=== PATIENT | female | born 1970 | race Caucasian/White ===

== ENCOUNTER 2022-08-21 13:46 | Emergency (ER) | payer BC, SELFPAY ==
[2022-08-21 14:06] VITALS: BP 153/93; PULSE 93; RESP 20; TEMP 36.7; O2SAT 95; BMI 41.0
[2022-08-21 14:42] LABS: Glucometer 98 mg/dL (74-106)
--- NOTE | 2022-08-21 14:44 | PC.NURSE ---
PT BEING SEEN FOR BILAT LOWER EXT SWELLING AND CHRONIC PVD NO WOUNDS/DRAINAGE NOTED AT THIS TIME NO INJURY BS CHECKED PER DR MICHELLE TEJADA, BS 98.
--- NOTE | 2022-08-21 14:46 | ED.LOWEXI1 ---
HPI - Extremity Injury (Lower) General Chief Complaint: Extremity Injury, Lower Stated Complaint: LOWER SWELLING AND PAIN Time Seen by Provider: 08/21/22 14:11 Source: patient Mode of arrival: walk-in Limitations: no limitations History of Present Illness HPI Narrative: Patient is a 51-year-old female whose coming in today complaining of acute on chronic leg edema. Patient also has acute on chronic plantar fasciitis. Patient showed me a picture of her lower foot/ankle last evening, it was more swollen than it is today. 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 Patient states that she's been serving for over 30 years. Patient had plantar fasciitis for over 20-30 years. Patient has been told to find a job but she has not. Patient seen her PCP in podiatry for plantar fasciitis. Patient does take furosemide 20 mg daily. Patient's PCP is Dr. Welch. Patient is here because the right lower leg swelling is causing some mild pain. No significant unilateral swelling,no chest pain, no shortness of breath, no fever, chills, no other acute complaints. Related Data Home Medications Medication Instructions Recorded Confirmed albuterol sulfate 90 mcg/actuation 1 puff inhalation Q4H PRN 08/21/22 08/21/22 aerosol inhaler shortness of breath or wheezing alprazolam 0.5 mg tablet 0.5 mg PO TID PRN anxiety 08/21/22 08/21/22 dextroamphetamine-amphetamine ER 30 mg PO DAILY 08/21/22 08/21/22 30 mg 24hr capsule,extend release estradiol 0.025 mg/24 hr weekly 1 patch transdermal DAILY 08/21/22 08/21/22 transdermal patch fluoxetine 20 mg capsule 20 mg PO DAILY 08/21/22 08/21/22 furosemide 20 mg tablet 20 mg PO DAILY 08/21/22 08/21/22 gabapentin 300 mg capsule 300 mg PO Q12H 08/21/22 08/21/22 hydrocodone 10 mg-acetaminophen 1 tab PO Q6H PRN pain 08/21/22 08/21/22 325 mg tablet levothyroxine 100 mcg tablet 100 mcg PO DAILY 08/21/22 08/21/22 tizanidine 4 mg tablet 4 mg PO .night time 08/21/22 08/21/22 zolpidem 12.5 mg tablet,extended 12.5 mg PO DAILY 08/21/22 08/21/22 release,multiphase Allergies Allergy/AdvReac Type Severity Reaction Status Date / Time No Known Drug Allergies Allergy Verified 08/21/22 14:05 Review of Systems ROS Narrative All systems are negative except as noted/marked. All systems reviewed and otherwise negative. Exam Narrative Exam Narrative: Nurses note and vital signs reviewed and patient is not hypoxic. General: The patient appears well and in no apparent distress. Patient is resting comfortably on cart. Patient is not toxic, lethargic, or listless Skin: Warm, dry, no pallor noted. There is no rash noted. No petechiae, purpura. Head: Normocephalic, atraumatic Eye: Normal conjunctiva, no drainage, EOMI. PERRL Ears, Nose, Mouth, and Throat: oral mucosa is moist. Nares patent. Mouth without vesicles. Cardiovascular: Regular Rate and Rhythm, no murmur, gallop, rub Respiratory: Patient is in no distress, no accessory muscle use, lungs are clear to auscultation, no wheezing, rales or rhonchi Back: non-tender, no CVA tenderness bilaterally to percussion. No CT LS midline pain GI: soft, no tenderness to palpation, no masses appreciated. No rebound, guarding, or rigidity noted. No flank pain bilateral, No distention Musculoskeletal: Patient has full range of motion of all of the extremities, no motor, sensory, or focal neurological deficits. Patient has no pain to the posterior aspect of bilateral calves, popliteal fossa, and posterior thighs. no pitting edema to bilateral lower extremities. Neurological: A&O x3, normal speech Psychiatric: Cooperative Constitutional Vital Signs - 24 hr 08/21/22 14:06 Temperature 98.1 F Pulse Rate [Monitor] 93 H Respiratory Rate 20 Blood Pressure [Right Arm] 153/93 H Pulse Oximetry 95 Oxygen Delivery Method Room Air Course Vital Signs Vital signs: Vital Signs Temperature 98.1 F 08/21/22 14:06 Pulse Rate 93 H 08/21/22 14:06 Respiratory Rate 20 08/21/22 14:06 Blood Pressure 153/93 H 08/21/22 14:06 Pulse Oximetry 95 08/21/22 14:06 Oxygen Delivery Method Room Air 08/21/22 14:06 Temperature 98.1 F 08/21/22 14:06 Pulse Rate 93 H 08/21/22 14:06 Respiratory Rate 20 08/21/22 14:06 Blood Pressure 153/93 H 08/21/22 14:06 Pulse Oximetry 95 08/21/22 14:06 Oxygen Delivery Method Room Air 08/21/22 14:06 MDM - Extremity Injury (Lower) MDM Narrative Medical decision making narrative: 10 a 50 minutes was spent talking to patient about education for peripheral edema, things that she can do at home and in talking about the [employer] football 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 Patient will start to elevate her legs at nighttime either with lifts at the end of her 0 gravity bed or incline her feet at least 1-2 feet above her heart wall she sleeping help with some of the peripheral edema. Patient is going to increase her Lasix from 20 mg a 40 mg only for the next 3 days. Patient will follow-up with Dr. Welch on Wednesday. Education was done on ice, stretching, and possibly using and start wearing CROCS for her 20-30 year symptoms of plantar fasciitis. Discussions of waiting tables and walking on hard ground for that amount of time was discussed. Patient was very thankful for help. No acute indication for testing at this time. Lab Data Labs: Lab Results 08/21/22 Range/Units 14:39 POC Glucose 98 (74-106) mg/dL Discharge Plan Discharge Chief Complaint: Extremity Injury, Lower Clinical Impression: Plantar fasciitis, Edema, peripheral Patient Disposition: Home, Self-Care Time of Disposition Decision: 14:51 Prescriptions / Home Meds: No Action albuterol sulfate 90 mcg/actuation HFA aerosol inhaler 1 puff INHALATION Q4H PRN (Reason: shortness of breath or wheezing) alprazolam 0.5 mg tablet 0.5 mg PO TID PRN (Reason: anxiety) dextroamphetamine-amphetamine 30 mg capsule,extended release 24hr 30 mg PO DAILY estradiol 0.025 mg/24 hr patch weekly 1 patch transdermal DAILY fluoxetine 20 mg capsule 20 mg PO DAILY furosemide 20 mg tablet 20 mg PO DAILY gabapentin 300 mg capsule 300 mg PO Q12H hydrocodone-acetaminophen 10-325 mg tablet 1 tab PO Q6H PRN (Reason: pain) levothyroxine 100 mcg tablet 100 mcg PO DAILY tizanidine 4 mg tablet 4 mg PO .night time zolpidem 12.5 mg tablet,ext release multiphase 12.5 mg PO DAILY Instructions: Plantar Fasciitis (ED), Edema (ED) Additional Instructions: For 3 days, including today; Wednesday, Wednesday, Wednesday, double your dose of forsemide. so take 40 mg today, tomorrow, and Wednesday. Follow-up with Dr. Welch for any other recommendations. Try CROCS for your plantar fasciitis chronic as discussed Stand Alone Forms: Portal Instructions Referrals: ELKIN WELCH [Primary Care Provider] - 1 week Discharge Date/Time: 08/21/22 15:02
== END 2022-08-21 15:02 | disposition home or self-care (01) ==
PROVIDERS: Emergency Provider Emergency Medicine; PCP Internal Medicine
DX: M72.2 Plantar fascial fibromatosis (principal); R60.9 Edema, unspecified; Z79.899 Other long term (current) drug therapy; Z79.890 Hormone replacement therapy
CPT/HCPCS: 36415; 82948; 99282

== ENCOUNTER 2023-05-18 14:09 | Outpatient (OUT) | payer BC, SELFPAY ==
--- NOTE | 2023-05-18 14:14 | MM_ITS ---
Patient Name: BLANKA VALENTIN MR#: [id number] : 1970 Exam Date: 05/18/2023 Ordering Doctor: DR ANTHONY BALES RADIOLOGY REPORT PROCEDURE: MM TOMOSYNTHESIS SCREENING BI COMPARISON: MG MAMM SCREEN PIERRE W CAD, 01/09/2020. MG MAMM SCREEN 3D PIERRE CAD, 04/07/2022. INDICATIONS: Screening Calculator Name NCI Breast Cancer Risk Assessment Tool 5 Year Breast Cancer Risk 1.20% Lifetime Breast Cancer Risk 9.40% Personal Breast Cancer No Personal Ovarian Cancer No Treatments None Family Cancers None LOCATION: [facility] BREAST COMPOSITION: Scattered areas fibroglandular density. FINDINGS: DIAGNOSTIC CATEGORY 1--NEGATIVE. NO CHANGE FROM COMPARISON ASSESSMENT. Scattered benign-appearing calcifications are present. Scattered benign-appearing lymph nodes are present. RIGHT BREAST: No significant suspicious finding. LEFT BREAST: No significant suspicious finding. RECOMMENDATIONS: ROUTINE MAMMOGRAM AND CLINICAL EVALUATION IN 12 MONTHS. PLEASE NOTE: A NORMAL MAMMOGRAM DOES NOT EXCLUDE THE POSSIBILITY OF BREAST CANCER. A CLINICALLY SUSPICIOUS PALPABLE LUMP SHOULD BE BIOPSIED. Dictated by: Ancelmo Montano MD on 05/18/2023 at 15:50 Approved by: Ancelmo Montano MD on 05/18/2023 at 15:51
== END 2023-05-18 14:10 | disposition home or self-care (01) ==
LOC: MAMMO 14:09
PROVIDERS: PCP Internal Medicine; Visit Provider Physician Assistant
DX: Z12.31 Encounter for screening mammogram for malignant neoplasm of breast (principal)
CPT/HCPCS: 77063; 77067

== ENCOUNTER 2024-04-28 21:34 | Emergency (ER) | payer BC, SELFPAY ==
[2024-04-28 21:39] VITALS: BP 152/87; PULSE 81; TEMP 36.6; O2SAT 99; BMI 43.0
--- OUTSIDE RECORDS SUMMARY | 2024-04-28 21:43 | XMS_ITS | CCD ---
Author Organization [facility] CliniSynv Care Team Providers Care Warehouse Logistics Coordinator Name Role Phone PROVIDER, UNKNOWN Attending Unavailable PROVIDER, UNKNOWN Admitting Unavailable YURI, DR GRANGER Attending Unavailable YURI, DR GRANGER Consulting Unavailable YURI, DR GRANGER Primary Care Unavailable YURI, DR GRANGER Admitting Unavailable CHALREY, DR NORA Gayle Consulting Unavailable JOSELIN Salcedo Primary Care Provider [phone] MD Shay Patel Emergency Provider DO Louis Beal Admit Provider DO Louis Beal Attending Provider DO Louis Beal Attending Provider MD Nicholas Man Emergency Provider BLANE Mathew Attending Provider [phone] DO Alex Sierra Attending Provider Erick Salcedo MD Unavailable Erick Salcedo MD Primary Care Provider Wednesday PAPIER MACHE' MOLDER, Prachi Unavailable JOSELIN Salcedo Primary Care Provider MD Shay Patel Emergency Provider DO Louis Beal Attending Provider MD Nicholas Man Emergency Provider [phone] BLANE Mathew Attending Provider DO Alex Sierra Attending Provider Erick Salcedo II Primary Care Provider Shay Patel MD Emergency Provider [phone] Louis Beal DO Attending Provider Nicholas Man MD Emergency Provider Quincy DOPSTER-C, Martine Everett Attending Provider [phone] Alex Sierra DO Attending Provider CRIS MORAN Attending Unavailable AVRIL CLAUDIO Attending Unavailable EMY AMADOR Attending Unavailable AVRIL CLAUDIO Referring Unavailable CRIS MORAN Attending Unavailable CRIS MORAN Attending Unavailable CRIS MORAN Attending Unavailable Salcedo , Erick Primary Care Provider Alex Sierra DO Attending Provider Self, Referral Attending Provider Unavailable Nicholas Man Admitting Unavailable Nicholas Man Attending Unavailable Salcedo, Erick Primary Care Unavailable Mariela, Alex A Attending Unavailable Mariela, Alex A Admitting Unavailable Salcedo, Erick Primary Care Unavailable Lian, Louis A Attending Unavailable Louis Beal A Admitting Unavailable Salcedo, Erick Primary Care Unavailable Salcedo, Erick Primary Care Unavailable Mariela, Alex A Attending Unavailable Mariela, Alex A Admitting Unavailable Quincy, Martine Everett Admitting Unavailable Quincy, Matrine Everett Attending Unavailable Salcedo, Erick Primary Care Unavailable Mariela, Alex A Admitting Unavailable Mariela, Alex A Attending Unavailable Salcedo, Erick Primary Care Unavailable Mariela, Alex A Admitting Unavailable Mariela, Alex A Attending Unavailable Salcedo, Erick Primary Care Unavailable Mariela, Alex A Attending Unavailable Mariela, Alex A Admitting Unavailable Salcedo, Erick Primary Care Unavailable Self, Referral Admitting Unavailable Self, Referral Attending Unavailable Salcedo, Erick Primary Care Unavailable Shay Patel Admitting Unavailable Shay Patel Attending Unavailable Salcedo, Erick Primary Care Unavailable Dean DOPSTER, Cris Manzano Unavailable Lorrie CORDOVA, Pippa Unavailable [phone] Wednesday Prachi STEPHENSON Unavailable Allergies Allergy Classification Reported Allergen(s) Allergy Type Date of Onset Reaction(s) Facility (16 sources) Codeine Drug Allergy 4 Unknown Reaction The Repository (20 sources) methylPREDNISolo ne; Translations: [methylprednisol one] Drug Allergy 4 Other [facility] (20 sources) Codeine Drug Allergy 3 Unknown [facility] (20 sources) Penicillin G Drug Allergy 3 Unknown [facility] (1 source) Codeine Drug Allergy 4 [facility] Repository Medications Current Medications Medication Drug Class(es) Dates Sig (Normalized) Sig (Original) acetaminophen 500 mg oral tablet (20 sources) Start: 12-07-2023 take 1 tablet by mouth every six hours as needed for pain Acetaminophen 500 mg tablet Active 500 MG PO Q6H as needed for Pain December 06, 2023 11:00pm Start: 11-10-2023 take 1 tablet by cameron th every eight hours as needed GNP PAIN RELIEF EX-STRENGTH 500 MG tablet Take 500 mg by mouth every 8 (eight) hours if needed 11/10/2023 Active Start: 11-10-2023 take 2 tablets by mo uth every eight hours as needed for pain Acetaminophen (Tylenol Extra Strength) 500 mg tablet Active 1000 MG PO .every 8 hrs as needed for pain 180 November 09, 2023 11:00pm [id number] 200 actuat albuterol 0.09 mg/actuat metered dose inhaler (20 sources) beta2-Adrenergic Agonist Start: 06-24-2023 take 1 puff(s) by inhalation every four hours as needed albuterol HFA 90 mcg/act inhaler Indications: Acute bronchospasm INHALE 1 PUFF INTO THE LUNGS EVERY 4 HOURS NEEDED 18 g 5 06/24/2023 Active ALPRAZolam 0.5 mg oral tablet (20 sources) Benzodiazepine Start: 11-10-2023 Alprazolam Active MG PO November 10, 2023 12:00am Start: 10-28-2023 End: 07-16-2024 take 1 tablet by mouth three times daily as needed for anxiety ALPRAZolam (Xanax) 0.5 MG tablet Indications: Anxiety Take 1 tablet (0.5 mg) by mouth 3 (three) times a day as needed for anxiety 90 tablet 04/17/2024 07/16/2024 Active 24 hr amphetamine aspartate 7.5 mg / amphetamine sulfate 7.5 mg / dextroamphetamine saccharate 7.5 mg / dextroamphetamine sulfate 7.5 mg extended release oral capsule (20 sources) Central Nervous System Stimulant Start: 01-18-2024 End: 04-10-2024 take 1 capsule by mouth once amphetamine-dextroamphetamine XR (Adderall XR) 30 MG 24 hr capsule Indications: Attention deficit hyperactivity disorder (ADHD), unspecified ADHD type (CMS/HCC) Take 1 capsule (30 mg) by mouth every 12 (twelve) hours 60 capsule 04/11/2024 Active Start: 11-22-2023 take 1 capsule by mo ut once amphetamine-dextroamphetamine XR (Addera ll XR) 30 MG 24 hr capsule Indications: Attention deficit hyperactivity disorder (ADHD), unspecified ADHD type (CMS/HCC) Take 1 capsule (30 mg) by mouth every 12 (twelve) hours 60 capsule 11/22/2023 Active Start: 11-11-2023 take 1 capsule by mo [facility] twice daily Dextroamphetamine-Amphetamine 30 mg capsule,extended release 24hr Active 30 MG PO Twice daily November 10, 2023 11:00pm Start: 11-10-2023 take 1 tablet by [facility] once daily Dextroamphetamine-Amphetamine (Adderall) 30 mg tablet Active 30 MG PO Daily November 09, 2023 11:00pm Start: 10-21-2023 End: 01-15-2024 take 1 capsule by mouth once amphetamine-dextroamphetamine XR (Addera ll XR) 30 MG 24 hr capsule Indications: Attention deficit hyperactivity disorder (ADHD), unspecified ADHD type (CMS/HCC) Take 1 capsule (30 mg) by mouth every 12 (twelve) hours 60 capsule 12/17/2023 01/15/2024 Discontinued (Reorder) dicyclomine hydrochloride 10 mg oral capsule (20 sources) Anticholinergic Start: 11-10-2023 take 1 capsule by mouth three times daily Dicyclomine 10 mg capsule Active 10 MG PO Three times daily November 09, 2023 11:00pm 168 hr estradiol 0.11039 mg/hr transdermal system (20 sources) Estrogen Start: 12-27-2023 estradiol (Climara) 0.025 MG/24HR Indications: Symptomatic menopausal or female climacteric states Place 1 patch on the skin 1 (one) time per week 12 patch 2 12/27/2023 Active Start: 11-10-2023 Estradiol 0.02 5 mg/24 hr patch weekly Active 1 PATCH TOPICAL .qweekly November 09, 2023 11:00pm Start: 11-10-2023 Estradiol Acti ve 1 PATCH TOPICAL .qweekly November 09, 2023 11:00pm Start: 07-26-2023 End: 12-27-2023 estradiol (Climara) 0.025 MG /24HR Indications: Symptomatic menopausal or female climacteric states APPLY 1 PATCH TO SKIN ONCE A WEEK 12 patch 2 07/26/2023 12/27/2023 Discontinued (Reorder) FLUoxetine 40 mg oral capsule (20 sources) Serotonin Reuptake Inhibitor Start: 11-10-2023 Fluoxetine Active MG PO November 10, 2023 12:00am Start: 05-11-2023 take 1 capsule by mo uth once daily FLUoxetine (PROzac) 40 MG capsule Indications: Adjustment disorder with depressed mood (CMS/HCC) TAKE 1 CAPSULE BY MOUTH EVERY DAY FOR 90 DAYS 90 capsule 3 05/11/2023 Active Start: 09-04-2022 take 1 capsule by mo uth once daily FLUoxetine (PROzac) 20 MG capsule Indications: Adjustment disorder with depressed mood (CMS/HCC) TAKE 1 CAPSULE BY MOUTH EVERY DAY 90 capsule 1 09/04/2022 Active furosemide 20 mg oral tablet (20 sources) Loop Diuretic Start: 11-10-2023 Furosemide Act gabriela MG PO November 10, 2023 12:00am Start: 07-26-2023 take 1 tablet by cameron once daily as needed for edema furosemide (Lasix) 20 MG tablet Indications: Localized edema TAKE 1 TABLET BY MOUTH EVERY DAY NEEDED FOR EDEMA 100 tablet 3 07/26/2023 Active gabapentin 300 mg oral capsule (20 sources) Anti-epileptic Agent Start: 11-10-2023 take 1 capsule by mouth once daily Gabapentin 300 mg capsule Active 300 MG PO Daily November 09, 2023 11:00pm Start: 02-11-2023 take 1 capsule by mo uth twice daily gabapentin (Neurontin) 300 MG capsule Indications: Cervical paraspinal muscle spasm TAKE 1 CAPSULE BY MOUTH TWICE DAILY 180 capsule 4 02/11/2023 Active levothyroxine sodium 0.1 mg oral tablet (20 sources) l-Thyroxine Start: 11-10-2023 Levothyroxine Active MCG PO November 10, 2023 12:00am Start: 01-15-2023 End: 02-01-2024 take 1 tablet by mouth once daily in the morning levothyroxine (Synthroid, Levoxyl) 100 MCG tablet Indications: Hypothyroidism, unspecified (CMS/HCC) TAKE 1 TABLET BY MOUTH EVERY DAY IN THE MORNING ON EMPTY STOMACH 100 tablet 3 02/01/2024 Active loratadine 10 mg oral tablet (20 sources) Start: 11-10-2023 take 1 tablet by mouth once daily Loratadine (Allergy Relief (Loratadine)) 10 mg tablet Active 10 MG PO Daily November 09, 2023 11:00pm oxyCODONE hydrochloride 10 mg oral tablet (20 sources) Opioid Agonist Start: 12-14-2023 End: 05-02-2024 take 1 tablet by mouth every six hours for pain oxyCODONE (Roxicodone) 10 MG immediate release tablet Indications: Closed displaced fracture of right patella, unspecified fracture morphology, sequela Take 1 tablet (10 mg) by mouth every 6 (six) hours if needed for severe pain for up to 7 days 28 tablet 04/25/2024 05/02/2024 Active Start: 12-07-2023 End: 01-18-2024 take 1 tablet by mouth every six hours as needed for pain Oxycodone 5 mg tablet Discontinued 5 MG PO Q6H as needed for Pain 40 December 10, 2023 January 18, 2024 1:46pm Start: 11-10-2023 End: 01-18-2024 take 1 tablet by mouth every four hours as needed for pain Oxycodone 5 mg tablet Discontinued 5 MG PO Q4H as needed for Pain 42 7 December 02, 2023 January 18, 2024 1:46pm Dispense quantity of forty two tablets S82.009A, Z98.890 Tirzepatide (Weight Loss) (14 sources) Start: 11-10-2023 Tirzepatide (W eight Loss) (Zepbound) 5 mg/0.5 mL pen injector Active 5 MG SUBCUT every week November 09, 2023 11:00pm On Hold: not taking Start: 11-10-2023 Tirzepatide (W eight Loss) (Zepbound) 5 mg/0.5 mL pen injector Active 5 MG SUBCUT every week November 10, 2023 12:00am On Hold: not taking Start: 11-10-2023 Tirzepatide (W eight Loss) (Zepbound) 5 mg/0.5 mL pen injector Active 5 MG SUBCUT every week November 10, 2023 12:00am Tirzepatide-Weight Management (Zepbound) 5 MG/0.5ML solution auto-injector (20 sources) Start: 10-28-2023 inject 5 mg by subcutaneous injection every week Tirzepatide-Weight Management (Zepbound) 5 MG/0.5ML solution auto-injector Indications: Obesity (BMI 35.0-39.9 without comorbidity) Inject 5 mg under the skin 1 (one) time per week 2 mL 10/28/2023 Active tiZANidine 4 mg oral tablet (20 sources) Central alpha-2 Adrenergic Agonist Start: 11-10-2023 take 1 tablet by mouth once daily at bedtime Tizanidine 4 mg tablet Active 4 MG PO Daily at bedtime November 09, 2023 11:00pm Start: 11-10-2023 Tizanidine Act gabriela MG PO November 10, 2023 12:00am Start: 02-11-2023 take 1 tablet by cameron th three times daily tiZANidine (Zanaflex) 4 MG tablet Indications: Degenerative disc disease, cervical TAKE 1 TABLET BY MOUTH THREE TIMES A DAY 270 tablet 4 02/11/2023 Active zolpidem tartrate 12.5 mg extended release oral tablet (20 sources) gamma-Aminobutyric Acid-ergic Agonist Start: 11-10-2023 Zolpidem Active MG PO November 10, 2023 12:00am Start: 10-28-2023 End: 12-27-2023 take 1 tablet by mouth at bedtime zolpidem CR (Ambien CR) 12.5 MG ER tablet Indications: Primary insomnia Take 1 tablet (12.5 mg) by mouth at bedtime 30 tablet 5 12/27/2023 Active Completed/Discontinued Medications Medication Drug Class(es) Dates Sig (Normalized) Sig (Original) acetaminophen 325 mg / HYDROcodone bitartrate 5 mg oral tablet (16 sources) Opioid Agonist Start: 11-06-2023 End: 11-11-2023 take 1 tablet by mouth every four to six hours as needed for pain Hydrocodone-Acetami nophen 5-325 mg tablet Discontinued 1 TAB PO EVERY 4-6 HOURS as needed for Pain 14 2 November 06, 2023 November 11, 2023 10:31am Start: 10-28-2023 End: 11-27-2023 take 1 tablet by mouth every six hours for pain HYDROcodone-acetaminophen ([place]) 10-325 MG tablet Indications: Degeneration of cervical intervertebral disc Take 1 tablet by mouth every 6 (six) hours if needed for severe pain (Back pain) 120 tablet 10/28/2023 11/27/2023 Active Albuterol-Budesonide (12 sources) Start: 11-10-2023 End: 11-10-2023 Albuterol-Budesonide Discont inued 2 INH INHALATION Six times daily November 09, 2023 11:00pm November 10, 2023 11:10am Start: 11-10-2023 End: 11-10-2023 Albuterol-Budesonide Discont inued 2 INH INHALATION Six times daily November 10, 2023 12:00am November 10, 2023 12:10pm Start: 11-10-2023 Albuterol-Mazon sonide Active 2 INH INHALATION Six times daily November 10, 2023 12:00am Albuterol-Budesonide 90-80 mcg/actuation HFA aerosol inhaler (2 sources) Start: 11-10-2023 End: 11-10-2023 Albuterol-Budesonide 90-80 mcg/actuation HFA aerosol inhaler Discontinued 2 INH INHALATION Six times daily as needed November 09, 2023 11:00pm November 10, 2023 11:10am aspirin 81 mg chewable tablet (8 sources) Platelet Aggregation Inhibitor, Nonsteroidal Anti-inflammator y Drug Start: 12-07-2023 End: 03-20-2024 take 1 tablet by mouth twice daily Aspirin 81 mg tablet,chewable Discontinued 81 MG PO Twice daily 60 December 06, 2023 11:00pm March 20, 2024 3:49pm cephalexin 500 mg oral capsule (11 sources) Cephalosporin Antibacterial Start: 11-18-2023 End: 12-21-2023 take 2 capsules by mouth twice daily Cephalexin 500 mg capsule Discontinued 1000 MG PO Twice daily 09 10November 17, 2023 11:00pm December 21, 2023 1:28pm Start: 11-18-2023 End: 12-21-2023 take 1000 mg by mouth twice daily Cephalexin Discontinued 1000 MG PO Twice daily 09 10November 17, 2023 11:00pm December 21, 2023 1:28pm docusate sodium 100 mg oral capsule (8 sources) Start: 12-07-2023 End: 03-02-2024 take 1 capsule by mouth twice daily as needed for constipation Docusate Sodium (Colace) 100 mg capsule Discontinued 100 MG PO Twice daily as needed for Constipation 20 December 06, 2023 11:00pm March 02, 2024 11:06am doxycycline hyclate 100 mg oral capsule (20 sources) Tetracyclin e-class Drug Start: 12-07-2023 End: 01-18-2024 take 1 capsule by mouth twice daily Doxycycline Hyclate 100 mg capsule Discontinued 100 MG PO Twice daily 25 09December 21, 2023 2:10pm January 18, 2024 1:46pm Start: 12-02-2023 End: 12-21-2023 take 1 tablet by mouth twice daily Doxycycline Hyclate 100 mg tablet Discontinued 100 MG PO Twice daily 14 December 01, 2023 11:00pm December 21, 2023 1:28pm ketorolac tromethamine 10 mg oral tablet (14 sources) Nonsteroidal Anti-inflammatory Drug, Cyclooxygenase Inhibitor Start: 11-10-2023 End: 11-11-2023 take 1 tablet by mouth every eight hours Ketorolac 10 mg tablet Discontinued 10 MG PO Every 8 hours November 09, 2023 11:00pm November 11, 2023 10:31am maximum total duration of 5 days from all oral, intranasal, or parenteral formulations meloxicam 15 mg oral tablet (8 sources) Nonsteroidal Anti-inflammatory Drug Start: 12-07-2023 End: 03-20-2024 take 1 tablet by mouth once daily Meloxicam 15 mg tablet Discontinued 15 MG PO daily 14 December 06, 2023 11:00pm March 20, 2024 3:49pm On Hold: not taking traMADol hydrochloride 50 mg oral tablet (20 sources) Opioid Agonist Start: 11-10-2023 End: 12-21-2023 take 1 tablet by mouth every four hours as needed for pain Tramadol 50 mg tablet Discontinued 50 MG PO Q4H as needed for Pain 42 November 25, 2023 10:55am December 21, 2023 1:28pm Dispense quantity of forty two tablets S82.009A, z98.890 Problems Active Problems Problem Classification Problem Date Documented Da te Episodic/Chronic Adjustment disorders (20 sources) Adjustment disorder; Translations: [Adjustment disorder, unspecified] Onset: 08-12-2022 08-12-2022 Chronic Anxiety disorders (20 sources) Anxiety; Translations: [Anxiety disorder, unspecified] Onset: 08-12-2022 08-12-2022 Chronic Attention-deficit, conduct, and disruptive behavior disorders (20 sources) Attention deficit hyperactivity disorder; Translations: [Attention-deficit hyperactivity disorder, unspecified type] Onset: 08-12-2022 08-12-2022 Chronic Essential hypertension (20 sources) Hypertensive disorder; Translations: [Essential (primary) hypertension] Onset: 08-12-2022 08-12-2022 Chronic Fracture of lower limb (20 sources) Fracture of patella; Translations: [Unspecified fracture of unspecified patella, initial encounter for closed fracture] Onset: 11-12-2023 11-06-2023 Episodic Menopausal disorders (20 sources) Menopausal symptom; Translations: [Menopausal and female climacteric states] Onset: 08-12-2022 08-12-2022 Chronic Miscellaneous mental health disorders (1 source) Primary insomnia; Translations: [Primary insomnia] 12-27-2023 Chronic Other aftercare (5 sources) Encounter for removal of sutures; Translations: [Encounter for removal of sutures] 12-21-2023 Episodic Other gastrointestinal disorders (20 sources) Irritable bowel syndrome; Translations: [Irritable bowel syndrome without diarrhea] Onset: 08-12-2022 08-12-2022 Chronic Other nervous system disorders (11 sources) Postoperative pain ; Translations: [Other acute postprocedural pain] 11-18-2023 Episodic Other nutritional; endocrine; and metabolic disorders (20 sources) Body mass index 30+ - obesity; Translations: [Obesity, unspecified] Onset: 08-12-2022 08-12-2022 Chronic Other screening for suspected conditions (not mental disorders or infectious disease) (4 sources) Encounter for screening mammogram for malignant neoplasm of breast; Translations: [ENC SCR MAMMO MALIG NEOPLASM BREAST] Onset: 04-07-2022 Episodic Other upper respiratory disease (20 sources) Seasonal allergic rhinitis; Translations: [Other seasonal allergic rhinitis] Onset: 08-12-2022 3 Chronic Other upper respiratory infections (20 sources) Sinusitis; Translations: [Chronic sinusitis, unspecified] Onset: 08-12-2022 08-12-2022 Chronic Otitis media and related conditions (14 sources) Dysfunction of eustachian tube; Translations: [Unspecified Eustachian tube disorder, unspecified ear] 11-10-2023 Episodic Residual codes; unclassified (10 sources) Postprocedural state finding; Translations: [Other specified postprocedural states] 12-02-2023 Episodic Residual codes; unclassified (20 sources) Other specified postprocedural states; Translations: [Other postprocedural status] Onset: 02-03-2024 12-02-2023 Episodic Spondylosis; intervertebral disc disorders; other back problems (20 sources) Degeneration of intervertebral disc; Translations: [Degeneration of intervertebral disc] Onset: 08-12-2022 11-10-2023 Chronic Thyroid disorders (20 sources) Acquired hypothyroidism; Translations: [Hypothyroidism, unspecified] Onset: 08-12-2022 08-12-2022 Chronic Urinary tract infections (11 sources) Urinary tract infectious disease; Translations: [Urinary tract infection, site not specified] 11-18-2023 Episodic Past or Other Problems Problem Classification Problem Date Documented Da te Episodic/Chronic Complication of device; implant or graft (1 source) Breakdown (mechanical) of internal fixation device of bone of right lower leg, initial encounter; Translations: [Breakdown (mechanical) of internal fixation device of bone of right lower leg, initial encounter] Onset: 12-08-2023 Episodic Other connective tissue disease (20 sources) Plantar fasciitis; Translations: [Plantar fascial fibromatosis] Onset: 08-12-2022 11-10-2023 Episodic Other connective tissue disease (20 sources) Spasm of cervical paraspinous muscle; Translations: [Other muscle spasm] Onset: 08-12-2022 08-12-2022 Episodic Other connective tissue disease (1 source) Other specified soft tissue disorders; Translations: [Other specified soft tissue disorders] Onset: 11-18-2023 Episodic Other non-traumatic joint disorders (1 source) Pain in right knee; Translations: [Pain in right knee] Onset: 11-18-2023 Episodic Residual codes; unclassified (20 sources) Insomnia; Translations: [Insomnia, unspecified] Onset: 08-12-2022 11-10-2023 Episodic Results Test Name Value Interpretation Reference Range Facility XR knee RT 3V - NOT FOR ER U Harshad 02-03-2024 XR knee RT 3V - NOT FOR ER USE [facility] [address] [place] [id number] XRay Report Signed Patient: Nimo Craft MR#: [id number] 88 : 1970 Acct:[id number] Age/Sex: 53 / F ADM Date: 02/03/24 Loc: [facility] Room: Type: REG CLI Attending Dr: Alex Sierra DO Copies to: Alex Sierra DO Ordering Provider: Alex Sierra DO Date of Service: 02/03/24 XR/XR knee RT 3V - NOT FOR ER USE: OKAY TO BEND KNEE RIGHT KNEE - 3 views CLINICAL HISTORY: Status post ORIF right patella with hardware removal. COMPARISON: Right knee 01/18/2024 FINDINGS: Patella samantha is present with patellar fracture line less conspicuous suggestive of healing response. There is underlying sclerosis. Small joint effusion. Mild degenerative changes. XR/XR knee RT 3V - NOT FOR ER USE IMPRESSION: HEALING PATELLAR FRACTURE. Impression dictated by: Arun Chun Jr., D.O.02/03/2024 3:32 PM Dictation Location: [place] [address] Transcribed By: [facility] 02/03/24 1532 Dictated By: Arun Chun Jr, DO 02/03/24 1531 Signed By: 02/03/24 1532 Normal [facility] XR knee RT 3V - NOT FOR ER U Harshad 01-18-2024 XR knee RT 3V - NOT FOR ER USE [facility] [address] [place] [id number] XRay Report Signed Patient: Nimo Craft MR#: [id number] 88 : 1970 Acct:[id number] Age/Sex: 53 / F ADM Date: 01/18/24 Loc: [facility] Room: Type: REG CLI Attending Dr: Alex Sierra DO Copies to: Alex Sierra DO Ordering Provider: Alex Sierra DO Date of Service: 01/18/24 XR/XR knee RT 3V - NOT FOR ER USE: S82.031A - Displaced transverse fracture of right patella... 3 views right knee plain film COMPARISON: 12/21/2023 HISTORY: Status post ORIF right patellar fracture ACUTE FINDINGS: Stable alignment. Continued healing. DEGENERATIVE CHANGE: Unremarkable SOFT TISSUE FINDINGS: Unremarkable JOINT EFFUSION: None POSTOP CHANGES: None BONE MINERALIZATION: Adequate XR/XR knee RT 3V - NOT FOR ER USE IMPRESSION: Healing patellar fracture. Impression dictated by: Viktor Hong M.D.01/18/2024 4:23 PM Dictation Location: [place] [address] Transcribed By: [facility] 01/18/24 1623 Dictated By: Viktor Hong DO 01/18/241621 Signed By: 01/18/24 1623 Normal [facility] XR knee RT 2Von 12-21-2023 XR knee RT 2V [facility] [address] [place] [address] XRay Report Signed Patient: Nimo Craft MR#: [id number] 88 : 1970 Acct:[id number] Age/Sex: 53 / F ADM Date: 12/21/23 Loc: [facility] Room: Type: [facility] Attending Dr: Alex Sierra DO Copies to: Alex Sierra DO Ordering Provider: Alex Sierra DO Date of Service: 12/21/23 XR/XR knee RT 2V: Z98.890 - Other specified postprocedural states RIGHT KNEE - 2 views CLINICAL HISTORY: Hardware removal partial palatectomy. COMPARISON: Right knee 12/02/2023 FINDINGS: Skin jose and hardware removal is seen since the prior study. Nonunion patellar fracture is seen. Minimal joint effusion. Anterior soft tissue swelling is noted. Joint spaces appear maintained. XR/XR knee RT 2V IMPRESSION: HARDWARE IS NOW BEEN REMOVED. NONUNION PATELLAR FRACTURE IS SEEN. Impression dictated by: Arun Chun Jr., D.OKenia12/21/2023 4:03 PM Dictation Location: [place] [address] Transcribed By: [facility] 12/21/23 1603 Dictated By: Arun Chun Jr, DO 12/21/23 1602 Signed By: 12/21/23 1603 Normal [facility] Amphetamine Screen Ql (U)Ord ered By: Ozzy Morel on 12-08-2023 Amphetamines Ql (U) Amphetamines screen Negativ e [facility] Amphetamines Ql (U) Negative Negative [facility] Barbiturates [Presence] in U rine by Screen methodOrdered By: Ozzy Morel on 12-08-2023 Barbiturates Screen Ql (U) Negative Negative [facility] Barbiturates Screen Ql (U) Barbiturates [Presence] in Urine by Screen method Negative [facility] Benzodiazepines Screen Ql (U )Ordered By: Ozzy Morel on 12-08-2023 Benzodiazepines Ql (U) Positive High Negative [facility] Benzodiazepines Ql (U) Benzodiazepines [Presence] in Urine by Screen method High Negative [facility] Benzoylecgonine [Presence] i n Urine by Screen methodOrdered By: Ozzy Morel on 12-08-2023 Benzoylecgonine Screen Ql (U) Negative Negative [facility] Benzoylecgonine Screen Ql (U) Benzoylecgonine [Presence] in Urine by Screen method Negative [facility] Cannabinoids [Presence] in U rine by Screen methodOrdered By: Ozzy Morel on 12-08-2023 Cannabinoids Screen Ql (U) Positive High Negative [facility] Comment on above: These are unconfirme d results and should not be used for legal purposes. Drug Cut-Off Concentration: AMPH 1000 ng/mL LIZZETTE 200 ng/mL LAWANDA 200 ng/mL COCM 300 ng/mL OP 300 ng/mL PCP 25 ng/mL THC 20 ng/mL Cannabinoids Screen Ql (U) Cannabinoids [Presence] in Urine by Screen method High Negative [facility] Comment on above: These are unconfirme d results and should not be used for legal purposes. Drug Cut-Off Concentration: AMPH 1000 ng/mL LIZZETTE 200 ng/mL LAWANDA 200 ng/mL COCM 300 ng/mL OP 300 ng/mL PCP 25 ng/mL THC 20 ng/mL Drug Screen,Urineon 12-08-19 24 Amphetamine Screen,Urine Negative Normal Negative [facility] Comment on above: Performed By: #### U RDS #### [address] Barbiturate Screen,Urine Negative Normal Negative [facility] Comment on above: Performed By: #### U RDS #### [place] [address] [place] Benzodiazepines Screen,Urine Positive High Negative [facility] Comment on above: Performed By: #### U RDS #### [address] Cannabinoid Screen,Urine Positive High Negative [facility] Comment on above: Result Comment: Thes e are unconfirmed results and should not be used for legal purposes. Drug Cut-Off Concentration: AMPH 1000 ng/mL LIZZETTE 200 ng/mL LAWANDA 200 ng/mL COCM 300 ng/mL OP 300 ng/mL PCP 25 ng/mL THC 20 ng/mL PERFORMED BY: [place] [address] PATHOLOGIST PRICE CHECKER ABDON OLIVER M.D. Performed By: #### U RDS #### [address] Cocaine Screen,Urine Negative Normal Negative [facility] Comment on above: Performed By: #### U RDS #### [address] Opiate Screen,Urine Negative Normal Negative [facility] Comment on above: Performed By: #### U RDS #### [address] Phencyclidine Screen,Urine Negative Normal Negative [facility] Comment on above: Performed By: #### U RDS #### [address] Opiates [Presence] in Urine by Screen methodOrdered By: Ozzy Morel on 12-08-2023 Opiates Screen Ql (U) Negative Negative [facility] Opiates Screen Ql (U) Opiates [Presence] in Urine by Screen method Negative [facility] Phencyclidine Screen Ql (U)O rdered By: Ozzy Morel on 12-08-2023 Phencyclidine Ql (U) Negative Negative [facility] Phencyclidine Ql (U) Phencyclidine [Presence] in Urine by Screen method Negative [facility] XR knee RT 2Von 12-02-2023 XR knee RT 2V [facility] [address] [place] [address] XRay Report Signed Patient: Nimo Craft MR#: [id number] [birth year] : 1970 Acct:[id number] Age/Sex: 53 / F ADM Date: 12/02/23 Loc: [facility] Room: Type: [facility] Attending Dr: Martine ARGUELLES Copies to: BRANDON Bernard Ordering Provider: BRANDON Bernard Date of Service: 12/02/23 XR/XR knee RT 2V: Z98.890 - Other specified postprocedural states RIGHT KNEE - 2 views COMPARISON: 11/10/2023 preoperative and intraoperative CLINICAL DATA: Follow-up patellar fracture. Continued pain and erythema at the incision site. AP and lateral weightbearing views were obtained. There are screws and a anterior plate at the patella. There is a transverse mid to lower patellar fracture. Since the comparison intraoperative study, the fracture is no longer reduced and there is approximately 3 cm of distraction of the fragments. The hardware is associated with the superior pole. The remaining bony structures in the field of view are intact. No dislocation. There is a small knee effusion. Anterior skin jose are again noted. XR/XR knee RT 2V IMPRESSION: INTERVAL HARDWARE FAILURE WITH RECURRENT, PROMINENT DISPLACEMENT OF THE PATELLAR FRACTURE FRAGMENTS, DESCRIBED. Impression dictated by: Avril Snow M.D.12/02/2023 4:02 PM Dictation Location: [place] [address] Transcribed By: [facility] 12/02/23 1602 Dictated By: Avril Snow MD 12/02/23 1556 Signed By: 12/02/23 1602 Normal [facility] US venous duplex LE RTon US venous duplex LE RT [facility] [address] [place] [address] [place] [address] Ultrasound Report Signed Patient: Nimo Craft MR#: [id number] [birth year] : 1970 Acct:[id number] Age/Sex: 53 / F ADM Date: 11/18/23 Loc: ER Room: Type: [facility] ER Attending Dr: Ordering Provider: Nicholas Man MD Date of Service: 11/18/23 US/US venous duplex LE RT: Swelling to the leg Copies to: Nicholas Man MD RIGHT LOWER EXTREMITY VENOUS DUPLEX INDICATION: Right leg edema pain and tenderness. Unilateral right lower extremity venous duplex Doppler study was obtained utilizing B-mode, color- flow and spectral Doppler. FINDINGS: The right common femoral, femoral, and popliteal veins showed adequate compressibility, color-flow and augmentation. The right posterior tibial and peroneal veins were compressible, as well as proximal greater saphenous vein. The contralateral left common femoral vein was compressible with color-flow and augmentation. US/US venous duplex LE RT IMPRESSION: NO EVIDENCE OF DEEP VENOUS THROMBOSIS IN THE RIGHT LOWER EXTREMITY. NO SUPERFICIAL THROMBOPHLEBITIS WAS NOTED. Impression dictated by: Rajan Lynn MD11/19/2023 11:36 AM Dictation Location: [facility]04 Tech: Gina Lanier Transcribed By: [facility] 11/19/23 1136 Dictated By: Rajan Lynn MD 11/19/23 1136 Signed By: 11/19/23 1136 Normal [facility] Appearance of UrineOrdered B y: Nicholas Man on 11-18-2023 Appearance (U) Urine appearance Abnormal [facility] Automated basophil %Ordered By: Nicholas Man on 11-18-2023 Basophils/100 WBC (Bld) 1.4 % Normal . [facility] Comment on above: Performed By: #### B MP, ESR, CBC #### [address] Automated basophil countOrde red By: Nicholas Man on 11-18-2023 Basophils (Bld) [#/Vol] 0.1 10*3/uL Normal 0.0-0.2 [facility] Comment on above: Performed By: #### B MP, ESR, CBC #### [address] Automated blood monocyte cou ntOrdered By: Nicholas Man on 11-18-2023 Monocytes (Bld) [#/Vol] 0.5 10*3/uL Normal 0.0-0.8 [facility] Comment on above: Performed By: #### B MP, ESR, CBC #### [address] Automated eosinophil %Ordere d By: Nicholas Man on 11-18-2023 Eosinophils/100 WBC (Bld) 2.7 % Normal . [facility] Comment on above: Performed By: #### B MP, ESR, CBC #### [address] Automated eosinophil countOr dered By: Nicholas Man on 11-18-2023 Eosinophils (Bld) [#/Vol] 0.2 10*3/uL Normal 0.0-0.45 [facility] Comment on above: Performed By: #### B MP, ESR, CBC #### [address] Automated monocyte %Ordered By: Nicholas Man on 11-18-2023 Monocytes/100 WBC (Bld) 6.3 % Normal . [facility] Comment on above: Performed By: #### B MP, ESR, CBC #### [address] Automated neutrophil %Ordere d By: Nicholas Man on 11-18-2023 Neutrophils/100 WBC (Bld) 68.5 % Normal . [facility] Comment on above: Performed By: #### B MP, ESR, CBC #### [address] Bacteria [Presence] in Urine by AutomatedOrdered By: Nicholas Man on 11-18-2023 Bacteria Auto Ql (U) 3+ [HPF] High None Seen [facility] Bacteria Auto Ql (U) Bacteria [Presence] in Urine by Automated High None Seen [facility] Basic Metabolic Panelon Creatinine Clr Calc Pharmacy 80.15 Normal [facility] Comment on above: Result Comment: PERF ORMED BY: [place] [address] PATHOLOGIST PRICE CHECKER ABDON OLIVER M.D. Performed By: #### B MP, ESR, CBC #### [facility] [address] [place] [address] GFR/1.73 sq M.predicted MDRD (S/P/Bld) [Vol rate/Area] mL/min/{1.73_m2} Normal [facility] Comment on above: Performed By: #### B MP, ESR, CBC #### [address] Basophils Auto (Bld) [#/Vol] Ordered By: Nicholas Man on 11-18-2023 Basophils (Bld) [#/Vol] Automated basoph il count 0.0-0.2 [facility] Basophils/100 WBC Auto (Bld) Ordered By: Nicholas Man on 11-18-2023 Basophils/100 WBC (Bld) Automated basoph il % . [facility] Bilirubin Test strip Ql (U)O rdered By: Nicholas Man on 11-18-2023 Bilirubin Ql (U) Negative Negative [facility] Bilirubin Ql (U) Bilirubin.total [Presence] in Urine by Test strip Negative [facility] Calcium [Mass/volume] in Ser um or PlasmaOrdered By: Nicholas Man on 11-18-2023 Calcium [Mass/Vol] 9.6 mg/dL Normal 8.6-10.3 [facility] Comment on above: Performed By: #### B MP, ESR, CBC #### [facility] [address] [place] [address] Calcium [Mass/Vol] Calcium [Mass/volume] in Serum or Plasma 8.6-10.3 [facility] Carbon dioxide, total [Moles /volume] in Serum or PlasmaOrdered By: Nicholas Man on 11-18-2023 CO2 [Moles/Vol] 26.9 mmol/L Normal 21.0-31.0 [facility] Comment on above: Performed By: #### B MP, ESR, CBC #### [address] CO2 [Moles/Vol] Carbon dioxide, total [Moles/volume] in Serum or Plasma 21.0-31.0 [facility] Chloride [Moles/volume] in S delia or PlasmaOrdered By: Nicholas Man on 11-18-2023 Chloride [Moles/Vol] 100 mmol/L Normal 98-107 [facility] Comment on above: Performed By: #### B MP, ESR, CBC #### [address] Chloride [Moles/Vol] Chloride [Moles/volume] in Serum or Plasma 98-107 [facility] Color Auto (U)Ordered By: Carola Man on 11-18-2023 Color (U) Color of Urine by Auto Yellow [facility] Color of Urine by AutoOrdere d By: Nicholas Man on 11-18-2023 Color (U) Yellow Normal [facility] Comment on above: Order Comment: Name Collection Type:: Clean-Voided Midstream Performed By: #### C UU, ADDONUAPLUS #### [address] Complete Blood Count Auto Di ffon 11-18-2023 Mean Corpuscular HGB Conc 33.4 g/dL Normal 32.0-35.0 [facility] Comment on above: Performed By: #### B MP, ESR, CBC #### [facility] [address] [place] [address] [place] Monocytes/100 WBC (Bld) 18.06 % Normal 0.00-20.00 [facility] Comment on above: Performed By: #### B MP, ESR, CBC #### [address] NRBC% 0.1 /100{WBC} Normal 0-0.5 [facility] Comment on above: Performed By: #### B MP, ESR, CBC #### [facility] [address] [place] [address] [place] Creatinine [Mass/volume] in Serum or PlasmaOrdered By: Nicholas Man on 11-18-2023 Creatinine [Mass/Vol] 0.84 mg/dL Normal 0.60-1.20 [facility] Comment on above: Performed By: #### B MP, ESR, CBC #### [facility] [address] [place] [address] [place] Creatinine [Mass/Vol] Creatinine [Mass/volume] in Serum or Plasma 0.60-1.20 [facility] Dipstick and Microscopicon 0 11-18-2023 Bacteria,Urine 3+ High None Seen [facility] Comment on above: Order Comment: Name Collection Type:: Clean-Voided Midstream Performed By: #### C UU, ADDONUAPLUS #### [facility] [address] Bilirubin,Urine Negative Normal Negative [facility] Comment on above: Order Comment: Name Collection Type:: Clean-Voided Midstream Performed By: #### C UU, ADDONUAPLUS #### [facility] [address] [place] [address] [place] Glucose Ql (U) Normal Normal Normal [facility] Comment on above: Order Comment: Name Collection Type:: Clean-Voided Midstream Performed By: #### C UU, ADDONUAPLUS #### [facility] [address] [place] [address] [place] Hyaline Casts,Urine None Normal 0-8 [facility] Comment on above: Order Comment: Name Collection Type:: Clean-Voided Midstream Result Comment: PERF ORMED BY: [facility] [address] [place] [address] PATHOLOGIST PRICE CHECKER ABDON OLIVER M.D. Performed By: #### C UU, ADDONUAPLUS #### [facility] [address] [place] [address] [place] Nitrite,Urine Positive High Negative [facility] Comment on above: Order Comment: Name Collection Type:: Clean-Voided Midstream Performed By: #### C UU, ADDONUAPLUS #### [address] Occult Blood,Urine 1+ High Negative [facility] Comment on above: Order Comment: Name Collection Type:: Clean-Voided Midstream Result Comment: PERF ORMED BY: [place] [address] PATHOLOGIST PRICE CHECKER ABDON OLIVER M.D. Performed By: #### C UU, ADDONUAPLUS #### [address] RBC,Urine 20-49 High 0-4 [facility] Comment on above: Order Comment: Name Collection Type:: Clean-Voided Midstream Performed By: #### C UU, ADDONUAPLUS #### [address] Specificy [place],Urine 1.012 Normal 1.001-1.030 [facility] Comment on above: Order Comment: Name Collection Type:: Clean-Voided Midstream Performed By: #### C UU, ADDONUAPLUS #### [address] Squamous Epithelial Cell,Urine 1-2 Normal 0-2 [facility] Comment on above: Order Comment: Name Collection Type:: Clean-Voided Midstream Performed By: #### C UU, ADDONUAPLUS #### [address] Urobilinogen,Urine Normal Normal Normal [facility] Comment on above: Order Comment: Name Collection Type:: Clean-Voided Midstream Performed By: #### C UU, ADDONUAPLUS #### [address] WBC CLUMP, Urine Many High None Seen [facility] Comment on above: Order Comment: Name Collection Type:: Clean-Voided Midstream Performed By: #### C UU, ADDONUAPLUS #### [address] WBC,Urine Innumerable High 0-4 [facility] Comment on above: Order Comment: Name Collection Type:: Clean-Voided Midstream Performed By: #### C UU, ADDONUAPLUS #### [address] Eosinophils Auto (Bld) [#/Vo l]Ordered By: Nicholas Man on 11-18-2023 Eosinophils (Bld) [#/Vol] Automated eosinophil count 0.0-0.45 [facility] Eosinophils/100 WBC Auto (Bl d)Ordered By: Nicholas Man on 11-18-2023 Eosinophils/100 WBC (Bld) Automated eosinophil % . [facility] Epithelial cells.squamous [# /area] in Urine sediment by Automated countOrdered By: Nicholas Man on 11-18-2023 Epithelial cells.squamous Auto (Urine sed) [#/Area] 1-2 [HPF] 0-2 [facility] Epithelial cells.squamous Auto (Urine sed) [#/Area] Epithelial cells.squamous [#/area] in Urine sediment by Automated count 0-2 [facility] Erythrocyte Sedimentation Ra carlton 11-18-2023 ESR (Bld) [Velocity] 69 mm/h High 0-29 [facility] Comment on above: Result Comment: PERF ORMED BY: [place] [address] PATHOLOGIST PRICE CHECKER ABDON OLIVER M.D. Performed By: #### B MP, ESR, CBC #### [address] Erythrocyte distribution wid th Auto (RBC) [Ratio]Ordered By: Nicholas Man on 11-18-2023 Erythrocyte distribution width (RBC) [Ratio] Erythrocyte distribution width [Ratio] by Automated count 11.9-15.3 [facility] Erythrocyte distribution wid th [Ratio] by Automated countOrdered By: Nicholas Man on 11-18-2023 Erythrocyte distribution width (RBC) [Ratio] 14.2 % Normal 11.9-15.3 [facility] Comment on above: Performed By: #### B MP, ESR, CBC #### [address] Erythrocyte sedimentation ra te by Photometric methodOrdered By: Nicholas Man on 11-18-2023 ESR Photometric method (Bld) [Velocity] 69 mm/hr High 0-29 [facility] ESR Photometric method (Bld) [Velocity] Erythrocyte sedimentation rate by Photometric method High 0-29 [facility] Erythrocytes [#/area] in Uri ne sediment by Automated countOrdered By: Nicholas Man on 11-18-2023 RBC Auto (Urine sed) [#/Area] 20-49 [HPF] High 0-4 [facility] RBC Auto (Urine sed) [#/Area] Erythrocytes [#/area] in Urine sediment by Automated count High 0-4 [facility] Erythrocytes [#/volume] in B lood by Automated countOrdered By: Nicholas Man on 11-18-2023 RBC (Bld) [#/Vol] 4.30 10*6/uL Normal 3.60-5.00 [facility] Comment on above: Performed By: #### B MP, ESR, CBC #### [facility] [address] Glucose [Mass/volume] in Ser um or PlasmaOrdered By: Nicholas Man on 11-18-2023 Glucose [Mass/Vol] 83 mg/dL Normal 70-100 [facility] Comment on above: ADA recommended refe rence rangeRandom Glucose Reference Range is dependent on time and content of last meal. Glucose of more than 200 mg/dL in a nonstressed, ambulatory subject supports the diagnosis of Diabetes Mellitus. Result Comment: [place] Glucose Reference Range is dependent on time and content of last meal. Glucose of more than 200 mg/dL in a nonstressed, ambulatory subject supports the diagnosis of Diabetes Mellitus. ADA recommended reference range Performed By: #### B MP, ESR, CBC #### [facility] [address] [place] [id number] [place] Glucose [Mass/Vol] Glucose [Mass/volume] in Serum or Plasma 70-100 [facility] Comment on above: ADA recommended refe rence rangeRandom Glucose Reference Range is dependent on time and content of last meal. Glucose of more than 200 mg/dL in a nonstressed, ambulatory subject supports the diagnosis of Diabetes Mellitus. Glucose [Mass/volume] in Uri ne by Test stripOrdered By: Nicholas Man on 11-18-2023 Glucose Test strip (U) [Mass/Vol] Normal mg/dL Normal [facility] Glucose Test strip (U) [Mass/Vol] Glucose [Mass/volume] in Urine by Test strip Normal [facility] Hematocrit Auto (Bld) [Volum e fraction]Ordered By: Nicholas Man on 11-18-2023 Hematocrit (Bld) [Volume fraction] Hematocrit [Volume Fraction] of Blood by Automated count 34.0-46.4 [facility] Hematocrit [Volume Fraction] of Blood by Automated countOrdered By: Nicholas Man on 11-18-2023 Hematocrit (Bld) [Volume fraction] 38.3 % Normal 34.0-46.4 [facility] Comment on above: Performed By: #### B MP, ESR, CBC #### [facility] [address] [place] [address] Hemoglobin Test strip Ql (U) Ordered By: Nicholas Man on 11-18-2023 Hemoglobin Ql (U) 1+ High Negative [facility] Hemoglobin Ql (U) Hemoglobin [Presence] in Urine by Test strip High Negative [facility] Hemoglobin [Mass/volume] in BloodOrdered By: Nicholas Man on 11-18-2023 Hemoglobin (Bld) [Mass/Vol] 12.8 g/dL Normal 11.8-15.4 [facility] Comment on above: Performed By: #### B MP, ESR, CBC #### [facility] [address] [place] [address] Hemoglobin (Bld) [Mass/Vol] Hemoglobin [Mass/volume] in Blood 11.8-15.4 [facility] Hyaline casts [#/area] in Ur ine sediment by Automated countOrdered By: Nicholas Man on 11-18-2023 Hyaline casts Auto (Urine sed) [#/Area] None [LPF] 0-8 [facility] Hyaline casts Auto (Urine sed) [#/Area] Hyaline casts [#/area] in Urine sediment by Automated count 0-8 [facility] Ketones Test strip Ql (U)Ord ered By: Nicholas Man on 11-18-2023 Ketones Ql (U) Ketones [Presence] in Urine by Test strip High Negative [facility] Ketones [Presence] in Urine by Test stripOrdered By: Nicholas Man on 11-18-2023 Ketones Ql (U) 1+ High Negative [facility] Comment on above: Order Comment: Name Collection Type:: Clean-Voided Midstream Performed By: #### C UU, ADDONUAPLUS #### [facility] [address] [place] [address] Laboratory - Microbiology an d Antimicrobial susceptibilityOrdered By: Nicholas Man on 11-18-2023 Bacteria identified Cx Nom (U) Escherichia coli Abnormal [facility] Leukocyte clumps [Presence] in Urine by AutomatedOrdered By: Nicholas Man on 11-18-2023 Leukocyte clumps Auto Ql (U) Many [LPF] High None Seen [facility] Leukocyte clumps Auto Ql (U) Leukocyte clumps [Presence] in Urine by Automated High None Seen [facility] Leukocyte esterase [Presence ] in Urine by Test stripOrdered By: Nicholas Man on 11-18-2023 Leukocyte esterase Test strip Ql (U) 4+ High Negative [facility] Comment on above: Order Comment: Name Collection Type:: Clean-Voided Midstream Performed By: #### C UU, ADDONUAPLUS #### [facility] [address] [place] [address] Leukocyte esterase Test strip Ql (U) Leukocyte esterase [Presence] in Urine by Test strip High Negative [facility] Leukocytes [#/area] in Urine sediment by Automated countOrdered By: Nicholas Man on 11-18-2023 WBC Auto (Urine sed) [#/Area] Innumerable [HPF] High 0-4 [facility] WBC Auto (Urine sed) [#/Area] Leukocytes [#/area] in Urine sediment by Automated count High 0-4 [facility] [place] Leukocytes [#/volume] correc raffi for nucleated erythrocytes in Blood by Automated counOrdered By: Nicholas Man on 11-18-2023 WBC corrected for nucl RBC Auto (Bld) [#/Vol] 8.2 10*3/uL 3.8-11.6 [facility] [place] WBC corrected for nucl RBC Auto (Bld) [#/Vol] Leukocytes [#/volume] corrected for nucleated erythrocytes in Blood by Automated coun 3.8-11.6 [facility] [place] Leukocytes [#/volume] in Blo od by Automated countOrdered By: Nicholas Man on 11-18-2023 WBC (Bld) [#/Vol] 8.2 10*3/uL Normal 3.8-11.6 [facility] Comment on above: Performed By: #### B MP, ESR, CBC #### [facility] [address] Lymphocytes Auto (Bld) [#/Vo l]Ordered By: Nicholas Man on 11-18-2023 Lymphocytes (Bld) [#/Vol] Lymphocytes [#/volume] in Blood by Automated count 1.00-4.8 [facility] [place] Lymphocytes [#/volume] in Bl ood by Automated countOrdered By: Nicholas Man on 11-18-2023 Lymphocytes (Bld) [#/Vol] 1.7 10*3/uL Normal 1.00-4.8 [facility] [place] Comment on above: Performed By: #### B MP, ESR, CBC #### [facility] [address] [place] [address] Lymphocytes/100 WBC Auto (Bl d)Ordered By: Nicholas Man on 11-18-2023 Lymphocytes/100 WBC (Bld) Lymphocytes/100 leukocytes in Blood by Automated count . [facility] [place] Lymphocytes/100 leukocytes i n Blood by Automated countOrdered By: Nicholas Man on 11-18-2023 Lymphocytes/100 WBC (Bld) 21.1 % Normal . [facility] [place] Comment on above: Performed By: #### B MP, ESR, CBC #### [facility] [address] [place] [address] MCH Auto (RBC) [Entitic mass ]Ordered By: Nicholas Man on 11-18-2023 MCH (RBC) [Entitic mass] MCH [Entitic ma ss] by Automated count 24.7-34.3 [facility] [place] MCH [Entitic mass] by Automa raffi countOrdered By: Nicholas Man on 11-18-2023 MCH (RBC) [Entitic mass] 29.8 pg Normal 24.7-34.3 [facility] [place] Comment on above: Performed By: #### B MP, ESR, CBC #### [facility] [address] MCHC Auto (RBC) [Mass/Vol]Or dered By: Nicholas Man on 11-18-2023 MCHC (RBC) [Mass/Vol] 33.4 g/dL 32.0-35.0 [facility] MCHC (RBC) [Mass/Vol] MCHC [Mass/volume] by Automated count 32.0-35.0 [facility] MCV Auto (RBC) [Entitic vol] Ordered By: Nicholas Man on 11-18-2023 MCV (RBC) [Entitic vol] MCV [Entitic volume] by Automated count 80-100 [facility] [place] MCV [Entitic volume] by Auto mated countOrdered By: Nicholas Man on 11-18-2023 MCV (RBC) [Entitic vol] 89.2 fL Normal 80-100 [facility] Comment on above: Performed By: #### B MP, ESR, CBC #### [facility] [address] Monocyte distribution width [Entitic volume] in Blood by AutomatedOrdered By: Nicholas Man on 11-18-2023 Monocyte distribution width Auto (Bld) [Entitic vol] 18.06 % 0.00-20.00 [facility] [place] Monocyte distribution width Auto (Bld) [Entitic vol] Monocyte distribution width [Entitic volume] in Blood by Automated 0.00-20.00 [facility] [place] Monocytes Auto (Bld) [#/Vol] Ordered By: Nicholas Man on 11-18-2023 Monocytes (Bld) [#/Vol] Automated blood monocyte count 0.0-0.8 [facility] [place] Monocytes/100 WBC Auto (Bld) Ordered By: Nicholas Man on 11-18-2023 Monocytes/100 WBC (Bld) Automated monocy te % . [facility] Neutrophils Auto (Bld) [#/Vo l]Ordered By: Nicholas Man on 11-18-2023 Neutrophils (Bld) [#/Vol] Neutrophils [#/volume] in Blood by Automated count 1.8-7.7 [facility] Neutrophils [#/volume] in Bl ood by Automated countOrdered By: Nicholas Man on 11-18-2023 Neutrophils (Bld) [#/Vol] 5.6 10*3/uL Normal 1.8-7.7 [facility] [place] Comment on above: Performed By: #### B MP, ESR, CBC #### [facility] [address] [place] [id number] [place] Neutrophils/100 WBC Auto (Bl d)Ordered By: Nicholas Man on 11-18-2023 Neutrophils/100 WBC (Bld) Automated neutrophil % . [facility] Nitrite Test strip Ql (U)Ord ered By: Nicholas Man on 11-18-2023 Nitrite Ql (U) Positive High Negative [facility] Nitrite Ql (U) Nitrite [Presence] in Urine by Test strip High Negative [facility] No Panel InformationOrdered By: Nicholas Man on 11-18-2023 Estimated GFR (CKD-EPI) > 60.0 mL/Min [facility] [place] [facility] Creatinine Clearance (Chem 80.15 [facility] Nucleated erythrocytes [Pres ence] in Blood by Automated countOrdered By: Nicholas Man on 11-18-2023 Nucleated RBC Auto Ql (Bld) 0.1 /100{WBC} 0-0.5 [facility] [place] Nucleated RBC Auto Ql (Bld) Nucleated erythrocytes [Presence] in Blood by Automated count 0-0.5 [facility] Platelet mean volume Auto (B ld) [Entitic vol]Ordered By: Nicholas Man on 11-18-2023 Platelet mean volume (Bld) [Entitic vol] Platelet mean volume [Entitic volume] in Blood by Automated count 6.3-10.7 [facility] Platelet mean volume [Entiti c volume] in Blood by Automated countOrdered By: Nicholas Man on 11-18-2023 Platelet mean volume (Bld) [Entitic vol] 8.4 fL Normal 6.3-10.7 [facility] Comment on above: Performed By: #### B MP, ESR, CBC #### [facility] [address] [place] [address] [place] Platelets Auto (Bld) [#/Vol] Ordered By: Nicholas Man on 11-18-2023 Platelets (Bld) [#/Vol] Platelets [#/volume] in Blood by Automated count 150-450 [facility] [place] Platelets [#/volume] in Bloo d by Automated countOrdered By: Nicholas Man on 11-18-2023 Platelets (Bld) [#/Vol] 371 10*3/uL Normal 150-450 [facility] [place] Comment on above: Performed By: #### B MP, ESR, CBC #### [facility] [address] Potassium [Moles/volume] in Serum or PlasmaOrdered By: Nicholas Man on 11-18-2023 Potassium [Moles/Vol] 4.2 mmol/L Normal 3.5-5.1 [facility] Comment on above: Performed By: #### B MP, ESR, CBC #### [facility] [address] Potassium [Moles/Vol] Potassium [Moles/volume] in Serum or Plasma 3.5-5.1 [facility] Protein Test strip (U) [Mass /Vol]Ordered By: Nicholas Man on 11-18-2023 Protein (U) [Mass/Vol] Protein [Mass/volume] in Urine by Test strip High Negative [facility] Protein [Mass/volume] in Uri ne by Test stripOrdered By: Nicholas Man on 11-18-2023 Protein (U) [Mass/Vol] 30 mg/dL High Negative [facility] Comment on above: Order Comment: Name Collection Type:: Clean-Voided Midstream Performed By: #### C UU, ADDONUAPLUS #### [place] [address] [place] RBC Auto (Bld) [#/Vol]Ordere d By: Nicholas Man on 11-18-2023 RBC (Bld) [#/Vol] Erythrocytes [#/volume] in Blood by Automated count 3.60-5.00 [facility] Serum or plasma anion gap de terminationOrdered By: Nicholas Man on 11-18-2023 Anion gap [Moles/Vol] 15.3 mmol/L High 6.0-15.0 [facility] Comment on above: Performed By: #### B MP, ESR, CBC #### [facility] [address] Anion gap [Moles/Vol] Serum or plasma anion gap determination High 6.0-15.0 [facility] Sodium [Moles/volume] in Ser um or PlasmaOrdered By: Nicholas Man on 11-18-2023 Sodium [Moles/Vol] 138 mmol/L Normal 136-145 [facility] Comment on above: Performed By: #### B MP, ESR, CBC #### [facility] [address] Sodium [Moles/Vol] Sodium [Moles/volume] in Serum or Plasma 136-145 [facility] [place] Specific gravity Test strip (U) [Rel density]Ordered By: Nicholas Man on 11-18-2023 Specific gravity (U) [Rel density] 1.012 1.001-1.030 [facility] Specific gravity (U) [Rel density] Specific gravity of Urine by Test strip 1.001-1.030 [facility] [place] Urea nitrogen [Mass/volume] in Serum or PlasmaOrdered By: Nicholas Man on 11-18-2023 Urea nitrogen [Mass/Vol] 17 mg/dL Normal 7-25 [facility] [place] Comment on above: Performed By: #### B MP, ESR, CBC #### [facility] [address] [place] [address] Urea nitrogen [Mass/Vol] Urea nitrogen [Mass/volume] in Serum or Plasma 10-06 [facility] [place] Urine Cultureon 11-18-2023 Bacteria identified Cx Nom (U) ORGANISM: Escherichia coli (O:ESCCOL) [place] Count >100,000 Aerobic KIANNA Charge ([id number]) ------ SUSCEPTIBILITY ----- ORGANISM: O:ESCCOL ANTIBIOTIC INTERPRETATION KIANNA Amikacin S <16 Amoxacillin/K Clavulanate S <8 Ampicillin S <8 Ampicillin/Sulbacta m S <4 Aztreonam S <4 Cefazolin S <2 Cefepime S <2 Ceftazidime S <1 Ceftazidime/Avibact am S <4 Ceftolozane/Tazobac milian S <2 Ceftriaxone S <1 Cefuroxime S <4 Ciprofloxacin S <0.25 Ertapenem S <0.5 Gentamicin S <2 Levofloxacin S <0.5 Meropenem S <1 Meropenem/Vaborbact am S <2 Nitrofurantoin S <32 Piperacillin/Tazoba ctam S <8 Tetracycline S <4 Tigecycline S <2 Tobramycin S <2 Trimethoprim/Sulfam ethoxazole S <0.5 S = SUSCEPTIBLE I = INTERMEDIATE R = RESISTANT BLANK = DATA NOT AVAILABLE, OR DRUG NOT ADVISABLE OR TESTED R* = RESISTANCE DUE TO EXTENDED SPECTRUM BETA-LACTAMASES ESBL = EXTENDED SPECTRUM BETA-LACTAMASE TFG = THYMIDINE-DEPENDENT STRAIN SINDY = BETA-LACTAMASE POSITIVE IB = INDUCIBLE BETA-LACTAMASE. APPEARS IN PLACE OF 'S' WITH SPECIES KNOWN TO POSSESS INDUCIBLE BETA-LACTAMASES. POTENTIALLY THEY MAY BECOME RESISTANT TO ALL B-LACTAM DRUGS. PERFORMED BY: [place] [address] PATHOLOGIST PRICE CHECKER ABDON OLIVER M.D. Normal [facility] Comment on above: Performed By: #### C AMARA ALANIZ #### [facility] [address] [place] [address] Urine appearanceOrdered By: Nicholas Man on 11-18-2023 Appearance (U) Turbid Critically abnormal Clear [facility] Comment on above: Order Comment: Name Collection Type:: Clean-Voided Midstream Performed By: #### C LISETTE ALANIZPLUS #### [facility] [address] [place] [address] Urine cultureOrdered By: Kianna Man on 11-18-2023 Bacteria identified Cx Nom (U) Escherichia coli Abnormal [facility] Urine culture routineOrdered By: Nicholas Man on 11-18-2023 Bacteria identified Cx Nom (U) Escherichia coli Abnormal [facility] Urobilinogen Test strip (U) [Mass/Vol]Ordered By: Nicholas Man on 11-18-2023 Urobilinogen (U) [Mass/Vol] Normal mg/dL Normal [facility] Urobilinogen (U) [Mass/Vol] Urobilinogen [Mass/volume] in Urine by Test strip Normal [facility] WBC Auto (Bld) [#/Vol]Ordere d By: Nicholas Man on 11-18-2023 WBC (Bld) [#/Vol] Leukocytes [#/volume] in Blood by Automated count 3.8-11.6 [facility] pH Test strip (U)Ordered By: Nicholas Man on 11-18-2023 pH (U) pH of Urine by Test strip 5.0-9.0 [facility] pH of Urine by Test stripOrd ered By: Nicholas Man on 11-18-2023 pH (U) 8.0 [pH] Normal 5.0-9.0 [facility] Comment on above: Order Comment: Name Collection Type:: Clean-Voided Midstream Performed By: #### C UU, ADDONUAPLUS #### [facility] [address] Amphetamine Screen Ql (U)Ord ered By: WESTON CHAVEZ on 11-10-2023 Amphetamines Ql (U) Amphetamines screen High Negativ e [facility] Amphetamines Ql (U) Positive High Negative [facility] Automated basophil %Ordered By: Louis Beal on 11-10-2023 Basophils/100 WBC (Bld) 0.5 % Normal . [facility] Comment on above: Performed By: #### B MP, CBC #### [facility] [address] Automated basophil countOrde red By: Louis Beal on 11-10-2023 Basophils (Bld) [#/Vol] 0.0 10*3/uL Normal 0.0-0.2 [facility] Comment on above: Result Comment: PERF ORMED BY: [place] [address] PATHOLOGIST PRICE CHECKER ABDON OLIVER M.D. Performed By: #### B MP, CBC #### [facility] [address] Automated blood monocyte cou ntOrdered By: Louis Beal on 11-10-2023 Monocytes (Bld) [#/Vol] 0.4 10*3/uL Normal 0.0-0.8 [facility] Comment on above: Performed By: #### B MP, CBC #### [address] Automated eosinophil %Ordere d By: Louis Beal on 11-10-2023 Eosinophils/100 WBC (Bld) 1.1 % Normal . [facility] Comment on above: Performed By: #### B MP, CBC #### [address] Automated eosinophil countOr dered By: Louis Beal on 11-10-2023 Eosinophils (Bld) [#/Vol] 0.1 10*3/uL Normal 0.0-0.45 [facility] Comment on above: Performed By: #### B MP, CBC #### [facility] [address] [place] [address] Automated monocyte %Ordered By: Louis Beal on 11-10-2023 Monocytes/100 WBC (Bld) 6.5 % Normal . [facility] Comment on above: Performed By: #### B MP, CBC #### [address] Automated neutrophil %Ordere d By: Louis Beal on 11-10-2023 Neutrophils/100 WBC (Bld) 72.4 % Normal . [facility] Comment on above: Performed By: #### B MP, CBC #### [place] [address] [place] Barbiturates [Presence] in U rine by Screen methodOrdered By: WESTON CHAVEZ on 11-10-2023 Barbiturates Screen Ql (U) Negative Negative [facility] Barbiturates Screen Ql (U) Barbiturates [Presence] in Urine by Screen method Negative [facility] Basic Metabolic Panelon 10-14 Creatinine Clr Calc Pharmacy 96.79 Normal [facility] Comment on above: Result Comment: PERF ORMED BY: [place] [address] PATHOLOGIST PRICE CHECKER ABDON OLIVER M.D. Performed By: #### B MP, CBC #### [facility] [address] GFR/1.73 sq M.predicted MDRD (S/P/Bld) [Vol rate/Area] mL/min/{1.73_m2} Normal [facility] Comment on above: Performed By: #### B MP, CBC #### [address] Basophils Auto (Bld) [#/Vol] Ordered By: Lousi Beal on 11-10-2023 Basophils (Bld) [#/Vol] Automated basoph il count 0.0-0.2 [facility] Basophils/100 WBC Auto (Bld) Ordered By: Louis Beal on 11-10-2023 Basophils/100 WBC (Bld) Automated basoph il % . [facility] Benzodiazepines Screen Ql (U )Ordered By: WESTON CHAVEZ on 11-10-2023 Benzodiazepines Ql (U) Positive High Negative [facility] Benzodiazepines Ql (U) Benzodiazepines [Presence] in Urine by Screen method High Negative [facility] Benzoylecgonine [Presence] i n Urine by Screen methodOrdered By: WESTON CHAVEZ on 11-10-2023 Benzoylecgonine Screen Ql (U) Negative Negative [facility] Benzoylecgonine Screen Ql (U) Benzoylecgonine [Presence] in Urine by Screen method Negative [facility] Calcium [Mass/volume] in Ser um or PlasmaOrdered By: Louis Beal on 11-10-2023 Calcium [Mass/Vol] 8.9 mg/dL Normal 8.6-10.3 [facility] Comment on above: Performed By: #### B MP, CBC #### [address] Calcium [Mass/Vol] Calcium [Mass/volume] in Serum or Plasma 8.6-10.3 [facility] Cannabinoids [Presence] in U rine by Screen methodOrdered By: WESTON CHAVEZ on 11-10-2023 Cannabinoids Screen Ql (U) Positive High Negative [facility] Comment on above: These are unconfirme d results and should not be used for legal purposes. Drug Cut-Off Concentration: AMPH 1000 ng/mL LIZZETTE 200 ng/mL LAWANDA 200 ng/mL COCM 300 ng/mL OP 300 ng/mL PCP 25 ng/mL THC 20 ng/mL Cannabinoids Screen Ql (U) Cannabinoids [Presence] in Urine by Screen method High Negative [facility] Comment on above: These are unconfirme d results and should not be used for legal purposes. Drug Cut-Off Concentration: AMPH 1000 ng/mL LIZZETTE 200 ng/mL LAWANDA 200 ng/mL COCM 300 ng/mL OP 300 ng/mL PCP 25 ng/mL THC 20 ng/mL Carbon dioxide, total [Moles /volume] in Serum or PlasmaOrdered By: Louis Beal on 11-10-2023 CO2 [Moles/Vol] 24.2 mmol/L Normal 21.0-31.0 [facility] Comment on above: Performed By: #### B LAURA, CBC #### [facility] [address] [place] [address] CO2 [Moles/Vol] Carbon dioxide, total [Moles/volume] in Serum or Plasma 21.0-31.0 [facility] Chloride [Moles/volume] in S delia or PlasmaOrdered By: Louis Beal on 11-10-2023 Chloride [Moles/Vol] 107 mmol/L Normal 98-107 [facility] Comment on above: Performed By: #### B LAURA, CBC #### [facility] [address] [place] [address] Chloride [Moles/Vol] Chloride [Moles/volume] in Serum or Plasma 98-107 [facility] Complete Blood Count Auto Di ffon 11-10-2023 Mean Corpuscular HGB Conc 33.1 g/dL Normal 32.0-35.0 [facility] Comment on above: Performed By: #### B MP, CBC #### [facility] [address] [place] [address] NRBC% 0.1 /100{WBC} Normal 0-0.5 [facility] Comment on above: Performed By: #### B MP, CBC #### [address] Creatinine [Mass/volume] in Serum or PlasmaOrdered By: Louis Beal on 11-10-2023 Creatinine [Mass/Vol] 0.71 mg/dL Normal 0.60-1.20 [facility] Comment on above: Performed By: #### B MP, CBC #### [address] Creatinine [Mass/Vol] Creatinine [Mass/volume] in Serum or Plasma 0.60-1.20 [facility] Drug Screen,Urineon 11-10-19 24 Amphetamine Screen,Urine Positive High Negative [facility] Comment on above: Performed By: #### U RDS #### [address] Barbiturate Screen,Urine Negative Normal Negative [facility] Comment on above: Performed By: #### U RDS #### [address] Benzodiazepines Screen,Urine Positive High Negative [facility] Comment on above: Performed By: #### U RDS #### [address] Cannabinoid Screen,Urine Positive High Negative [facility] Comment on above: Result Comment: Thes e are unconfirmed results and should not be used for legal purposes. Drug Cut-Off Concentration: AMPH 1000 ng/mL LIZZETTE 200 ng/mL LAWANDA 200 ng/mL COCM 300 ng/mL OP 300 ng/mL PCP 25 ng/mL THC 20 ng/mL PERFORMED BY: [place] [address] PATHOLOGIST PRICE CHECKER ABDON OLIVER M.D. Performed By: #### U RDS #### [address] Cocaine Screen,Urine Negative Normal Negative [facility] Comment on above: Performed By: #### U RDS #### [place] [address] [place] Opiate Screen,Urine Positive High Negative [facility] Comment on above: Performed By: #### U RDS #### [facility] [address] Phencyclidine Screen,Urine Negative Normal Negative [facility] Comment on above: Performed By: #### U RDS #### [facility] [address] ECG 12 lead ECGon 11-10-2023 ECG 12 lead ECG [facility] [place] [address] [place] [address] Electrocardiograph Report Signed Patient: Nimo Craft MR#: [id number] : 1970 Acct:[id number] Age/Sex: 53 / F ADM Date: 11/10/23 Loc: [place] Room: Type: [facility] Attending Dr: Louis Beal DO Ordering Provider: Louis Beal DO Date of Service: 11/10/23 ECG/ECG 12 lead ECG: Pre op Copies to: Test Reason : Blood Pressure : */* mmHG Vent. Rate : 74 BPM Atrial Rate : 74 BPM P-R Int : 146 ms QRS Dur : 84 ms QT Int : 382 ms P-R-T Axes : 65 43 56 degrees QTcB Int : 424 ms Normal sinus rhythm Low voltage QRS Cannot rule out Anterior infarct , age undetermined Abnormal ECG No previous ECGs available Confirmed by Erasmo Barth ([id number]) on 11/10/2023 2:40:10 PM Referred By: Electronically Signed By: Erasmo Barth Transcribed By: MUS Signed By Erasmo Barth MD 11/10/23 1440 Normal [facility] Eosinophils Auto (Bld) [#/Vo l]Ordered By: Louis Beal on 11-10-2023 Eosinophils (Bld) [#/Vol] Automated eosinophil count 0.0-0.45 [facility] Eosinophils/100 WBC Auto (Bl d)Ordered By: Louis Beal on 11-10-2023 Eosinophils/100 WBC (Bld) Automated eosinophil % . [facility] Erythrocyte distribution wid th Auto (RBC) [Ratio]Ordered By: Louis Beal on 11-10-2023 Erythrocyte distribution width (RBC) [Ratio] Erythrocyte distribution width [Ratio] by Automated count 11.9-15.3 [facility] Erythrocyte distribution wid th [Ratio] by Automated countOrdered By: Louis Beal on 11-10-2023 Erythrocyte distribution width (RBC) [Ratio] 14.1 % Normal 11.9-15.3 [facility] Comment on above: Performed By: #### B LAURA, CBC #### [facility] [address] Erythrocytes [#/volume] in B lood by Automated countOrdered By: Louis Beal on 11-10-2023 RBC (Bld) [#/Vol] 4.12 10*6/uL Normal 3.60-5.00 [facility] Comment on above: Performed By: #### B LAURA, CBC #### [facility] [address] [place] [address] [place] Glucose [Mass/volume] in Ser um or PlasmaOrdered By: Louis Beal on 11-10-2023 Glucose [Mass/Vol] 94 mg/dL Normal 70-100 [facility] Comment on above: ADA recommended refe rence rangeRandom Glucose Reference Range is dependent on time and content of last meal. Glucose of more than 200 mg/dL in a nonstressed, ambulatory subject supports the diagnosis of Diabetes Mellitus. Result Comment: [place] Glucose Reference Range is dependent on time and content of last meal. Glucose of more than 200 mg/dL in a nonstressed, ambulatory subject supports the diagnosis of Diabetes Mellitus. ADA recommended reference range Performed By: #### B LAURA, CBC #### [facility] [address] [place] [id number] [facility] Glucose [Mass/Vol] Glucose [Mass/volume] in Serum or Plasma 70-100 [facility] Comment on above: ADA recommended refe rence rangeRandom Glucose Reference Range is dependent on time and content of last meal. Glucose of more than 200 mg/dL in a nonstressed, ambulatory subject supports the diagnosis of Diabetes Mellitus. Hematocrit Auto (Bld) [Volum e fraction]Ordered By: Louis Beal on 11-10-2023 Hematocrit (Bld) [Volume fraction] Hematocrit [Volume Fraction] of Blood by Automated count 34.0-46.4 [facility] Hematocrit [Volume Fraction] of Blood by Automated countOrdered By: Louis Beal on 11-10-2023 Hematocrit (Bld) [Volume fraction] 36.3 % Normal 34.0-46.4 [facility] Comment on above: Performed By: #### B MP, CBC #### [facility] [address] [place] [address] Hemoglobin [Mass/volume] in BloodOrdered By: Louis Beal on 11-10-2023 Hemoglobin (Bld) [Mass/Vol] 12.0 g/dL Normal 11.8-15.4 [facility] Comment on above: Performed By: #### B MP, CBC #### [address] Hemoglobin (Bld) [Mass/Vol] Hemoglobin [Mass/volume] in Blood 11.8-15.4 [facility] Leukocytes [#/volume] correc raffi for nucleated erythrocytes in Blood by Automated counOrdered By: Louis Beal on 11-10-2023 WBC corrected for nucl RBC Auto (Bld) [#/Vol] 6.0 10*3/uL 3.8-11.6 [facility] WBC corrected for nucl RBC Auto (Bld) [#/Vol] Leukocytes [#/volume] corrected for nucleated erythrocytes in Blood by Automated coun 3.8-11.6 [facility] Leukocytes [#/volume] in Blo od by Automated countOrdered By: Louis Beal on 11-10-2023 WBC (Bld) [#/Vol] 6.0 10*3/uL Normal 3.8-11.6 [facility] Comment on above: Performed By: #### B MP, CBC #### [facility] [address] [place] [address] Lymphocytes Auto (Bld) [#/Vo l]Ordered By: Louis Beal on 11-10-2023 Lymphocytes (Bld) [#/Vol] Lymphocytes [#/volume] in Blood by Automated count 1.00-4.8 [facility] Lymphocytes [#/volume] in Bl ood by Automated countOrdered By: Louis Beal on 11-10-2023 Lymphocytes (Bld) [#/Vol] 1.2 10*3/uL Normal 1.00-4.8 [facility] Comment on above: Performed By: #### B MP, CBC #### [facility] [address] [place] [address] Lymphocytes/100 WBC Auto (Bl d)Ordered By: Louis Beal on 11-10-2023 Lymphocytes/100 WBC (Bld) Lymphocytes/100 leukocytes in Blood by Automated count . [facility] Lymphocytes/100 leukocytes i n Blood by Automated countOrdered By: Louis Beal on 11-10-2023 Lymphocytes/100 WBC (Bld) 19.5 % Normal . [facility] Comment on above: Performed By: #### B MP, CBC #### [facility] [address] [place] [address] MCH Auto (RBC) [Entitic mass ]Ordered By: Louis Beal on 11-10-2023 MCH (RBC) [Entitic mass] MCH [Entitic ma ss] by Automated count 24.7-34.3 [facility] MCH [Entitic mass] by Automa raffi countOrdered By: Louis Beal on 11-10-2023 MCH (RBC) [Entitic mass] 29.2 pg Normal 24.7-34.3 [facility] Comment on above: Performed By: #### B MP, CBC #### [facility] [address] [place] [address] MCHC Auto (RBC) [Mass/Vol]Or dered By: Louis Beal on 11-10-2023 MCHC (RBC) [Mass/Vol] 33.1 g/dL 32.0-35.0 [facility] MCHC (RBC) [Mass/Vol] MCHC [Mass/volume] by Automated count 32.0-35.0 [facility] MCV Auto (RBC) [Entitic vol] Ordered By: Louis Beal on 11-10-2023 MCV (RBC) [Entitic vol] MCV [Entitic volume] by Automated count 80-100 [facility] MCV [Entitic volume] by Auto mated countOrdered By: Louis Beal on 11-10-2023 MCV (RBC) [Entitic vol] 88.2 fL Normal 80-100 [facility] Comment on above: Performed By: #### B MP, CBC #### [facility] [address] Monocytes Auto (Bld) [#/Vol] Ordered By: Louis Beal on 11-10-2023 Monocytes (Bld) [#/Vol] Automated blood monocyte count 0.0-0.8 [facility] Monocytes/100 WBC Auto (Bld) Ordered By: Louis Beal on 11-10-2023 Monocytes/100 WBC (Bld) Automated monocy te % . [facility] Neutrophils Auto (Bld) [#/Vo l]Ordered By: Louis Beal on 11-10-2023 Neutrophils (Bld) [#/Vol] Neutrophils [#/volume] in Blood by Automated count 1.8-7.7 [facility] Neutrophils [#/volume] in Bl ood by Automated countOrdered By: Louis Beal on 11-10-2023 Neutrophils (Bld) [#/Vol] 4.3 10*3/uL Normal 1.8-7.7 [facility] Comment on above: Performed By: #### B MP, CBC #### [facility] [address] Neutrophils/100 WBC Auto (Bl d)Ordered By: Louis Beal on 11-10-2023 Neutrophils/100 WBC (Bld) Automated neutrophil % . [facility] No Panel InformationOrdered By: Louis Beal on 11-10-2023 Estimated GFR (CKD-EPI) > 60.0 mL/Min [facility] Creatinine Clearance (Chem 96.79 [facility] Nucleated erythrocytes [Pres ence] in Blood by Automated countOrdered By: Louis Beal on 11-10-2023 Nucleated RBC Auto Ql (Bld) 0.1 /100{WBC} 0-0.5 [facility] Nucleated RBC Auto Ql (Bld) Nucleated erythrocytes [Presence] in Blood by Automated count 0-0.5 [facility] Opiates [Presence] in Urine by Screen methodOrdered By: WESTON CHAVEZ on 11-10-2023 Opiates Screen Ql (U) Positive High Negative [facility] Opiates Screen Ql (U) Opiates [Presence] in Urine by Screen method High Negative [facility] Phencyclidine Screen Ql (U)O rdered By: WESTON CHAVEZ on 11-10-2023 Phencyclidine Ql (U) Negative Negative [facility] Phencyclidine Ql (U) Phencyclidine [Presence] in Urine by Screen method Negative [facility] Platelet mean volume Auto (B ld) [Entitic vol]Ordered By: Louis Beal on 11-10-2023 Platelet mean volume (Bld) [Entitic vol] Platelet mean volume [Entitic volume] in Blood by Automated count 6.3-10.7 [facility] Platelet mean volume [Entiti c volume] in Blood by Automated countOrdered By: Louis Beal on 11-10-2023 Platelet mean volume (Bld) [Entitic vol] 8.7 fL Normal 6.3-10.7 [facility] Comment on above: Performed By: #### B MP, CBC #### [facility] [address] Platelets Auto (Bld) [#/Vol] Ordered By: Louis Beal on 11-10-2023 Platelets (Bld) [#/Vol] Platelets [#/volume] in Blood by Automated count 150-450 [facility] Platelets [#/volume] in Bloo d by Automated countOrdered By: Louis Beal on 11-10-2023 Platelets (Bld) [#/Vol] 268 10*3/uL Normal 150-450 [facility] Comment on above: Performed By: #### B MP, CBC #### [facility] [address] [place] [address] [place] Potassium [Moles/volume] in Serum or PlasmaOrdered By: Louis Beal on 11-10-2023 Potassium [Moles/Vol] 4.4 mmol/L Normal 3.5-5.1 [facility] Comment on above: Performed By: #### B MP, CBC #### [facility] [address] [place] [address] [place] Potassium [Moles/Vol] Potassium [Moles/volume] in Serum or Plasma 3.5-5.1 [facility] RBC Auto (Bld) [#/Vol]Ordere d By: Louis Beal on 11-10-2023 RBC (Bld) [#/Vol] Erythrocytes [#/volume] in Blood by Automated count 3.60-5.00 [facility] Serum or plasma anion gap de terminationOrdered By: Louis Beal on 11-10-2023 Anion gap [Moles/Vol] 11.2 mmol/L Normal 6.0-15.0 [facility] Comment on above: Performed By: #### B MP, CBC #### [facility] [address] [place] [address] [place] Anion gap [Moles/Vol] Serum or plasma anion gap determination 6.0-15.0 [facility] Sodium [Moles/volume] in Ser um or PlasmaOrdered By: Louis Beal on 11-10-2023 Sodium [Moles/Vol] 138 mmol/L Normal 136-145 [facility] Comment on above: Performed By: #### B MP, CBC #### [facility] [address] Sodium [Moles/Vol] Sodium [Moles/volume] in Serum or Plasma 136-145 [facility] Urea nitrogen [Mass/volume] in Serum or PlasmaOrdered By: Louis Beal on 11-10-2023 Urea nitrogen [Mass/Vol] 9 mg/dL Normal 10-06 [facility] Comment on above: Performed By: #### B MP, CBC #### [facility] [address] [place] [address] [place] Urea nitrogen [Mass/Vol] Urea nitrogen [Mass/volume] in Serum or Plasma 10-06 [facility] WBC Auto (Bld) [#/Vol]Ordere d By: Louis Beal on 11-10-2023 WBC (Bld) [#/Vol] Leukocytes [#/volume] in Blood by Automated count 3.8-11.6 [facility] XR knee RT 2Von 11-10-2023 XR knee RT 2V [address] [address] XRay Report Signed Patient: Nimo Craft MR#: [id number] 88 : 1970 Acct:[id number] Age/Sex: 53 / F ADM Date: 11/10/23 Loc: [place] Room: Type: [facility] Attending Dr: Louis Beal DO Copies to: Louis Beal DO Ordering Provider: Louis Beal DO Date of Service: 11/10/23 XR/XR knee RT 2V: ORIF RT PATELLA Intraoperative study. Reason for exam: ORIF right patella Findings: 6 images were obtained intraoperatively. Patellar hardware was placed. Cumulative Air Kerma in mGy: 1.11 mGy XR/XR knee RT 2V Impression: Intraoperative study. Impression dictated by: Arun Chun Jr., D.O.11/10/2023 7:24 PM Dictation Location: [place] [address] Transcribed By: [facility] 11/10/231923 Dictated By: Arun Chun Jr, DO 11/10/231920 Signed By: 11/10/231923 Normal [facility] XR femur RT 2V*on 11-06-2023 XR femur RT 2V* [place] [id number] XRay Report Signed Patient: Nimo Craft MR#: [id number] 88 : 1970 Acct:[id number] Age/Sex: 53 / F ADM Date: 11/05/23 Loc: ER Room: Type: [facility] ER Attending Dr: Copies to: Shay Patel MD Ordering Provider: Shay Patel MD Date of Service: 11/05/23 XR/XR femur RT 2V*: Extremity Injury, Lower XR femur RT 2V* 11/05/2023 11:51 PM SIGNS AND SYMPTOMS: Fall landing on the, unable to straighten PROTOCOL: Frontal and lateral radiographs of the right femur COMPARISON: None FINDINGS: There is a transversely oriented fracture of the patella with the proximal fragment subluxed 3.9 cm cranially. There is a small joint effusion. The femur, tibia, and fibula are intact. The right hip joint space is preserved. XR/XR femur RT 2V* IMPRESSION: There is a transversely oriented fracture of the patella with the proximal fragment subluxed 3.9 cm cranially. Impression dictated by: Misha Bach M.D.11/06/2023 2:26 PM Dictation Location: [facility]-13 Transcribed By: NOAH 11/06/231425 Dictated By: Misha Bach II, MD 11/06/231424 Signed By: 11/06/23 142 Normal [facility] XR knee RT 2Von 11-06-2023 XR knee RT 2V [facility] Main [place] [address] [place] [address] XRay Report Signed Patient: Nimo Craft MR#: [id number] 88 : 1970 Acct:[id number] Age/Sex: 53 / F ADM Date: 11/05/23 Loc: ER Room: Type: [facility] ER Attending Dr: Copies to: Shay Patel MD Ordering Provider: Shay Patel MD Date of Service: 11/05/23 XR/XR knee RT 2V: Extremity Injury, Lower XR knee RT 2V 11/05/2023 11:51 PM SIGNS AND SYMPTOMS: Fall landing on the, unable to straighten PROTOCOL: Frontal and lateral radiographs of the right knee COMPARISON: None FINDINGS: There is a transversely oriented fracture of the patella with the proximal fragment subluxed 3.9 cm cranially. There is a small joint effusion. The femur, tibia, and fibula are intact. XR/XR knee RT 2V IMPRESSION: There is a transversely oriented fracture of the patella with the proximal fragment subluxed 3.9 cm cranially. Impression dictated by: Misha Bach M.D.11/06/2023 2:25 PM Dictation Location: [facility]-13 Transcribed By: NOAH 11/06/231424 Dictated By: Misha Bach II, MD 11/06/231423 Signed By: 11/06/231424 Normal [facility] XR tibia fibula RT 2V*on XR tibia fibula RT 2V* [facility] [place] [address] XRay Report Signed Patient: Nimo Craft MR#: [id number] 88 : 1970 Acct:[id number] Age/Sex: 53 / F ADM Date: 11/05/23 Loc: ER Room: Type: [facility] ER Attending Dr: Copies to: Shay Patel MD Ordering Provider: Shay Patel MD Date of Service: 11/05/23 XR/XR tibia fibula RT 2V*: Extremity Injury, Lower XR tibia fibula RT 2V* 11/05/2023 11:51 PM SIGNS AND SYMPTOMS: Fall landing on the, unable to straighten PROTOCOL: Frontal and lateral radiographs of the right tibia and fibula COMPARISON: None FINDINGS: There is a transversely oriented fracture of the patella with the proximal fragment subluxed 3.9 cm cranially. There is a small joint effusion. The femur, tibia, and fibula are intact. Ankle mortise is preserved. XR/XR tibia fibula RT 2V* IMPRESSION: There is a transversely oriented fracture of the patella with the proximal fragment subluxed 3.9 cm cranially. The tibia and fibula are intact. Impression dictated by: Misha Bach M.D.11/06/2023 2:27 PM Dictation Location: [place] [address] Transcribed By: [facility] 11/06/23 142 Dictated By: Misha Bach II, MD 11/06/231425 Signed By: 11/06/23 142 Normal [facility] MG MAMM SCREEN 3D PIERRE CADon 04-07-2022 MG MAMM SCREEN 3D PIERRE CAD Patient: NIMO CRAFT Exam Date: 04/07/2022 : 1970 Gender:F Ordering : DR ERICK SALCEDO M.D. Admission #: [id number] Family : Order #: [id number] CLICK HERE TO VIEW EXAM RADIOLOGY REPORT PROCEDURE: MAMMOGRAM SCREENING 3D BILATERAL CAD COMPARISON: MG MAMM SCREEN PIERRE W CAD, 04/28/2016. MG MAMM PIERRE SCRN W CAD DIG, 10/11/2014. MG MAMM PIERRE SCRN W CAD DIG, 04/13/2013. MG MAMM SCREEN PIERRE W CAD, 01/09/2020. INDICATIONS: Screening mammography Calculator Name NCI Breast Cancer Risk Assessment Tool 5 Year Breast Cancer Risk 1.20% Lifetime Breast Cancer Risk 9.60% Personal Breast Cancer No Personal Ovarian Cancer No Treatments None Family Cancers None LOCATION: The BREAST COMPOSITION: Scattered areas fibroglandular density. FINDINGS: DIAGNOSTIC CATEGORY 1--NEGATIVE. RIGHT BREAST: No significant suspicious finding. No significant change has occurred. LEFT BREAST: No significant suspicious finding. No significant change has occurred. RECOMMENDATIONS: ROUTINE MAMMOGRAM AND CLINICAL EVALUATION IN 12 MONTHS. PLEASE NOTE: A NORMAL MAMMOGRAM DOES NOT EXCLUDE THE POSSIBILITY OF BREAST CANCER. A CLINICALLY SUSPICIOUS PALPABLE LUMP SHOULD BE BIOPSIED. Dictated by: Nora Powers M.D. on 04/08/2022 at 11:39 Approved by: Nora Powers M.D. on 04/08/2022 at 11:46 Normal The XR Ankle Complete Left*on XR Ankle Complete Left* HISTORY: Twistin g injury to ankle yesterday with pain and swelling. COMPARISON: None RESULT: Left ankle/foot: Mild soft tissue edema about the ankle. Ankle mortise maintained. No acute fracture. No dislocation. Joint spaces maintained. Small plantar calcaneal enthesophyte. Accessory navicular. No other significant abnormality. IMPRESSION: No acute osseous findings. Report reported and signed by Erick Anderson on 12/01/2021 1716 Normal [facility] [employer] XR Foot Complete Left*on XR Foot Complete Left* [facility]. Report reported and signed by Erick Anderson on 12/01/2021 1717 Normal [facility] [employer] [facility] Vital Signs Date Time Vital Sign Value Performing Clinician Facility 03-09-2024 [id number] Body height 154.9 cm Cris Moran NP Work Phone: [facility] 03-09-2024 14:03-0500 Body mass index (BMI) [Ratio] 41.46 kg/m2 Cris Moran NP Work Phone: [facility] 03-09-2024 14:03-0500 Body weight 99.52 kg Cris Moran NP Work Phone: [facility] 03-09-2024 14:03-0500 Diastolic blood pressure 82 mm[Hg] Cris Moran DOPSTER Work Phone: [facility] 03-09-2024 14:03-0500 Heart rate 89 /min Cris Garibayvely DOPSTER Work Phone: [facility] 03-09-2024 14:03-0500 Respiratory rate 16 /min Cris Garibayvely DOPSTER Work Phone: [facility] 03-09-2024 14:03-0500 SaO2% (BldA) [Mass fraction] 98 % Cris Garibayvely DOPSTER Work Phone: [facility] 03-09-2024 14:03-0500 Systolic blood pressure 130 mm[Hg] Cris Moran DOPSTER Work Phone: [facility] 12-08-2023 12:25-0400 Diastolic blood pressure 58 mm[Hg] II Erick Salcedo Work Phone: [facility] 12-08-2023 12:25-0400 Heart rate 85 /min II Erick Salcedo Work Phone: [facility] 12-08-2023 12:25-0400 Respiratory rate 16 /min II Erick Salcedo Work Phone: [facility] 12-08-2023 12:25-0400 SaO2% (BldA) [Mass fraction] 98 % II Erick Salcedo Work Phone: [facility] 12-08-2023 12:25-0400 Systolic blood pressure 106 mm[Hg] II Erick Salcedo Work Phone: [facility] 12-08-2023 10:00-0400 Body temperature 97.2 [degF] II Erick Salecdo Work Phone: [facility] 12-08-2023 10:00-0400 Inhaled oxygen flow rate 8 L/min II Erick Salcedo Work Phone: [facility] 12-08-2023 06:28-0400 Body height 152.4 cm II Erick Salcedo Work Phone: [facility] 12-08-2023 06:28-0400 Body weight 96.16 kg II Erick Salcedo Work Phone: [facility] 11-19-2023 00:50-0400 Heart rate 76 /min II Erick Salcedo Work Phone: [facility] 11-19-2023 00:50-0400 Respiratory rate 20 /min II Erick Salcedo Work Phone: [facility] 11-19-2023 00:50-0400 SaO2% (BldA) [Mass fraction] 95 % II Erick Salcedo Work Phone: [facility] 11-18-2023 23:13-0400 Body temperature 97.8 [degF] II Erick Salcedo Work Phone: [facility] 11-18-2023 23:13-0400 Diastolic blood pressure 80 mm[Hg] II Erick Salcedo Work Phone: [facility] 11-18-2023 23:13-0400 Systolic blood pressure 152 mm[Hg] II Erick Salcedo Work Phone: [facility] 11-18-2023 19:25-0400 Body height 153.67 cm II Erick Salcedo Work Phone: [facility] 11-18-2023 19:25-0400 Body weight 97.52 kg II Erick Salcedo Work Phone: [facility] 11-11-2023 12:55-0400 Respiratory rate 16 /min II Erick Salcedo Work Phone: [facility] 11-11-2023 11:14-0400 Body temperature 97.7 [degF] II Erick Salcedo Work Phone: [facility] 11-11-2023 11:14-0400 Diastolic blood pressure 73 mm[Hg] II Erick Salcedo Work Phone: [facility] 11-11-2023 11:14-0400 Heart rate 77 /min II Erick Salcedo Work Phone: [facility] 11-11-2023 11:14-0400 SaO2% (BldA) [Mass fraction] 100 % II Erick Salcedo Work Phone: [facility] 11-11-2023 11:14-0400 Systolic blood pressure 109 mm[Hg] II Erick Salcedo Work Phone: [facility] 11-11-2023 05:31-0400 Body weight 99.2 kg II Erick Salcedo Work Phone: [facility] 11-10-2023 21:27-0400 Body height 152.4 cm II Erick Salcedo Work Phone: [facility] 11-10-2023 19:40-0400 Inhaled oxygen flow rate 8 L/min II Erick Salcedo Work Phone: [facility] 11-10-2023 10:48-0400 Body height 154.94 cm II Erick Salcedo Work Phone: [facility] 11-10-2023 10:48-0400 Body mass index (BMI) [Ratio] 43.3 kg/m2 II Erick Salcedo Work Phone: [facility] 11-10-2023 10:48-0400 Body weight 104 kg II Erick Salcedo Work Phone: [facility] 11-06-2023 14:00-0400 Diastolic blood pressure 71 mm[Hg] II Erick Salcedo Work Phone: [facility] 11-06-2023 14:00-0400 Heart rate 88 /min II Erick Salcedo Work Phone: [facility] 11-06-2023 14:00-0400 Respiratory rate 18 /min II Erick Salcedo Work Phone: [facility] 11-06-2023 14:00-0400 SaO2% (BldA) [Mass fraction] 98 % II Erick Salcedo Work Phone: [facility] 11-06-2023 14:00-0400 Systolic blood pressure 128 mm[Hg] II Erick Salcedo Work Phone: [facility] 11-05-2023 23:50-0400 Body height 154.94 cm II Erick Salcedo Work Phone: [facility] 11-05-2023 23:50-0400 Body weight 104.7 kg II Erick Salcedo Work Phone: [facility] 11-05-2023 23:48-0400 Body temperature 98 [degF] II Erick Salcedo Work Phone: [facility] Encounters Encounter Date Encounter Type Care Provider Facility Start: 04-24-2024 End: 04-25-2024 Refill Cris Moran DOPSTER Work Phone: [facility] Comment on above: Closed displaced fra cture of right patella, unspecified fracture morphology, sequela Start: 04-21-2024 End: 04-25-2024 Refill Cris Moran DOPSTER Work Phone: [facility] Comment on above: Closed displaced fra cture of right patella, unspecified fracture morphology, sequela Start: 04-19-2024 ambulatory Alex Sierra Facility :[facility] Start: 04-14-2024 End: 04-17-2024 Refill Erick Salcedo MD Work Phone: [facility] Comment on above: Anxiety Start: 04-10-2024 End: 04-11-2024 Refill Prachi Wednesday PAPIER MACHE' MOLDER Work Phone: [facility] Comment on above: Closed displaced fra cture of right patella, unspecified fracture morphology, sequela Attention deficit hy peractivity disorder (ADHD), unspecified ADHD type (CMS/HCC) Start: 04-09-2024 End: 04-11-2024 Refill Cris Moran DOPSTER Work Phone: [facility] Comment on above: Closed displaced fra cture of right patella, unspecified fracture morphology, sequela Start: 04-06-2024 End: 04-11-2024 Refedwin Moran NP Work Phone: [facility] Comment on above: Closed displaced fra cture of right patella, unspecified fracture morphology, sequela Start: 03-30-2024 End: 03-30-2024 Refill Cris Moran NP Work Phone: [facility] Comment on above: Closed displaced fra cture of right patella, unspecified fracture morphology, sequela Start: 03-23-2024 End: 03-23-2024 Refill Cris Moran DOPSTER Work Phone: [facility] Comment on above: Closed displaced fra cture of right patella, unspecified fracture morphology, sequela Start: 03-20-2024 End: 03-20-2024 ambulatory Erick Salcedo II Work Phone: [facility] Work Phone: Start: 03-20-2024 End: 03-20-2024 Patient encounter procedure [facility]rick Salcedo II [facility] Work [facility]: Start: 03-20-2024 Registered Recurring Erick siddiquiy II Work Phone: [facility] [place] Start: 03-16-2024 Registered Recurring Erick Davidson rry II Work Phone: [facility] [place] Start: 03-16-2024 End: 03-16-2024 Refill Cris Moran DOPSTER Work Phone: [facility] Comment on above: Anxiety; Closed displaced fracture of right patella, unspecified fracture morphology, sequela Start: 03-12-2024 End: 03-13-2024 Refedwin Moran DOPSTER Work Phone: [facility] Comment on above: Attention deficit hy peractivity disorder (ADHD), unspecified ADHD type (CMS/HCC) Start: 03-09-2024 End: 03-09-2024 Bamboo flowsheet Cris Moran NP Work Phone: [facility] Start: 03-09-2024 End: 03-09-2024 Bamboo flowsheet Cris Moran DOPSTER Work Phone: [facility] Start: 03-09-2024 End: 03-09-2024 Office outpatient visit 15 minutes Cris Moran DOPSTER Work Phone: [facility] Comment on above: Closed displaced fra cture of right patella, unspecified fracture morphology, sequela Start: 03-09-2024 End: 03-09-2024 ambulatory CRIS MORAN Not Available Start: 03-02-2024 End: 03-02-2024 Refill Avril Claudio PA Work Phone: [facility] Comment on above: Closed displaced fra cture of right patella, unspecified fracture morphology, sequela Start: 03-02-2024 End: 03-02-2024 Patient encounter procedure Erick Salcedo II Work Phone: [facility] Work Phone: Start: 02-25-2024 End: 02-26-2024 Refill Avril Claudio PA Work Phone: [facility] Comment on above: Closed displaced fra cture of right patella, unspecified fracture morphology, sequela Start: 02-18-2024 End: 02-18-2024 Refill Avril Claudio PA Work Phone: [facility] Comment on above: Closed displaced fra cture of right patella, unspecified fracture morphology, sequela Start: 02-16-2024 End: 02-17-2024 Refill Avril Claudio PA Work Phone: [facility] Comment on above: Anxiety Attention deficit hy peractivity disorder (ADHD), unspecified ADHD type (CMS/HCC) Start: 02-13-2024 End: 02-14-2024 Refill Avril Claudio PA Work Phone: [facility] Comment on above: Closed displaced fra cture of right patella, unspecified fracture morphology, sequela Start: 02-07-2024 End: 02-07-2024 Refill Avril Claudio PA Work Phone: [facility] Comment on above: Closed displaced fra cture of right patella, unspecified fracture morphology, sequela Start: 02-03-2024 End: 02-03-2024 ambulatory Erick Salcedo II Work Phone: [facility] Work Phone: Start: 02-03-2024 End: 02-03-2024 Patient encounter procedure Erick Salcedo II Work Phone: [facility] Work Phone: Start: 02-03-2024 End: 02-03-2024 Patient encounter procedure Erick Salcedo II Work Phone: [facility] [place] [facility] Start: 02-03-2024 End: 02-03-2024 ambulatory Erick Salcedo Facility:[facility] Start: 01-31-2024 End: 01-31-2024 Refedwin Moran NP Work Phone: [facility] Comment on above: Closed displaced fra cture of right patella, unspecified fracture morphology, sequela Start: 01-24-2024 End: 01-25-2024 Gabino Moran DOPSTER Work Phone: [facility] Comment on above: Closed displaced fra cture of right patella, unspecified fracture morphology, sequela Start: 01-21-2024 End: 01-21-2024 Refill Cris Moran DOPSTER Work Phone: [facility] Comment on above: Anxiety Start: 01-18-2024 End: 01-18-2024 ambulatory II Erick Salcedo Work Phone: [facility] Work Phone: Start: 01-18-2024 End: 01-18-2024 Patient encounter procedure II Erick Salcedo Work Phone: [facility] [place] [facility] Work Phone: Start: 01-15-2024 End: 01-18-2024 Refill Avril Claudio PA Work Phone: [facility] Comment on above: Attention deficit hy peractivity disorder (ADHD), unspecified ADHD type (CMS/HCC) Closed displaced fra cture of right patella, unspecified fracture morphology, sequela Start: 01-09-2024 End: 01-11-2024 Refill Cris oMran DOPSTER Work Phone: [facility] Comment on above: Closed displaced fra cture of right patella, unspecified fracture morphology, sequela Start: 01-03-2024 End: 01-04-2024 Refill Cris Moran DOPSTER Work Phone: [facility] Comment on above: Closed displaced fra cture of right patella, unspecified fracture morphology, sequela Start: 12-26-2023 End: 12-27-2023 Refill Erick Salcedo MD Work Phone: [facility] Comment on above: Anxiety; Symptomatic menopausal or female climacteric states; Closed displaced fracture of right patella, unspecified fracture morphology, sequela; Primary insomnia Closed displaced fra cture of right patella, unspecified fracture morphology, sequela Symptomatic menopaus al or female climacteric states; Anxiety Start: 12-21-2023 End: 12-21-2023 ambulatory II Erick Salcedo Work Phone: [facility] Work Phone: Start: 12-21-2023 End: 12-21-2023 Patient encounter procedure II Erick Salcedo Work Phone: [facility] Work Phone: Start: 12-21-2023 End: 12-21-2023 Patient encounter procedure II Erick Salcedo Work Phone: [facility] Start: 12-21-2023 End: 12-21-2023 ambulatory II Erick Salcedo Work Phone: [facility] Work Phone: Start: 12-20-2023 End: 12-21-2023 Refill Cris Moran DOPSTER Work Phone: [facility] Comment on above: Closed displaced fra cture of right patella, unspecified fracture morphology, sequela Start: 12-16-2023 End: 12-17-2023 Refill Cris Moran DOPSTER Work Phone: [facility] Comment on above: Closed displaced fra cture of right patella, unspecified fracture morphology, sequela Attention deficit hy peractivity disorder (ADHD), unspecified ADHD type ([facility] Start: 12-14-2023 End: 12-14-2023 ambulatory CRIS MORAN Not Available Start: 12-14-2023 End: 12-14-2023 Office outpatient visit 25 minutes Cris Moran DOPSTER Work Phone: [facility] Comment on above: Closed displaced fra cture of right patella, unspecified fracture morphology, sequela (Primary Dx) Start: 12-13-2023 End: 12-13-2023 ambulatory II Erick Salcedo Work Phone: [facility] Work Phone: Start: 12-13-2023 End: 12-13-2023 Patient encounter procedure II Erick Salcedo Work Phone: [facility] [place] [facility] Work Phone: Start: 12-08-2023 Non-patient / Non-visit II David Salcedo Work Phone: [facility] [place] [facility] Work Phone: Start: 12-08-2023 End: 12-08-2023 Admission to same day surgery center II Erick Salcedo Work Phone: [facility] [place] Start: 12-08-2023 End: 12-08-2023 ambulatory II Erick Salcedo Work Phone: [facility] Work Phone: Start: 12-02-2023 End: 12-02-2023 ambulatory II Erick Salcedo Work Phone: [facility] Work Phone: Start: 12-02-2023 End: 12-02-2023 Patient encounter procedure II Erick Salcedo Work Phone: [facility] [place] [facility] Work Phone: Start: 11-22-2023 End: 11-22-2023 Gabino BALES Work Phone: [facility] Comment on above: Attention deficit hy peractivity disorder (ADHD), unspecified ADHD type ([facility]/HCC) Start: 11-18-2023 End: 11-19-2023 Emergency department patient visit II Erick Salcedo Work Phone: [facility] Work Phone: Start: 11-10-2023 End: 11-11-2023 Evaluation and management of inpatient II Erick Salcedo Work Phone: [address] [facility] Work Phone: Start: 11-10-2023 Non-patient / Non-visit II David Salcedo Work Phone: [facility] Work Phone: Start: 11-10-2023 End: 11-11-2023 Admission to same day surgery center II Erick Salcedo Work Phone: [facility] [place] Start: 11-10-2023 End: 11-11-2023 ambulatory II Erick Salcedo Work Phone: [facility] Work Phone: Start: 11-10-2023 Patient encounter status II Ashwin Salcedo Work Phone: [facility] Start: 11-10-2023 End: 11-10-2023 ambulatory II Erick Salcedo Work Phone: [facility] Work Phone: Start: 11-10-2023 End: 11-10-2023 Encounter for other preprocedural examination Erickchirag Salcedo JOSELIN Work Phone: [facility] Start: 11-10-2023 End: 11-10-2023 Patient encounter procedure II Erick Salcedo Work Phone: [facility] Work Phone: Start: 11-05-2023 End: 11-06-2023 Emergency department patient visit II Erick Salcedo Work Phone: [facility] Work Phone: Start: 09-08-2023 End: 09-08-2023 ambulatory CRIS MORAN Not Available Start: 06-29-2023 End: 06-29-2023 ambulatory EMYCHRISTIANO JAVIERALMAZ Not Available Start: 05-21-2023 End: 05-21-2023 ambulatory AVRIL Manzano GEORGES Not Available Start: 04-01-2023 End: 04-01-2023 ambulatory CRIS MORAN Not Available Start: 04-07-2022 End: 04-08-[address] ERICK SALCEDO Facility: Start: 04-03-2021 End: 04-08-2021 ambulatory UNKNOWN PROVIDER Facility:[facility] Procedures Date Procedure Procedure Detail Performing Clinician Start: 02-03-2024 X-ray of right knee, three views Erick Salcedo JOSELIN Work Phone: Start: 01-18-2024 X-ray of right knee, three views II Erickchirag Salcedo Work Phone: Start: 12-21-2023 X-ray of right knee, two views II Erickchirag Salcedo Work Phone: Start: 12-08-2023 Open reduction of fracture of patella with internal fixation II Erick Salcedo Work Phone: Start: 12-02-2023 X-ray of right knee II Erick Salcedo Work Phone: Start: 11-18-2023 Duplex scan of lower limb veins II Erick Salcedo Work Phone: Start: 11-18-2023 Bacteria identified in Urine by Culture II Erick Salcedo Work Phone: Start: 11-18-2023 Urine culture II Erick Salcedo Work Phone: Start: 11-10-2023 X-ray of right knee II Erick Salcedo Work Phone: Start: 11-10-2023 Open reduction of fracture of patella with internal fixation II Erick Salcedo Work Phone: Start: 11-05-2023 Plain X-ray of right femur II Erick Salcedo Work Phone: Start: 11-05-2023 Plain X-ray of right tibia and right fibula II Erick Salcedo Work Phone: Start: 11-05-2023 X-ray of right knee II Erick Salcedo Work Phone: Start: 10-28-2023 Mammography Cris Moran DOPSTER Work Phone: Start: 08-12-2022 H/O: hysterectomy History of hysterectomy Cris Cuadra P Work Phone: Plan of Treatment Date Care Activity Detail Author Start: 10-27-2024 Screening for malign ant neoplasm of breast Mammogram [facility] Start: 06-28-2024 End: 06-28-2024 Patient encounter procedure 06/28/2024 1:20 PM EDT Office Visit [facility] [address] [place] [phone] Emy Amador PA [address] [place] [phone] [facility] Start: 03-09-2024 End: 03-09-2024 Patient encounter procedure [facility] Comment on above: Arrived Start: 02-14-2024 End: 02-14-2024 ambulatory 02/14/2024 10:00 AM EST Evaluation [facility] [address] [place] [id number] Rajan Andrea, PT [address] [place] [address] [facility] Start: 02-03-2024 X-ray of right knee, three views XR knee RT 3V - NOT FOR ER USE [facility] Start: 02-03-2024 XR Knee - right 3 Views [facility] Start: 01-18-2024 X-ray of right knee, three views XR knee RT 3V - NOT FOR ER USE [facility] Start: 01-18-2024 XR Knee - right 3 Views [facility] Start: 12-21-2023 X-ray of right knee, two views XR knee RT 2V [facility] Start: 12-21-2023 XR Knee - right 2 Views [facility] Start: 12-08-2023 [facility] Start: 12-08-2023 [facility] Start: 12-02-2023 X-ray of right knee XR knee RT 2V [facility] Start: 12-02-2023 XR Knee - right 2 Views [facility] Start: 11-18-2023 Duplex scan of lower limb veins US venous duplex LE RT [facility] Start: 11-18-2023 US Lower extremity v ein - right [facility] Start: 11-18-2023 Bacteria identified in Urine by Culture [facility] Start: 11-14-2023 Influenza vaccination Influenza Vacc ine (#1) [facility] Start: 11-10-2023 [facility] Start: 11-10-2023 Physical therapy procedure [facility] Start: 11-10-2023 Hospital admission [facility] Start: 11-10-2023 [facility] Start: 11-05-2023 Plain X-ray of right femur XR femur RT 2V* [facility] Start: 11-05-2023 Plain X-ray of right tibia and right fibula XR tibia fibula RT 2V* [facility] Start: 11-05-2023 X-ray of right knee XR knee RT 2V [facility] Start: 11-05-2023 XR Femur - right 2 Views [facility] Start: 11-05-2023 XR Knee - right 2 Views [facility] Start: 11-05-2023 XR Tibia and Fibula - right 2 Views [facility] Start: 09-06-2023 Screening for malign ant neoplasm of colon [facility] Start: 1970 Screening for malign ant neoplasm of colon [facility] Patient Education [facility] Work Phone: Patient referral [facility] Work Phone: Immunizations Immunization Date Immunization Notes Care Provider Royer lombardo 12-25-2022 SARS-COV-2 (COVID-19 ) vaccine, mRNA, spike protein, LNP, PF, mary-sucrose, 30 mcg/0.3 mL Cris Moarn DOPSTER Work Phone: [facility] 12-06-2022 tetanus toxoid, redu phil diphtheria toxoid, and acellular pertussis vaccine, adsorbed II Erick Salcedo Work Phone: [facility] 07-21-2022 zoster vaccine recombinant Cris Moran DOPSTER Work Phone: [facility] 02-14-2022 influenza, injectabl e, quadrivalent, preservative free Cris Moran DOPSTER Work Phone: [facility] 02-14-2022 influenza virus vaccine, unspecified formulation Cris Moran DOPSTER Work Phone: [facility] 12-21-2021 Moderna Bivalent Booster Vaccination Cris Moran DOPSTER Work Phone: [facility] 12-21-2021 SARS-CoV-2, Unspecified Evan Moran DOPSTER Work Phone: [facility] 01-28-2021 influenza, injectabl e, quadrivalent, preservative free Cris Moran DOPSTER Work Phone: [facility] 10-18-2019 influenza, high dose seasonal, preservative-free Cris Moran DOPSTER Work Phone: [facility] 10-18-2019 influenza, injectabl e, quadrivalent, preservative free Cris Moran DOPSTER Work Phone: [facility] 12-03-2012 seasonal influenza, intradermal, preservative free Cris Moran DOPSTER Work Phone: [facility] 10-04-2000 tetanus toxoid, adsorbed Cris Dean DOPSTER Work Phone: [facility] Healthcare Payers Date Payer Category Payer Self-pay [id number] 2021 Unknown BOULDER [id number] 2021 Blue Cross Blue Shield BCBS Memb er Subscriber Plan / Payer (Effective 2021-Present) Name: Nimo Craft Relation to Subscriber: Spouse Name: BARBIEOZZY Marguerite Date of : 1966 (Home) Address: [address] [place] [id number] Payer ID: Not on file Type: Not on file Address: [address] [id number] 2021 Unknown BCBS BCBS [id number] 2021-Present [phone] [address] [id number] 1969 Unknown [id number] [id number] .732 1969 Unknown [id number] 2.16.840.1.835636.3.579.2 .593 1969 Unknown [id number] 2.16.840.1.066704.3.579.2 .1259 1969 Unknown [id number] 2.16.840.1.112236.3.579.2 .1259 1969 Unknown [id number] 2.16.840.1.625549.3.579.2 .1259 1969 Unknown [id number] 2.16.840.1.714093.3.579.2 .1259 1969 Unknown [id number] 2.16.840.1.508621.3.579.2 .1259 1969 Unknown [id number] 2.16.840.1.355417.3.579.2 .1259 1959 Unknown [id number] Unknown [id number] 2.16.840.1.641802.3.579.2 .531 Unknown [id number] 2.16.840.1.083794.3.579.2 .531 Unknown [id number] 2.16.840.1.680070.3.579.2 .531 Unknown [id number] 2.16.840.1.877802.3.579.2 .531 Unknown [id number] 2.16.840.1.009826.3.579.2 .531 Unknown [id number] 2.16.840.1.175685.3.579.2 .531 Unknown [id number] 2.16.840.1.313570.3.579.2 .531 Unknown [id number] 2.16.840.1.670915.3.579.2 .531 Unknown [id number] 2.16.840.1.716527.3.579.2 .531 Unknown [id number] 2.16.840.1.295485.3.579.2 .531 Social History Date Type Detail Facility Start: 08-27-2022 End: 11-05-2023 Tobacco smoking status NHIS Never smoked tobacco (finding) [facility] Start: 1970 Sex Assigned At Female F [facility] Start: 11-18-2023 Tobacco smoking stat us [facility] Unknown if ever smoked [facility] Start: 08-27-2022 Tobacco use and exposure Smokeless tobacco non-user [facility] Start: 12-08-2023 End: 03-09-2024 Alcoholic beverage intake Ex-drinker (finding) [facility] Start: 08-27-2022 End: 12-14-2023 History of Social function [facility] Start: 08-27-2022 End: 12-14-2023 B1300 Health Literacy [facility] How often do you nee d to have someone help you when you read instructions, pamphlets, or other written material from your doctor or pharmacy [SILS] Never [facility] Within the last year , have you been afraid of your partner or ex-partner? No [facility] Are you now , , , , never or living with a partner? [facility] How often to you hav e a drink containing alcohol? Never [facility] Do you feel stress - tense, restless, nervous, or anxious, or unable to sleep at night because your mind is troubled all the time - these days [OSQ] Very much [facility] (I/We) worried wheth er (my/our) food would run out before (I/we) got money to buy more. Never true [facility] In the past 12 month s, was there a time when you were not able to pay the mortgage or rent on time? Yes [facility] Start: 08-27-2022 Tobacco Comment Can't stand the smel l [facility] Start: 04-01-2023 Alcohol Comment caffeine: soda [facility] Start: 1970 Sex assigned at Not on file [facility] Start: 02-03-2024 End: 03-20-2024 Sex Female (finding) [facility] How often to you hav e a drink containing alcohol? Monthly or less [facility] How many standard drinks containing alcohol do you have on a typical day? 1 or 2 [facility] How hard is it for y ou to pay for the very basics like food, housing, medical care, and heating Somewhat hard [facility] Medical Equipment Procedure Code Equipment Code Equipment Origin al Text Equipment Identifier Dates ORIF, fracture, patella Orthopaedic bone screw, non-bioabsorbable, non-sterile ()[id number] FDA Start: 11-10-2023 ORIF, fracture, patella Orthopaedic bone screw, non-bioabsorbable, non-sterile ()[id number] FDA Start: 11-10-2023 ORIF, fracture, patella Orthopaedic bone screw, non-bioabsorbable, non-sterile ()[id number] FDA Start: 11-10-2023 ORIF, fracture, patella Orthopaedic bone screw, non-bioabsorbable, non-sterile ()[id number] FDA Start: 11-10-2023 ORIF, fracture, patella Orthopaedic fixation plate, non-bioabsorbable ()[id number] FDA Start: 11-10-2023 ORIF, fracture, patella Tendon/ligament bone anchor, non-bioabsorbable [id number] FDA Start: 12-08-2023 Goals Date Patient Goal Desired Activity /State Functional Status Date Assessment Result Facility 11-11-2023 Functional status Patient is Pro gressing Toward Baseline [facility] Work Phone: Mental Status Date Assessment Result Facility 11-11-2023 Cognitive function Cognitive Sta tus Patient at Baseline [facility] Work Phone: Clinical Notes 11-06-2023 to 04-10-2024 Telephone Encounter - NII Kc - 04/10/2024 5:06 PM ESTTelephone Encounter - NII Kc - 04/10/2024 5:06 PM ESTTelephone Encounter - Pippa Cr MA - 03/30/2024 2:31 PM EST Note Date & Type Note Facility 04-10-2024 Telephone encount er Note OARRS reviewed, Rx sent into patient's pharmacy. [facility] 04-10-2024 Miscellaneous Notes Formattin g of this note might be different from the original. OARRS reviewed, Rx sent into patient's pharmacy. documented in this encounter [facility] 03-30-2024 Telephone encount er Note [facility] is currently out of medication. [facility] 03-30-2024 Miscellaneous Notes Formattin g of this note might be different from the original. [facility] is currently out of medication. [facility] TY documented in this encounter [facility] 03-09-2024 History of Presen t illness Narrative Images from the original note were not included. Subjective Patient ID: Nimo Craft is a 53 y.o. female who presents for back pain. Nimo presents today for her 3 month F/U, for back pain. She also broke her knee cap after a fall back in October. Knee Pain The incident occurred more than 1 week ago. Incident location: shopping. The injury mechanism was a direct blow. The pain is present in the right knee. The quality of the pain is described as stabbing. The pain is at a severity of 7/10. The pain is moderate. The pain has been Fluctuating since onset. Associated symptoms include a loss of motion and numbness. She reports no foreign bodies present. The symptoms are aggravated by movement. She has tried elevation, ice, non-weight bearing, rest, immobilization, NSAIDs, heat and acetaminophen (brace) for the symptoms. The treatment provided mild relief. Current Outpatient Medications on File Prior to Visit Medication Sig Dispense Refill albuterol HFA 90 mcg/act inhaler INHALE 1 PUFF INTO THE LUNGS EVERY 4 HOURS NEEDED 18 g 5 ALPRAZolam (Xanax) 0.5 MG tablet Take 1 tablet (0.5 mg) by mouth 3 (three) times a day as needed for anxiety 90 tablet 0 amphetamine-dextroamphetamine XR (Adderall XR) 30 MG 24 hr capsule Take 1 capsule (30 mg) by mouth every 12 (twelve) hours 60 capsule 0 dicyclomine (Bentyl) 10 MG capsule Take 10 mg by mouth in the morning and 10 mg at noon and 10 mg in the evening and 10 mg before bedtime. estradiol (Climara) 0.025 MG/24HR Place 1 patch on the skin 1 (one) time per week 12 patch 2 FLUoxetine (PROzac) 40 MG capsule TAKE 1 CAPSULE BY MOUTH EVERY DAY FOR 90 DAYS 90 capsule 3 furosemide (Lasix) 20 MG tablet TAKE 1 TABLET BY MOUTH EVERY DAY NEEDED FOR EDEMA 100 tablet 3 gabapentin (Neurontin) 300 MG capsule TAKE 1 CAPSULE BY MOUTH TWICE DAILY 180 capsule 4 GNP PAIN RELIEF EX-STRENGTH 500 MG tablet Take 500 mg by mouth every 8 (eight) hours if needed levothyroxine (Synthroid, Levoxyl) 100 MCG tablet TAKE 1 TABLET BY MOUTH EVERY DAY IN THE MORNING ON EMPTY STOMACH 100 tablet 3 loratadine (Claritin) 10 MG tablet 1 (one) time each day at the same time. oxyCODONE (Roxicodone) 10 MG immediate release tablet Take 1 tablet (10 mg) by mouth every 6 (six) hours if needed for severe pain for up to 7 days 28 tablet 0 Tirzepatide-Weight Management (Zepbound) 5 MG/0.5ML solution auto-injector Inject 5 mg under the skin 1 (one) time per week 2 mL 0 tiZANidine (Zanaflex) 4 MG tablet TAKE 1 TABLET BY MOUTH THREE TIMES A DAY 270 tablet 4 zolpidem CR (Ambien CR) 12.5 MG ER tablet Take 1 tablet (12.5 mg) by mouth at bedtime 30 tablet 5 No current facility-administered medications on file prior to visit. I have reviewed and reconciled the history and medication list with the patient today. Allergies Allergen Reactions Codeine Unknown Methylprednisolone Other Penicillin G Unknown Social History Tobacco Use Smoking status: Never Smokeless tobacco: Never Tobacco comments: Can't stand the smell Vaping Use Vaping status: Unknown Substance Use Topics Alcohol use: Not Currently Comment: caffeine: soda Drug use: Yes Types: Hydrocodone Family History Problem Relation Name Age of Onset Heart disease Mother Autumn Longoria Heart disease Father Shay Broderick Cancer Mother's Sister Lizzette Gill Past Medical History: Diagnosis Date ADHD (attention deficit hyperactivity disorder) ([facility]) Anxiety 02/03 Concussion COPD (chronic obstructive pulmonary disease) ([facility]/HCC) Depression (CMS/HCC) 06/04 Heel spur Hernia, abdominal History of hysterectomy Irritable bowel disease Past Surgical History: Procedure Laterality Date HERNIA REPAIR 2010 HYSTERECTOMY 2009 OVARY SURGERY 2006 PATELLA FRACTURE SURGERY Right 11/10/2023 ORIF PATELLECTOMY Right 12/08/2023 Visit Vitals Smoking Status Never Review of Systems Neurological: Positive for numbness. Objective Physical Exam Vitals reviewed. Constitutional: Appearance: Normal appearance. HENT: Head: Normocephalic. Nose: Nose normal. Mouth/Throat: Mouth: Mucous membranes are moist. Pharynx: Oropharynx is clear. Eyes: Conjunctiva/sclera: Conjunctivae normal. Cardiovascular: Rate and Rhythm: Normal rate. Pulmonary: Effort: Pulmonary effort is normal. Musculoskeletal: General: Swelling, deformity and signs of injury present. Right lower leg: Edema present. Skin: General: Skin is warm and dry. Neurological: General: No focal deficit present. Mental Status: She is alert and oriented to person, place, and time. Psychiatric: Mood and Affect: Mood normal. Behavior: Behavior normal. Assessment/Plan Diagnoses and all orders for this visit: Closed displaced fracture of right patella, unspecified fracture morphology, sequela Medication choice and dosage is appropriate for patient's current medical conditions. Patient will continue to be required to be seen in our office at least every three months for monitoring. At each follow up visit I will reassess the patient's need for the medication. Patient is to have this medication prescribed only through this office. Failure to follow the rules and regulations will result in tapering and discontinuation of medications if applicable. Patient verbalized understanding. OARRS Report was reviewed for this patient. No follow-ups on file. documented in this encounter [facility] 03-02-2024 Telephone encount er Note OARRS reviewed, Rx sent into patient's pharmacy. [facility] 03-02-2024 Miscellaneous Notes Formattin g of this note might be different from the original. OARRS reviewed, Rx sent into patient's pharmacy. documented in this encounter [facility] 02-26-2024 Telephone encount er Note OARRS reviewed, Rx sent into patient's pharmacy. [facility] 02-26-2024 Miscellaneous Notes Formattin g of this note might be different from the original. OARRS reviewed, Rx sent into patient's pharmacy. documented in this encounter [facility] 02-18-2024 Telephone encount er Note OARRS reviewed, Rx sent into patient's pharmacy. [facility] 02-18-2024 Miscellaneous Notes Formattin g of this note might be different from the original. OARRS reviewed, Rx sent into patient's pharmacy. documented in this encounter [facility] 02-14-2024 Telephone encount er Note Spoke with patient. She asked to do telemed but I told her we could not do that this time that it needed to be in person. She said she will call back and schedule when she has someone that can bring her. [facility] 02-14-2024 Miscellaneous Notes Formattin g of this note might be different from the original. Spoke with patient. She asked to do telemed but I told her we could not do that this time that it needed to be in person. She said she will call back and schedule when she has someone that can bring her. Please remind pt that she will need to be seen in person for an appointment in the office the first week of March for controlled medication follow up. OARRS reviewed, Rx sent into patient's pharmacy. documented in this encounter [facility] 02-14-2024 Telephone encount er Note Please remind pt that she will need to be seen in person for an appointment in the office the first week of March for controlled medication follow up. OARRS reviewed, Rx sent into patient's pharmacy. [facility] 02-07-2024 Telephone encount er Note OARRS reviewed, Rx sent into patient's pharmacy. [facility] 02-07-2024 Miscellaneous Notes Formattin g of this note might be different from the original. OARRS reviewed, Rx sent into patient's pharmacy. Patient called asking for a refill on their oxycodone 10mg. Please send to [facility]. documented in this encounter [facility] 02-07-2024 Telephone encount er Note Patient called asking for a refill on their oxycodone 10mg. Please send to [facility]. [facility] 01-31-2024 Telephone encount er Note OARRS reviewed, Rx sent into patient's pharmacy. [facility] 01-31-2024 Miscellaneous Notes Formattin g of this note might be different from the original. OARRS reviewed, Rx sent into patient's pharmacy. documented in this encounter [facility] 01-21-2024 Telephone encount er Note OARRS reviewed, Rx sent into patient's pharmacy. [facility] 01-21-2024 Miscellaneous Notes Formattin g of this note might be different from the original. OARRS reviewed, Rx sent into patient's pharmacy. documented in this encounter [facility] 01-18-2024 Evaluation note Diagnosis Onset Date Resolution Displaced transverse fracture of right patella, initial encounter for close acute January 1:39pm Other specified postprocedural states acute January 172023 1:39pm Displaced transverse fracture of right patella, initial encounter for close acute January t2023 9:56am Other specified postprocedural states acute January 142023 9:56am Displaced transverse fracture of right patella, initial encounter for close acute February 10:54am Other specified postprocedural states acute February 122023 10:54am Displaced transverse fracture of right patella, initial encounter for close acute March 20, 2024 3:16pm Other specified postprocedural states acute March 3:16pm [facility] Work Phone: 1(179) 306-274210-14-2024 Telephone encounter Note* Telephone Encounter - Pippa Cr MA - 12/27/2023 7:21 AM EDT Other - I'm not sure if there are refills left on Ambien 12.5. The print on the label is wore off Preferred pharmacy: [id number] Delivery method: Pickup Medication renewals requested in this message routed separately: oxyCODONE (Roxicodone) 10 MG immediate release tablet [Cris Moran] estradiol (Climara) 0.025 MG/24HR [NII Valdez] ALPRAZolam (Xanax) 0.5 MG tablet [NII Valdez] [facility]10 Miscellaneous Notes* Telephone Encounter - Pippa Cr MA - 12/27/2023 7:21 AM EDT Other - I'm not sure if there are refills left on Ambien 12.5. The print on the label is wore off Preferred pharmacy: [id number] - [place], [place] - [address] [facility] Delivery method: Pickup Medication renewals requested in this message routed separately: oxyCODONE (Roxicodone) 10 MG immediate release tablet [Cris Moran] estradiol (Climara) 0.025 MG/24HR [NII Valdez] ALPRAZolam (Xanax) 0.5 MG tablet [NII Valdez] documented in this [facility]10-04-2024 Telephone encounter Note* Telephone Encounter - NII Kc - 12/17/2023 8:27 AM EDT Oxycodone refill too soon. [id number] Miscellaneous Notes* Telephone Encounter - NII Kc - 12/17/2023 8:27 AM EDT Oxycodone refill too soon. documented in this [facility]10-04-2024 Telephone encounter Note* Telephone Encounter - NII Kc - 12/17/2023 8:25 AM EDT OARRS reviewed, Rx sent into patient's pharmacy. [place] [id number] Miscellaneous Notes* Telephone Encounter - NII Kc - 12/17/2023 8:25 AM EDT OARRS reviewed, Rx sent into patient's pharmacy. [facility]-0164 History of Present illness Narrative* Cris Moran NP - 12/14/2023 9:00 AM EDT Images from the original note were not included. Subjective Patient ID: Nimo Craft is a 53 y.o. female who presents for No chief complaint on file.. Pt fractured her patella. The oxycodone 5mg is ineffective. She has been doubling her oxycodone fora total dose of 10mg and it takes the edge off. She has had 2 knee surgeries in 4 weeks. She feel in [employer]. Review of Systems Constitutional: Negative. HENT: Negative. Eyes: Negative. Respiratory: Negative. Cardiovascular: Negative. Gastrointestinal: Negative. Genitourinary: Negative. Musculoskeletal: Knee pain Skin: Negative. Neurological: Negative. Psychiatric/Behavioral: Negative. Endocrine: Negative. Objective Physical Exam Vitals reviewed. Constitutional: Appearance: Normal appearance. HENT: Head: Normocephalic. Mouth/Throat: Pharynx: Oropharynx is clear. Eyes: Conjunctiva/sclera: Conjunctivae normal. Pulmonary: Effort: Pulmonary effort is normal. Musculoskeletal: Right knee: Bony tenderness present. Tenderness present. Skin: General: Skin is warm and dry. Neurological: General: No focal deficit present. Mental Status: She is alert and oriented to person, place, and time. Psychiatric: Mood and Affect: Mood normal. Behavior: Behavior normal. Assessment/Plan Diagnoses and all orders for this visit: Closed displaced fracture of right patella, unspecified fracture morphology, sequela - oxyCODONE (Roxicodone) 10 MG immediate release tablet; Take 1 tablet (10 mg) by mouth every 6 (six) hours if needed for severe pain for up to 7 days Discussed risks of this class of medication including the potential for abuse, reliance. Discussed importance of properly storing and disposing of the medication. Reviewed the goals of treatment, including improving pain control and improving functional status. Medication choice and dosage is appropriate for patient's current medical conditions. Reviewed the rules and regulations surrounding prescription of opioids and compliance at length with the patient. Patient will be required to be seen in our office at least every three months for monitoring. At each follow up visit I will reassess thepatient's need for the medication. Patient is to have this medication prescribed only through this office. Failure to follow the rules and regulations will result in tapering and discontinuation of medications if applicable. Patient verbalized understanding. OARRS Report was reviewed for this patient. Continue follow up with orthopedics due to fracture. [id number] Progress note Author Louis Beal [facility] November 11, 2023 11:28am Note Date/Time November 11, 2023 11 :27am [facility] [address] [place] [address] Orthopedic Progress Note Signed Patient: Nimo Craft MR#: [id number] : 1970 Acct:[id number] Age/Sex: 53 / F Adm Date: 4 Loc: 4 Room: [address] [place] [address] Type: ADM IN Attending Dr: Louis Beal DO Copies to: ~ Date of Service: 11/11/2023 Subjective Subjective Interval History: Patient doing well this morning. Pain well-controlled. Exam Physical Exam Vital Signs: Temp Pulse Resp BP Pulse Ox O2 Del Method O2 Flow Rate 97.7 F 77 18 109/73 100 Room Air 8 11/11/23 11:14 11/11/23 11:14 11/11/23 11:14 11/11/23 11:14 11/11/23 11:14 11/11/23 11:14 11/10/23 19:40 Narrative: RLE examined. Charli wrap and HKB in place. Pt able to perform SLR and move ankle up and down without difficulty. Wiggles toes. Foot warm and well perfused with normal sensation Objective Labs Labs: Laboratory Results - last 24 hr 11/10/23 11/10/23 12:25 13:30 Corrected WBC 6.0 Uncorrected WBC Count 6.0 RBC 4.12 Hgb 12.0 Hct 36.3 MCV 88.2 MCH 29.2 MCHC 33.1 RDW 14.1 Plt Count 268 MPV 8.7 Neut % (Auto) 72.4 Lymph % (Auto) 19.5 [place] % (Auto) 6.5 Eos % (Auto) 1.1 Baso % (Auto) 0.5 Nucleat RBC Rel Count 0.1 Neut # (Auto) 4.3 Lymph # (Auto) 1.2 [place] # (Auto) 0.4 Eos # (Auto) 0.1 Baso # (Auto) 0.0 PHA Creatinine Clear 96.79 Sodium 138 Potassium 4.4 Chloride 107 Carbon Dioxide 24.2 Anion Gap 11.2 BUN 9 Creatinine 0.71 Est GFR (CKD-EPI) > 60.0 Glucose 94 Calcium 8.9 Urine Opiates Screen Positive H Ur Barbiturates Screen Negative Ur Phencyclidine Scrn Negative Ur Amphetamines Screen Positive H U Benzodiazepines Scrn Positive H Urine Cocaine Screen Negative U Marijuana (THC) Screen Positive H Assessment / Plan Assessment and plan (1) Patellar fracture: Qualifiers: Encounter type: initial encounter Fracture alignment: displaced Fracture morphology: transverse Fracture type: closed Laterality: right Qualified Code(s): S82.031A - Displaced transverse fracture of right patella, initial encounter for closed fracture Code(s): S82.009A - Unspecified fracture of unspecified patella, initial encounter for closed fracture Plan POD #1 S/p right platellar ORIF WBAT in HKB locked in extension 0-30 deg motion at rest Pain control ASA 81 mg BID F/u in 3 weeks. See d/c instructions Documented By: Louis Beal DO 11/11/231123 Signed By: <Electronically signed by Louis Beal DO> 11/11/23 [address] [facility] Work Phone: 1(356) 807-983308-28-2024 Evaluation note* Diagnosis Onset Date Resolution Status Admit Date Pre-op exam acute November 10, 2023 10:15am Patellar fracture inactive November 10, 2023 10:15am Patellar fracture inactive November 10, 2023 11:38am Displaced transverse fractur e of right patella, initial encounter for close acute December 012023 1:20pm Other specified postprocedural states acute December 02, 2023 1:20pm Other specified postprocedural states acute December 13, 2023 11:38am Displaced transverse fractur e of right patella, initial encounter for close acute December 21, 2023 2:05pm Other specified postprocedural states acute December 2:05pm Visit for suture removal noneactive December 21, 2023 2:05pm Displaced transverse fractur e of right patella, initial encounter for close acute January 1:39pm Other specified postprocedural states acute January 172023 1:39pm Displaced transverse fractur e of right patella, initial encounter for close acute January 9:56am Other specified postprocedural states acute January 142023 9:56am [facility] Work Phone: 1(293) 193-845208-24-2024 Hospital Discharge instructions Additional Instructions Knee immobilizer Crutches no weightbearing Call Dr. Alvarado's office at 8 AM on Wednesday for appointment Take your Vicodin 1-2 every 4 hours as needed for pain Return [facility] Phone: evaluation noteNo assessment information available [facility] Work Phone: evaluation note* Diagnosis Onset Date Resolution Status Patellar fracture acute Pre-op exam acute [facility] Work Phone: evaluation note* Diagnosis Onset Date Resolution Status Patellar fracture acute Pre-op exam acute Patellar fracture acute [facility] Work Phone: evaluation note* Diagnosis Onset Date Resolution Status Pre-op exam acute [facility] Work Phone: evaluation note* Diagnosis Onset Date Resolution Status Pre-op exam acute [id number] acute Other specified postprocedural states acute [facility] Work Phone: evaluation note* Diagnosis Closed displaced fracture of right patella, unspecified fracture morphology, sequela- Primary [facility] Diagnosis Closed displaced fracture of right patella, unspecified fracture morphology, sequela [facility]* Diagnosis Attention deficit hyperactivity disorder (ADHD), unspecified ADHD type ([facility]) [facility]* Diagnosis Onset Date Resolution Status Pre-op exam acute [id number] acute Other specified postprocedural states acute Other specified postprocedural states acute [id number] acute Other specified postprocedural states acute Visit for suture removal non eactive [facility] Work Phone: Evaluation note* Diagnosis Closed displaced fracture of right patella, unspecified fracture morphology, sequela [facility] Diagnosis Anxiety Anxiety state, unspecified Symptomatic menopausal or female climacteric states Closed displaced fracture of right patella, unspecified fracture morphology, sequela Primary insomnia Persistent disorder of initiating or maintaining sleep [facility] Diagnosis Closed displaced fracture of right patella, unspecified fracture morphology, sequela [facility]* Diagnosis Symptomatic menopausal or female climacteric states Anxiety Anxiety state, unspecified [facility]* Diagnosis Onset Date Resolution Status Pre-op exam acute [id number] acute Other specified postprocedural states acute Other specified postprocedural states acute [id number] acute Other specified postprocedural states acute Visit for suture removal non eactive [id number] acute Other specified postprocedural states acute [facility] Work Phone: Evaluation note* Diagnosis Attention deficit hyperactivity disorder (ADHD), unspecified ADHD type (CMS/HCC) [facility]* Diagnosis Anxiety Anxiety state, unspecified [facility]* Diagnosis Closed displaced fracture of right patella, unspecified fracture morphology, sequela [facility]* Diagnosis Closed displaced fracture of right patella, unspecified fracture morphology, sequela [facility]* Diagnosis Closed displaced fracture of right patella, unspecified fracture morphology, sequela [facility]* Diagnosis Anxiety Anxiety state, unspecified [facility]* Diagnosis Attention deficit hyperactivity disorder (ADHD), unspecified ADHD type (CMS/HCC) [facility]* Diagnosis Closed displaced fracture of right patella, unspecified fracture morphology, sequela [facility]* Diagnosis Anxiety Anxiety state, unspecified Closed displaced fracture of right patella, unspecified fracture morphology, sequela documented in this encounter [facility]* Diagnosis Attention deficit hyperactivity disorder (ADHD), unspecified ADHD type ([facility]) documented in this encounter [facility]* Diagnosis Anxiety Anxiety state, unspecified documented in this encounter [facility]* Diagnosis Closed displaced fracture of right patella, unspecified fracture morphology, sequela documented in this encounter [facility] Discharge instructions Additional Instructions Orthopedic surgery discharge instructions You should maintain your brace at all times until your first postoperative visit. You may bend the knee up to 30 degrees with your brace on while at rest. You may ambulate with your hinged knee brace on and locked in extension. You should put your weight through your heel to allow your thigh muscles to relax and not put stress on your fracture site. Continue to perform ankle pumps regularly to help with blood flow. Maintain your postoperative incisional dressing for 1 week after surgery, you may remove your Charli wrap for 5 days after surgery. After 1 week you may remove this dressing and leave your incision open to air. The dressing is mostly waterproof so you may bathe over this but once again you must keep your knees in full extension. Take medications as prescribed. Oxycodone is a narcotic pain medication which should be taken on a limited basis and only for severe pain. You should also take aspirin 81 mg twice daily for DVT prophylaxis. You may take Tylenol 1000 mg every 8 hours, not to exceed 3000 mg total in a 24-hour period. You should take a multivitamin daily. You should also maintain appropriate protein intake and I do recommend a supplement, such as a boost shake, daily which can help with your healing. Your follow-up should be scheduled in Dr. Beal's office for 3 weeks postoperatively. Call office with any questions or concerns. Dr. Louis Beal [facility] [address] [place] [address] [facility] Work Phone: Hospital Discharge instructions Additional Instructions POST OPERATIVE INSTRUCTIONS FOR THE PATELLA FRACTURE Alex Sierra DO Orthopedic Surgeon [facility] General instructions: Use ice packs to the area of the incision as much as you can tolerate (30 minutes on/30 minutes off) over the first 48-72 hours post-operatively. DO NOT apply ice directly to the skin. Always place a towel between the ice pack and skin. Low grade temperatures are common after surgery. Please notify the office if your temperature exceeds 101.5 degrees Fahrenheit. DO NOT make critical decisions or sign legal papers for the first 24 hours after surgery or while taking pain medication. MEDICATIONS AND DIET: You may resume all pre-operative medications unless otherwise specified. Only take pain medication as prescribed, as needed. We recommend taking a baby aspirin (81mg) twice daily for about 4 weeks to help with the development and progression of blood clots You should take pain medication with food. It is not uncommon to have nausea or an upset stomach after surgery. Medication refills require a 48-hour notice; no exceptions will be made. NO REFILLS will be authorized over the weekend. Do not take extra Tylenol while taking prescription pain medication unless otherwise specified. If you have a reaction to your medications, stop taking them and call the office immediately. If you develop a significant rash, or have trouble breathing, call 911 or go immediately to the nearest emergency room. ACTIVITY: You have a dressing/splint on your leg. Keep in place until your first follow-up appointment It is recommended to elevate your operative leg for the first 48-72 hours to help prevent swelling and pain You are flatfoot weightbearing on your operative extremity with your knee locked in full extension. You are to ambulate with a walker. DRESSING/BANDAGES: Your surgical bandage may show some drainage over the first 24-48 hours following surgery. Keep your bandage/splint in place until follow-up If your bandage becomes saturated, please notify the office. When you are cleared to shower, DO NOT submerge the incision in a bath, hot tub, swimming pool, or any other body of water for the first 4 weeks following surgery. When you are cleared to shower, DO NOT scrub your incision. Simply allow soapy water to run over your incision. Pat dry or air dry for the first 3 weeks from surgery FOLLOW UP: Your first post-operative appointment should already be scheduled for you. If you do not already have a post-operative appointment, our office will contact you to schedule one. You should be seen in the office two weeks following your surgery unless otherwise specified. If you notice any increasing swelling, wound redness, or drainage, please contact our office immediately. Alex A. Mariela DO Orthopedic Surgeon [facility] Office: [address] [place] [id number] Office number: [phone] [facility] Work Phone: Summary Purpose Family History Relationship Condition Age at Onset Recorded Date/T piotr mother Heart disease Unknown Advance Directives Advance Directive Response Recorded Date/ Time Advance Directives No February 16, 2019 3:42pm Advance Directive Response Recorded Date/ Time Advance Directives No February 16, 2019 2:42pm Chief Complaint and Reason for Visit Chief Complaint knee injury Chief Complaint knee injury ER FR RT PATELLAR FX WX Reason for Visit Patellar fracture Pre-op exam Chief Complaint knee injury ER FR RT PATELLAR FX WX Fracture Fracture Reason for Visit Patellar fracture Pre-op exam Patellar fracture Chief Complaint knee injury ER FR RT PATELLAR FX WX Fracture Fracture knee pain Reason for Visit Pre-op exam Chief Complaint knee injury ER FR RT PATELLAR FX WX Fracture Fracture knee pain JEANNE PT 3 WK POST OP Z98.890 - Other specified postprocedural states Reason for Visit Pre-op exam [id number] Other specified postprocedural states Chief Complaint knee injury ER FR RT PATELLAR FX WX Fracture Fracture knee pain JEANNE PT 3 WK POST OP Z98.890 - Other specified postprocedural states Knee Pain Knee Pain Reason for Visit Pre-op exam [id number] Other specified postprocedural states Chief Complaint knee injury ER FR RT PATELLAR FX WX Fracture Fracture knee pain JEANNE PT 3 WK POST OP Z98.890 - Other specified postprocedural states Knee Pain Knee Pain INCISION CHECK PER KAB Reason for Visit Pre-op exam [id number] Other specified postprocedural states Chief Complaint knee injury ER FR RT PATELLAR FX WX Fracture Fracture knee pain JEANNE PT 3 WK POST OP Z98.890 - Other specified postprocedural states Knee Pain Knee Pain INCISION CHECK PER KAB Z98.890 - Other specified postprocedural states Reason for Visit Pre-op exam [id number] Other specified postprocedural states Other specified postprocedural states [id number] Other specified postprocedural states Visit for suture removal Chief Complaint knee injury ER FR RT PATELLAR FX WX Fracture Fracture knee pain JEANNE PT 3 WK POST OP Z98.890 - Other specified postprocedural states Knee Pain Knee Pain INCISION CHECK PER KAB Z98.890 - Other specified postprocedural states 4 WEEKS S82.031A - Displaced transverse fracture of right Reason for Visit Pre-op exam [id number] Other specified postprocedural states Other specified postprocedural states [id number] Other specified postprocedural states Visit for suture removal [id number] Other specified postprocedural states Chief Complaint Admit Date knee injury November 05, 2023 11 :42pm ER [facility] [place] PATELLAR FX WX November 09, 024 10:15am Fracture November 10, 2023 11 :38am Fracture November 10, 2023 5: 51pm knee pain November 18, 2023 7:18pm JEANNE PT 3 WK POST OP December 02, 2023 1:20pm Z98.890 - Other specified postprocedural states December 02, 2023 1:22pm Knee Pain December 08, 2023 5:41am Knee Pain December 08, 2023 9:39am INCISION CHECK PER KAB December 12 024 11:38am Z98.890 - Other specified postprocedural states December 21, 2023 11:26am 4 WEEKS January 18, 2024 1 :39pm S82.031A - Displaced transverse fracture of right January 18, 2024 1:59pm OKAY TO BEND KNEE February 02, 024 8:53am 2 WEEKS February 03, 2024 9:56am Reason for Visit Admit Date Pre-op exam November 10, 2023 10 :15am Patellar fracture November 10, 2023 10 :15am Patellar fracture November 10, 2023 11 :38am Displaced transverse fractur e of right patella, initial encounter for close December 02, 2023 1:20pm Other specified postprocedural states Se ptember 2023 1:20pm Other specified postprocedural states Se ptember 2023 11:38am Displaced transverse fractur e of right patella, initial encounter for close December 21, 2023 2:05pm Other specified postprocedural states Oc tober 2023 2:05pm Visit for suture removal December 20 2:05pm Displaced transverse fractur e of right patella, initial encounter for close January 18, 2024 1:39pm Other specified postprocedural states No [email or web address] 1:39pm Displaced transverse fractur e of right patella, initial encounter for close February 03, 2024 9:56am Other specified postprocedural states No [email or web address] 9:56am Chief Complaint Admit Date 4 WEEKS January 18, 2024 1 :39pm S82.031A - Displaced transverse fracture of right January 18, 2024 1:59pm S82.031A February 03, 2024 8:53am 2 WEEKS February 03, 2024 9:56am 4 WEEKS March 02, 2024 10:54am New dry needling eval March 16, 2024 2:36pm s/p R Kn removal of hardware and other J anuary 2024 2:45pm 2 weeks March 20, 2024 3: 16pm Reason for Visit Admit Date Displaced transverse fractur e of right patella, initial encounter for close January 18, 2024 1:39pm Other specified postprocedural states No [email or web address] 1:39pm Displaced transverse fractur e of right patella, initial encounter for close February 03, 2024 9:56am Other specified postprocedural states No [email or web address] 9:56am Displaced transverse fractur e of right patella, initial encounter for close March 02, 2024 10:54am Other specified postprocedural states De cember 2023 10:54am Displaced transverse fractur e of right patella, initial encounter for close March 20, 2024 3:16pm Other specified postprocedural states Ja nuary 2024 3:16pm Additional Source Comments INFORMATION SOURCE (unrecogn ized section and content) DATE CREATED AUTHOR 04/10/2021 [facility] DATE CREATED AUTHOR AUTHOR'S ORGANIZ ATION 12/14/2021 [facility] dical Specialist DATE CREATED AUTHOR AUTHOR'S ORGANIZ ATION 04/09/2022 [facility] DATE CREATED AUTHOR AUTHOR'S ORGANIZ ATION 03/10/2024 [facility] dical Specialists EPIC DATE CREATED AUTHOR AUTHOR'S ORGANIZ ATION 04/21/2024 [facility] Care Teams (unrecognized sec tion and content) Team Status: Active Member Role Status Joanna Salcedo II MD Primary Care Provider Active Team Status: Inactive Member Role Status Joanna Salcedo II MD Primary Care Provider Active Start: November 05, 2023 End: November 06, 2023 Shay Patel MD Emergency Provider Active Star t: November 05, 2023 End: November 06, 2023 Team Status: Inactive Member Role Status Joanna Salcedo II MD Primary Care Provider Active Start: November 10, 2023 End: November 10, 2023 Louis Beal DO Attending Provider Active S tart: November 10, 2023 End: November 10, 2023 Team Status: Active Member Role Status Joanna Salcedo II MD Primary Care Provider Active Start: November 10, 2023 Louis Beal DO Attending Provider, Other Provider Active Start: November 10, 2023 Team Status: Inactive Member Role Status Joanna Salcedo II MD Primary Care Provider Active Start: November 10, 2023 End: November 11, 2023 Louis Beal DO Admit Provider, Att ending Provider Active Start: November 10, 2023 End: November 11, 2023 Team Status: Inactive Member Role Status Joanna Salcedo II MD Primary Care Provider Active Start: November 10, 2023 End: November 11, 2023 Louis Beal DO Attending Provider Active S tart: November 10, 2023 End: November 11, 2023 Team Status: Inactive Member Role Status Joanna Salcedo II MD Primary Care Provider Active Start: November 18, 2023 End: November 19, 2023 Nicholas Man MD Emergency Provider Active St art: November 18, 2023 End: November 19, 2023 Team Status: Inactive Member Role Status Joanna Salcedo II MD Primary Care Provider Active Start: December 02, 2023 End: December 02, 2023 BLANE Bernard Attending Provider Active Start: December 02, 2023 End: December 02, 2023 Team Status: Active Member Role Status Joanna Salcedo II MD Primary Care Provider Active Start: December 02, 2023 BLANE Bernard Attending Provider Active Start: December 02, 2023 Team Status: Inactive Member Role Status Joanna Salcedo II MD Primary Care Provider Active Start: December 08, 2023 End: December 08, 2023 Alex Sierra DO Attending Provider Active St art: December 08, 2023 End: December 08, 2023 Team Status: Active Member Role Status Dates Erick Salcedo II MD Primary Care Provider Active Start: December 08, 2023 Alex Sierra DO Attending Provider, Other Provider Active Start: December 08, 2023 Team Status: Inactive Member Role Status Dates Erick Salcedo II MD Primary Care Provider Active Start: December 13, 2023 End: December 13, 2023 Martine Mathew NP-C Attending Provider Active Start: December 13, 2023 End: December 13, 2023 Warehouse Logistics Coordinator Relationship Specialty Start Date End Date Erick Salcedo MD [address] [place] [address] PCP - [facility] [employer] 02/12/22 Erick Salcedo MD [address] [place] [address] PCP - General Internal Medicine 08/27/22Wednesday, Parchi, PAPIER MACHE' MOLDER [address] [place] [address] Licensed Practical Nurse Family Medicine 11/12/23 Warehouse Logistics Coordinator Relationship Specialty Start Date End Date Erick Salcedo MD [address] [place] [address] PCP - [facility] [employer] 02/12/22 Erick Salcedo MD [address] [place] [address] PCP - General Internal Medicine 08/27/22Wednesday, Prachi, PAPIER MACHE' MOLDER [address] [place] [address] Licensed Practical Nurse Family Medicine 11/12/23 Warehouse Logistics Coordinator Relationship Specialty Start Date End Date Erick Salcedo MD [address] [place] [address] PCP - [facility] [employer] 02/12/22 Erick Salcedo MD [address] [place] [address] PCP - General Internal Medicine 08/27/22WednesdayPrachi LPN [address] [place] [address] Licensed Practical Nurse Family Medicine 11/12/23 Team Status: Active Member Role Status Dates Erick Salcedo II MD Primary Care Provider Active Start: December 21, 2023 Alex Sierra DO Attending Provider Active St art: December 21, 2023 Team Status: Inactive Member Role Status Dates Erick Salcedo II MD Primary Care Provider Active Start: December 21, 2023 End: December 21, 2023 Alex Sierra DO Attending Provider Active St art: December 21, 2023 End: December 21, 2023 Warehouse Logistics Coordinator Relationship Specialty Start Date End Date Erick Salcedo MD [address] [place] [address] PCP - [employer] [facility] 02/12/22 Erick Salcedo MD [address] [place] [address] PCP - General Internal Medicine 08/27/22WednesdayPrachi LPN [address] [place] [address] Licensed Practical Nurse Family Medicine 11/12/23 Warehouse Logistics Coordinator Relationship Specialty Start Date End Date Erick Salcedo MD [address] [place] [address] PCP - [employer] [facility] 02/12/22 Erick Salcedo MD [address] [place] [address] PCP - General Internal Medicine 08/27/22 ChanoPrachi LPN [address] [place] [address] Licensed Practical Nurse Family Medicine 11/12/23 Team Status: Inactive Member Role Status Dates Erick Salcedo II MD Primary Care Provider Active Start: January 18, 2024 End: January 18, 2024 Alex Sierra , Attending Provider Active St art: January 18, 2024 End: January 18, 2024 Team Status: Active Member Role Status Dates Erick Salcedo II MD Primary Care Provider Active Start: January 18, 2024 Alex Sierra DO Attending Provider Active St art: January 18, 2024 Team Status: Active Member Role Status Dates Erick Salcedo II MD Primary Care Provider Active Start: February 03, 2024 Alex Sierra DO Attending Provider Active St art: February 03, 2024 Team Status: Inactive Member Role Status Dates Erick Salcedo II MD Primary Care Provider Active Start: February 03, 2024 End: February 03, 2024 Alex Sierra , DO Attending Provider Active St art: February 03, 2024 End: February 03, 2024 Warehouse Logistics Coordinator Relationship Specialty Start Date End Date Erick Salcedo MD [address] [place] [address] PCP - [facility] 02/12/22 Erick Salcedo MD [address] [place] [address] PCP - General Internal Medicine 08/27/22 Prachi Madden LPN [address] [place] [address] Licensed Practical Nurse Family Medicine 11/12/23 Warehouse Logistics Coordinator Relationship Specialty Start Date End Date Erick Salcedo MD [address] [place] [address] PCP - [employer] 02/12/22 Erick Salcedo MD [address] [place] [address] PCP - General Internal Medicine 08/27/22Wednesday, Prachi, PAPIER MACHE' MOLDER [address] [place] [address] Licensed Practical Nurse Family Medicine 11/12/23 Warehouse Logistics Coordinator Relationship Specialty Start Date End Date Erick Salcedo MD [address] [place] [address] PCP - [employer] 02/12/22 Erick Salcedo MD [address] [place] [address] PCP - General Internal Medicine 08/27/22Wednesday, Prachi, PAPIER MACHE' MOLDER [address] [place] [address] Licensed Practical Nurse Family Medicine 11/12/23 Team Status: Inactive Member Role Status Dates Erick Salcedo II MD Primary Care Provider Active Start: March 02, 2024 End: March 02, 2024 Alex Sierra DO Attending Provider Active St art: March 02, 2024 End: March 02, 2024 Team Status: Active Member Role Status Dates Erick Salcedo II MD Primary Care Provider Active Start: March 16, 2024 Referral Self Attending Provider Active Start: J anuary 2024 Team Status: Active Member Role Status Dates Erick Salcedo II MD Primary Care Provider Active Start: March 20, 2024 Alex Sierra DO Attending Provider Active St art: March 20, 2024 Team Status: Inactive Member Role Status Dates Erick Salcedo II MD Primary Care Provider Active Start: March 20, 2024 End: March 20, 2024 Alex Sierra DO Attending Provider Active St art: March 20, 2024 End: March 20, 2024 Warehouse Logistics Coordinator Relationship Specialty Start Date End Date Erick Salcedo MD [address] [place] [address] PCP - [employer] 02/12/22 Erick Salcedo MD [address] [place] [address] PCP - General Internal Medicine 08/27/22Wednesday, Prachi, PAPIER MACHE' MOLDER [address] [place] [address] Licensed Practical Nurse Family Medicine 11/12/23 Warehouse Logistics Coordinator Relationship Specialty Start Date End Date Erick Salcedo MD [address] [place] [address] PCP - General Internal Medicine 08/27/22 Cris Moran, DOPSTER [address] [place] [address] PCP - [employer] 02/13/24 Pippa Andrew RN Licensed Practical Nurse Family Medicine 04/21/24 Warehouse Logistics Coordinator Relationship Specialty Start Date End Date Erick Salcedo MD [address] [place] [address] PCP - General Internal Medicine 08/27/22 Cris Moran, DOPSTER [address] [place] [address] PCP - [employer] 02/13/24Wednesday, Prachi, PAPIER MACHE' MOLDER [address] [place] [address] Licensed Practical Nurse Family Medicine 11/12/23 04/21/24 Pippa Andrew RN Licensed Practical Nurse Family Medicine 04/21/24 Goals (unrecognized section and content) Goals may be documented in a n alternate sectionGoals may be documented in an alternate sectionGoals may be documented in an alternate section Reason for Visit (unrecogniz ed section and content) Reason Onset Date Comments Med Refill 12/16/2023 Reason Onset Date Comments Med Refill 12/20/2023 Reason Onset Date Comments Med Refill 12/26/2023 Reason Onset Date Comments Med Refill 01/03/2024 Reason Onset Date Comments Med Refill 01/09/2024 Reason Onset Date Comments Med Refill 01/15/2024 Reason Onset Date Comments Med Refill 01/21/2024 Reason Onset Date Comments Med Refill 01/31/2024 Reason Onset Date Comments Med Refill 01/24/2024 Reason Onset Date Comments Med Refill 02/07/2024 Reason Onset Date Comments Med Refill 02/13/2024 Reason Onset Date Comments Med Refill 02/16/2024 Reason Onset Date Comments Med Refill 02/18/2024 Reason Onset Date Comments Med Refill 02/25/2024 Reason Onset Date Comments Med Refill 11/22/2023 Reason Onset Date Comments Med Refill 03/02/2024 Reason Onset Date Comments Med Refill 03/12/2024 Reason Onset Date Comments Med Refill 03/16/2024 Reason Onset Date Comments Med Refill 03/23/2024 Reason Onset Date Comments Med Refill 03/30/2024 Reason Onset Date Comments Med Refill 04/10/2024 Reason Onset Date Comments Med Refill 04/06/2024 Reason Onset Date Comments Med Refill 04/09/2024 Reason Onset Date Comments Med Refill 04/14/2024 Reason Onset Date Comments Med Refill 04/24/2024 Reason Onset Date Comments Med Refill 04/21/2024 FOR RECORDS PERTAINING TO PATIENTS WHO ARE OR HAVE BEEN ENROLLED IN A CHEMICAL DEPENDENCY/SUBSTANCEABUSE PROGRAM, SOME INFORMATION MAY BE OMITTED. This clinical summary was aggregated from multiple sources. Caution should be exercised in using it in the provision of clinical care. This summary normalizes information from multiple sources, and as a consequence, information in this document may materially change the coding, format and clinical context of patient data. In addition, data may be omitted in some cases. CLINICAL DECISIONS SHOULD BE BASED ON THE PRIMARY CLINICAL RECORDS. [facility] provides no warranty or guarantee of the accuracy or completeness of information in this document.
[2024-04-28 22:14] VITALS: BP 113/67
--- NOTE | 2024-04-28 23:23 | ED_ITS ---
HPI HPI - General Adult General Chief complaint: Eye Problems Stated complaint: EYE PROBLEM Time Seen by Provider: 04/28/24 21:38 Source: patient Mode of arrival: walk-in Limitations: no limitations History of Present Illness HPI narrative: Patient presents to the ED stating that she has been told she may have retinal detachment. She states she went to the eye doctor today and had her eyes examined. By her description it looks like she also had her ocular pressures tested and also had a slight lamp exam. She states then that a [employer] doctor told her she may have a retinal detachment and that she should go to the ER. In the meantime she was also referred to an cdl flatbed truck driver in [place]. Patient states that she has always had bad vision in the right eye and she calls it a [employer] eye . She wears contact lenses and has them on right now. She does not report any recent deterioration of her vision and she does not report seeing bright lights or visual field loss in the right eye. She is not diabetic. Related Data Home Medications ?Medication ?Instructions ?Recorded ?Confirmed albuterol sulfate 90 mcg/actuation 1 puff inhalation Q4H PRN 08/21/22 08/21/22 aerosol inhaler shortness of breath or wheezing alprazolam 0.5 mg tablet 0.5 mg PO TID PRN anxiety 08/21/22 08/21/22 dextroamphetamine-amphetamine ER 30 mg PO DAILY 08/21/22 08/21/22 30 mg 24hr capsule,extend release estradiol 0.025 mg/24 hr weekly 1 patch transdermal DAILY 08/21/22 08/21/22 transdermal patch fluoxetine 20 mg capsule 20 mg PO DAILY 08/21/22 08/21/22 furosemide 20 mg tablet 20 mg PO DAILY 08/21/22 08/21/22 gabapentin 300 mg capsule 300 mg PO Q12H 08/21/22 08/21/22 hydrocodone 10 mg-acetaminophen 1 tab PO Q6H PRN pain 08/21/22 08/21/22 325 mg tablet levothyroxine 100 mcg tablet 100 mcg PO DAILY 08/21/22 08/21/22 tizanidine 4 mg tablet 4 mg PO .night time 08/21/22 08/21/22 zolpidem 12.5 mg tablet,extended 12.5 mg PO DAILY 08/21/22 08/21/22 release,multiphase Allergies Allergy/AdvReac Type Severity Reaction Status Date / Time No Known Drug Allergies Allergy Verified 04/28/24 21:39 Opioid HPI Opioid Management Most Recent Opioid Data: No Data to Display Review of Systems ROS Status of ROS 10 or more systems reviewed and unremark able except as noted in history and below [facility] Social History Little interest or pleasure in doing things: not at all Feeling down, depressed, or hopeless: not at all Exam Narrative Exam Narrative: Patient is nondistressed and has stable vital signs. She is normotensive. Pupils are equal and reactive and EOMs are full. There is no conjunctival injection. Anterior chambers appear clear. There is no surrounding facial swelling. This has been a focused eye exam. Constitutional Vital Signs, click to edit/add: Last Vital Signs Temp 98 F 04/28/24 21:39 Pulse 81 04/28/24 21:39 Resp 16 04/28/24 21:39 BP 113/67 04/28/24 22:14 Pulse Ox 99 04/28/24 21:39 O2 Del Method Room Air 04/28/24 21:39 Course Vital Signs Vital signs: Vital Signs Temperature 98 F 04/28/24 21:39 Pulse Rate 81 04/28/24 21:39 Respiratory Rate 16 04/28/24 21:39 Blood Pressure 152/87 H 04/28/24 21:39 Pulse Oximetry 99 04/28/24 21:39 Oxygen Delivery Method Room Air 04/28/24 21:39 Temperature 98 F 04/28/24 21:39 Pulse Rate 81 04/28/24 21:39 Respiratory Rate 16 04/28/24 21:39 Blood Pressure 113/67 04/28/24 22:14 Pulse Oximetry 99 04/28/24 21:39 Oxygen Delivery Method Room Air 04/28/24 21:39 Medical Decision Making MDM Narrative Medical decision making narrative: Patient presents to the ED with a history of suspected retinal detachment in the right eye although she does not provide symptoms typical for that condition. She went in for a routine eye test today during which she was given this possible diagnosis. She has been referred to outpatient cdl flatbed truck driver and I gave her the name of another retinal specialist for follow-up. Discharge Plan Discharge Chief Complaint: Eye Problems Clinical Impression: Visual symptoms Patient Disposition: Home, Self-Care Time of Disposition Decision: 22:01 Condition: Good Mode of Transportation: Private Vehicle Prescriptions / Home Meds: No Action albuterol sulfate 90 mcg/actuation HFA aerosol inhaler 1 puff INHALATION Q4H PRN (Reason: shortness of breath or wheezing) alprazolam 0.5 mg tablet 0.5 mg PO TID PRN (Reason: anxiety) dextroamphetamine-amphetamine 30 mg capsule,extended release 24hr 30 mg PO DAILY estradiol 0.025 mg/24 hr patch weekly 1 patch transdermal DAILY fluoxetine 20 mg capsule 20 mg PO DAILY furosemide 20 mg tablet 20 mg PO DAILY gabapentin 300 mg capsule 300 mg PO Q12H hydrocodone-acetaminophen 10-325 mg tablet 1 tab PO Q6H PRN (Reason: pain) levothyroxine 100 mcg tablet 100 mcg PO DAILY tizanidine 4 mg tablet 4 mg PO .night time zolpidem 12.5 mg tablet,ext release multiphase 12.5 mg PO DAILY Print Language: Malawian Instructions: Surgery for Retinal Detachment (DC) Additional Instructions: Follow-up with cdl flatbed truck driver after the weekend. Return for worsening symptoms. Referrals: [facility] [Other] - 1 week ELKIN WELCH [Primary Care Provider] - 1 week KAREN DONOVAN [Physician] - As soon as possible Discharge Date/Time: 04/28/24 22:19
== END 2024-04-28 22:19 | disposition home or self-care (01) ==
PROVIDERS: Emergency Provider Emergency Medicine; PCP Internal Medicine
DX: H53.9 Unspecified visual disturbance (principal)
CPT/HCPCS: 99281

== ENCOUNTER 2024-10-26 18:23 | Outpatient (OUT) | payer BC, SELFPAY ==
--- OUTSIDE RECORDS SUMMARY | 2017-10-14 10:45 | XMS_ITS | Continuity of Care Document ---
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 [address] [place] [address], [id number] , [place]. tel:[phone] Family History Family Member Type Diagnosis Age At Onset No Information Payers Payer name Insurance type Covered alliance party ID Josegeoffrey titoberhane(s) Julissa JIMENA [id number] Social History Type Description Quantity Date Captured Comments Sex Female Smoking Status No Information Sexual Orientation Don't Know Gender Identity Female Chief Complaint And Reason For Visit From encounter dated '10/14/2017 14:45'. Spine Care (chief complaint). Description: C/O low back and neck soreness along wtih pain in left foot and left elbow. Pain in foot started 2 weeks ago. 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 Pt also diagnosed with fibromyalgia.Sx are the result of regular ADL'S. No specific injury or trauma is noted. Pain is primarily at L3-L5 PVM on the Rt. & Lt. and extends to the SI joint, Rt. & Lt. Pain is local, dull, and without radiation to the lower extremities. No sensory or motor changes noted. Symptoms present with a pain scale of 4 (VAS = 1-10). Pain interfereswith regular ADL's including working. Increase in pain with movement/ROM and ADL'S.Some decrease in symptoms with rest. No change in the pain pattern from the onset of symptoms. Painpattern is as prior times. Reason For Referral Reason For Referral No Information History Of Present Illness Encounter Date Complaint History Of Prese nt Illness Spine Care C/O low back and neck soreness along wtih pain in left foot and left elbow. Pain in foot started 2 weeks ago. 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 Pt also diagnosed with fibromyalgia.Sx are the result of regular ADL'S. No specific injury or trauma is noted. Pain is primarily at L3-L5 PVM on the Rt. & Lt. and extends to the SI joint, Rt. & Lt. Pain is local, dull, and without radiation to the lower extremities. No sensory or motor changes noted. Symptoms present with a pain scale of 4 (VAS = 1-10). Pain interferes with regular ADL's including working. Increase in pain with movement/ROM and ADL'S. Some decrease in symptoms with rest. No change in the pain pattern from the onset of symptoms. Pain pattern is as prior times. Functional Status Date Functional Assessmen t No Information Instructions Date Instruction Additional Infor mation No Information Assessments Type Assessment Date assessment Segmental and somatic dysfunctio n of lumbar region assessment Low back pain assessment Segmental and somatic dysfunctio n of cervical region assessment Cervicalgia impression Musculoskeletal rela raffi pain w/o radiculopathy. No complications anticipated.Chronic condition. Patient Care Teams Name Effective Dates (start - stop) Status Members No Information
--- OUTSIDE RECORDS SUMMARY | 2024-10-26 16:00 | XMS_ITS | Encounter Summary ---
Author Organization [facility] Address [address] [facility] [address] Care Team Providers Care Research Nurse Practitioner Name Role Phone Erick Salcedo MD Primary Care Provider [phone] Reason for Referral * Consultation (Routine) - Pending Review Specialty Diagnoses / Procedures Referred By Contparveen pina Referred To Contact Pain Medicine Diagnoses Chronic pain of right knee Procedures [facility] OFFICE[facility]PATIENT [facility] 60 MINUTES Cris Moran NP [address] [facility] [address] [place] [address] Phone: tel: fax: Pete Bonilla MD [address] [place] [address] Phone: tel: fax: Referral ID Status Reason Start Date Expiration Date Visits Requested Visits Authorized [id number] Pending Review Specialty Services Required 10/26/2024 04/24/2025 1 1 Encounter Details Date Type Department Care Team (Late st Contact Info) Description 10/26/2024 4:00 PM EDT Office Visit [facility] [address] [facility] [address] [place] [address] Cris Moran NP [address] [facility] [address] [place] [address] Closed displaced fracture of right patella, unspecified fracture morphology, sequela (Primary Dx); Chronic pain of right knee; Attention deficit hyperactivity disorder (ADHD), combined type ; Anxiety Social History Tobacco Use Types Packs/Day Years Used Date Smoking Tobacco: Never Smokeless Tobacco: Never Tobacco Cessation:Counseling Given: Yes Comments:Can't stand the smell Alcohol Use Standard Drinks/Week Comments Not Currently 0 (1 standard drink = 0.6 oz pur e alcohol) caffeine: soda B1300 Health Literacy Answer Date Recor ded How often do you need to hav e someone help you when you read instructions, pamphlets, or other written material from your doctor or pharmacy? Never 12/14/2023 Humiliation, Afraid, Rape, and Kick questionnair e Answer Date Recorded Within the last year, have y ou been afraid of your partner or ex-partner? No 08/27/2022 Within the last year, have y ou been humiliated or emotionally abused in other ways by your partner or ex-partner? No Within the last year, have y ou been kicked, hit, slapped, or otherwise physically hurt by your partner or ex-partner? No 08/27/2022 Within the last year, have y ou been raped or forced to have any kind of sexual activity by your partner or ex-partner? No 08/27/2022 Social Connection and Isolat ion Panel [NHANES] Answer Date Recorded In a typical week, how many times do you talk on the phone with family, friends, or neighbors? More than three times a week 04/07/2024 How often do you get togethe r with friends or relatives? Once a week 04/07/2024 How often do you attend chur or holiness services? Never 04/07/2024 Do you belong to any clubs o r organizations such as religious groups, unions, fraternal or athletic groups, or school groups? No 04/07/2024 How often do you attend meet ings of the clubs or organizations you belong to? Never 04/07/2024 Are you , , di vorced, , never , or living with a partner? 04/07/2024 AUDIT-C Answer Date Recorded Q1: How often do you have a drink containing alcohol? Never 12/14/2023 Q2: How many drinks containi ng alcohol do you have on a typical day when you are drinking? Patient does not drink Q3: How often do you have si x or more drinks on one occasion? Never 12/14/2023 Overall Financial Resource Strain (CARDIA) Answe r Date Recorded How hard is it for you to pa y for the very basics like food, housing, medical care, and heating? Not hard at all 12/14/2023 PHQ-2 Answer Date Recorded Patient Health Questionnaire-2 Score 2 10/26/2024 [facility] - Occupational Stress Questionnaire Answer Date Recorded Do you feel stress - tense, restless, nervous, or anxious, or unable to sleep at night because your mind is troubled all the time - these days? Very much 12/14/2023 Exercise Vital Sign Answer Date Recorde d On average, how many days pe r week do you engage in moderate to strenuous exercise (like a brisk walk)? 0 days 12/14/2023 On average, how many minutes do you engage in exercise at this level? 0 min 12/14/2023 Hunger Vital Sign Answer Date Recorded Within the past 12 months, y ou worried that your food would run out before you got the money to buy more. Never true 12/14/19 24 Within the past 12 months, t he food you bought just didn't last and you didn't have money to get more. Never true 12/14/2023 PRAPARE - Transportation Answer Date Re corded In the past 12 months, has l ack of transportation kept you from medical appointments or from getting medications? No 03/2023 In the past 12 months, has l ack of transportation kept you from meetings, work, or from getting things needed for daily living? No 12/14/2023 Housing Stability Vital Sign Answer Julio Cesar e Recorded In the last 12 months, was t here a time when you were not able to pay the mortgage or rent on time? Yes 08/27/2022 In the last 12 months, how many places have you lived? 1 08/27/2022 In the last 12 months, was t here a time when you did not have a steady place to sleep or slept in a mcc (including now)? No 08/27/2022 Housing Stability Vital Sign Answer Julio Cesar e Recorded In the last 12 months, was t here a time when you were not able to pay the mortgage or rent on time? Yes 12/14/2023 Number of Times Moved in the Last Year Not on fi le 12/14/2023 At any time in the past 12 m [facility], were you homeless or living in a mcc (including now)? No 12/14/2023 Comments Unknown Sex and Gender Information Value Date Recorded Sex Assigned at Not on file Legal Sex Female 6:47 PM EDT Gender Identity Not on file Sexual Orientation Not on file documented as of this encounter Last Filed Vital Signs Vital Sign Reading Time Taken Comments Blood Pressure 112/80 10/26/2024 4:11 PM EDT Pulse 85 10/26/2024 4:11 PM EDT Temperature - - Respiratory Rate 17 10/26/2024 4:11 PM EDT Oxygen Saturation 97% 10/26/2024 4:11 PM EDT Inhaled Oxygen Concentration - - Weight 103 kg (227 lb) 10/26/2024 4:11 PM EDT Height 154.9 cm (5' 1 ) 10/26/2024 4:11 PM EDT Body Mass Index 42.89 10/26/2024 4:11 PM EDT documented in this encounter Functional Status * Over the past 2 weeks, how often have you been bothered by any of the following problems? Question Answer Date of Assessment Author Little interest or pleasure in doing things Several days 10/26/2024 4:04 PM EDT JAKE DALAL Feeling down, depressed, or hopeless Several days 10/13 4:04 PM EDT JAKE DALAL Patient Health Questionnaire-2 Score 2 10/13 4:04 PM EDT JAKE DALAL * If you checked off any problems on this questionnaire so far, Question Answer Date of Assessment Author How difficult have these problems made it for you to do your work, take care of things at home, or get along with other people? Somewhat difficult 10/26/2024 4:04 PM EDT JAKE DALAL documented as of this encounter Progress Notes * Cris Moran NP - 10/26/2024 4:00 PM EDT Images from the original note were not included. Subjective Patient ID: Nimo Craft is a 54 y.o. female who presents for No chief complaint on file.. Nimo presents today for a follow for anxiety and ADHD. She is having right knee pain after she stepped down form A stool yesterday. ADHD This is a chronic problem. The current episode started more than 1 year ago. The problem occurs intermittently. The problem has been waxing and waning. The symptoms are aggravated by stress. Treatments tried: Adderall for 15 years. The treatment provided significant relief. Pain This is a new problem. The current episode started more than 1 year ago. The problem occurs constantly. The problem has been gradually worsening since onset. The pain occurs in the context of an injury. The pain is present in the right knee. The pain is severe. The symptoms are aggravated by any movement and exercise. Past treatments include prescription narcotic, OTC NSAID, heat pack and cold pack (surgery). There is no swelling present. Anxiety Presents for follow-up visit. Symptoms include excessive worry, muscle tension and nervous/anxious behavior. Symptoms occur occasionally. The severity of symptoms is causing significant distress. Nighttime awakenings: several. Compliance with medications is 76-100%. Over the past 2 weeks, how often have you been bothered by any of the following problems? Little interest or pleasure in doing things: Several days Feeling down, depressed, or hopeless: Several days Patient Health Questionnaire-2 Score: 2 If you checked off any problems on this questionnaire so far, How difficult have these problems made it for you to do your work, take care of things at home, or get along with other people?: Somewhat difficult Current Outpatient Medications on File Prior to [...] mg before bedtime. estradiol (Climara) 0.025 MG/24HR APPLY 1 PATCH TO SKIN ONCE A WEEK 12 patch 2 FLUoxetine (PROzac) 20 MG capsule Take 1 capsule (20 mg) by mouth Daily 90 capsule 3 FLUoxetine (PROzac) 40 MG capsule TAKE 1 CAPSULE BY MOUTH EVERY DAY FOR 90 DAYS 90 capsule 3 furosemide (Lasix) 20 MG tablet TAKE 1 TABLET BY MOUTH EVERY DAY NEEDED FOR EDEMA 100 tablet 3 gabapentin (Neurontin) 300 MG capsule Take 1 capsule (300 mg) by mouth in the morning and 1 capsule(300 mg) before bedtime. 180 capsule 3 GNP PAIN RELIEF EX-STRENGTH 500 MG tablet [...] needed for severe pain for up to 14 days 56 tablet 0 tiZANidine (Zanaflex) 4 MG tablet Take 1 tablet (4 mg) by mouth in the morning and 1 tablet (4 mg) in the evening and 1 tablet (4 mg) before bedtime. 270 tablet 3 zolpidem CR (Ambien CR) 12.5 MG ER [...] stand the smell Vaping Use Vaping status: Never Used Substance Use Topics Alcohol use: Not Currently Comment: caffeine: soda Drug use: Yes Types: Hydrocodone Family History Problem Relation Name Age of Onset Heart disease Mother Autumn Longoria Heart disease Father Shay Broderick Cancer Mother's Sister Lizzette Gill Past Medical History: Diagnosis Date ADHD (attention deficit hyperactivity disorder) Anxiety 02/03 Concussion COPD (chronic obstructive pulmonary disease) ([facility]) Depression 06/04 Heel spur Hernia, abdominal History of hysterectomy Irritable bowel disease Past Surgical History: Procedure Laterality Date HERNIA REPAIR 2010 HYSTERECTOMY 2009 OVARY SURGERY 2006 PATELLA FRACTURE SURGERY Right 11/10/2023 ORIF PATELLECTOMY Right 12/08/2023 Visit Vitals Smoking Status Never Review of Systems Constitutional: Negative. HENT: Negative. Eyes: Negative. Respiratory: Negative. Cardiovascular: Negative. Gastrointestinal: Negative. Genitourinary: Negative. Musculoskeletal: Knee pain Skin: Negative. Neurological: Negative. Psychiatric/Behavioral: The patient is nervous/anxious. Endocrine: Negative. Objective Physical Exam Vitals reviewed. Constitutional: Appearance: Normal appearance. HENT: Head: Normocephalic. Nose: Nose normal. Mouth/Throat: Mouth: Mucous membranes are moist. Pharynx: Oropharynx is clear. Eyes: Conjunctiva/sclera: Conjunctivae normal. Cardiovascular: Rate and Rhythm: Normal rate. Pulmonary: Effort: Pulmonary effort is normal. Musculoskeletal: General: Swelling and tenderness present. Right knee: Swelling and bony tenderness present. Tenderness present. Skin: General: Skin is warm and dry. Neurological: General: No focal deficit present. Mental Status: She is alert and oriented to person, place, and time. Psychiatric: Mood and Affect: Mood normal. Behavior: Behavior normal. Thought Content: Thought content normal. Judgment: Judgment normal. Assessment/Plan Diagnoses and all orders for this visit: Closed displaced fracture of right patella, unspecified fracture morphology, sequela - XR knee 3 views right; Future Await results of xray Chronic pain of right knee - Ambulatory referral to Pain Medicine; Future OARRS report generated and reviewed. Oxycodone is no longer effective in her pain management. She is agreeable to going to pain management. Discussed different techniques used to help with pain when going to pain management. Attention deficit hyperactivity disorder (ADHD), combined type Continue with current drug therapy. Call office for worsening of symptoms. Per [place] regulations, follow ups have to occur every 3 months. You verbalized understanding of these rules in order for us tocontinue filling medications. OARRS/PDMP reviewed without concern. Safe filling and storage of medications discussed with patient. Controlled status of medication discussed with patient. Anxiety Medication choice and dosage is appropriate for patient's current medical conditions. Patient will continue to be required to be seen in our office at least every three months for monitoring. At eachfollow up visit I will reassess the patient's need for the medication. Patient is to have this medication prescribed only through this office. Failure to follow the rules and regulations will result in tapering and discontinuation of medications if applicable. Patient verbalized understanding. OARRS Report was reviewed for this patient. No follow-ups on file. documented in this encounter Plan of Treatment Scheduled Orders Name Type Priority Associated Diagnoses Orde r Schedule XR knee 3 views right Imaging Routine Closed displaced fracture of right patella, unspecified fracture morphology, sequela Expected: 10/26/2024, Expires: 10/26/2025 Scheduled Referrals Name Type Priority Associated Diagnoses Order Schedule Ambulatory referral to Pain Medicine Outpatient Referral Routine Chronic pain of right knee Expected: 10/26/2024 (Approximate), Expires: 04/28/2025 documented as of this encounter Visit Diagnoses Diagnosis Closed displaced fracture of right patella, unspecified fracture morphology, sequela- Primary Chronic pain of right knee Attention deficit hyperactivity disorder (ADHD), combined type Anxiety Anxiety state, unspecified documented in this encounter Care Teams Research Nurse Practitioner Relationship Specialty Start Date End Date Erick Salcedo MD [address] [place] [address] PCP - General Internal Medicine 08/27/22 documented as of this encounter
--- OUTSIDE RECORDS SUMMARY | 2024-10-26 18:26 | XMS_ITS | Encounter Summary ---
Author Organization [facility] Address [address] [place] [address] Care Team Providers Care Telephone Lineworker Name Role Phone Erick Salcedo MD Primary Care Provider [phone] Jocelin Nance LPN Unavailable Encounter Details Date Type Department Care Team (Late st Contact Info) Description 07/28/2024 Abstract [facility] [address] [facility] 110 [place] [address] Erick Salcedo MD 112 [facility] 110 [place] [address] Social History Tobacco Use Types Packs/Day Years Used Date Smoking Tobacco: Never Smokeless Tobacco: Never Comments:Can't stand the sme ll Alcohol Use Standard Drinks/Week Comments Not Currently [...] How often do you attend chur or sabianist services? Never 04/07/2024 Do you belong to any clubs o r organizations such as quaker groups, unions, fraternal or athletic groups, or [...] Answer Date Recorded Patient Health Questionnaire-2 Score 0 07/25/2024 [facility]at ional Health - Occupational Stress [...] place to sleep or slept in a intermediate (including now)? No 08/27/2022 Housing Stability Vital Sign Answer Julio Cesar e Recorded In the last 12 months, was t here a time when you were not able to pay the mortgage or rent on time? Yes 12/14/2023 Number of Times Moved in the Last Year Not on fi le 12/14/2023 At any time in the past 12 m [facility], were you homeless or living in a intermediate (including now)? No 12/14/2023 Comments Unknown Sex and Gender Information Value Date Recorded Sex Assigned at Not on file Legal Sex Female 6:47 PM EDT Gender Identity Not on file Sexual Orientation Not on file documented as of this encounter Plan of Treatment Not on file documented as of this encounter Visit Diagnoses Not on filedocumented in this encounter Care Teams Telephone Lineworker Relationship Specialty Start Date End Date Erick Salcedo MD 112 [facility] [address] [place] [address] PCP - General Internal Medicine 08/27/22 Jocelin Nance LPN 112 [facility] 110 [place] [address] 06/02/24 09/27/24 documented as of this encounter
--- OUTSIDE RECORDS SUMMARY | 2024-10-26 18:26 | XMS_ITS | Encounter Summary ---
Author Organization [facility] Address [address] [place] [address] Care Team Providers Care Medical Unit Secretary Name Role Phone Erick Salcedo MD Primary Care Provider Wednesday, Prachi SEISMIC PROSPECTING OBSERVER Unavailable [phone] Cris Moran MISSILE INSPECTOR PREFLIGHT Unavailable Pippa Andrew RN Unavailable Jocelin Nance SEISMIC PROSPECTING OBSERVER Unavailable Encounter Details Date Type Department Care Team (Late st Contact Info) Description 03/21/2024 Abstract [facility] [address] [place] [address] [place] [id number] Erick Salcedo MD 112 [facility] 110 [place], [place] [id number] Social History Tobacco Use Types Packs/Day Years [...] neighbors? More than three times a week 12/14/2023 How often do you get togethe r with friends or relatives? Once a week 12/14/2023 How often do you attend [facility] or jain services? Patient declined 12/14/2023 Do you belong to any clubs o r organizations such as latter-day groups, unions, fraternal or athletic groups, or school groups? No 12/14/2023 How often do you attend meet ings of the clubs or organizations you belong to? Patient declined 12/14/2023 Are you , , di vorced, , never , or living with a partner? 12/14/2023 AUDIT-C Answer Date Recorded Q1: How often [...] and heating? Not hard at all 12/14/2023 [facility] Occupat ional Health - Occupational Stress [...] place to sleep or slept in a chcf (including now)? No 08/27/2022 Housing Stability Vital Sign Answer Julio Cesar e Recorded In the last 12 months, was t here a time when you were not able to pay the mortgage or rent on time? Yes 12/14/2023 Number of Times Moved in the Last Year Not on fi le 12/14/2023 At any time in the past 12 m [facility], were you homeless or living in a chcf (including now)? No 12/14/2023 Comments Unknown Sex and Gender Information Value Date Recorded Sex Assigned at Not on file Legal Sex Female 6:47 PM EDT Gender Identity Not on file Sexual Orientation Not on file documented as of this encounter Plan of Treatment Not on file documented as of this encounter Visit Diagnoses Not on filedocumented in this encounter Care Teams Medical Unit Secretary Relationship Specialty Start Date End Date Erick Salcedo MD [address] [facility] 110 [place] [address] PCP - General Internal Medicine 08/27/22 Cris Moran MISSILE INSPECTOR PREFLIGHT 112 [facility] 110 [place] [address] PCP - Julissa Commercial 02/13/24Wednesday, SEEMA Velarde 112 [facility] 110 [place] [address] Licensed Practical Nurse Family Medicine 11/12/23 04/21/24 Pippa Andrew, RN [address] [place], [place] [id number] Licensed Practical Nurse Family Medicine 04/21/24 06/02/24 Jocelin Nance LPN 112 [facility] 110 [place] [address] 06/02/24 09/27/24 documented as of this encounter
--- OUTSIDE RECORDS SUMMARY | 2024-10-26 18:26 | XMS_ITS | Encounter Summary ---
Author Organization [facility] Address [address] [place] [address] Care Team Providers Care Police Detention Attendant Name Role Phone Erick Salcedo MD Primary Care Provider [phone] Wednesday, Prachi MEDIA PRODUCTION SUPPORT MANAGER Unavailable [phone] Cris Moran REGISTERED REPRESENTATIVE Unavailable Pippa Andrew RN Unavailable Jocelin Nance MEDIA PRODUCTION SUPPORT MANAGER Unavailable Encounter Details Date Type Department Care Team (Late st Contact Info) Description 03/21/2024 Abstract [facility] [address] [facility] 110 [place] [id number] Erick Salcedo MD 112 [facility] 110 [place], [place] [id number] Social History Tobacco Use Types Packs/Day Years [...] week 12/14/2023 How often do you attend [facility] or druze services? Patient declined 12/14/2023 Do you belong to any clubs o r organizations such as shinto groups, unions, fraternal or athletic groups, or [...] and heating? Not hard at all 12/14/2023 [facility] of Occupat ional Health - Occupational Stress [...] place to sleep or slept in a [place] (including now)? No 08/27/2022 Housing Stability Vital Sign Answer Julio Cesar e Recorded In the last 12 months, was t here a time when you were not able to pay the mortgage or rent on time? Yes 12/14/2023 Number of Times Moved in the Last Year Not on fi le 12/14/2023 At any time in the past 12 m [facility], were you homeless or living in a [place] facility (including now)? No 12/14/2023 Comments Unknown Sex and Gender Information Value Date Recorded Sex Assigned at Not on file Legal Sex Female 6:47 PM EDT Gender Identity Not on file Sexual Orientation Not on file documented as of this encounter Plan of Treatment Not on file documented as of this encounter Visit Diagnoses Not on filedocumented in this encounter Care Teams Police Detention Attendant Relationship Specialty Start Date End Date Erick Salcedo MD [address] [facility] 110 [place] [address] PCP - General Internal Medicine 08/27/22 Cris Moran REGISTERED REPRESENTATIVE 112 [facility] 110 [place] [address] PCP - Julissa Commercial 02/13/24Wednesday, SEEMA Velarde 112 [facility] 110 [place] [address] Licensed Practical Nurse Family Medicine 11/12/23 04/21/24 Pippa Andrew, RN [address] [place], [place] [id number] Licensed Practical Nurse Family Medicine 04/21/24 06/02/24 Jocelin Nance LPN 112 [facility] 110 [place] [address] 06/02/24 09/27/24 documented as of this encounter
--- OUTSIDE RECORDS SUMMARY | 2024-10-26 18:26 | XMS_ITS | Encounter Summary ---
Author Organization [facility] Address [address] [place] [address] Care Team Providers Care Semiconductor Lab Technician Name Role Phone Erick Salcedo MD Primary Care Provider Wednesday, Prachi BACK UP WORKER Unavailable [phone] Cris Moran WATER RESOURCE ENGINEER Unavailable Pippa Andrew RN Unavailable [phone] Jocelin Nance BACK UP WORKER Unavailable Encounter Details Date Type Department Care Team (Late st Contact Info) Description 03/02/2024 Abstract [facility] [place] [facility] [address] [facility] 110 [place] [address] Erick Salcedo MD 112 [facility] 110 [place], [place] [id number] Social History Tobacco Use Types Packs/Day Years [...] 12/14/2023 How often do you attend formerly [facility] or quaker services? Patient declined 12/14/2023 Do you belong to any clubs o r organizations such as yazdanism groups, unions, fraternal or athletic groups, or [...] and heating? Not hard at all 12/14/2023 [facility] [place] of Occupat ional Health - Occupational Stress [...] place to sleep or slept in a senior care (including now)? No 08/27/2022 Housing Stability Vital Sign Answer Julio Cesar e Recorded In the last 12 months, was t here a time when you were not able to pay the mortgage or rent on time? Yes 12/14/2023 Number of Times Moved in the Last Year Not on fi le 12/14/2023 At any time in the past 12 [facility], were you homeless or living in a senior care (including now)? No 12/14/2023 Comments Unknown Sex and Gender Information Value Date Recorded Sex Assigned at Not on file Legal Sex Female 6:47 PM EDT Gender Identity Not on file Sexual Orientation Not on file documented as of this encounter Plan of Treatment Not on file documented as of this encounter Visit Diagnoses Not on filedocumented in this encounter Care Teams Semiconductor Lab Technician Relationship Specialty Start Date End Date Erick Salcedo MD [address] [facility] 110 [place] [address] PCP - General Internal Medicine 08/27/22 Cris Moran WATER RESOURCE ENGINEER 112 [facility] 110 [place] [address] PCP - [place] [employer] 02/13/24Wednesday, SEEMA Velarde 112 [facility] 110 [place] [address] Licensed Practical Nurse Family Medicine 11/12/23 04/21/24 Pippa Andrew, RN [address] [place], [place] [id number] Licensed Practical Nurse Family Medicine 04/21/24 06/02/24 Jocelin Nance LPN 112 [facility] 110 [place] [address] 06/02/24 09/27/24 documented as of this encounter
--- OUTSIDE RECORDS SUMMARY | 2024-10-26 18:26 | XMS_ITS | Encounter Summary ---
Author Organization [facility] Address [address] [place] [address] Care Team Providers Care Pie Filling Mixer Name Role Phone Erick Salcedo MD Unavailable [phone] Erick Salcedo MD Primary Care Provider Wednesday, Prachi TANK TRUCK DRIVER Unavailable [phone] Cris Moran RES HABILITATION ASSISTANT Unavailable Pippa Andrew RN Unavailable Jocelin Nance TANK TRUCK DRIVER Unavailable Encounter Details Date Type Department Care Team (Late st Contact Info) Description 05/21/2023 Orders Only [facility] [place] [facility] [address] [facility] 110 [place] [id number] Avril Claudio, PA [address] [facility] 110 [place], [place] [id number] Social History Tobacco Use Types Packs/Day Years Used Date Smoking Tobacco: Never Smokeless Tobacco: Never Comments:Can't stand the sme ll Alcohol Use Standard Drinks/Week Comments Not Currently 0 (1 standard drink = 0.6 oz pur e alcohol) caffeine: soda Humiliation, Afraid, Rape, and Kick questionnair e [...] or ex-partner? No 08/27/2022 Social Connection and Isolation Panel [NHANES] A nswer Date Recorded In a typical week, how many times do you talk on the phone with family, friends, or neighbors? Three times a week 08/27/2022 How often do you get togethe r with friends or relatives? Once a week 08/27/2022 How often do you attend chur ch or christianity services? Patient declined 08/27/2022 Do you belong to any clubs o r organizations such as orthodoxy groups, unions, fra[employer]cera Therapeutics or athletic groups, or school groups? No 08/27/2022 How often do you attend meet ings of the clubs or organizations you belong to? Patient declined 08/27/2022 Are you , , di vorced, , never , or living with a partner? 08/27/2022 AUDIT-C Answer Date Recorded Q1: How often do you have a drink containing alc ohol? Monthly or less 08/27/2022 Q2: How many drinks containi ng alcohol do you have on a typical day when you are drinking? 1 or 2 08/27/2022 Q3: How often do you have si x or more drinks on one occasion? Never 08/27/2022 Overall Financial Resource Strain (CARDIA) Answe r Date Recorded How hard is it for you to pa y for the very basics like food, housing, medical care, and heating? Somewhat hard 08/27/2022 [facility] [place] of Occupat ional Health - Occupational Stress Questionnaire Answer Date Recorded Do you feel stress - tense, restless, nervous, or anxious, or unable to sleep at night because your mind is troubled all the time - these days? Very much 08/27/2022 Exercise Vital Sign Answer Date Recorde d On average, how many days pe r week do you engage in moderate to strenuous exercise (like a brisk walk)? 3 days 08/27/2022 On average, how many minutes do you engage in exercise at this level? 150+ min 08/27/2022 Hunger Vital Sign Answer Date Recorded Within the past 12 months, y ou worried that your food would run out before you got the money to buy more. Never true 08/28/19 23 Within the past 12 months, t he food you bought just didn't last and you didn't have money to get more. Never true 08/27/2022 PRAPARE - Transportation Answer Date Re corded In the past 12 months, has l ack of transportation kept you from medical appointments or from getting medications? No 08/13 In the past 12 months, has l ack of transportation kept you from meetings, work, or from getting things needed for daily living? No 08/27/2022 Housing Stability Vital Sign Answer [...] a senior care (including now)? No 08/27/2022 Comments Unknown Sex and Gender Information Value Date Recorded Sex Assigned at Not on file Legal Sex Female 6:47 PM EDT Gender Identity Not on file Sexual Orientation Not on file documented as of this encounter Plan of Treatment Not on file documented as of this encounter Procedures Procedure Name Priority Date/Time Associated Diagnosis Comments MAMMOGRAM* Routine 10/28/2023 10:38 AM EDT MAMMOGRAM* Routine 05/18/2023 11:14 AM EST documented in this encounter Results * MAMMOGRAM* (10/28/2023 10:38 AM EDT) Anatomical Region Laterality Modality Radiographic Mylene ging us Noms Provider Unallocated IMG XR PROCEDURES F inal Result * MAMMOGRAM* (05/18/2023 11:14 AM EST) Anatomical Region Laterality Modality Radiographic Mylene ging Avril BALES IMG XR PROCEDURES Final Result documented in this encounter Visit Diagnoses Not on filedocumented in this encounter Care Teams Pie Filling Mixer Relationship Specialty Start Date End Date Erick Salcedo MD [address] [address] PCP - [place] [employer] 02/12/2202/11 Erick Salcedo MD [address] [facility] 110 [place] [address] PCP - General Internal Medicine 08/27/22 Cris Moran NP [address] [facility] 110 [place] [address] PCP - [place] [employer] 02/13/24WednesdayPrachi LPN [address] [facility] 110 [place] [address] Licensed Practical Nurse Family Medicine 11/12/23 04/21/24 Pippa Andrew RN [address] [facility] [place] [id number] Licensed Practical Nurse Family Medicine 04/21/24 06/02/24 Jocelin Nance LPN [address] [facility] 110 [place] [address] 06/02/24 09/27/24 documented as of this encounter
--- OUTSIDE RECORDS SUMMARY | 2024-10-26 18:26 | XMS_ITS | Encounter Summary ---
Author Organization [facility] Address [address] [place] [address] Care Team Providers Care Co Founder Name Role Phone Erick Salcedo MD Unavailable [phone] Erick Salcedo MD Primary Care Provider Wednesday, Prachi STEELN Unavailable [phone] Cris Moran PIPELINE WELDER Unavailable Pippa Andrew RN Unavailable [phone] Jocelin Nance INVENTORY CONTROL ANALYST Unavailable Encounter Details Date Type Department Care Team (Late st Contact Info) Description 11/19/2023 Abstract [facility] [place] [facility] 112 [facility] 110 [place] [phone] Erick Salcedo MD 112 [facility] 110 [place], [place] [address] Social History Tobacco Use Types Packs/Day Years [...] often do you attend chur ch or taoist services? Patient declined 08/27/2022 Do you belong to any clubs o r organizations such as bahai groups, unions, [email or web address] or athletic groups, or school groups? No [...] medical care, and heating? Somewhat hard 08/27/2022 [facility] [place] of Occupat ional Health - Occupational Stress [...] place to sleep or slept in a usp (including now)? No 08/27/2022 Comments Unknown Sex and Gender Information Value Date Recorded Sex Assigned at Not on file Legal Sex Female 6:47 PM EDT Gender Identity Not on file Sexual Orientation Not on file documented as of this encounter Plan of Treatment Not on file documented as of this encounter Visit Diagnoses Not on filedocumented in this encounter Care Teams Co Founder Relationship Specialty Start Date End Date Erick Salcedo MD [address] [facility] 110 [place] [address] PCP - [place] [employer] 02/12/2202/11 Erick Salcedo MD [address] [facility] 110 [place] [address] PCP - General Internal Medicine 08/27/22 Cris Moran NP [address] [facility] 110 [place] [address] PCP - [place] [employer] 02/13/24Wednesday, SEEMA Velarde [address] [place] [address] Licensed Practical Nurse Family Medicine 11/12/23 04/21/24 Pippa Andrew, RN [address] [place] [address] Licensed Practical Nurse Family Medicine 04/21/24 06/02/24 Jocelin Nance LPN [address] [facility] [address] [place] [address] 06/02/24 09/27/24 documented as of this encounter
--- OUTSIDE RECORDS SUMMARY | 2024-10-26 18:26 | XMS_ITS | Encounter Summary ---
Author Organization [facility] Address [address] [place] [address] Care Team Providers Care Dance Entertainer Name Role Phone Erick Salcedo MD Unavailable [phone] Erick Salcedo MD Primary Care Provider Wednesday, Prachi STEELN Unavailable [phone] Cris Moran LUMBER BUYER Unavailable Pippa Andrew RN Unavailable Jocelin Nance DRAFTING SUPERVISOR Unavailable Encounter Details Date Type Department Care Team (Late st Contact Info) Description 11/12/[address] [place] [facility] 112 [facility] 110 [place] [phone] Erick Salcedo MD 112 [facility] 110 [place], [place] [address] Social History Tobacco Use Types Packs/Day Years [...] often do you attend chur ch or islam services? Patient declined 08/27/2022 Do you belong to any clubs o r organizations such as jain groups, unions, fraThe Broadband Computer Company or athletic groups, or school groups? No [...] medical care, and heating? Somewhat hard 08/27/2022 [facility] [place] of Occupat ional Health - Occupational Stress [...] place to sleep or slept in a jail (including now)? No 08/27/2022 Comments Unknown Sex and Gender Information Value Date Recorded Sex Assigned at Not on file Legal Sex Female 6:47 PM EDT Gender Identity Not on file Sexual Orientation Not on file documented as of this encounter Plan of Treatment Not on file documented as of this encounter Visit Diagnoses Not on filedocumented in this encounter Care Teams Dance Entertainer Relationship Specialty Start Date End Date Erick Salcedo MD [address] [facility] 110 [place] [address] PCP - [place] [employer] 02/12/2202/11 Erick Salcedo MD [address] [facility] 110 [place] [address] PCP - General Internal Medicine 08/27/22 Cris Moran NP [address] [facility] 110 [place] [address] PCP - [place] [employer] 02/13/24Wednesday, SEEMA Velarde [address] [place] [address] Licensed Practical Nurse Family Medicine 11/12/23 04/21/24 Pippa Andrew, RN [address] [place] [address] Licensed Practical Nurse Family Medicine 04/21/24 06/02/24 Jocelin Nance LPN [address] [place] [address] 06/02/24 09/27/24 documented as of this encounter
--- OUTSIDE RECORDS SUMMARY | 2024-10-26 18:26 | XMS_ITS | Encounter Summary ---
Author Organization [facility] Address [address] [place] [address] Care Team Providers Care Amusement Park Worker Name Role Phone Erick Salcedo MD Unavailable [phone] Erick Salcedo MD Primary Care Provider Wednesday, Prachi STEELN Unavailable [phone] Cris Moran MAILING SECTION CLERK Unavailable Pippa Andrew RN Unavailable Jocelin Nance STONECUTTER APPRENTICE HAND Unavailable Encounter Details Date Type Department Care Team (Late st Contact Info) Description 05/18/2023 Clinisync Result Encounter [facility] External Department Unsolicited Avril Claudio, PA 112 [facility] 110 [place] [address] Social History Tobacco Use Types Packs/Day Years [...] 08/27/2022 How often do you attend chur or amish services? Patient declined 08/27/2022 Do you belong to any clubs o r organizations such as orthodoxy groups, unions, fraternal or athletic groups, or [...] medical care, and heating? Somewhat hard 08/27/2022 [facility] of Occupat ional Health - [...] place to sleep or slept in a custodial (including now)? No 08/27/2022 Comments Unknown Sex and Gender Information Value Date Recorded Sex Assigned at Not on file Legal Sex Female 6:47 PM EDT Gender Identity Not on file Sexual Orientation Not on file documented as of this encounter Plan of Treatment Not on file documented as of this encounter Procedures Procedure Name Priority Date/Time Associated Diagnosis Comments MM TOMOSYNTHESIS SCREENING BI 05/18/2023 3:51 PM EST documented in this encounter Results * MM TOMOSYNTHESIS SCREENING BI (05/18/2023 3:51 PM EST) Anatomical Region Laterality Modality Other 05/18/2023 3:51 PM EST Narrative 05/18/2023 3:52 [place] [address] Mammography Report Signed Patient: NIMO CRAFT MR#: [id number] : 1970 Acct:[id number] Age/Sex: 52 / F ADM Date: 05/18/23 Loc: MAMMO Attending Dr: AVRIL CLAUDIO Ordering Physician: AVRIL CLAUDIO Results: Date of Service: 05/18/23 Follow Up: Procedure(s): MM tomosynthesis screening BI Accession Number(s): [id number] cc: ERICK SALCEDO ; AVRIL CLAUDIO Patient Name: NIMO CRAFT MR#: [id number] : 1970 Exam Date: 05/18/2023 Ordering Doctor: DR AVRIL CLAUDIO PA RADIOLOGY REPORT PROCEDURE: MM TOMOSYNTHESIS SCREENING BI COMPARISON: MG MAMM SCREEN PIERRE W CAD, 01/09/2020. MG MAMM SCREEN 3D PIERRE CAD, 04/07/2022. INDICATIONS: Screening Calculator Name NCI Breast Cancer Risk Assessment Tool 5 Year Breast Cancer Risk 1.20% Lifetime Breast Cancer Risk 9.40% Personal Breast Cancer No Personal Ovarian Cancer No Treatments None Family Cancers None LOCATION: [facility] BREAST COMPOSITION: Scattered areas fibroglandular density. FINDINGS: DIAGNOSTIC CATEGORY 1--NEGATIVE. NO CHANGE FROM COMPARISON ASSESSMENT. Scattered benign-appearing calcifications are present. Scattered benign-appearing lymph nodes are present. RIGHT BREAST: No significant suspicious finding. LEFT BREAST: No significant suspicious finding. RECOMMENDATIONS: ROUTINE MAMMOGRAM AND CLINICAL EVALUATION IN 12 MONTHS. PLEASE NOTE: A NORMAL MAMMOGRAM DOES NOT EXCLUDE THE POSSIBILITY OF BREAST CANCER. A CLINICALLY SUSPICIOUS PALPABLE LUMP SHOULD BE BIOPSIED. Dictated by: Ancelmo Montano MD on 05/18/2023 at 15:50 Approved by: Ancelmo Montano MD on 05/18/2023 at 15:51 Dictated By: Ancelmo Montano M.D. Signed By: 05/18/23 1552 DD/ 1551 TD/TT: Building Construction Superintendent: Procedure Note Radiology, Radiologist, MD - 05/18/2023 [facility] [place] [id number] Mammography Report Signed Patient: NIMO CRAFT LMR#: [id number] : 1970Acct:[id number] Age/Sex: 52 / FADM Date: 05/18/23 Loc: MAMMO Attending Dr: AVRIL CLAUDIO Ordering Physician: AVRIL CLAUDIO MResults: Date of Service: 05/18/23Follow Up: Procedure(s): MM tomosynthesis screening BI Accession Number(s): [id number] cc: ERICK SALCEDO ; AVRIL CLAUDIO Patient Name: NIMO CRAFT MR#: [id number] : 1970 Exam Date: 05/18/2023 Ordering Doctor: DR AVRIL BALES RADIOLOGY REPORT PROCEDURE: MM TOMOSYNTHESIS SCREENING BI COMPARISON: MG MAMM SCREEN PIERRE W CAD, 01/09/2020. MG MAMM SCREEN 3DBIL CAD, 04/07/2022. INDICATIONS: Screening Calculator Name NCI Breast Cancer Risk Assessment Tool 5 Year Breast Cancer Risk 1.20% Lifetime Breast Cancer Risk 9.40% Personal Breast Cancer No Personal Ovarian Cancer No Treatments None Family Cancers None LOCATION: [facility] BREAST COMPOSITION: Scattered areas fibroglandular density. FINDINGS: DIAGNOSTIC CATEGORY 1--NEGATIVE. NO CHANGE FROM COMPARISON ASSESSMENT. Scattered benign-appearing calcifications are present. Scattered benign-appearing lymph nodes are present. RIGHT BREAST: No significant suspicious finding. LEFT BREAST: No significant suspicious finding. RECOMMENDATIONS: ROUTINE MAMMOGRAM AND CLINICAL EVALUATION IN 12 MONTHS. PLEASE NOTE: A NORMAL MAMMOGRAM DOES NOT EXCLUDE THE POSSIBILITY OFBREAST CANCER. A CLINICALLY SUSPICIOUS PALPABLE LUMP SHOULD BE BIOPSIED. Dictated by: Ancelmo Montano MD on 05/18/2023 at 15:50 Approved by: Ancelmo Montano MD on 05/18/2023 at 15:51 Dictated By: Ancelmo Montano M.D. Signed By:05/18/23 1552 DD/ 1551 TD/TT: Building Construction Superintendent: Avril BALES [facility] Final Result documented in this encounter Visit Diagnoses Not on filedocumented in this encounter Care Teams Amusement Park Worker Relationship Specialty Start Date End Date Erick Salcedo MD 112 [facility] 110 [place] [address] [facility] 02/12/2202[facility]11 Erick Salcedo MD 112 [facility] 110 [place] [address] PCP - General Internal Medicine 08/27/22 Cris Moran NP 112 [facility] 110 [place] [address] PCP - [place] [employer] 02/13/24WednesdayPrachi LPN 112 [facility] 110 [place] [address] Licensed Practical Nurse Family Medicine 11/12/23 04/21/24 Pippa Andrew, TASHA [address] [place] [address] Licensed Practical Nurse Family Medicine 04/21/24 06/02/24 Jocelin Nance LPN [address] [address] 06/02/24 09/27/24 documented as of this encounter
--- OUTSIDE RECORDS SUMMARY | 2024-10-26 18:26 | XMS_ITS | Encounter Summary ---
Author Organization [facility] Address [address] [place] [address] Care Team Providers Care Bakery And Deli Sales Manager Name Role Phone Erick Salcedo MD Unavailable [phone] Erick Salcedo MD Primary Care Provider [phone] Wednesday, Prachi STEELN Unavailable [phone] Cris Moran SPINNING OPERATOR Unavailable Pippa Andrew RN Unavailable [phone] Jocelin Nance SOLE LEVELER MACHINE Unavailable Encounter Details Date Type Department Care Team (Late st Contact Info) Description 02/03/2024 Abstract [facility] [place] [facility] [address] [facility] 110 [place] [address] Erick Salcedo MD 112 [facility] 110 [place], [place] [id number] Social History Tobacco Use Types Packs/Day Years [...] week 12/14/2023 How often do you attend chur or mandaen services? Patient declined 12/14/2023 Do you belong to any clubs o r organizations such as mandaeism groups, unions, fraternal or athletic groups, or [...] and heating? Not hard at all 12/14/2023 [facility] [place] of Occupat ional Health - Occupational Stress [...] place to sleep or slept in a mcfp (including now)? No 08/27/2022 Housing Stability Vital Sign Answer Julio Cesar e Recorded In the last 12 months, was t here a time when you were not able to pay the mortgage or rent on time? Yes 12/14/2023 Number of Times Moved in the Last Year Not on fi le 12/14/2023 At any time in the past 12 m [facility], were you homeless or living in a mcfp (including now)? No 12/14/2023 Comments Unknown Sex and Gender Information Value Date Recorded Sex Assigned at Not on file Legal Sex Female 6:47 PM EDT Gender Identity Not on file Sexual Orientation Not on file documented as of this encounter Plan of Treatment Not on file documented as of this encounter Visit Diagnoses Not on filedocumented in this encounter Care Teams Bakery And Deli Sales Manager Relationship Specialty Start Date End Date Erick Salcedo MD 112 [facility] 110 [place] [address] PCP - [place] [employer] 02/12/2202/11 Erick Salcedo MD [address] [facility] 110 [place] [address] PCP - General Internal Medicine 08/27/22 Cris Moran NP [address] [facility] 110 [place] [address] PCP - [place] [employer] 02/13/24WednesdayPrachi LPN [address] [facility] 110 [place] [address] Licensed Practical Nurse Family Medicine 11/12/23 04/21/24 Pippa Andrew, RN [address] [place], [place] [id number] Licensed Practical Nurse Family Medicine 04/21/24 06/02/24 Jocelin Nance LPN [address] [facility] 110 [place] [address] 06/02/24 09/27/24 documented as of this encounter
--- OUTSIDE RECORDS SUMMARY | 2024-10-26 18:26 | XMS_ITS | Encounter Summary ---
Author Organization [facility] Address [address] [place] [address] Care Team Providers Care License Examiner Name Role Phone Erick Salcedo MD Unavailable [phone] Erick Salcedo MD Primary Care Provider [phone] Wednesday, Prachi STEELN Unavailable [phone] Cris Moran RING ATTACHER Unavailable [phone] Pippa Andrew RN Unavailable [phone] Jocelin Nance GEARMAN Unavailable Reason for Visit * Reason Onset Date Comments Med Refill 10/28/2023 Encounter Details Date Type Department Care Team (Late st Contact Info) Description 10/28/2023 Refill [facility] [place] [facility] [address] [facility] 110 [place] [address] Erick Salcedo MD [address] [facility] 110 [place] [address] Primary insomnia Social History Tobacco Use Types Packs/Day Years [...] How often do you attend chur or latter-day services? Patient declined 08/27/2022 Do you belong to any clubs o r organizations such as mu-ism groups, unions, fraternal or athletic groups, or [...] medical care, and heating? Somewhat hard 08/27/2022 [facility] [place] of Occupat ional Health - Occupational Stress [...] in a intermediate (including now)? No 08/27/2022 Comments Unknown Sex and Gender Information Value Date Recorded Sex Assigned at Not on file Legal Sex Female 6:47 PM EDT Gender Identity Not on file Sexual Orientation Not on file documented as of this encounter Plan of Treatment Not on file documented as of this encounter Visit Diagnoses Diagnosis Primary insomnia Persistent disorder of initiating or maintaining sleep documented in this encounter Care Teams License Examiner Relationship Specialty Start Date End Date Erick Salcedo MD [address] [facility] 110 [place] [address] PCP - [place] [employer] 02/12/2202/11 Erick Salcedo MD [address] [facility] 110 [place] [address] PCP - General Internal Medicine 08/27/22 Cris Moran NP [address] [facility] 110 [place] [address] PCP - [place] [employer] 02/13/24Wednesday, SEEMA Velarde [address] [place] [address] Licensed Practical Nurse Family Medicine 11/12/23 04/21/24 Pippa Andrew, TASHA [address] [place] [address] Licensed Practical Nurse Family Medicine 04/21/24 06/02/24 Jocelin Nance LPN [address] [place] [address] 06/02/24 09/27/24 documented as of this encounter
--- OUTSIDE RECORDS SUMMARY | 2024-10-26 18:27 | XMS_ITS | Encounter Summary ---
Author Organization [facility] Address [address] [place] [address] Care Team Providers Care Supervisor Lime Name Role Phone Erick Salcedo MD Primary Care Provider Cris Moran PROCESS SAFETY ENGINEER Unavailable [phone] Jocelin Nance LPN Unavailable Encounter Details Date Type Department Care Team (Late st Contact Info) Description 06/06/2024 Abstract [facility] [place] [facility] 112 [facility] 110 [place] [address] Erick Salcedo MD 112 [facility] 110 [place], [place] [address] Social History Tobacco Use Types Packs/Day Years [...] 04/07/2024 How often do you attend chur [employer] or jain services? Never 04/07/2024 Do you belong to any clubs o r organizations such as lutheran groups, unions, fraternal or athletic groups, or [...] and heating? Not hard at all 12/14/2023 [facility] of Occupat ional Health - [...] any time in the past 12 m [facility], were you homeless or [...] on filedocumented in this encounter Care Teams Supervisor Lime Relationship Specialty Start Date End Date Erick Salcedo MD [address] [facility] 110 [place] [address] PCP - General Internal Medicine 08/27/22 Cris Moran NP [address] [facility] 110 [place] [address] PCP - [place] [employer] 02/13/24 Jocelin Nance, SEEMA 112 [facility] 110 [place] [address] 06/02/24 09/27/24 documented as of this encounter
--- OUTSIDE RECORDS SUMMARY | 2024-10-26 18:27 | XMS_ITS | Encounter Summary ---
Author Organization [facility] Address [address] [place] [address] Care Team Providers Care Pressure Control Supervisor Name Role Phone Erick Salcedo MD Unavailable [phone] Erick Salcedo MD Primary Care Provider [phone] Wednesday, Prachi STEELN Unavailable [phone] Cris Moran YOUTH CARE PROFESSIONAL Unavailable [phone] Pippa Andrew RN Unavailable [phone] Jocelin Nance AIRCRAFT LIFE SUPPORT FITTER Unavailable Encounter Details Date Type Department Care Team (Late st Contact Info) Description 12/03/2023 Abstract [facility] [place] [facility] 112 [facility] 110 [place] [id number] Erick Salcedo MD 112 [facility] 110 [place], [place] [address] Social History Tobacco Use Types Packs/Day Years [...] often do you attend chur ch or jehovah's witness services? Patient declined 08/27/2022 Do you belong to any clubs o r organizations such as holiness groups, unions, [employer]Dolor [employer] or athletic groups, or school groups? No [...] medical care, and heating? Somewhat hard 08/27/2022 [facility] [place] of Occupat ional Health - Occupational Stress [...] place to sleep or slept in a care home (including now)? No 08/27/2022 Comments Unknown Sex and Gender Information Value Date Recorded Sex Assigned at Not on file Legal Sex Female 6:47 PM EDT Gender Identity Not on file Sexual Orientation Not on file documented as of this encounter Plan of Treatment Not on file documented as of this encounter Visit Diagnoses Not on filedocumented in this encounter Care Teams Pressure Control Supervisor Relationship Specialty Start Date End Date Erick Salcedo MD [address] [facility] 110 [place] [address] PCP - [place] [employer] 02/12/2202/11 Erick Salcedo MD [address] [facility] 110 [place] [address] PCP - General Internal Medicine 08/27/22 Cris Moran NP [address] [facility] 110 [place] [address] PCP - [place] [employer] 02/13/24Wednesday, SEEMA Velarde [address] [place] [address] Licensed Practical Nurse Family Medicine 11/12/23 04/21/24 Pippa Andrew, RN [address] [place] [address] Licensed Practical Nurse Family Medicine 04/21/24 06/02/24 Jocelin Nance LPN [address] 110 [place] [address] 06/02/24 09/27/24 documented as of this encounter
--- OUTSIDE RECORDS SUMMARY | 2024-10-26 18:27 | XMS_ITS | Encounter Summary ---
Author Organization [facility] Address [address] [place] [address] Care Team Providers Care Director Rehabilitation Program Name Role Phone Erick Salcedo MD Unavailable [phone] Erick Salcedo MD Primary Care Provider [phone] Wednesday, Prachi STEELN Unavailable [phone] Cris Moran OUTSIDE INSTALLATION MACHINIST Unavailable [phone] Pippa Andrew RN Unavailable [phone] Jocelin Nance DRY CLEANING MACHINE OPERATOR Unavailable Encounter Details Date Type Department Care Team (Late st Contact Info) Description 12/22/2023 Abstract [facility] [place] [facility] 112 [facility] 110 [place] [address] Erick Salcedo MD 112 [facility] 110 [place], [place] [address] Social History Tobacco Use Types Packs/Day Years [...] How often do you attend chur or church services? Patient declined 12/14/2023 Do you belong to any clubs o r organizations such as moravian groups, unions, fraternal or athletic groups, or [...] and heating? Not hard at all 12/14/2023 [facility] [place] of Occupat ional Health - Occupational Stress [...] on filedocumented in this encounter Care Teams Director Rehabilitation Program Relationship Specialty Start Date End Date Erick Salcedo MD 112 [facility] 110 [place] [address] PCP - [place] Commercial 02/12/2202/11 Erick Salcedo MD [address] [facility] 110 [place] [address] PCP - General Internal Medicine 08/27/22 Cris Moran NP [address] [facility] 110 [place] [address] PCP - [place] Commercial 02/13/24WednesdayPrachi LPN [address] [facility] 110 [place] [address] Licensed Practical Nurse Family Medicine 11/12/23 04/21/24 Pippa Andrew, RN [address] [place], [place] [address] Licensed Practical Nurse Family Medicine 04/21/24 06/02/24 Jocelin Nance LPN [address] [facility] 110 [place] [address] 06/02/24 09/27/24 documented as of this encounter
--- OUTSIDE RECORDS SUMMARY | 2024-10-26 18:27 | XMS_ITS | Encounter Summary ---
Author Organization [facility] Address [address] [place] [address] Care Team Providers Care Bill Distributor Name Role Phone Erick Salcedo MD Unavailable [phone] Erick Salcedo MD Primary Care Provider [phone] Wednesday, Prachi STEELN Unavailable [phone] Cris Moran VICE PRESIDENT OF RECRUITING Unavailable [phone] Pippa Andrew RN Unavailable Jocelin Nance SENIOR CORPORATE STRATEGY MANAGER Unavailable Encounter Details Date Type Department Care Team (Late st Contact Info) Description 07/15/2023 Abstract [facility] [place] [facility] 112 [facility] 110 [place] [address] Erick Salcedo MD 112 [facility] 110 [place], [place] [address] Social History Tobacco Use Types Packs/Day Years [...] often do you attend chur ch or orthodoxy services? Patient declined 08/27/2022 Do you belong to any clubs o r organizations such as presybeterian groups, unions, fraArgus Labs or athletic groups, or school groups? No [...] medical care, and heating? Somewhat hard 08/27/2022 [facility] [place] of Occupat ional Health - Occupational Stress [...] place to sleep or slept in a half-way (including now)? No 08/27/2022 Comments Unknown Sex and Gender Information Value Date Recorded Sex Assigned at Not on file Legal Sex Female 6:47 PM EDT Gender Identity Not on file Sexual Orientation Not on file documented as of this encounter Plan of Treatment Not on file documented as of this encounter Visit Diagnoses Not on filedocumented in this encounter Care Teams Bill Distributor Relationship Specialty Start Date End Date Erick Salcedo MD [address] [facility] 110 [place] [address] PCP - [place] Commercial 02/12/2202/11 Erick Salcedo MD [address] [facility] 110 [place] [address] PCP - General Internal Medicine 08/27/22 Cris Moran NP [address] [facility] 110 [place] [address] PCP - [place] Commercial 02/13/24Wednesday, SEEMA Velarde [address] [place] [address] Licensed Practical Nurse Family Medicine 11/12/23 04/21/24 Pippa Andrew, RN [address] [place] [address] Licensed Practical Nurse Family Medicine 04/21/24 06/02/24 Jocelin Nance LPN [address] [place] [address] 06/02/24 09/27/24 documented as of this encounter
--- OUTSIDE RECORDS SUMMARY | 2024-10-26 18:27 | XMS_ITS | Encounter Summary ---
Author Organization [facility] Address [address] [place] [address] Care Team Providers Care Adoption Specialist Name Role Phone Erick Salcedo MD Unavailable [phone] Erick Salcedo MD Primary Care Provider Wednesday, Prachi STEELN Unavailable [phone] Cris Moran JOINT CLEANING MACHINE OPERATOR Unavailable Pippa Andrew RN Unavailable Jocelin Nance SHIP'S OFFICER Unavailable Encounter Details Date Type Department Care Team (Late st Contact Info) Description 07/20/2023 Abstract [facility] [place] [facility] 112 [facility] 110 [place] [address] Erick Salcedo MD 112 [facility] 110 [place], [place] [address] Social History Tobacco Use Types Packs/Day Years [...] often do you attend chur ch or presybeterian services? Patient declined 08/27/2022 Do you belong to any clubs o r organizations such as restoration groups, unions, fraSolegear Bioplastics or athletic groups, or school groups? No [...] medical care, and heating? Somewhat hard 08/27/2022 [facility] [place] of Occupat ional Health - Occupational Stress [...] place to sleep or slept in a snf (including now)? No 08/27/2022 Comments Unknown Sex and Gender Information Value Date Recorded Sex Assigned at Not on file Legal Sex Female 6:47 PM EDT Gender Identity Not on file Sexual Orientation Not on file documented as of this encounter Plan of Treatment Not on file documented as of this encounter Visit Diagnoses Not on filedocumented in this encounter Care Teams Adoption Specialist Relationship Specialty Start Date End Date Erick Salcedo MD [address] [facility] 110 [place] [address] PCP - [place] Commercial 02/12/2202/11 Erick Salcedo MD [address] [facility] 110 [place] [address] PCP - General Internal Medicine 08/27/22 Cris Moran NP [address] [facility] 110 [place] [address] PCP - [place] [employer] 02/13/24Wednesday, SEEMA Velarde [address] [place] [address] Licensed Practical Nurse Family Medicine 11/12/23 04/21/24 Pippa Andrew, RN [address] [place] [address] Licensed Practical Nurse Family Medicine 04/21/24 06/02/24 Jocelin Nance LPN [address] [place] [address] 06/02/24 09/27/24 documented as of this encounter
--- OUTSIDE RECORDS SUMMARY | 2024-10-26 18:27 | XMS_ITS | Encounter Summary ---
Author Organization [facility] Address [address] [place] [address] Care Team Providers Care Retail Merchandising Manager Name Role Phone Erick Salcedo MD Primary Care Provider [phone] Cris Moran CLIMATE CHANGE RISK ASSESSOR Unavailable [phone] Pippa Andrew RN Unavailable [phone] Jocelin Nance LPN Unavailable Encounter Details Date Type Department Care Team (Late st Contact Info) Description 05/18/2024 Abstract [facility] [place] [facility] 112 [facility] 110 [place] [address] Ercik Salcedo MD 112 [facility] 110 [place], [place] [address] Social History Tobacco Use Types Packs/Day Years [...] How often do you attend chur or roman catholic services? Never 04/07/2024 Do you belong to any clubs o r organizations such as congregational groups, unions, fraternal or athletic groups, or [...] and heating? Not hard at all 12/14/2023 [facility] [place] of Occupat ional Health - Occupational Stress [...] place to sleep or slept in a group home (including now)? No 08/27/2022 Housing Stability Vital Sign Answer Julio Cesar e Recorded In the last 12 months, was t here a time when you were not able to pay the mortgage or rent on time? Yes 12/14/2023 Number of Times Moved in the Last Year Not on fi le 12/14/2023 At any time in the past 12 m [facility], were you homeless or living in a group home (including now)? No 12/14/2023 Comments Unknown Sex and Gender Information Value Date Recorded Sex Assigned at Not on file Legal Sex Female 6:47 PM EDT Gender Identity Not on file Sexual Orientation Not on file documented as of this encounter Plan of Treatment Not on file documented as of this encounter Visit Diagnoses Not on filedocumented in this encounter Care Teams Retail Merchandising Manager Relationship Specialty Start Date End Date Erick Salcedo MD [address] [place] [address] PCP - General Internal Medicine 08/27/22 Cris Moran NP [address] [place] [address] PCP - [place] Commercial 02/13/24 Pippa Andrew, RN [address] [place] [address] Licensed Practical Nurse Family Medicine 04/21/24 06/02/24 Jocelin Nance LPN [address] [address] 06/02/24 09/27/24 documented as of this encounter
--- OUTSIDE RECORDS SUMMARY | 2024-10-26 18:27 | XMS_ITS | Encounter Summary ---
Author Organization [facility] Address [address] [place] [address] Care Team Providers Care Branch Maker Name Role Phone Erick Salcedo MD Unavailable [phone] Erick Salcedo MD Primary Care Provider Wednesday, Prachi WORK CHECKER Unavailable [phone] Cris Moran XEROX MACHINE OPERATOR Unavailable [phone] Pippa Andrew RN Unavailable [phone] Jocelin Nance WORK CHECKER Unavailable Reason for Visit * Reason Onset Date Comments Med Refill 12/23/2023 Encounter Details Date Type Department Care Team (Late st Contact Info) Description 12/23/2023 Refill [facility] [place] [facility] 112 [facility] 110 [place] [address] Avril Claudio PA 112 [facility] 110 [place], [place] [address] Anxiety Social History Tobacco Use Types Packs/Day [...] week 12/14/2023 How often do you attend [facility] or anabaptism services? Patient declined 12/14/2023 Do you belong to any clubs o r organizations such as islam groups, unions, fraternal or athletic groups, or [...] and heating? Not hard at all 12/14/2023 [facility] [place] of Occupat ional Health - Occupational Stress [...] place to sleep or slept in a fdc (including now)? No 08/27/2022 Housing Stability Vital Sign Answer Julio Cesar e Recorded In the last 12 months, was t here a time when you were not able to pay the mortgage or rent on time? Yes 12/14/2023 Number of Times Moved in the Last Year Not on fi le 12/14/2023 At any time in the past 12 m [facility], were you homeless or living in a fdc (including now)? No 12/14/2023 Comments Unknown Sex and Gender Information Value Date Recorded Sex Assigned at Not on file Legal Sex Female 6:47 PM EDT Gender Identity Not on file Sexual Orientation Not on file documented as of this encounter Plan of Treatment Not on file documented as of this encounter Visit Diagnoses Diagnosis Anxiety Anxiety state, unspecified documented in this encounter Care Teams Branch Maker Relationship Specialty Start Date End Date Erick Salcedo MD [address] [place] [address] PCP - [place] [employer] 02/12/2202/11 Erick Salcedo MD [address] [address] [place] [address] PCP - General Internal Medicine 08/27/22 Cris Moran NP [address] [place] [address] PCP - [place] [employer] 02/13/24WednesdayPrachi LPN [address] [address] [place] [address] Licensed Practical Nurse Family Medicine 11/12/23 04/21/24 Pippa Andrew, RN [address] [place], [place] [address] Licensed Practical Nurse Family Medicine 04/21/24 06/02/24 Jocelin Nance LPN [address] [address] 06/02/24 09/27/24 documented as of this encounter
--- OUTSIDE RECORDS SUMMARY | 2024-10-26 18:27 | XMS_ITS | Encounter Summary ---
Author Organization [facility] Address [address] [place] [address] Care Team Providers Care Hand Compositor Name Role Phone Erick Salcedo MD Unavailable [phone] Erick Salcedo MD Primary Care Provider Wednesday, Prachi STEELN Unavailable [phone] Cris Moran NP Unavailable [phone] Pippa Andrew RN Unavailable [phone] Jocelin Nance CO FOUNDER AND CHAIRMAN Unavailable Reason for Visit * Reason Onset Date Comments Med Refill 11/26/2023 Encounter Details Date Type Department Care Team (Late st Contact Info) Description 11/26/2023 Refill [facility] [place] [facility] [address] [facility] 110 [place] [address] Cris Moran, CREW DISPATCHER [address] [facility] 110 [place], [place] [phone] Anxiety Social History Tobacco Use Types Packs/Day [...] How often do you attend chur or alevism services? Patient declined 08/27/2022 Do you belong to any clubs o r organizations such as gnosticism groups, unions, fraternal or athletic groups, or [...] medical care, and heating? Somewhat hard 08/27/2022 [facility] [place] of Occupat ional Health - Occupational Stress [...] in a fdc (including now)? No 08/27/2022 Comments Unknown Sex and Gender Information Value Date Recorded Sex Assigned at Not on file Legal Sex Female 6:47 PM EDT Gender Identity Not on file Sexual Orientation Not on file documented as of this encounter Miscellaneous Notes * Telephone Encounter - Elizabeth Heredia - 11/29/2023 4:10 PM EDT LVM * Telephone Encounter - Elizabeth Heredia - 11/26/2023 8:35 AM EDT LVM * Telephone Encounter - NII Kc - 11/26/2023 7:52 AM EDT OARRS reviewed, Rx sent into patient's pharmacy. Please help pt get scheduled with Dr. Salcedo for routine medication follow up at the end of this month or early December. Thank you. documented in this encounter Plan of Treatment Not on file documented as of this encounter Visit Diagnoses Diagnosis Anxiety Anxiety state, unspecified documented in this encounter Care Teams Hand Compositor Relationship Specialty Start Date End Date Erick Salcedo MD [address] [place] [address] PCP - [place] [employer] 02/12/2202/11 Erick Salcedo MD [address] [facility] 110 [place] [address] PCP - General Internal Medicine 08/27/22 Cris Moran NP [address] [facility] 110 [place] [address] PCP - [place] [employer] 02/13/24WednesdayPrachi LPN [address] [place] [address] Licensed Practical Nurse Family Medicine 11/12/23 04/21/24 Pippa Andrew, TASHA [address] [place] [address] Licensed Practical Nurse Family Medicine 04/21/24 06/02/24 Jocelin Nance LPN [address] [facility] 110 [place] [address] 06/02/24 09/27/24 documented as of this encounter
--- OUTSIDE RECORDS SUMMARY | 2024-10-26 18:27 | XMS_ITS | Encounter Summary ---
Author Organization [facility] Address [address] [place] [address] Care Team Providers Care Advertising Traffic Manager Name Role Phone Erick Salcedo MD Unavailable [phone] Erick Salcedo MD Primary Care Provider Wednesday, Prachi STEELN Unavailable [phone] Cris Moran FOOD TECHNOLOGY TEACHER Unavailable Pipap Andrew RN Unavailable Jocelin Nance ACTUARIAL DIRECTOR Unavailable Encounter Details Date Type Department Care Team (Late st Contact Info) Description 11/16/2023 Abstract [facility] [place] [facility] 112 [facility] 110 [place] [id number] Erick Salcedo MD 112 [facility] 110 [place], [place] [id number] Social History Tobacco Use Types Packs/Day Years [...] often do you attend chur ch or zoroastrian services? Patient declined 08/27/2022 Do you belong to any clubs o r organizations such as advent groups, unions, fraThe Point or athletic groups, or school groups? No [...] medical care, and heating? Somewhat hard 08/27/2022 [facility] [place] of Occupat ional Health - Occupational Stress [...] to sleep or slept in a senior living (including now)? No 08/27/2022 Comments Unknown Sex and Gender Information Value Date Recorded Sex Assigned at Not on file Legal Sex Female 6:47 PM EDT Gender Identity Not on file Sexual Orientation Not on file documented as of this encounter Plan of Treatment Not on file documented as of this encounter Visit Diagnoses Not on filedocumented in this encounter Care Teams Advertising Traffic Manager Relationship Specialty Start Date End Date Erick Salcedo MD [address] [facility] 110 [place] [address] PCP - [place] Commercial 02/12/2202/11 Erick Salcedo MD [address] [facility] 110 [place] [address] PCP - General Internal Medicine 08/27/22 Cris Moran NP [address] [facility] 110 [place] [address] PCP - [place] Commercial 02/13/24Wednesday, SEEMA Velarde [address] [place] [address] Licensed Practical Nurse Family Medicine 11/12/23 04/21/24 Pippa Andrew, RN [address] [place] [address] Licensed Practical Nurse Family Medicine 04/21/24 06/02/24 Jocelin Nance LPN [address] [place] [address] 06/02/24 09/27/24 documented as of this encounter
--- OUTSIDE RECORDS SUMMARY | 2024-10-26 18:27 | XMS_ITS | Encounter Summary ---
Author Organization [facility] Address [address] [place] [address] Care Team Providers Care Tube Test Technician Name Role Phone Erick Salcedo MD Unavailable [phone] Erick Salcedo MD Primary Care Provider Wednesday, Prachi STEELN Unavailable [phone] Cris Moran ROLLER SETTER Unavailable [phone] Pippa Andrew RN Unavailable Jocelin Nance LIQUOR RUNNER Unavailable Encounter Details Date Type Department Care Team (Late st Contact Info) Description 08/28/2022 Abstract [facility] [place] [facility] 112 [facility] 110 [place] [id number] Erick Salcedo MD 112 [facility] 110 [place], [place] [id number] Social History Tobacco Use Types Packs/Day Years Used Date Smoking Tobacco: Never Smokeless Tobacco: Never Comments:Can't stand the sme ll Alcohol Use Standard Drinks/Week Comments Not Currently 0 (1 standard drink = 0.6 oz pur e alcohol) Humiliation, Afraid, Rape, and Kick questionnair e [...] How often do you attend chur or zoroastrian services? Patient declined 08/27/2022 Do you belong to any clubs o r organizations such as holiness groups, unions, fraIntpostage, LLC or athletic groups, or school groups? No [...] medical care, and heating? Somewhat hard 08/27/2022 [facility] of Occupat ional Health - [...] in a chcf (including now)? No 08/27/2022 Comments Unknown Sex and Gender Information Value Date Recorded Sex Assigned at Not on file Legal Sex Female 6:47 PM EDT Gender Identity Not on file Sexual Orientation Not on file COVID-19 Exposure Response Date Recorded In the last 10 days, have yo u been in contact with someone who was confirmed or suspected to have Coronavirus/COVID-19? No / Unsure 08/27/2022 9:51 AM EDT documented as of this encounter Plan of Treatment Not on file documented as of this encounter Visit Diagnoses Not on filedocumented in this encounter Care Teams Tube Test Technician Relationship Specialty Start Date End Date Erick Salcedo MD [address] [facility] 110 [place] [address] PCP - [place] Commercial 02/12/2202/11 Erick Salcedo MD [address] [facility] 110 [place] [address] PCP - General Internal Medicine 08/27/22 Cris Moran ROLLER SETTER 112 [facility] 110 [place] [address] PCP - [place] Commercial 02/13/24Wednesday, SEEMA Velarde 112 [facility] 110 [place] [address] Licensed Practical Nurse Family Medicine 11/12/23 04/21/24 Pippa Andrew, TASHA [address] [place] [address] Licensed Practical Nurse Family Medicine 04/21/24 06/02/24 Jocelin Nance LPN [address] [address] 06/02/24 09/27/24 documented as of this encounter
--- OUTSIDE RECORDS SUMMARY | 2024-10-26 18:27 | XMS_ITS | Encounter Summary ---
Author Organization [facility] Address [address] [place] [address] Care Team Providers Care Rigging Up Worker Name Role Phone Erick Salcedo MD Unavailable [phone] Erick Salcedo MD Primary Care Provider Wednesday, Prachi STEELN Unavailable [phone] Cris Moran MOBILE PHLEBOTOMIST Unavailable Pippa Andrew RN Unavailable Jocelin Nance BRICK LOADER Unavailable Encounter Details Date Type Department Care Team (Late st Contact Info) Description 11/16/2023 Abstract [facility] [place] [facility] 112 [facility] 110 [place] [id number] Erick Salcedo MD 112 [facility] 110 [place], [place] [id number] Social History Tobacco Use Types Packs/Day Years [...] often do you attend chur ch or uatsdin services? Patient declined 08/27/2022 Do you belong to any clubs o r organizations such as restorationism groups, unions, fraCloudPay or athletic groups, or school groups? No [...] medical care, and heating? Somewhat hard 08/27/2022 [facility] [place] of Occupat ional Health - Occupational Stress [...] health care facility (including now)? No 08/27/2022 Comments Unknown Sex and Gender Information Value Date Recorded Sex Assigned at Not on file Legal Sex Female 6:47 PM EDT Gender Identity Not on file Sexual Orientation Not on file documented as of this encounter Plan of Treatment Not on file documented as of this encounter Visit Diagnoses Not on filedocumented in this encounter Care Teams Rigging Up Worker Relationship Specialty Start Date End Date Erick Salcedo MD [address] [facility] 110 [place] [address] PCP - [place] Commercial 02/12/2202/11 Erick Salcedo MD [address] [facility] 110 [place] [address] PCP - General Internal Medicine 08/27/22 Cris Moran NP [address] [facility] 110 [place] [address] PCP - [place] Commercial 02/13/24Wednesday, SEEMA Velarde [address] [place] [address] Licensed Practical Nurse Family Medicine 11/12/23 04/21/24 Pippa Andrew, RN [address] [place] [address] Licensed Practical Nurse Family Medicine 04/21/24 06/02/24 Jocelin Nance LPN [address] 110 [place] [address] 06/02/24 09/27/24 documented as of this encounter
--- OUTSIDE RECORDS SUMMARY | 2024-10-26 18:27 | XMS_ITS | Encounter Summary ---
Author Organization [facility] Address [address] [place] [address] Care Team Providers Care Scientific Software Engineer Name Role Phone Erick Salcedo MD Primary Care Provider [phone] Cris Moran COMPUTER TECHNOLOGY TEACHER Unavailable [phone] Jocelin Nance LPN Unavailable Encounter Details Date Type Department Care Team (Late st Contact Info) Description 06/19/2024 Abstract [facility] 112 [facility] 110 [place] [address] Erick Salcedo MD 112 [facility] 110 [place], [place] [address] Social History Tobacco Use Types Packs/Day Years [...] 04/07/2024 How often do you attend chur [employer] or scientology services? Never 04/07/2024 Do you belong to any clubs o r organizations such as samaritan groups, unions, fraternal or athletic groups, or [...] and heating? Not hard at all 12/14/2023 [facility] of Occupat ional Health - [...] place to sleep or slept in a penitentiary (including now)? No 08/27/2022 Housing Stability Vital Sign Answer Julio Cesar e Recorded In the last 12 months, was t here a time when you were not able to pay the mortgage or rent on time? Yes 12/14/2023 Number of Times Moved in the Last Year Not on fi le 12/14/2023 At any time in the past 12 m [facility], were you homeless or living in a penitentiary (including now)? No 12/14/2023 Comments Unknown Sex and Gender Information Value Date Recorded Sex Assigned at Not on file Legal Sex Female 6:47 PM EDT Gender Identity Not on file Sexual Orientation Not on file documented as of this encounter Plan of Treatment Not on file documented as of this encounter Visit Diagnoses Not on filedocumented in this encounter Care Teams Scientific Software Engineer Relationship Specialty Start Date End Date Ercik Salcedo MD [address] [facility] 110 [place] [address] PCP - General Internal Medicine 08/27/22 Cris Moran NP 112 [facility] 110 [place] [address] PCP - [place] Commercial 02/13/24 Jocelin Nacne, SEEMA 112 [facility] 110 [place] [address] 06/02/24 09/27/24 documented as of this encounter
--- OUTSIDE RECORDS SUMMARY | 2024-10-26 18:27 | XMS_ITS | Encounter Summary ---
Author Organization [facility] Address [address] [place] [address] Care Team Providers Care Hazardous Materials Handler Name Role Phone Erick Salcedo MD Unavailable [phone] Erick Salcedo MD Primary Care Provider Wednesday, Prachi STEELN Unavailable [phone] Cris Moran LICENSE DISTRIBUTOR Unavailable Pippa Andrew RN Unavailable [phone] Jocelin Nance PROCESS ENVIRONMENTAL TECHNICIAN Unavailable Encounter Details Date Type Department Care Team (Late st Contact Info) Description 09/01/2022 Orders Only [facility] [place] [facility] [address] [place] [address] Erick Salcedo MD [address] 110 [place], [place] [address] Social History Tobacco Use Types Packs/Day Years [...] How often do you attend chur or hindu services? Patient declined 08/27/2022 Do you belong to any clubs o r organizations such as advent groups, unions, fraHazelMail or athletic groups, or school groups? No [...] medical care, and heating? Somewhat hard 08/27/2022 [facility] of Occupat ional Health - Occupational Stress [...] in a mcfp (including now)? No 08/27/2022 Comments Unknown Sex [...] suspected to have Coronavirus/COVID-19? No / Unsure 09/01/2022 10:40 AM EDT documented as of this encounter Plan of Treatment Not on file documented as of this encounter Procedures Procedure Name Priority Date/Time Associated Diagnosis Comments ELECTROCARDIOGRAM REPORT Routine 023 10:10 AM EDT documented in this encounter Results * Electrocardiogram Report (08/28/2022 10:10 AM EDT) us Erick Salcedo MD IN CLINIC/BEDSIDE ORDERABLES F inal Result documented in this encounter Visit Diagnoses Not on filedocumented in this encounter Care Teams Hazardous Materials Handler Relationship Specialty Start Date End Date Erick Salcedo MD 112 [facility] 110 [place] [address] PCP - [place] Commercial 02/12/2202/11 Erick Salcedo MD [address] [facility] 110 [place] [address] PCP - General Internal Medicine 08/27/22 Cris Moran LICENSE DISTRIBUTOR [address] [facility] 110 [place] [address] PCP - [place] Commercial 02/13/24WednesdayPrachi LPN [address] [facility] [address] [place] [address] Licensed Practical Nurse Family Medicine 11/12/23 04/21/24 Pippa Andrew, RN [address] [place] [address] Licensed Practical Nurse Family Medicine 04/21/24 06/02/24 Jocelin Nance LPN [address] [facility] 110 [place] [address] 06/02/24 09/27/24 documented as of this encounter
--- OUTSIDE RECORDS SUMMARY | 2024-10-26 18:27 | XMS_ITS | Encounter Summary ---
Author Organization [facility] Address [address] [place] [address] Care Team Providers Care Fuel Tank Sealer And Tester Name Role Phone Erick Salcedo MD Unavailable [phone] Erick Salcedo MD Primary Care Provider Wednesday, Prachi STEELN Unavailable [phone] Cris Moran FELLMONGERING MACHINE OPERATOR Unavailable Pippa Andrew RN Unavailable Jocelin Nance DIRECTOR CONSUMER Unavailable Encounter Details Date Type Department Care Team (Late st Contact Info) Description 07/07/2023 Abstract [facility] [place] [facility] [address] [facility] 110 [place] [address] Erick Salcedo MD 112 [facility] 110 [place], [place] [id number] Social History Tobacco Use Types Packs/Day Years [...] often do you attend chur ch or taoism services? Patient declined 08/27/2022 Do you belong to any clubs o r organizations such as sabianist groups, unions, fraHobo Labs or athletic groups, or school groups? [...] medical care, and heating? Somewhat hard 08/27/2022 [facility] [place] of Occupat ional Health - Occupational Stress [...] on filedocumented in this encounter Care Teams Fuel Tank Sealer And Tester Relationship Specialty Start Date End Date Erick Salcedo MD [address] [facility] 110 [place] [address] PCP - [place] Commercial 02/12/2202/11 Erick Salcedo MD [address] [facility] 110 [place] [address] PCP - General Internal Medicine 08/27/22 Cris Moran NP [address] [facility] 110 [place] [address] PCP - [place] Commercial 02/13/24Wednesday, SEEMA Velarde [address] [place] [address] Licensed Practical Nurse Family Medicine 11/12/23 04/21/24 Pippa Andrew, RN [address] [place] [address] Licensed Practical Nurse Family Medicine 04/21/24 06/02/24 Jocelin Nance LPN [address] 110 [place] [address] 06/02/24 09/27/24 documented as of this encounter
--- OUTSIDE RECORDS SUMMARY | 2024-10-26 18:27 | XMS_ITS | Encounter Summary ---
Author Organization [facility] Address [address] [place] [address] Care Team Providers Care Equipment Mechanic Specialist Name Role Phone Erick Salcedo MD Primary Care Provider [phone] Encounter Details Date Type Department Care Team (Late st Contact Info) Description 10/26/2024 Bamboo flowsheet [facility] [address] [facility] 110 [place] [address] Cris Moran, STUDIO MUSICIAN [address] 110 [place] [address] Social History Tobacco Use Types Packs/Day Years [...] How often do you attend chur or christianity services? Never 04/07/2024 Do you belong to any clubs o r organizations such as restorationism groups, unions, fraternal or athletic groups, or [...] Recorded Patient Health Questionnaire-2 Score 2 10/26/2024 [facility] of Occupat ional Health - Occupational Stress [...] on filedocumented in this encounter Care Teams Equipment Mechanic Specialist Relationship Specialty Start Date End Date Erick Salcedo MD 112 [facility] 110 [place] [address] PCP - General Internal Medicine 08/27/22 documented as of this encounter
--- OUTSIDE RECORDS SUMMARY | 2024-10-26 18:27 | XMS_ITS | Encounter Summary ---
Author Organization [facility] Address [address] [place] [address] Care Team Providers Care Senior Contract Specialist Name Role Phone Erick Salcedo MD Primary Care Provider [phone] Encounter Details Date Type Department Care Team (Latest Contact Info) Description 10/26/2024 Travel Social History Tobacco Use Types Packs/Day Years [...] 04/07/2024 How often do you attend chur ch or holiness services? Never 04/07/2024 Do you [...] Recorded Patient Health Questionnaire-2 Score 2 10/26/2024 [facility] of Occupat ional [...] a senior living (including now)? No 08/27/2022 Housing Stability Vital Sign Answer Julio Cesar e Recorded In the last 12 months, was t here a time when you were not able to pay the mortgage or rent on time? Yes 12/14/2023 Number of Times Moved in the Last Year Not on fi le 12/14/2023 At any time in the past 12 m [facility], were you homeless or living in a senior living (including now)? No 12/14/2023 Comments Unknown Sex and Gender Information Value Date Recorded Sex Assigned at Not on file Legal Sex Female 6:47 PM EDT Gender Identity Not on file Sexual Orientation Not on file documented as of this encounter Functional Status * Over the past 2 weeks, how often have you been bothered by any of the following problems? Question Answer Date of Assessment Author Little interest or pleasure in doing things Several days 10/26/2024 4:04 PM JAKE HLAL Feeling down, depressed, or hopeless Several days 10/13 4:04 PM JAKE HALL Patient Health Questionnaire-2 Score 2 10/13 4:04 PM JAKE HALL * If you checked off any problems on this questionnaire so far, Question Answer Date of Assessment Author How difficult have these problems made it for you to do your work, take care of things at home, or get along with other people? Somewhat difficult 10/26/2024 4:04 PM JAKE HALL documented as of this encounter Plan of Treatment Not on file documented as of this encounter Visit Diagnoses Not on filedocumented in this encounter Care Teams Senior Contract Specialist Relationship Specialty Start Date End Date Erick Salcedo MD [address] [facility] 110 [place] [address] PCP - General Internal Medicine 08/27/22 documented as of this encounter
--- OUTSIDE RECORDS SUMMARY | 2024-10-26 18:27 | XMS_ITS | Encounter Summary ---
Author Organization [facility] Address [address] [place] [address] Care Team Providers Care Nursing Unit Manager Name Role Phone Erick Salcedo MD Unavailable [phone] Erick Salcedo MD Primary Care Provider [phone] Wednesday, Prachi STEELN Unavailable [phone] Cris Moran JOB COST ESTIMATOR Unavailable [phone] Pippa Andrew RN Unavailable Jocelin Nance ACCOUNTS PAYABLE SPECIALIST Unavailable Reason for Visit * Reason Comments Med Refill Encounter Details Date Type Department Care Team (Late st Contact Info) Description 01/15/2023 Refill [facility] 112 [facility] 110 [place] [address] Erick Salcedo MD 112 [facility] 110 [place] [address] Hypothyroidism, unspecified Social History Tobacco Use Types Packs/Day Years [...] do you attend chur or holiness services? Patient declined 08/27/2022 Do you belong to any clubs o r organizations such as sabianist groups, unions, fraternal or athletic groups, or [...] medical care, and heating? Somewhat hard 08/27/2022 [facility] of Occupat ional Health - Occupational Stress [...] place to sleep or slept in a alf (including now)? No 08/27/2022 Comments Unknown Sex and Gender Information Value Date Recorded Sex Assigned at Not on file Legal Sex Female 6:47 PM EDT Gender Identity Not on file Sexual Orientation Not on file documented as of this encounter Plan of Treatment Not on file documented as of this encounter Visit Diagnoses Diagnosis Hypothyroidism, unspecified documented in this encounter Care Teams Nursing Unit Manager Relationship Specialty Start Date End Date Erick Salcedo MD [address] [facility] 110 [place] [address] PCP - [place] Commercial 02/12/2202/11 Erick Salcedo MD [address] [facility] 110 [place] [address] PCP - General Internal Medicine 08/27/22 Cris Moran NP [address] [facility] [address] [place] [address] PCP - [place] Commercial 02/13/24Wednesday, SEEMA Velarde [address] [place] [address] Licensed Practical Nurse Family Medicine 11/12/23 04/21/24 Pippa Andrew, RN [address] [place] [address] Licensed Practical Nurse Family Medicine 04/21/24 06/02/24 Jocelin Nance LPN [address] [facility] [address] [place] [address] 06/02/24 09/27/24 documented as of this encounter
--- OUTSIDE RECORDS SUMMARY | 2024-10-26 18:27 | XMS_ITS | Encounter Summary ---
Author Organization [facility] Address [address] [place] [address] Care Team Providers Care Specialist Managers Name Role Phone Erick Salcedo MD Unavailable [phone] Erick Salcedo MD Primary Care Provider Wednesday, Prachi STEELN Unavailable [phone] Cris Moran FINANCIAL INSTITUTION PRESIDENT Unavailable [phone] Pippa Andrew RN Unavailable Jocelin Nance HOG FEEDER Unavailable Reason for Visit * Reason Onset Date Comments Med Refill 08/26/2023 Encounter Details Date Type Department Care Team (Late st Contact Info) Description 08/26/2023 Refill [facility] [place] [facility] [address] [facility] 110 [place] [address] Erick Salcedo MD 112 [facility] 110 [place] [address] Attention deficit hyperactivity disorder (ADHD), unspecified ADHD type Social History Tobacco Use Types Packs/Day Years [...] How often do you attend chur or zoroastrianism services? Patient declined 08/27/2022 Do you belong to any clubs o r organizations such as synagogue groups, unions, fraternal or athletic groups, or [...] medical care, and heating? Somewhat hard 08/27/2022 [facility] [place] of Occupat ional Health - Occupational Stress [...] place to sleep or slept in a longterm (including now)? No 08/27/2022 Comments Unknown Sex and Gender Information Value Date Recorded Sex Assigned at Not on file Legal Sex Female 6:47 PM EDT Gender Identity Not on file Sexual Orientation Not on file documented as of this encounter Miscellaneous Notes * Telephone Encounter - Brenna Menendez - 09/06/2023 8:50 AM EDT PT SCHEDULED * Telephone Encounter - Brenna Menendez - 09/02/2023 10:09 AM EDT LVM * Telephone Encounter - Brenna Menendez - 08/27/2023 8:52 AM EDT lvm * Telephone Encounter - NII Kc - 08/27/2023 7:27 AM EDT OARRS reviewed, Rx sent into patient's pharmacy. Please help pt get set up with Dr. Salcedo for medication follow up. Must be seen routinely. Last refill until seen. documented in this encounter Plan of Treatment Not on file documented as of this encounter Visit Diagnoses Diagnosis Attention deficit hyperactivity disorder (ADHD), unspecified ADHD type documented in this encounter Care Teams Specialist Managers Relationship Specialty Start Date End Date Erick Salcedo MD [address] [place] [address] PCP - [place] Commercial 02/12/2202/11 Erick Salcedo MD [address] [facility] 110 [place] [address] PCP - General Internal Medicine 08/27/22 Cris Moran NP [address] [place] [address] PCP - [place] Commercial 02/13/24WednesdayPrachi LPN [address] [place] [address] Licensed Practical Nurse Family Medicine 11/12/23 04/21/24 Pippa Andrew, TASHA [address] [place] [address] Licensed Practical Nurse Family Medicine 04/21/24 06/02/24 Jocelin Nance LPN [address] [place] [address] 06/02/24 09/27/24 documented as of this encounter
--- OUTSIDE RECORDS SUMMARY | 2024-10-26 18:27 | XMS_ITS | Encounter Summary ---
Author Organization [facility] Address [address] [place] [address] Care Team Providers Care Travel Administrator Name Role Phone Erick Salcedo MD Primary Care Provider [phone] Jocelin Nance LPN Unavailable Reason for Visit * Reason Onset Date Comments short term rx 09/20/2024 Encounter Details Date Type Department Care Team (Late st Contact Info) Description 09/20/2024 Telephone [facility] [address] [facility] 110 [place] [address] Erick Salcedo MD 112 [facility] 110 [place] [address] short term rx Social History Tobacco Use Types Packs/Day Years [...] 04/07/2024 How often do you attend chur [employer] or episcopalian services? Never 04/07/2024 Do you belong to any clubs o r organizations such as adventist groups, unions, fraternal or athletic groups, or [...] Recorded Patient Health Questionnaire-2 Score 2 10/26/2024 [facility] of Occupat ionil Health - Occupational Stress Questionnaire Answer Date [...] any time in the past 12 m [facility], were you homeless or living in a chcf (including now)? No 12/14/2023 Comments Unknown Sex and Gender Information Value Date Recorded Sex Assigned at Not on file Legal Sex Female 6:47 PM EDT Gender Identity Not on file Sexual Orientation Not on file documented as of this encounter Miscellaneous Notes * Telephone Encounter - Danelle Garret, SEEMA - 09/20/2024 1:20 PM EDT Pt called states her cat knocked over her pill bottle-she lost 4 oxycodone tablets down the drain she is requesting rx for 4 tablets be sent in Pt notified we may not be able to approve this medication, if it is approved she will have to pay out of pocket because her ins will not cover early She was also notified even if our office dose send rx in the pharmacy could also refuse to fill early Uses [facility] if they get sent in documented in this encounter Plan of Treatment Not on file documented as of this encounter Visit Diagnoses Not on filedocumented in this encounter Care Teams Travel Administrator Relationship Specialty Start Date End Date Erick Salcedo MD [address] [address] PCP - General Internal Medicine 08/27/22 Jocelin Nance LPN [address] [address] 06/02/24 09/27/24 documented as of this encounter
--- OUTSIDE RECORDS SUMMARY | 2024-10-26 18:27 | XMS_ITS | Encounter Summary ---
Author Organization [facility] Address [address] [place] [address] Care Team Providers Care Taker Off Hemp Fiber Name Role Phone Erick Salcedo MD Primary Care Provider [phone] Reason for Visit * Reason Onset Date Comments Med Refill 10/19/2024 Encounter Details Date Type Department Care Team (Late st Contact Info) Description 10/19/2024 Refill [facility] 112 [facility] [facility] 110 [place] [id number] Erick Salcedo MD 112 [place] [facility] 110 [place] [address] Closed displaced fracture of right patella, unspecified fracture morphology, sequela Social History Tobacco Use Types Packs/Day Years [...] often do you attend chur ch or moravian services? Never 04/07/2024 Do you belong to any clubs o r organizations such as jainism groups, unions, fraternal or athletic groups, or [...] Recorded Patient Health Questionnaire-2 Score 0 07/25/2024 [facility] of Occupat ional Health - Occupational [...] any time in the past 12 m [facility], were you homeless or living in a senior living (including now)? No 12/14/2023 Comments Unknown Sex and Gender Information Value Date Recorded Sex Assigned at Not on file Legal Sex Female 6:47 PM EDT Gender Identity Not on file Sexual Orientation Not on file documented as of this encounter Miscellaneous Notes * Telephone Encounter - Corazon Henry - 10/23/2024 1:48 PM EDT Patient scheduled * Telephone Encounter - Corazon Henry - 10/19/2024 9:42 AM EDT Lvm * Telephone Encounter - NII Kc - 10/19/2024 9:21 AM EDT Please help pt get set up for controlled medication follow up visit within the next two weeks. Needs to be seen prior to additional refills. OARRS reviewed, Rx sent into patient's pharmacy. documented in this encounter Plan of Treatment Not on file documented as of this encounter Visit Diagnoses Diagnosis Closed displaced fracture of right patella, unspecified fracture morphology, sequela documented in this encounter Care Teams Taker Off Hemp Fiber Relationship Specialty Start Date End Date Erick Salcedo MD [address] [address] PCP - General Internal Medicine 08/27/22 documented as of this encounter
--- OUTSIDE RECORDS SUMMARY | 2024-10-26 18:27 | XMS_ITS | Encounter Summary ---
Author Organization [facility] Address [address] [place] [address] Care Team Providers Care County Director Name Role Phone Erick Salcedo MD Unavailable [phone] Erick Salcedo MD Primary Care Provider Wednesday, Prachi STEELN Unavailable [phone] Cris Moran DISASTER DIRECTOR Unavailable Pippa Andrew RN Unavailable Jocelin Nance LOG MARKER Unavailable Encounter Details Date Type Department Care Team (Late st Contact Info) Description 12/08/2023 Abstract [facility] [address] [facility] 110 [place] [id number] Erick Salcedo MD 112 [facility] 110 [place], [place] [id number] Social History Tobacco Use Types Packs/Day Years [...] material from your doctor or pharmacy? Never 12/10/2023 Humiliation, Afraid, Rape, and Kick questionnair e [...] neighbors? More than three times a week 12/10/2023 How often do you get togethe r with friends or relatives? More than three times a week 12/10/2023 How often do you attend chur or anglican services? Never 12/10/2023 Do you belong to any clubs o r organizations such as orthodoxy groups, unions, fraternal or athletic groups, or school groups? Yes 12/10/2023 How often do you attend meet ings of the clubs or organizations you belong to? 1 to 4 times per year 12/10/2023 Are you , , di vorced, , never , or living with a partner? 12/10/2023 AUDIT-C Answer Date Recorded Q1: How often [...] medical care, and heating? Somewhat hard 08/27/2022 [facility] [place] of Occupat ional Health - Occupational Stress [...] place to sleep or slept in a assisted (including now)? No 08/27/2022 Comments Unknown Sex and Gender Information Value Date Recorded Sex Assigned at Not on file Legal Sex Female 6:47 PM EDT Gender Identity Not on file Sexual Orientation Not on file documented as of this encounter Plan of Treatment Not on file documented as of this encounter Visit Diagnoses Not on filedocumented in this encounter Care Teams County Director Relationship Specialty Start Date End Date Erick Salcedo MD [address] [facility] 110 [place] [address] PCP - Julissa [place] 02/12/2202/11 Erick Salcedo MD [address] [facility] 110 [place] [address] PCP - General Internal Medicine 08/27/22 Cris Moran NP [address] [facility] 110 [place] [address] PCP - [place] [employer] 02/13/24Wednesday, SEEMA Velarde [address] [facility] 110 [place] [address] Licensed Practical Nurse Family Medicine 11/12/23 04/21/24 Pippa Andrew, RN [address] [place] [address] Licensed Practical Nurse Family Medicine 04/21/24 06/02/24 Jocelin Nance LPN 112 [facility] 110 [place] [address] 06/02/24 09/27/24 documented as of this encounter
--- OUTSIDE RECORDS SUMMARY | 2024-10-26 18:27 | XMS_ITS | Clinical Summary ---
Author Organization [facility] Address [address] [place] [address] Care Team Providers Care Yeast Culture Developer Name Role Phone Erick Salcedo MD Primary Care Provider [phone] Allergies Active Allergy Reactions Criticality Noted Date Comments Codeine Unknown 08/17/2022 Methylprednisolone Other 11/05/2023 Penicillin G Unknown 08/17/2022 Medications dicyclomine (Bentyl) 10 MG capsule Take 10 mg by mouth in the morning and 10 mg at noon and 10 mg in the evening and 10 mg before bedtime. Active loratadine (Claritin) 10 MG tablet 1 (one) time each day at the same time. Active albuterol HFA 90 mcg/act inhalerIndication s:Acute bronchospasm INHALE 1 PUFF INTO THE LUNGS EVERY 4 HOURS NEEDED 18 g 5 4 Active furosemide (Lasix) 20 MG tabletIndications :Localized edema TAKE 1 TABLET BY MOUTH EVERY DAY NEEDED FOR EDEMA 100 tablet 3 4 Active GNP PAIN RELIEF EX-STRENGTH 500 MG tablet Take 500 mg by mouth every 8 (eight) hours if needed 4 Active levothyroxine (Synthroid, Levoxyl) 100 MCG tabletIndications :Hypothyroidism, unspecified TAKE 1 TABLET BY MOUTH EVERY DAY IN THE MORNING ON EMPTY STOMACH 100 tablet 3 4 Active tiZANidine (Zanaflex) 4 MG tabletIndications :Degenerative disc disease, cervical Take 1 tablet (4 mg) by mouth in the morning and 1 tablet (4 mg) in the evening and 1 tablet (4 mg) before bedtime. 270 tablet 3 5 Active gabapentin (Neurontin) 300 MG capsuleIndication s:Cervical paraspinal muscle spasm Take 1 capsule (300 mg) by mouth in the morning and 1 capsule (300 mg) before bedtime. 180 capsule 3 5 Active estradiol (Climara) 0.025 MG/24HRIndication s:Symptomatic menopausal or female climacteric states APPLY 1 PATCH TO SKIN ONCE A WEEK 12 patch 2 5 Active zolpidem CR (Ambien CR) 12.5 MG ER tabletIndications :Primary insomnia Take 1 tablet (12.5 mg) by mouth at bedtime 30 tablet 5 5 Active FLUoxetine (PROzac) 20 MG capsuleIndication s:Grief reaction,Adjustme nt disorder with depressed mood Take 1 capsule (20 mg) by mouth Daily 90 capsule 3 5 07/26/19 26 Active FLUoxetine (PROzac) 40 MG capsuleIndication s:Adjustment disorder with depressed mood TAKE 1 CAPSULE BY MOUTH EVERY DAY FOR 90 DAYS 90 capsule 3 5 11/07/19 25 Active amphetamine-dextr oamphetamine XR (Adderall XR) 30 MG 24 hr capsuleIndication s:Attention deficit hyperactivity disorder (ADHD), unspecified ADHD type Take 1 capsule (30 mg) by mouth every 12 (twelve) hours 60 capsule 5 11/06/19 25 Active ALPRAZolam (Xanax) 0.5 MG tabletIndications :Anxiety Take 1 tablet (0.5 mg) by mouth 3 (three) times a day as needed for anxiety 90 tablet 5 11/09/19 25 Active oxyCODONE (Roxicodone) 10 MG immediate release tabletIndications :Closed displaced fracture of right patella, unspecified fracture morphology, sequela Take 1 tablet (10 mg) by mouth every 6 (six) hours if needed for severe pain for up to 14 days 56 tablet 5 11/03/19 25 Active amphetamine-dextr oamphetamine XR (Adderall XR) 30 MG 24 hr capsuleIndication s:Attention deficit hyperactivity disorder (ADHD), unspecified ADHD type Take 1 capsule (30 mg) by mouth every 12 (twelve) hours 60 capsule 5 10/06/19 25 Discontinu ed(Reorder ) ALPRAZolam (Xanax) 0.5 MG tabletIndications :Anxiety Take 1 tablet (0.5 mg) by mouth 3 (three) times a day as needed for anxiety 90 tablet 5 10/10/19 25 Discontinu ed(Reorder ) oxyCODONE (Roxicodone) 10 MG immediate release tabletIndications :Closed displaced fracture of right patella, unspecified fracture morphology, sequela Take 1 tablet (10 mg) by mouth every 6 (six) hours if needed for severe pain for up to 14 days 56 tablet 5 10/06/19 25 Discontinu ed(Reorder ) oxyCODONE (Roxicodone) 10 MG immediate release tabletIndications :Closed displaced fracture of right patella, unspecified fracture morphology, sequela Take 1 tablet (10 mg) by mouth every 6 (six) hours if needed for severe pain for up to 14 days 56 tablet 5 10/20/19 25 Discontinu ed(Reorder ) Active Problems Problem Noted Date Diagnosed Date Patellar fracture 11/12/2023 ADHD (attention deficit hyperactivity disorder) 08/12/2022 Adjustment disorder 08/12/2022 Anxiety 08/12/2022 Cervical paraspinal muscle spasm 08/12/2022 Degenerative disc disease, cervical 08/12/2022 Grief reaction 08/12/2022 History of hysterectomy 08/12/2022 Hypertension 08/12/2022 Hypothyroidism (acquired) 08/12/2022 Insomnia 08/12/2022 Irritable colon 08/12/2022 Obesity (BMI 35.0-39.9 without comorbidity) 07/15 Plantar fasciitis 08/12/2022 Seasonal allergic rhinitis 08/12/2022 Sinusitis 08/12/2022 Symptomatic menopausal or female climacteric sta nelida 08/12/2022 Encounters Date Type Department Care Team Description 10/26/2024 4:00 PM EDT Office Visit LUDMILA Pearson [facility] 112 [facility] 110 [place] [address] Cris Moran, CLINICAL NURSING COORDINATOR Closed displaced fracture of right patella, unspecified fracture morphology, sequela (Primary Dx); Chronic pain of right knee; Attention deficit hyperactivity disorder (ADHD), combined type ; Anxiety 10/26/2024 Bamboo flowsheet [facility] [address] [facility] 110 [place] [address] Cris Moran, CLINICAL NURSING COORDINATOR 10/26/2024 Travel 10/19/2024 Refill [facility] [address] [place] [address] [place] [address] Erick Salcedo MD Closed displaced fracture of right patella, unspecified fracture morphology, sequela 10/09/2024 [facility] [address] [facility] 110 [place] [address] Avril Claudio, PA Anxiety 10/05/2024 [facility] [address] [facility] 110 [place] [address] Avril Claudio, PA Attention deficit hyperactivity disorder (ADHD), unspecified ADHD type ; Closed displaced fracture of right patella, unspecified fracture morphology, sequela 09/27/2024 Patient Outreach [facility] [address] [place] [address] Goyo Jocelin, PLATE INSPECTOR 09/21/2024 Refill [facility] [address] [facility] 110 [place] [address] Avril Claudio, PA Closed displaced fracture of right patella, unspecified fracture morphology, sequela 09/20/2024 Telephone [facility] [address] [facility] 110 [place] [address] Erick Salcedo MD short term rx 09/10/2024 Refill [facility] [address] [facility] 110 [place] [address] Cris Moran, CLINICAL NURSING COORDINATOR Anxiety 09/06/2024 Refill [facility] [address] [facility] 110 [place] [address] Avril Claudio, PA Attention deficit hyperactivity disorder (ADHD), unspecified ADHD type ; Closed displaced fracture of right patella, unspecified fracture morphology, sequela 08/25/2024 Refill [facility] [address] [facility] [address] [place] [address] Avril Claudio, PA Closed displaced fracture of right patella, unspecified fracture morphology, sequela 08/11/2024 Refill [facility] [address] [facility] 110 [place] [address] Avril Claudio PA Attention deficit hyperactivity disorder (ADHD), unspecified ADHD type ; Closed displaced fracture of right patella, unspecified fracture morphology, sequela 08/08/2024 Refill [facility] [address] [facility] [address] [place] [address] Avril Claudio, NII Closed displaced fracture of right patella, unspecified fracture morphology, sequela 08/06/2024 Refill [facility] [address] [facility] 110 [place] [address] Cris Moran, ALFONSO Adjustment disorder with depressed mood 08/04/2024 Refill [facility] [address] [facility] 110 [place] [address] Cris Moran, CLINICAL NURSING COORDINATOR Closed displaced fracture of right patella, unspecified fracture morphology, sequela 08/04/2024 Refill [facility] [address] [facility] 110 [place] [address] Avril Claudio, NII Closed displaced fracture of right patella, unspecified fracture morphology, sequela 07/31/2024 [facility] [address] [facility] 110 [place] [address] Cris Moran NP Closed displaced fracture of right patella, unspecified fracture morphology, sequela 07/28/2024 Abstract [facility] [address] [facility] 110 [place] [address] Erick Salcedo MD from Last 3 Months Immunizations Immunization Administration Dates Next Due Influenza, High Dose Seasona l, Preservative Free 10/18/2019 Influenza, injectable, quadr ivalent, preservative free 02/14/2022,01/28/2021,10/18/2019 Influenza, seasonal, intrade rmal, preservative free 12/03/2012 Moderna Bivalent Booster Vaccination 12/21/2021 SARS-COV-2 (COVID-19) vaccin e, mRNA, spike protein, LNP, PF, mary-sucrose, 30 mcg/0.3 mL 12/25/2022 SARS-CoV-2, Unspecified 12/21/2021 Tdap 12/06/2022 Tetanus toxoid, adsorbed 10/04/2000 Zoster, Recombinant 07/21/2022 Family History Medical History Relation Name Comments Heart disease Father Shay Broderick Heart disease Mother Autumn [place] Cancer Mother's Sister Lizzette Gill Relation Name Status Comments Daughter 1 daughter Father Shay Broderick Mother Autumn [place] Mother's Sister Lizzette Gill Social History Tobacco Use Types Packs/Day Years [...] Recorded Patient Health Questionnaire-2 Score 2 10/26/2024 [facility] Occupational Stress Questionnaire Answer [...] place to sleep or slept in a retirement (including now)? No 08/27/2022 Housing Stability Vital Sign Answer Julio Cesar e Recorded In the last 12 months, was t here a time when you were not able to pay the mortgage or rent on time? Yes 12/14/2023 Number of Times Moved in the Last Year Not on fi le 12/14/2023 At any time in the past 12 m [facility], were you homeless or living in a retirement (including now)? No 12/14/2023 Comments Unknown Sex and Gender Information Value Date Recorded Sex Assigned at Not on file Legal Sex Female 6:47 PM EDT Gender Identity Not on file Sexual Orientation Not on file Last Filed Vital Signs Vital Sign Reading [...] Mass Index 42.89 10/26/2024 4:11 PM EDT Plan of Treatment Health Maintenance Due Date Last Done Comments CT Colonography 1969 FIT 1969 FOBT 1969 Sigmoidoscopy 1969 Colonoscopy 03/15/2019 03/15/2009 Colorectal Cancer Screening 09/06/2023 FIT-DNA 09/06/2023 09/05/2020, 09/05/2020 Mammogram 10/27/2024 10/28/2023, 03/0 07/2023, 05/18/2023, Additional history exists Influenza Vaccine (#1) 2024 2, 01/28/2021, 10/18/2019, Additional history exists Procedures Procedure Name Priority Date/Time Associated Diagnosis Comments MAMMOGRAM* Routine 10/28/2023 10:38 AM EDT LAB COLOGUARD COLON CANCER SCREEN Routine 09/05/2020 from Last 3 Months or Most Recently Relevant to Health Maintenance Results * MAMMOGRAM* (10/28/2023 10:38 AM EDT) Anatomical Region Laterality Modality Radiographic Mylene ging us [facility] Provider Unallocated MD IMG XR PROCEDURES F inal Result * Cologuard?? colon cancer screening (09/05/2020) COLOGUARD RESULT REPORTABLE Negative Negative [facility] Comment: NEGATIVE TEST RESULT. A negative Cologuard result indicates a low likelihood that a colorectal cancer (CRC) or advanced adenoma (adenomatous polyps with more advanced pre-malignant features) is present. The chance that a person with a negative Cologuard test has a colorectal cancer is less than 1 in 1500 (negative predictive value >99.9%) or has an advanced adenoma is less than 5.3% (negative predictive value 94.7%). These data are based on a prospective cross-sectional study of 10,000 individuals at average risk for colorectal cancer who were screened with both Cologuard and colonoscopy. (Jesica Chapman al, N Engl J Med 2014;370(14):0803-7748) The normal value (reference range) for this assay is negative. COLOGUARD RE-SCREENING RECOMMENDATION: Periodic colorectal cancer screening is an important part of preventive healthcare for asymptomatic individuals at average risk for colorectal cancer. Following a negative Cologuard result, the [employer] and U.S. Multi-Society Task Force screening guidelines recommend a Cologuard re-screening interval of 3 years. References: [employer] Guideline for Colorectal Cancer Screening: https://www.cancer.org/cancer/kyoqb-lvcqnz-htbhbe/nhjgzktql-xqiitwqzx-mhyfdum/ac s-rec ommendations.html.; Lloyd DK, Elaine CR, Andre FerrerK, Colorectal Cancer Screening: Recommendations for Physicians and Patients from the U.S. Multi-Society Task Force on Colorectal Cancer Screening , Am J Gastroenterology 2017; 112:4349-1851. TEST DESCRIPTION: Composite algorithmic analysis of stool DNA-biomarkers with hemoglobin immunoassay. Quantitative values of individual biomarkers are not reportable and are not associated with individual biomarker result reference ranges. Cologuard is intended for colorectal cancer screening of adults of either sex, 45 years or older, who are at average-risk for colorectal cancer (CRC). Cologuard has been approved for use by the U.S. FDA. The performance of Cologuard was established in a cross sectional study of average-risk adults aged 50-84. Cologuard performance in patients ages 45 to 49 years was estimated by sub-group analysis of near-age groups. Colonoscopies performed for a positive result may find as the most clinically significant lesion: colorectal cancer [4.0%], advanced adenoma (including sessile serrated polyps greater than or equal to 1cm diameter) [20%] or non- advanced adenoma [31%]; or no colorectal neoplasia [45%]. These estimates are derived from a prospective cross-sectional screening study of 10,000 individuals at average risk for colorectal cancer who were screened with both Cologuard and colonoscopy. (Jesica Chapman al, N Engl J Med 2014;370(14):8833-3533.) Cologuard may produce a false negative or false positive result (no colorectal cancer or precancerous polyp present at colonoscopy follow up). A negative Cologuard test result does not guarantee the absence of CRC or advanced adenoma (pre-cancer). The current Cologuard screening interval is every 3 years. ([employer] and U.S. Multi-Society Task Force). Cologuard performance data in a 10,000 patient pivotal study using colonoscopy as the reference method can be accessed at the following location: www.My Top 10.800razors/results. Additional description of the Cologuard test process, warnings and precautions can be found at www.[employer].800razors. 09/05/2020 us Avril [facility] [place] Final Result [facility] from Last 3 Months or Most Recently Relevant to Health Maintenance Insurance BS Care Teams Yeast Culture Developer Relationship Specialty Start Date End Date Erick Salcedo MD [address] [facility] 110 [place] [address] PCP - General Internal Medicine 08/27/22
--- OUTSIDE RECORDS SUMMARY | 2024-10-26 18:27 | XMS_ITS | Encounter Summary ---
Author Organization [facility] Address [address] [place] [address] Care Team Providers Care Back Panel Padder Name Role Phone Erick Salcedo MD Primary Care Provider [phone] Cris Moran HANDBAG DESIGNER Unavailable [phone] Pippa Andrew RN Unavailable [phone] Jocelin Nance LPN Unavailable Encounter Details Date Type Department Care Team (Late st Contact Info) Description 05/08/2024 Abstract [facility] [place] [facility] 112 [facility] 110 [place] [address] Erick Salcedo MD 112 [facility] 110 [place], [place] [id number] Social History Tobacco Use Types Packs/Day Years [...] How often do you attend chur or mosque services? Never 04/07/2024 Do you belong to any clubs o r organizations such as hindu groups, unions, fraternal or athletic groups, or [...] and heating? Not hard at all 12/14/2023 [facility] of Occupat ional Health - Occupational Stress [...] any time in the past 12 m [facility], were you homeless or [...] on filedocumented in this encounter Care Teams Back Panel Padder Relationship Specialty Start Date End Date Erick Salcedo MD [address] [facility] 110 [place] [address] PCP - General Internal Medicine 08/27/22 Cris Moran NP [address] [place] [address] PCP - [place] Commercial 02/13/24 Pippa Andrew, RN [address] [place] [address] Licensed Practical Nurse Family Medicine 04/21/24 06/02/24 Jocelin Nance LPN [address] [address] 06/02/24 09/27/24 documented as of this encounter
--- OUTSIDE RECORDS SUMMARY | 2024-10-26 18:27 | XMS_ITS | Encounter Summary ---
Author Organization [facility] Address [address] [place] [address] Care Team Providers Care Human Services Instructor Name Role Phone Erick Salcedo MD Unavailable [phone] Erick Salcedo MD Primary Care Provider Wednesday, Prachi STEELN Unavailable [phone] Cris Moran MASTER PLUMBER Unavailable [phone] Pippa Andrew RN Unavailable Jocelin Nance ARTS MANAGER Unavailable Encounter Details Date Type Department Care Team (Late st Contact Info) Description 01/18/2024 Abstract [facility] [place] [facility] 112 [facility] 110 [place] [address] Erick Salcedo MD 112 [facility] 110 [place], [place] [id number] Social History Tobacco Use Types Packs/Day Years [...] How often do you attend chur or spiritism services? Patient declined 12/14/2023 Do you belong to any clubs o r organizations such as spiritism groups, unions, fraternal or athletic groups, or [...] and heating? Not hard at all 12/14/2023 [facility] [place] of Occupat ional Health - Occupational Stress [...] any time in the past 12 m [facility], were you homeless or living in a [...] on filedocumented in this encounter Care Teams Human Services Instructor Relationship Specialty Start Date End Date Erick Salcedo MD 112 [facility] 110 [place] [address] PCP - [place] Commercial 02/12/2202/11 Erick Salcedo MD [address] [facility] 110 [place] [address] PCP - General Internal Medicine 08/27/22 Cris Moran NP [address] [facility] 110 [place] [address] PCP - [place] Commercial 02/13/24WednesdayPrachi LPN [address] [facility] 110 [place] [address] Licensed Practical Nurse Family Medicine 11/12/23 04/21/24 Pippa Andrew, RN [address] [place], [place] [address] Licensed Practical Nurse Family Medicine 04/21/24 06/02/24 Jocelin Nance LPN [address] [facility] 110 [place] [address] 06/02/24 09/27/24 documented as of this encounter
--- OUTSIDE RECORDS SUMMARY | 2024-10-26 18:27 | XMS_ITS | Encounter Summary ---
Author Organization [facility] Address [address] [place] [address] Care Team Providers Care Windows Server Specialist Name Role Phone Erick Salcedo MD Primary Care Provider [phone] Jocelin Nance LPN Unavailable Encounter Details Date Type Department Care Team (Late st Contact Info) Description 06/26/2024 Abstract [facility] [place] [facility] 112 [facility] 110 [place] [address] Erick Salcedo MD 112 [facility] 110 [place] [address] Social History Tobacco Use Types Packs/Day Years [...] often do you attend chur ch or yazidism services? Never 04/07/2024 Do you belong to any clubs o r organizations such as oriental orthodox groups, unions, fraternal or athletic groups, or [...] and heating? Not hard at all 12/14/2023 [facility] of Occupat ional Health - Occupational [...] place to sleep or slept in a prison (including now)? No 08/27/2022 Housing Stability Vital [...] were you homeless or living in a prison (including now)? No 12/14/2023 Comments Unknown Sex and Gender Information Value Date Recorded Sex Assigned at Not on file Legal Sex Female 6:47 PM EDT Gender Identity Not on file Sexual Orientation Not on file documented as of this encounter Plan of Treatment Not on file documented as of this encounter Visit Diagnoses Not on filedocumented in this encounter Care Teams Windows Server Specialist Relationship Specialty Start Date End Date Erick Salcedo MD [address] [facility] 110 [place] [address] PCP - General Internal Medicine 08/27/22 Jocelin Nance LPN [address] [facility] 110 [place] [address] 06/02/24 09/27/24 documented as of this encounter
--- OUTSIDE RECORDS SUMMARY | 2024-10-26 18:27 | XMS_ITS | Clinical Summary ---
Author Organization [facility] Address [address] [place] [address] Care Team Providers Care Finance Director Name Role Phone Amauri-GloriaPolina Primary Care Provider [phone] Allergies Active Allergy Reactions Criticality Noted Date Comments Codeine Itching 01/28/2005 Medications Zolpidem 12.5 mg CR tablet Take 12.5 mg by mouth at bedtime as needed. Active dicyclomine (BENTYL) 10 mg capsule Take 10 mg by mouth before meals and at bedtime. Active Active Problems No known active problems Social History Tobacco Use Types Packs/Day Years Used Date Smoking Tobacco: Never Alcohol Use Standard Drinks/Week Comments Not Asked 0 (1 standard drink = 0.6 oz pur e alcohol) Comments No Sex and Gender Information Value Date Recorded Sex Assigned at Not on file Legal Sex Female 9:36 AM EST Gender Identity Not on file Sexual Orientation Not on file Last Filed Vital Signs Vital Sign Reading Time Taken Comments Blood Pressure 123/74 11/05/2011 4:08 PM EDT Pulse 75 11/05/2011 4:08 PM EDT Temperature - - Respiratory Rate - - Oxygen Saturation - - Inhaled Oxygen Concentration - - Weight 76.7 kg (169 lb) 11/05/2011 4:08 PM EDT Height 154.9 cm (5' 1 ) 11/05/2011 4:08 PM EDT Body Mass Index 31.93 11/05/2011 4:08 PM EDT Plan of Treatment Health Maintenance Due Date Last Done Comments Anxiety Screening 10/02/1987 Depression Screening 10/02/1987 HIV Screening 10/02/1987 Hepatitis C Screening 10/02/1987 DTaP,Tdap,Td Vaccine (1 - Tdap) 1988 Hepatitis B Vaccine (1 of 3 - 19+ 3-dose series) 10/01 Cervical Cancer Screening [address] Colonography 2014 Cologuard (FIT-DNA) 2014 Colonoscopy 2014 Colorectal Cancer Screening 2014 Diabetes Screening 2014 01/28/2005 Fecal Occult Blood 2014 Lipid Screening 2014 Sigmoidoscopy 2014 Pneumococcal Vaccine: 50+ (1 of 1 - PCV) 10/02/2019 Shingrix Vaccine (1 of 2) 10/02/2019 Influenza Vaccine (#1) 2024 Procedures Procedure Name Priority Date/Time Associated Diagnosis Comments COMPREHENSIVE METABOLIC PANEL Routine 01/28/2005 10:11 AM EST Abdominal Pain Llq from Last 3 Months or Most Recently Relevant to Health Maintenance Results * COMP METABOLIC PANEL (01/28/2005 10:11 AM EST) Protein, Total 7.5 6.0 - 8.4 g/dL [facility] Albumin 4.4 3.5 - 5.0 g/dL [facility] Calcium 10.0 8.5 - 10.5 mg/dL [facility] Bilirubin, Total 0.4 0.0 - 1.5 mg/dL [facility] Alkaline Phosphatase 82 40 - 150 U/L [facility] AST 21 7 - 40 U/L [facility] Glucose 96 65 - 100 mg/dL [facility] BUN 9 8 - 25 mg/dL [facility] Creatinine 0.8 0.7 - 1.4 mg/dL [facility] Sodium 140 132 - 148 mmol/L [facility] Potassium 4.5 3.5 - 5.0 mmol/L [facility] Chloride 104 98 - 110 mmol/L [facility] CO2 25 23 - 32 mmol/L [facility] Anion Gap 11 0 - 15 mmol/L [facility] ALT 26 0 - 45 U/L [facility] Blood specimen (specimen) BLOOD SPECIMEN / Unknown 01/28/2005 10:11 AM EST us Natanael Lozano MD LABORATORY Final Result [facility] [address] [place] [address] from Last 3 Months or Most Recently Relevant to Health Maintenance Insurance O [employer] PPO Care Teams Finance Director Relationship Specialty Start Date End Date Alt-Polina Castro [address] [place] [address] PCP - General 11/10/04
--- OUTSIDE RECORDS SUMMARY | 2024-10-26 18:27 | XMS_ITS | Encounter Summary ---
Author Organization [facility] Address [address] [place] [address] Care Team Providers Care Outbound Sales Agent Name Role Phone Erick Salcedo MD Unavailable [phone] Erick Salcedo MD Primary Care Provider [phone] Wednesday, Prachi STEELN Unavailable [phone] Cris Moran GLEASON OPERATOR Unavailable Pippa Andrew RN Unavailable [phone] Jocelin Nance MRI TECHNICIAN Unavailable Encounter Details Date Type Department Care Team (Late st Contact Info) Description 11/30/2022 Abstract [facility] [place] [facility] 112 [facility] 110 [place] [id number] Erick Salcedo MD 112 [facility] 110 [place], [place] [id number] Social History Tobacco Use Types Packs/Day Years [...] How often do you attend chur or jewish services? Patient declined 08/27/2022 Do you belong to any clubs o r organizations such as buddhist groups, unions, fraQwenty or athletic groups, or school groups? No [...] medical care, and heating? Somewhat hard 08/27/2022 [facility] of Occupat ional Health - [...] on filedocumented in this encounter Care Teams Outbound Sales Agent Relationship Specialty Start Date End Date Erick Salcedo MD [address] [facility] 110 [place] [address] PCP - [place] 02/12/2202/11 Erick Salcedo MD [address] [facility] 110 [place] [address] PCP - General Internal Medicine 08/27/22 Cris Moran NP [address] [facility] 110 [place] [address] PCP - [place] Commercial 02/13/24Wednesday, SEEMA Velarde [address] [place] [address] Licensed Practical Nurse Family Medicine 11/12/23 04/21/24 Pippa Andrew, RN [address] [place] [address] Licensed Practical Nurse Family Medicine 04/21/24 06/02/24 Jocelin Nance LPN [address] [place] [address] 06/02/24 09/27/24 documented as of this encounter
--- OUTSIDE RECORDS SUMMARY | 2024-10-26 18:27 | XMS_ITS | Encounter Summary ---
Author Organization [facility] Address [address] [place] [address] Care Team Providers Care Energy Director Name Role Phone Erick Salcedo MD Unavailable [phone] Erick Salcedo MD Primary Care Provider Wednesday, Prachi STEELN Unavailable [phone] Cris Moran TABLE GAMES MANAGER Unavailable Pippa Andrew RN Unavailable Jocelin Nance FIRER LOW PRESSURE Unavailable Encounter Details Date Type Department Care Team (Late st Contact Info) Description 07/06/2023 Abstract [facility] [place] [facility] 112 [facility] 110 [place] [address] Erick Salcedo MD 112 [facility] 110 [place], [place] [id number] Social History Tobacco Use Types Packs/Day Years [...] any clubs o r organizations such as zoroastrian groups, unions, fraInfernum Productions AG or athletic groups, or school groups? No [...] medical care, and heating? Somewhat hard 08/27/2022 [facility] [place] of Occupat ional Health - Occupational Stress [...] on filedocumented in this encounter Care Teams Energy Director Relationship Specialty Start Date End Date Erick Salcedo MD [address] [facility] 110 [place] [address] PCP - [place] Commercial 02/12/2202/11 Erick Salcedo MD [address] [facility] 110 [place] [address] PCP - General Internal Medicine 08/27/22 Cris Moran NP [address] [facility] 110 [place] [address] PCP - [place] [employer] 02/13/24Wednesday, SEEMA Velarde [address] [place] [address] Licensed Practical Nurse Family Medicine 11/12/23 04/21/24 Pippa Andrew, RN [address] [place] [address] Licensed Practical Nurse Family Medicine 04/21/24 06/02/24 Jocelin Nance LPN [address] [place] [address] 06/02/24 09/27/24 documented as of this encounter
--- OUTSIDE RECORDS SUMMARY | 2024-10-26 18:27 | XMS_ITS | Encounter Summary ---
Author Organization [facility] Address [address] [place] [address] Care Team Providers Care Consulting Hr Professional Name Role Phone Erick Salcedo MD Unavailable [phone] Erick Salcedo MD Primary Care Provider Wednesday, Prachi STEELN Unavailable [phone] Cris Moran PHOTOGRAPHER NEWS Unavailable [phone] Pippa Andrew RN Unavailable Jocelin Nance SINGLE RESOURCE BOSS Unavailable Encounter Details Date Type Department Care Team (Late st Contact Info) Description 12/13/2023 Abstract [facility] [place] [facility] 112 [facility] 110 [place] [address] Erick Salcedo MD 112 [facility] 110 [place], [place] [address] Social History Tobacco Use Types Packs/Day Years [...] How often do you attend chur or rastafari services? Patient declined 12/14/2023 Do you belong to any clubs o r organizations such as jain groups, unions, fraternal or athletic groups, or [...] and heating? Not hard at all 12/14/2023 [facility] [place] of Occupat ional Health - Occupational Stress [...] any time in the past 12 m [facility], were you homeless or living in a prison (including now)? No 12/14/2023 Comments Unknown Sex and Gender Information Value Date Recorded Sex Assigned at Not on file Legal Sex Female 6:47 PM EDT Gender Identity Not on file Sexual Orientation Not on file documented as of this encounter Functional Status * Audit-C Score Answer Date of Assessment Author 0 12/14/2023 9:01 AM EDT Liza, Generic * Q1: How often do you have a drink containing alcohol? Answer Date of Assessment Author Never 12/14/2023 9:01 AM EDT Liza, Generic * Q2: How many drinks containing alcohol do you have on a typical day when you are drinking? Answer Date of Assessment Author Patient does not drink 12/14/2023 9:01 AM EDT My chart, Generic * Q3: How often do you have six or more drinks on one occasion? Answer Date of Assessment Author Never 12/14/2023 9:01 AM EDT Mychart, Generic documented as of this encounter Plan of Treatment Not on file documented as of this encounter Visit Diagnoses Not on filedocumented in this encounter Care Teams Consulting Hr Professional Relationship Specialty Start Date End Date Erick Salcedo MD [address] [place] [address] PCP - [place] Commercial 02/12/2202/11 Erick Salcedo MD [address] [place] [address] PCP - General Internal Medicine 08/27/22 Cris Moran NP [address] [place] [address] PCP - [place] Commercial 02/13/24WednesdayPrachi LPN [address] [place] [address] Licensed Practical Nurse Family Medicine 11/12/23 04/21/24 Pippa Andrew RN [address] [place] [address] Licensed Practical Nurse Family Medicine 04/21/24 06/02/24 Jocelin Nance LPN [address] [place] [address] 06/02/24 09/27/24 documented as of this encounter
--- OUTSIDE RECORDS SUMMARY | 2024-10-26 18:27 | XMS_ITS | Encounter Summary ---
Author Organization [facility] Address [address] [place] [address] Care Team Providers Care Agricultural Crop Farm Manager Name Role Phone Erick Salcedo MD Primary Care Provider [phone] Cris Moran FITNESS CLUB MANAGER Unavailable [phone] Jocelin Nance LPN Unavailable Encounter Details Date Type Department Care Team (Late st Contact Info) Description 06/08/2024 Abstract [facility] [place] [facility] 112 [facility] 110 [place] [address] Erick Salcedo MD 112 [facility] 110 [place], [place] [address] Social History Tobacco Use Types Packs/Day Years [...] 04/07/2024 How often do you attend chur [employer] or temple services? Never 04/07/2024 Do you belong to any clubs o r organizations such as holiness groups, unions, fraternal or athletic groups, or [...] and heating? Not hard at all 12/14/2023 [facility] of Occupat ional Health - Occupational [...] any time in the past 12 m [facility], were you homeless or living in [...] on filedocumented in this encounter Care Teams Agricultural Crop Farm Manager Relationship Specialty Start Date End Date Erick Salcedo MD [address] [facility] 110 [place] [address] PCP - General Internal Medicine 08/27/22 Cris Moran NP [address] [facility] 110 [place] [address] PCP - [place] [employer] 02/13/24 Jocelin Nance, SEEMA 112 [facility] 110 [place] [address] 06/02/24 09/27/24 documented as of this encounter
--- OUTSIDE RECORDS SUMMARY | 2024-10-26 18:28 | XMS_ITS | CCD ---
Author Organization [facility] CliniSytn Care Team Providers Care Roll Forming Machine Set Up Operator Name Role Phone PROVIDER, UNKNOWN Attending Unavailable PROVIDER, UNKNOWN Admitting Unavailable MATIAS, DR GRANGER Attending Unavailable MATIAS, DR GRANGER Consulting Unavailable MATIAS, DR GRANGER Primary Care Unavailable MATIAS, DR GRANGER Admitting Unavailable CHARLEY, DR NORA Gayle Consulting Unavailable JOSELIN Salcedo Primary Care Provider MD Shay Patel Emergency Provider DO Louis Beal Admit Provider [phone] DO Louis Beal Attending Provider DO Louis Beal Attending Provider MD Nicholas Man Emergency Provider BLANE Mathew Attending Provider DO Alex Sierra Attending Provider Erick Salcedo MD Unavailable [phone] Erick Salcedo MD Primary Care Provider Wednesday SUPERVISOR KEYMODULE ASSEMBLY, Prachi Unavailable JOSELIN Salcedo Primary Care Provider MD Shay Patel Emergency Provider DO Louis Beal Attending Provider MD Nicholas Man Emergency Provider [phone] BLANE Mathew Attending Provider DO Alex Sierra Attending Provider Erick Salcedo II Primary Care Provider [phone] Shay Patel MD Emergency Provider Louis Beal DO Attending Provider Nicholas Man MD Emergency Provider [phone] Quincy MARBLE SUPERVISOR-C, Martine Everett Attending Provider [phone] Alex Sierra DO Attending Provider Matias II, Erick Primary Care Provider Alex Sierra DO Attending Provider Self, Referral Attending Provider Unavailable Sandrita MARBLE SUPERVISOR, Cris Manzano Unavailable [phone] Lorrie CORDOVA, Pippa Unavailable [phone] Wednesday SUPERVISOR KEYMODULE ASSEMBLY, Prachi Unavailable Matias OLIVERA, Erick Primary Care Provider Alex Sierra DO Attending Provider Matias II, Erick Primary Care Provider Self, Referral Attending Provider Unavailable Alex Sierra DO Attending Provider Nance SUPERVISOR KEYMODULE ASSEMBLY, Jocelin Unavailable Unavailable Salcedo II, Erick Primary Care Provider [phone] CRIS MORAN Attending Unavailable CRIS MORAN Attending Unavailable CRIS MORAN M Attending Unavailable SANDRITACRIS M Attending Unavailable SANDRITACHERRIERI M Attending Unavailable Matias OLIVERA, Erick Primary Care Provider Alex Sierra DO Attending Provider Nicholas Man Admitting Unavailable Nicholas Man Attending Unavailable Salcedo, Erick Primary Care Unavailable Martine Mathew Admitting Unavailable Martine Mathew Attending Unavailable Salcedo, Erick Primary Care Unavailable Mariela, Alex A Attending Unavailable Mariela, Alex A Admitting Unavailable Salcedo, Erick Primary Care Unavailable Mariela, Alex A Admitting Unavailable Salcedo, Erick Primary Care Unavailable Mariela, Alex A Attending Unavailable Mariela, Alex A Admitting Unavailable Salcedo, Erick Primary Care Unavailable Mariela, Alex A Attending Unavailable Mariela, Alex A Admitting Unavailable Salcedo, Erick Primary Care Unavailable Mariela, Alex A Attending Unavailable Self, Referral Admitting Unavailable Self, Referral Attending Unavailable Salcedo, Erick Primary Care Unavailable Mariela, Alex A Admitting Unavailable Salcedo, Erick Primary Care Unavailable Mariela, Alex A Attending Unavailable Mariela, Alex A Admitting Unavailable Alex Sierra Attending Unavailable Erick Salcedo [facility] Unavailable Louis Beal Attending Unavailable Louis Beal Admitting Unavailable Erick Salcedo [facility] Unavailable Alex Sierra Attending Unavailable Alex Sierra Admitting Unavailable Matias Erick [facility] Unavailable Alex Sierra Admitting Unavailable Matias Erick [facility] Unavailable Alex Sierra Attending Unavailable Shay Patel Admitting Unavailable Shay Patel [facility]ending [facility] Unavailable Nance SUPERVISOR KEYMODULE ASSEMBLY, Jocelin Unavailable Allergies Allergy Classification Reported Allergen(s) Allergy Type Date of Onset Reaction(s) Facility (20 sources) Codeine Drug Allergy 4 Unknown Reaction, Itching [facility] Repository (20 sources) methylPREDNISolo ne; Translations: [methylprednisol one] Drug Allergy 4 Other [facility] (20 sources) Codeine Drug Allergy 3 Unknown [facility] (20 sources) Penicillin G Drug Allergy 3 Unknown [facility] (1 source) Codeine Drug Allergy 5 [facility] Repository Medications Current Medications Medication Drug Class(es) Dates Sig (Normalized) Sig (Original) acetaminophen 500 mg oral tablet (20 sources) Start: 06-15-2024 take 1 tablet by mouth every six hours as needed for pain Acetaminophen 325 mg tablet Active 325 MG PO Q6H as needed for Pain June 15, 2024 12:00am DO NOT RECONCILE UNTIL DOS 06/16/24 TO BE USED POST OP Start: 12-07-2023 End: 06-06-2024 take 1 tablet by mouth every six hours as needed for pain Acetaminophen 500 mg tablet Discontinued 500 MG PO Q6H as needed for Pain December 07, 2023 12:00am June 06, 2024 3:23pm Start: 11-10-2023 take 1 tablet by cameron th every eight hours as needed GNP PAIN RELIEF EX-STRENGTH 500 MG tablet Take 500 mg by mouth every 8 (eight) hours if needed 11/10/2023 Active Start: 11-10-2023 End: 06-16-2024 Acetaminophen (Tylenol Extra Strength) 500 mg tablet Active 1000 MG PO As Directed as needed for pain June 16, 2024 12:00am [id number] 200 actuat albuterol 0.09 mg/actuat metered dose [...] November 10, 2023 12:00am Start: 10-28-2023 End: 11-08-2024 take 1 tablet by mouth three times daily as needed for anxiety ALPRAZolam (Xanax) 0.5 MG tablet Indications: Anxiety Take 1 tablet (0.5 mg) by mouth 3 (three) times a day as needed for anxiety 90 tablet 10/09/2024 11/08/2024 Active 24 hr amphetamine aspartate 7.5 mg / amphetamine sulfate 7.5 mg / dextroamphetamine saccharate 7.5 mg / dextroamphetamine sulfate 7.5 mg extended release oral capsule (20 sources) Central Nervous System Stimulant Start: 01-18-2024 End: 11-05-2024 take 1 capsule by mouth once amphetamine-dextroamphetamine XR (Adderall XR) 30 MG 24 hr capsule Indications: Attention deficit hyperactivity disorder (ADHD), unspecified ADHD type Take 1 capsule (30 mg) by mouth every 12 (twelve) hours 60 capsule 10/06/2024 11/05/2024 Active Start: 11-22-2023 take [address] [facility] once amphetamine-dextroamphetamine XR (Addera ll XR) 30 MG 24 hr capsule Indications: Attention deficit hyperactivity disorder (ADHD), unspecified ADHD type (CMS/HCC) Take 1 capsule (30 mg) by mouth every 12 (twelve) hours 60 capsule 11/22/2023 Active Start: 11-11-2023 take [address] [facility] twice daily Dextroamphetamine-Amphetamine 30 mg capsule,extended release 24hr Active 30 MG PO Twice daily November 11, 2023 12:00am Start: 11-10-2023 End: 06-06-2024 take 1 tablet by mouth once daily Dextroamphetamine-Amphetamine (Adderall) 30 mg tablet Discontinued 30 MG PO Daily November 10, 2023 12:00am June 06, 2024 3:25pm Start: 10-21-2023 End: 01-15-2024 take 1 capsule by mouth once amphetamine-dextroamphetamine XR (Addera ll XR) 30 MG 24 hr capsule Indications: Attention deficit hyperactivity disorder (ADHD), unspecified ADHD type (CMS/HCC) Take 1 capsule (30 mg) by mouth every 12 (twelve) hours 60 capsule 12/17/2023 01/15/2024 Discontinued (Reorder) aspirin 81 mg chewable tablet (19 sources) Platelet Aggregation Inhibitor, Nonsteroidal Anti-inflammatory Drug Start: 06-15-2024 take 1 tablet by mouth twice daily Aspirin 81 mg tablet,chewable Active 81 MG PO Twice daily 28 June 15, 2024 12:00am DO NOT RECONCILE UNTIL DOS 06/16/24 TO BE USED POST OP Start: 12-07-2023 End: 03-20-2024 take 1 tablet by mouth twice daily Aspirin 81 mg tablet,chewable Discontinued 81 MG PO Twice daily 60 30 December 07, 2023 12:00am March 20, 2024 4:49pm dicyclomine hydrochloride 10 mg oral capsule (20 sources) Anticholinergic Start: 11-10-2023 take 1 capsule by mouth three times daily Dicyclomine 10 mg capsule Active 10 MG PO Three times daily November 10, 2023 12:00am 168 hr estradiol 0.39729 mg/hr transdermal system (20 sources) Estrogen Start: 06-14-2024 estradiol (Climara) 0.025 MG/24HR Indications: Symptomatic menopausal or female climacteric states APPLY 1 PATCH TO SKIN ONCE A WEEK 12 patch 2 06/14/2024 Active Start: 12-27-2023 estradiol (Cli andres) 0.025 MG/24HR Indications: Symptomatic menopausal or female climacteric states Place 1 patch on the skin 1 (one) time per week 12 patch 2 12/27/2023 Active Start: 11-10-2023 Estradiol 0.02 5 mg/24 hr patch weekly Active 1 PATCH TOPICAL every week November 10, 2023 12:00am Start: 11-10-2023 Estradiol 0.02 5 mg/24 hr patch weekly Active 1 PATCH TOPICAL .qweekly November 10, 2023 12:00am Start: 11-10-2023 Estradiol Acti ve 1 PATCH TOPICAL .qweekly November 09, 2023 11:00pm Start: 07-26-2023 End: 12-27-2023 estradiol (Climara) 0.025 MG /24HR Indications: Symptomatic menopausal or female climacteric states APPLY 1 PATCH TO SKIN ONCE A WEEK 12 patch 2 07/26/2023 12/27/2023 Discontinued (Reorder) FLUoxetine 40 mg oral capsule (20 sources) Serotonin Reuptake Inhibitor Start: 08-08-2024 End: 11-06-2024 take 1 capsule by mouth once daily FLUoxetine (PROzac) 40 MG capsule Indications: Adjustment disorder with depressed mood TAKE 1 CAPSULE BY MOUTH EVERY DAY FOR 90 DAYS 90 capsule 3 08/08/2024 11/06/2024 Active Start: 07-25-2024 End: 07-25-2025 take 1 capsule by mouth once daily FLUoxetine (PROzac) 20 MG capsule Indications: Grief reaction , Adjustment disorder with depressed mood Take 1 capsule (20 mg) by mouth Daily 90 capsule 3 07/25/2024 07/25/2025 Active Start: 11-10-2023 Fluoxetine Act gabriela MG PO November 10, 2023 12:00am Start: 05-11-2023 take [address] [facility] once daily FLUoxetine (PROzac) 40 MG capsule Indications: Adjustment disorder with depressed mood (CMS/HCC) TAKE 1 CAPSULE BY MOUTH EVERY DAY FOR 90 DAYS 90 capsule 3 05/11/2023 Active Start: 09-04-2022 take [address] [facility] once daily FLUoxetine (PROzac) 20 MG capsule [...] Start: 11-10-2023 take 1 capsule by mouth in the morning gabapentin (Neurontin) 300 MG capsule Indications: Cervical paraspinal muscle spasm Take 1 capsule (300 mg) by mouth in the morning and 1 capsule (300 mg) before bedtime. 180 capsule 3 04/26/2024 Active Start: 02-11-2023 take [address] [facility] twice daily Gabapentin 300 mg capsule Active 300 MG PO Twice daily November 10, 2023 12:00am levothyroxine sodium 0.1 mg oral tablet (20 sources) l-Thyroxine Start: 11-10-2023 Levothyroxine Active MCG PO November 10, 2023 12:00am Start: 01-15-2023 End: 02-01-2024 take 1 tablet by mouth once daily in the morning levothyroxine (Synthroid, Levoxyl) 100 MCG tablet Indications: Hypothyroidism, unspecified TAKE 1 TABLET BY MOUTH EVERY DAY IN THE MORNING ON EMPTY STOMACH 100 tablet 3 02/01/2024 Active loratadine 10 mg oral tablet (20 sources) Start: 11-10-2023 take 1 tablet by mouth once daily Loratadine (Allergy Relief (Loratadine)) 10 mg tablet Active 10 MG PO Daily November 10, 2023 12:00am meloxicam 15 mg oral tablet (19 sources) Nonsteroidal Anti-inflammatory Drug Start: 06-15-2024 take 1 tablet by mouth once daily Meloxicam 15 mg tablet Active 15 MG PO daily June 15, 2024 12:00am DO NOT RECONCILE UNTIL DOS 06/16/24 TO BE USED POST OP Start: 12-07-2023 End: 03-20-2024 take 1 tablet by mouth once daily Meloxicam 15 mg tablet Discontinued 15 MG PO daily December 07, 2023 12:00am March 20, 2024 4:49pm On Hold: not taking oxyCODONE hydrochloride 10 mg oral tablet (20 sources) Opioid Agonist Start: 06-02-2024 End: 11-02-2024 take 1 tablet by mouth every six hours for pain oxyCODONE (Roxicodone) 10 MG immediate release tablet Indications: Closed displaced fracture of right patella, unspecified fracture morphology, sequela Take 1 tablet (10 mg) by mouth every 6 (six) hours if needed for severe pain for up to 14 days 56 tablet 10/19/2024 11/02/2024 Active Start: 12-14-2023 End: 05-26-2024 take 1 tablet by mouth every six hours for pain oxyCODONE (Roxicodone) 10 MG immediate release tablet Indications: Closed displaced fracture of right patella, unspecified fracture morphology, sequela Take 1 tablet (10 mg) by mouth every 6 (six) hours if needed for severe pain for up to 7 days 28 tablet 05/19/2024 05/26/2024 Active Start: 12-07-2023 End: 01-18-2024 take 1 tablet by mouth every six hours as needed for pain Oxycodone 5 mg tablet Discontinued 5 MG PO Q6H as needed for Pain 40 December 10, 2023 January 18, 2024 2:46pm Start: 11-10-2023 End: 01-18-2024 take 1 tablet by mouth every four hours as needed for pain Oxycodone 5 mg tablet Discontinued 5 MG PO Q4H as needed for Pain 42 December 02, 2023 January 18, 2024 2:46pm Dispense quantity of forty two tablets S82.009A, Z98.890 tiZANidine 4 mg oral tablet (20 sources) Central alpha-2 Adrenergic Agonist Start: 11-10-2023 take 1 tablet by mouth in the morning, then take 1 tablet by mouth in the evening, then take 1 tablet by mouth at bedtime tiZANidine (Zanaflex) 4 MG tablet Indications: Degenerative disc disease, cervical Take 1 tablet (4 mg) by mouth in the morning and 1 tablet (4 mg) in the evening and 1 tablet (4 mg) before bedtime. 270 tablet 3 04/26/2024 Active Start: 11-10-2023 Tizanidine Act gabriela MG PO November 10, 2023 12:00am Start: 02-11-2023 take 1 tablet by cameron th three times daily Tizanidine 4 mg tablet Active 4 MG PO Three times daily November 10, 2023 12:00am zolpidem tartrate 12.5 mg extended release oral tablet (20 sources) gamma-Aminobutyric Acid-ergic Agonist Start: 11-10-2023 Zolpidem Active MG PO November 10, 2023 12:00am Start: 10-28-2023 End: 07-05-2024 take 1 tablet by mouth at bedtime zolpidem CR (Ambien CR) 12.5 MG ER tablet Indications: Primary insomnia Take 1 tablet (12.5 mg) by mouth at bedtime 30 tablet 5 07/06/2024 Active Completed/Discontinued Medications Medication Drug Class(es) Dates Sig (Normalized) Sig (Original) acetaminophen 325 mg / HYDROcodone bitartrate 5 mg oral tablet (20 sources) Opioid Agonist Start: 06-15-2024 End: 06-26-2024 take 1 tablet by mouth every six hours as needed for pain Hydrocodone-Acetami nophen 5-325 mg tablet Discontinued 1 TAB PO Q6H as needed for Pain 12 3 June 15, 2024 June 26, 2024 2:04pm DO NOT RECONCILE UNTIL DOS 06/16/24 TO BE USED POST OP Start: 11-06-2023 End: 11-11-2023 take 1 tablet by mouth every four to six hours as needed for pain Hydrocodone-Acetaminophen 5-325 mg table t Discontinued 1 TAB PO EVERY 4-6 HOURS as needed for Pain 14 2 November 06, 2023 November 11, 2023 11:31am Start: 10-28-2023 End: 11-27-2023 take 1 tablet by mouth every six hours for pain HYDROcodone-acetaminophen ([place]) 10-325 MG tablet Indications: Degeneration of cervical [...] 12:00am November 10, 2023 12:10pm Start: 11-10-2023 Albuterol-Argyle sonide Active 2 INH INHALATION Six times daily November 10, 2023 12:00am Albuterol-Budesonide 90-80 mcg/actuation HFA aerosol inhaler (10 sources) Start: 11-10-2023 End: 11-10-2023 Albuterol-Budesonide 90-80 mcg/actuation HFA aerosol inhaler Discontinued 2 INH INHALATION Six times daily as needed November 10, 2023 12:00am November 10, 2023 12:10pm Start: 11-10-2023 End: 11-10-2023 Albuterol-Budesonide 90-80 m cg/actuation HFA aerosol inhaler Discontinued 2 INH INHALATION Six times daily as needed November 09, 2023 11:00pm November 10, 2023 11:10am cephalexin 500 mg oral capsule (19 sources) Cephalosporin Antibacterial Start: 11-18-2023 End: 12-21-2023 take 2 capsules by mouth twice daily Cephalexin 500 mg capsule Discontinued 1000 MG PO Twice daily 09 10November 18, 2023 12:00am December 21, 2023 2:28pm Start: 11-18-2023 End: 12-21-2023 take 1000 mg by mouth twice daily Cephalexin Discontinued 1000 MG PO Twice daily 09 10November 17, 2023 11:00pm December 21, 2023 1:28pm docusate sodium 100 mg oral capsule (16 sources) Start: 12-07-2023 End: 03-02-2024 take 1 capsule by mouth twice daily as needed for constipation Docusate Sodium (Colace) 100 mg capsule Discontinued 100 MG PO Twice daily as needed for Constipation 01 01December 07, 2023 12:00am March 02, 2024 12:06pm doxycycline hyclate 100 mg oral capsule (20 sources) Tetracyclin e-class Drug Start: 12-07-2023 End: 01-18-2024 take 1 capsule by mouth twice daily Doxycycline Hyclate 100 mg capsule Discontinued 100 MG PO Twice daily 25 09December 21, 2023 3:10pm January 18, 2024 2:46pm Start: 12-02-2023 End: 12-21-2023 take 1 tablet by mouth twice daily Doxycycline Hyclate 100 mg tablet Discontinued 100 MG PO Twice daily 25 09December 02, 2023 12:00am December 21, 2023 2:28pm ketorolac tromethamine 10 mg oral tablet (20 sources) Nonsteroidal Anti-inflammatory Drug, Cyclooxygenase Inhibitor Start: 11-10-2023 End: 11-11-2023 take 1 tablet by mouth every eight hours Ketorolac 10 mg tablet Discontinued 10 MG PO Every 8 hours 9 November 10, 2023 12:00am November 11, 2023 11:31am maximum total duration of 5 days from all oral, intranasal, or parenteral formulations Tirzepatide (Weight Loss) (20 sources) Start: 11-10-2023 End: 06-06-2024 Tirzepatide (Weight Loss) (Zepbound) 5 mg/0.5 mL pen injector Discontinued 5 MG SUBCUT every week November 10, 2023 12:00am June 06, 2024 3:29pm On Hold: not taking Start: 11-10-2023 Tirzepatide [...] MG/0.5ML solution auto-injector (20 sources) Start: 10-28-2023 End: 05-25-2024 inject 5 mg by subcutaneous injection every week Tirzepatide-Weight Management (Zepbound) 5 MG/0.5ML solution auto-injector Indications: Obesity (BMI 35.0-39.9 without comorbidity) Inject 5 mg under the skin 1 (one) time per week 2 mL 10/28/2023 05/25/2024 Discontinued Start: 10-28-2023 inject 5 mg by subcu taneous injection every week Tirzepatide-Weight Management (Zepbound) 5 MG/0.5ML solution auto-injector Indications: Obesity (BMI 35.0-39.9 without comorbidity) Inject 5 mg under the skin 1 (one) time per week 2 mL 10/28/2023 Active traMADol hydrochloride 50 mg oral tablet (20 sources) Opioid Agonist Start: 11-10-2023 End: 12-21-2023 take 1 tablet by mouth every four hours as needed for pain Tramadol 50 mg tablet Discontinued 50 MG PO Q4H as needed for Pain 42 7 November 25, 2023 11:55am December 21, 2023 2:28pm Dispense quantity of forty two tablets S82.009A, [...] disorder, unspecified type] Onset: 08-12-2022 08-12-2022 Chronic Attention-deficit, conduct, and disruptive behavior disorders (4 sources) Attention deficit hyperactivity disorder, combined type; Translations: [Attention-deficit hyperactivity disorder, combined type] 07-25-2024 Chronic Essential hypertension (20 sources) Hypertensive disorder; Translations: [Essential (primary) hypertension] Onset: 08-12-2022 08-12-2022 Chronic Fracture of lower limb (20 sources) Fracture of patella; Translations: [Unspecified fracture of unspecified patella, initial encounter for closed fracture] Onset: 11-12-2023 11-06-2023 Episodic Menopausal disorders (20 sources) Menopausal symptom; Translations: [Menopausal and female climacteric states] Onset: 08-12-2022 08-12-2022 Chronic Miscellaneous mental health disorders (2 sources) Primary insomnia; Translations: [Primary insomnia] 12-27-2023 Chronic Other aftercare (5 sources) Encounter for removal of sutures; Translations: [Encounter for removal of sutures] 12-21-2023 Episodic Other gastrointestinal disorders (20 sources) Irritable bowel syndrome; Translations: [Irritable bowel syndrome without diarrhea] Onset: 08-12-2022 08-12-2022 Chronic Other nervous system disorders (19 sources) Postoperative pain ; Translations: [Other acute postprocedural pain] 11-18-2023 Episodic Other non-traumatic joint disorders (1 source) Ankylosis, right knee; Translations: [Ankylosis, right knee] Onset: 06-16-2024 Chronic Other non-traumatic joint disorders (6 sources) Knee stiff; Translations: [Stiffness of right knee, not elsewhere classified] 06-06-2024 Episodic Other non-traumatic joint disorders (9 sources) Stiffness of right knee, not elsewhere classified; Translations: [Stiffness of joint, not elsewhere classified, lower leg] Onset: 07-20-2024 06-08-2024 Episodic Other non-traumatic joint disorders (3 sources) Pain in right knee; Translations: [Pain in joint, lower leg] Onset: 11-18-2023 10-26-2024 Episodic Other nutritional; endocrine; and metabolic disorders (20 sources) Body mass index 30+ - obesity; Translations: [Obesity, unspecified] Onset: 08-12-2022 08-12-2022 Chronic Other nutritional; endocrine; and metabolic disorders (2 sources) Obesity caused by energy imbalance; Translations: [Morbid (severe) obesity due to excess calories] 05-25-2024 Chronic Other nutritional; endocrine; and metabolic disorders (2 sources) Body mass index 40+ - severely obese; Translations: [Body mass index (BMI) 40.0-44.9, adult] 05-25-2024 Chronic Other screening for suspected conditions (not mental disorders or infectious disease) (6 sources) Encounter for screening mammogram for malignant neoplasm of breast; Translations: [Patient encounter status] Onset: 04-07-2022 Episodic Other upper respiratory disease (20 sources) Seasonal allergic rhinitis; Translations: [Other seasonal allergic rhinitis] Onset: 08-12-2022 08-12-2022 Chronic Other upper respiratory infections (20 sources) Sinusitis; Translations: [Chronic sinusitis, unspecified] Onset: 08-12-2022 08-12-2022 Chronic Otitis media and related conditions (20 sources) Dysfunction of eustachian tube; Translations: [Unspecified Eustachian tube disorder, unspecified ear] 11-10-2023 Episodic Residual codes; unclassified (18 sources) Postprocedural state finding; Translations: [Other specified postprocedural states] 12-02-2023 Episodic Spondylosis; intervertebral disc disorders; other back problems (20 sources) Degeneration of intervertebral disc; Translations: [Degeneration of intervertebral disc] Onset: 08-12-2022 11-10-2023 Chronic Thyroid disorders (20 sources) Acquired hypothyroidism; Translations: [Hypothyroidism, unspecified] Onset: 08-12-2022 08-12-2022 Chronic Unclassified (2 sources) Chronic pain of right knee 10-26-2024 Urinary tract infections (19 sources) Urinary tract infectious disease; Translations: [Urinary tract infection, site not specified] 11-18-2023 Episodic Past or Other Problems Problem Classification Problem Date Documented Date Episodic/Chronic Complication of device; implant or graft [...] specified soft tissue disorders] Onset: 11-18-2023 Episodic Residual codes; unclassified (20 sources) Insomnia; Translations: [Insomnia, unspecified] Onset: 08-12-2022 11-10-2023 Episodic Residual codes; unclassified (20 sources) Other specified postprocedural states; Translations: [Other postprocedural status] Onset: 12-02-2023 12-02-2023 Episodic Results Test Name Value Interpretation Reference Range Facility Alanine aminotransferase [En zymatic activity/volume] in Serum or PlasmaOrdered By: Alex Sierra on 06-06-2024 ALT [Catalytic activity/Vol] Alanine aminotransferase [Enzymatic activity/volume] in Serum or Plasma [facility] Albumin [Mass/volume] in Ser um or Plasma by Bromocresol green (BCG) dye binding methoOrdered By: Alex Sierra on 06-06-2024 Albumin BCG dye [Mass/Vol] Albumin [Mass/volume] in Serum or Plasma by Bromocresol green (BCG) dye binding metho 3.5-5.7 [facility] Alkaline phosphatase [Enzyma tic activity/volume] in Serum or PlasmaOrdered By: Alex Sierra on 06-06-2024 ALP [Catalytic activity/Vol] Alkaline phosphatase [Enzymatic activity/volume] in Serum or Plasma High 34-104 [facility] Aspartate aminotransferase [ Enzymatic activity/volume] in Serum or PlasmaOrdered By: Alex Sierra on 06-06-2024 AST [Catalytic activity/Vol] Aspartate aminotransferase [Enzymatic activity/volume] in Serum or Plasma 13-39 [facility] Basophils Auto (Bld) [#/Vol] Ordered By: Alex Sierra on 06-06-2024 Basophils (Bld) [#/Vol] Automated basoph il count 0.0-0.2 [facility] Basophils/100 WBC Auto (Bld) Ordered By: Alex Sierra on 06-06-2024 Basophils/100 WBC (Bld) Automated basoph il % . [facility] Bilirubin.total [Mass/volume ] in Serum or PlasmaOrdered By: Alex Sierra on 06-06-2024 Bilirubin [Mass/Vol] Bilirubin.total [Mass/volume] in Serum or Plasma 0.3-1.0 [facility] CMP with reflex to A1Con Albumin [Mass/Vol] 4.6 g/dL Normal 3.5-5.7 The [facility] Comment on above: Performed By: #### C MP wRFX A1C, CBC #### [facility] [address] Albumin/Globulin [Mass ratio] 1.6 {ratio} Normal [facility] Comment on above: Performed By: #### C MP wRFX A1C, CBC #### [facility] [address] [place] [address] [facility] ALP [Catalytic activity/Vol] 131 U/L High 34-104 [facility] Comment on above: Result Comment: PERF ORMED BY: [place] [address] PATHOLOGIST CLOTHES IRONER CHAO GARAY M.D. Performed By: #### C MP wRFX A1C, CBC #### [facility] [address] [place] [id number] [facility] ALT [Catalytic activity/Vol] 15 U/L Normal 7-52 [facility] Comment on above: Performed By: #### C MP wRFX A1C, CBC #### [facility] [address] [place] [id number] [facility] Anion gap [Moles/Vol] 10.9 mmol/L Normal 6.0-15.0 Th e [facility] Comment on above: Performed By: #### C MP wRFX A1C, CBC #### [facility] [address] [place] [id number] [facility] AST [Catalytic activity/Vol] 15 U/L Normal 13-39 [facility] Comment on above: Performed By: #### C MP wRFX A1C, CBC #### [facility] [address] [place] [id number] [facility] Bilirubin [Mass/Vol] 0.5 mg/dL Normal 0.3-1.0 [facility] Comment on above: Performed By: #### C MP wRFX A1C, CBC #### [place] [address] [place] Calcium [Mass/Vol] 8.7 mg/dL Normal 8.6-10.3 The [facility] Comment on above: Performed By: #### C MP wRFX A1C, CBC #### [place] [id number] [place] Chloride [Moles/Vol] 99 mmol/L Normal 98-107 [facility] Comment on above: Performed By: #### C MP wRFX A1C, CBC #### [facility] [address] [place] [id number] [place] CO2 [Moles/Vol] 26.1 mmol/L Normal 21.0-31.0 The [facility] Comment on above: Performed By: #### C MP wRFX A1C, CBC #### [facility] [address] [place] [id number] [place] Creatinine [Mass/Vol] 0.65 mg/dL Normal 0.60-1.20 [facility] Comment on above: Performed By: #### C MP wRFX A1C, CBC #### [facility] [address] [place] [address] [place] GFR/1.73 sq M.predicted MDRD (S/P/Bld) [Vol rate/Area] mL/min/{1.73_m2} Normal [facility] Comment on above: Performed By: #### C MP wRFX A1C, CBC #### [facility] [address] [place] [address] [place] Globulin (S) [Mass/Vol] 2.9 g/dL Normal T he [facility] Comment on above: Performed By: #### C MP wRFX A1C, CBC #### [address] Glucose [Mass/Vol] 92 mg/dL Normal 70-100 The [facility] Comment on above: Performed By: #### C MP wRFX A1C, CBC #### [address] Potassium [Moles/Vol] 4.0 mmol/L Normal 3.5-5.1 [facility] Comment on above: Performed By: #### C MP wRFX A1C, CBC #### [place] [address] [place] Protein [Mass/Vol] 7.5 g/dL Normal 6.4-8.9 The [facility] Comment on above: Performed By: #### C MP wRFX A1C, CBC #### [place] [address] [place] Sodium [Moles/Vol] 132 mmol/L Low 136-145 The [facility] Comment on above: Performed By: #### C MP wRFX A1C, CBC #### [place] [address] [place] Urea nitrogen [Mass/Vol] 10 mg/dL Normal 7-25 [facility] Comment on above: Performed By: #### C MP wRFX A1C, CBC #### [place] [address] [place] Calcium [Mass/volume] in Ser um or PlasmaOrdered By: Alex Sierra on 06-06-2024 Calcium [Mass/Vol] Calcium [Mass/volume] in Serum or Plasma 8.6-10.3 [facility] Carbon dioxide, total [Moles /volume] in Serum or PlasmaOrdered By: Alex Sierra on 06-06-2024 CO2 [Moles/Vol] Carbon dioxide, total [Moles/volume] in Serum or Plasma 21.0-31.0 [facility] Chloride [Moles/volume] in S delia or PlasmaOrdered By: Alex Sierra on 06-06-2024 Chloride [Moles/Vol] Chloride [Moles/volume] in Serum or Plasma 98-107 [facility] Complete Blood Count Auto Di ffon 06-06-2024 Basophils (Bld) [#/Vol] 0.1 10*3/uL Normal 0.0-0.2 [facility] Comment on above: Result Comment: PERF ORMED BY: [facility] [address] [place] [address] PATHOLOGIST CLOTHES IRONER CHAO GARAY M.D. Performed By: #### C MP wRFX A1C, CBC #### [facility] [address] [place] [address] [place] Basophils/100 WBC (Bld) 1.3 % Normal . T timbo [facility] Comment on above: Performed By: #### C MP wRFX A1C, CBC #### [facility] [address] [place] [address] [place] Eosinophils (Bld) [#/Vol] 0.1 10*3/uL Normal 0.0-0.45 [facility] Comment on above: Performed By: #### C MP wRFX A1C, CBC #### [facility] [address] [place] [address] [place] Eosinophils/100 WBC (Bld) 0.7 % Normal . [facility] Comment on above: Performed By: #### C MP wRFX A1C, CBC #### [facility] [address] [place] [address] [place] Erythrocyte distribution width (RBC) [Ratio] 16.4 % High 11.9-15.3 The [facility] Comment on above: Performed By: #### C MP wRFX A1C, CBC #### [address] Hematocrit (Bld) [Volume fraction] 38.9 % Normal 34.0-46.4 [facility] Comment on above: Performed By: #### C MP wRFX A1C, CBC #### [address] Hemoglobin (Bld) [Mass/Vol] 13.1 g/dL Normal 11.8-15.4 [facility] Comment on above: Performed By: #### C MP wRFX A1C, CBC #### [address] Lymphocytes (Bld) [#/Vol] 1.3 10*3/uL Normal 1.00-4.8 [facility] Comment on above: Performed By: #### C MP wRFX A1C, CBC #### [address] Lymphocytes/100 WBC (Bld) 18.4 % Normal . [facility] Comment on above: Performed By: #### C MP wRFX A1C, CBC #### [address] MCH (RBC) [Entitic mass] 28.6 pg Normal 24.7-34.3 [facility] Comment on above: Performed By: #### C MP wRFX A1C, CBC #### [address] MCV (RBC) [Entitic vol] 84.7 fL Normal 80-100 T he [facility] Comment on above: Performed By: #### C MP wRFX A1C, CBC #### [address] Mean Corpuscular HGB Conc 33.7 g/dL Normal 32.0-35.0 [facility] Comment on above: Performed By: #### C MP wRFX A1C, CBC #### [place] [address] [place] Monocytes (Bld) [#/Vol] 0.5 10*3/uL Normal 0.0-0.8 [facility] Comment on above: Performed By: #### C MP wRFX A1C, CBC #### [facility] [address] [place] [address] [place] Monocytes/100 WBC (Bld) 7.0 % Normal . T timbo [facility] Comment on above: Performed By: #### C MP wRFX A1C, CBC #### [facility] [address] Neutrophils (Bld) [#/Vol] 5.2 10*3/uL Normal 1.8-7.7 [facility] Comment on above: Performed By: #### C MP wRFX A1C, CBC #### [facility] [address] Neutrophils/100 WBC (Bld) 72.6 % Normal . [facility] Comment on above: Performed By: #### C MP wRFX A1C, CBC #### [facility] [address] NRBC% 0.0 /100{WBC} Normal 0-0.5 The [facility] Comment on above: Performed By: #### C MP wRFX A1C, CBC #### [facility] [address] Platelet mean volume (Bld) [Entitic vol] 8.5 fL Normal 6.3-10.7 The [facility] Comment on above: Performed By: #### C MP wRFX A1C, CBC #### [facility] [address] [place] [address] [place] Platelets (Bld) [#/Vol] 291 10*3/uL Normal 150-450 [facility] Comment on above: Performed By: #### C MP wRFX A1C, CBC #### [facility] [address] [place] [address] [place] RBC (Bld) [#/Vol] 4.59 10*6/uL Normal 3.60-5.00 The [facility] Comment on above: Performed By: #### C MP wRFX A1C, CBC #### [facility] [address] WBC (Bld) [#/Vol] 7.2 10*3/uL Normal 3.8-11.6 The [facility] Comment on above: Performed By: #### C MP wRFX A1C, CBC #### [facility] [address] Creatinine [Mass/volume] in Serum or PlasmaOrdered By: Alex Sierra on 06-06-2024 Creatinine [Mass/Vol] Creatinine [Mass/volume] in Serum or Plasma 0.60-1.20 [facility] ECG 12 lead ECGon 06-06-2024 ECG 12 lead ECG [facility] [place] [address] [place] [address] Electrocardiograph Report Signed Patient: Nimo Craft MR#: [id number] 88 : 1970 Acct:[id number] Age/Sex: 53 / F ADM Date: 06/06/24 Loc: Room: Type: [facility] Attending Dr: Alex Sierra DO Ordering Provider: Alex Sierra DO Date of Service: 06/06/24 ECG/ECG 12 lead ECG: Pre op Copies to: Test Reason : Blood Pressure : */* mmHG Vent. Rate : 72 BPM Atrial Rate : 72 BPM P-R Int : 144 ms QRS Dur : 88 ms QT Int : 392 ms P-R-T Axes : 61 58 47 degrees QTcB Int : 429 ms Normal sinus rhythm Normal ECG When compared with ECG of 10-Nov-2023 12:02, No significant change was found Confirmed by TUCKER ALVAREZ [facility] ([id number]) on 06/07/2024 6:08:07 PM Referred By: Electronically Signed By: OSKAR MEYERS MD FACC Transcribed By: MUS Signed By Oskar Meyers MD, FACC 06/07/241807 Normal [facility] Eosinophils Auto (Bld) [#/Vo l]Ordered By: Alex Sierra on 06-06-2024 Eosinophils (Bld) [#/Vol] Automated eosinophil count 0.0-0.45 [facility] Eosinophils/100 WBC Auto (Bl d)Ordered By: Alex Sierra on 06-06-2024 Eosinophils/100 WBC (Bld) Automated eosinophil % . [facility] Erythrocyte distribution wid th Auto (RBC) [Ratio]Ordered By: Alex Sierra on 06-06-2024 Erythrocyte distribution width (RBC) [Ratio] Erythrocyte distribution width [Ratio] by Automated count High 11.9-15.3 [facility] Globulin Calc (S) [Mass/Vol] Ordered By: Alex Sierra on 06-06-2024 Globulin (S) [Mass/Vol] Serum globulin measurement by calculation (mass/volume) [facility] Glucose [Mass/volume] in Ser um or PlasmaOrdered By: Alex Sierra on 06-06-2024 Glucose [Mass/Vol] Glucose [Mass/volume] in Serum or Plasma 70-100 [facility] Hematocrit Auto (Bld) [Volum e fraction]Ordered By: Alex Sierra on 06-06-2024 Hematocrit (Bld) [Volume fraction] Hematocrit [Volume Fraction] of Blood by Automated count 34.0-46.4 [facility] Hemoglobin [Mass/volume] in BloodOrdered By: Alex Sierra 06-06-2024 Hemoglobin (Bld) [Mass/Vol] Hemoglobin [Mass/volume] in Blood 11.8-15.4 [facility] Leukocytes [#/volume] correc raffi for nucleated erythrocytes in Blood by Automated counOrdered By: Alex Sierra on 06-06-2024 WBC corrected for nucl RBC Auto (Bld) [#/Vol] Leukocytes [#/volume] corrected for nucleated erythrocytes in Blood by Automated coun 3.8-11.6 [facility] Lymphocytes Auto (Bld) [#/Vo l]Ordered By: Alex Sierra on 06-06-2024 Lymphocytes (Bld) [#/Vol] Lymphocytes [#/volume] in Blood by Automated count 1.00-4.8 [facility] Lymphocytes/100 WBC Auto (Bl d)Ordered By: Alex Sierra on 06-06-2024 Lymphocytes/100 WBC (Bld) Lymphocytes/100 leukocytes in Blood by Automated count . [facility] MCH Auto (RBC) [Entitic mass ]Ordered By: Alex Sierra on 06-06-2024 MCH (RBC) [Entitic mass] MCH [Entitic ma ss] by Automated count 24.7-34.3 [facility] MCHC Auto (RBC) [Mass/Vol]Or dered By: Alex Sierra on 06-06-2024 MCHC (RBC) [Mass/Vol] MCHC [Mass/volume] by Automated count 32.0-35.0 [facility] MCV Auto (RBC) [Entitic vol] Ordered By: Alex Sierra on 06-06-2024 MCV (RBC) [Entitic vol] MCV [Entitic volume] by Automated count 80-100 [facility] Monocytes Auto (Bld) [#/Vol] Ordered By: Alex Sierra on 06-06-2024 Monocytes (Bld) [#/Vol] Automated blood monocyte count 0.0-0.8 [facility] Monocytes/100 WBC Auto (Bld) Ordered By: Alex Sierra on 06-06-2024 Monocytes/100 WBC (Bld) Automated monocy te % . [facility] Neutrophils Auto (Bld) [#/Vo l]Ordered By: Alex Sierra on 06-06-2024 Neutrophils (Bld) [#/Vol] Neutrophils [#/volume] in Blood by Automated count 1.8-7.7 [facility] Neutrophils/100 WBC Auto (Bl d)Ordered By: Alex Sierra on 06-06-2024 Neutrophils/100 WBC (Bld) Automated neutrophil % . [facility] No Panel InformationOrdered By: Alex Sierra on 06-06-2024 Estimated GFR (CKD-EPI) > 60.0 mL/Min [facility] Creatinine Clearance (Chem N/A [facility] Nucleated erythrocytes [Pres ence] in Blood by Automated countOrdered By: Alex Sierra on 06-06-2024 Nucleated RBC Auto Ql (Bld) Nucleated erythrocytes [Presence] in Blood by Automated count 0-0.5 [facility] Platelet mean volume Auto (B ld) [Entitic vol]Ordered By: Alex Sierra on 06-06-2024 Platelet mean volume (Bld) [Entitic vol] Platelet mean volume [Entitic volume] in Blood by Automated count 6.3-10.7 [facility] Platelets Auto (Bld) [#/Vol] Ordered By: Alex Sierra on 06-06-2024 Platelets (Bld) [#/Vol] Platelets [#/volume] in Blood by Automated count 150-450 [facility] Potassium [Moles/volume] in Serum or PlasmaOrdered By: Alex Sierra on 06-06-2024 Potassium [Moles/Vol] Potassium [Moles/volume] in Serum or Plasma 3.5-5.1 [facility] Protein [Mass/volume] in Ser um or PlasmaOrdered By: Alex Sierra on 06-06-2024 Protein [Mass/Vol] Protein [Mass/volume] in Serum or Plasma 6.4-8.9 [facility] RBC Auto (Bld) [#/Vol]Ordere d By: Alex Sierra on 06-06-2024 RBC (Bld) [#/Vol] Erythrocytes [#/volume] in Blood by Automated count 3.60-5.00 [facility] Serum or plasma albumin/glob ulin mass ratioOrdered By: Alex Sierra on 06-06-2024 Albumin/Globulin [Mass ratio] Serum or plasma albumin/globulin mass ratio [facility] Serum or plasma anion gap de terminationOrdered By: Alex Sierra on 06-06-2024 Anion gap [Moles/Vol] Serum or plasma anion gap determination 6.0-15.0 [facility] Sodium [Moles/volume] in Ser um or PlasmaOrdered By: Alex Sierra on 06-06-2024 Sodium [Moles/Vol] Sodium [Moles/volume] in Serum or Plasma Low 136-145 [facility] Urea nitrogen [Mass/volume] in Serum or PlasmaOrdered By: Alex Sierra on 06-06-2024 Urea nitrogen [Mass/Vol] Urea nitrogen [Mass/volume] in Serum or Plasma 25 [facility] WBC Auto (Bld) [#/Vol]Ordere d By: Alex Sierra on 06-06-2024 WBC (Bld) [#/Vol] Leukocytes [#/volume] in Blood by Automated count 3.8-11.6 [facility] XR knee RT 3V - NOT FOR ER U Harshad 02-03-2024 XR knee RT 3V - NOT FOR ER USE [facility] [address] [place] [address] XRay Report Signed Patient: Nimo Craft MR#: [id number] 88 : 1970 Acct:[id number] Age/Sex: 53 / F ADM Date: 02/03/24 Loc: [facility] Room: Type: REG CLI Attending Dr: Alex [...] FRACTURE. Impression dictated by: Arun Chun Jr., D.OKenia02/03/2024 3:32 PM Dictation Location: [place] [address] Transcribed By: [facility] 02/03/24 1532 Dictated By: Arun Chun Jr, DO 02/03/24 1531 Signed By: 02/03/24 1532 Normal [facility] XR knee RT 3V - NOT FOR ER U Harshad 01-18-2024 XR knee RT 3V - NOT FOR ER USE [facility] [address] [place] [address] XRay Report Signed Patient: Nimo Craft MR#: [id number] 88 : 1970 Acct:[id number] Age/Sex: 53 / F ADM Date: 01/18/24 Loc: [facility] Room: Type: REG CLI Attending Dr: Alex [...] Viktor Hong M.D.01/18/2024 4:23 PM Dictation Location: RADIO-PC-23 Transcribed By: [facility] 01/18/241622 Dictated By: Viktor Hong DO 01/18/241621 Signed By: 01/18/24 1623 Normal [facility] XR knee RT 2Von 12-21-2023 XR knee RT 2V [facility] [address] [place] [address] XRay Report Signed Patient: Nimo Craft MR#: [id number] 88 : 1970 Acct:[id number] Age/Sex: 53 / F ADM Date: 12/21/23 Loc: [facility] Room: Type: [facility] Attending Dr: Alex Sierra DO Copies [...] Chun Jr., D.OKenia12/21/2023 4:03 PM Dictation Location: RADIO-PC-14 Transcribed By: NOAH 12/21/23 1603 Dictated By: Arun Chun Jr, 12/21/23 1602 Signed By: 12/21/23 1603 Normal [facility] Amphetamine Screen Ql (U)Ord ered By: Ozzy Morel on 12-08-2023 Amphetamines Ql (U) Amphetamines screen Negativ e [facility] Amphetamines Ql (U) Negative Negative [facility] Barbiturates [Presence] in U rine by Screen methodOrdered By: Ozzy Morel on 12-08-2023 Barbiturates Screen Ql (U) Negative Negative [facility] Barbiturates Screen Ql (U) Barbiturates [Presence] in Urine by Screen method Negative [facility] Benzodiazepines Screen Ql (U )Ordered By: Ozzy Morel on 12-08-2023 Benzodiazepines Ql (U) Positive High Negative [facility] Benzodiazepines Ql (U) Benzodiazepines [Presence] in Urine by Screen method High Negative [facility] Benzoylecgonine [Presence] i n Urine by Screen methodOrdered By: Ozzy Morel on 12-08-2023 Benzoylecgonine Screen Ql (U) Negative Negative [facility] Benzoylecgonine Screen Ql (U) Benzoylecgonine [Presence] in Urine by Screen method Negative [facility] Cannabinoids [Presence] in U rine by Screen methodOrdered By: Ozzy Morel on 12-08-2023 Cannabinoids Screen Ql (U) Positive High Negative [facility] Comment on above: These are unconfirme d results and should not be used for legal purposes. Drug Cut-Off Concentration: AMPH 1000 ng/mL LIZZETTE 200 ng/mL LAWANDA 200 ng/mL COCM 300 ng/mL OP 300 ng/mL PCP 25 ng/mL THC 20 ng/mL Cannabinoids Screen Ql (U) Cannabinoids [Presence] in Urine by Screen method High Negative [facility] Comment on above: These are unconfirme d results and should not be used for legal purposes. Drug Cut-Off Concentration: AMPH 1000 ng/mL LIZZETTE 200 ng/mL LAWANDA 200 ng/mL COCM 300 ng/mL OP 300 ng/mL PCP 25 ng/mL THC 20 ng/mL Drug Screen,Urineon 12-08-19 Amphetamine Screen,Urine Negative Normal Negative [facility] Comment on above: Performed By: #### U RDS #### [address] Barbiturate Screen,Urine Negative Normal Negative [facility] Comment on above: Performed By: #### U RDS #### [place] [address] [place] Benzodiazepines Screen,Urine Positive High Negative [facility] Comment on above: Performed By: #### U RDS #### [place] [address] [place] Cannabinoid Screen,Urine Positive High Negative [facility] Comment on above: Result Comment: Thes e are unconfirmed results and should not be used for legal purposes. Drug Cut-Off Concentration: AMPH 1000 ng/mL LIZZETTE 200 ng/mL LAWANDA 200 ng/mL COCM 300 ng/mL OP 300 ng/mL PCP 25 ng/mL THC 20 ng/mL PERFORMED BY: [place] [address] PATHOLOGIST CLOTHES IRONER ABDON OLIVER M.D. Performed By: #### U RDS #### [address] Cocaine Screen,Urine Negative Normal Negative [facility] Comment on above: Performed By: #### U RDS #### [address] Opiate Screen,Urine Negative Normal Negative [facility] Comment on above: Performed By: #### U RDS #### [address] Phencyclidine Screen,Urine Negative Normal Negative [facility] Comment on above: Performed By: #### U RDS #### [address] Opiates [Presence] in Urine by Screen methodOrdered By: Ozzy Morel on 12-08-2023 Opiates Screen Ql (U) Negative Negative [facility] Opiates Screen Ql (U) Opiates [Presence] in Urine by Screen method Negative [facility] Phencyclidine Screen Ql (U)O rdered By: Ozzy Morel on 12-08-2023 Phencyclidine Ql (U) Negative Negative [facility] Phencyclidine Ql (U) Phencyclidine [Presence] in Urine by Screen method Negative [facility] XR knee RT 2Von 12-02-2023 XR knee RT 2V [facility] [address] [place] [address] XRay Report Signed Patient: Nimo Craft MR#: [id number] 88 : 1970 Acct:[id number] Age/Sex: 53 / F ADM Date: 12/02/23 Loc: [facility] Room: Type: [facility] Attending Dr: Martine Mathew NP-C Copies to: BRANDON Bernard Ordering Provider: BRANDON [...] Avril Snow M.D.12/02/2023 4:02 PM Dictation Location: [place] [address] Transcribed By: [facility] 12/02/23 1600 Dictated By: Avril Snow MD 12/02/23 1555 Signed By: 12/02/23 1602 Normal [facility] US venous duplex LE RTon US venous duplex LE RT [facility] [place] [address] [place] [address] Ultrasound Report Signed Patient: Nimo Craft MR#: [id number] 88 : 1970 Acct:[id number] Age/Sex: 53 / F ADM Date: 11/18/23 Loc: ER Room: Type: [facility] ER Attending Dr: Ordering Provider: [...] Rajan Lynn MD11/19/2023 11:36 AM Dictation Location: [place] [address] Tech: Gina Lanier Transcribed By: NOAH 11/19/23 1136 Dictated By: Rajan Lynn MD 11/19/23 1136 Signed By: 11/19/23 1136 Normal [facility] Appearance of UrineOrdered B y: Nicholas Man on 11-18-2023 Appearance (U) Urine appearance Abnormal Clear [facility] Automated basophil %Ordered By: Nicholas Man on 11-18-2023 Basophils/100 WBC (Bld) 1.4 % Normal . [facility] Comment on above: Performed By: #### B MP, ESR, CBC #### [facility] [address] [place] [address] Automated basophil countOrde red By: Nicholas Man on 11-18-2023 Basophils (Bld) [#/Vol] 0.1 10*3/uL Normal 0.0-0.2 [facility] Comment on above: Performed By: #### B MP, ESR, CBC #### [facility] [address] Automated blood monocyte cou ntOrdered By: Nicholas Man on 11-18-2023 Monocytes (Bld) [#/Vol] 0.5 10*3/uL Normal 0.0-0.8 [facility] Comment on above: Performed By: #### B MP, ESR, CBC #### [address] Automated eosinophil %Ordere d By: Nicholas Man on 11-18-2023 Eosinophils/100 WBC (Bld) 2.7 % Normal . [facility] Comment on above: Performed By: #### B MP, ESR, CBC #### [address] Automated eosinophil countOr dered By: Nicholas Man on 11-18-2023 Eosinophils (Bld) [#/Vol] 0.2 10*3/uL Normal 0.0-0.45 [facility] Comment on above: Performed By: #### B MP, ESR, CBC #### [address] Automated monocyte %Ordered By: Nicholas Man on 11-18-2023 Monocytes/100 WBC (Bld) 6.3 % Normal . [facility] Comment on above: Performed By: #### B MP, ESR, CBC #### [address] Automated neutrophil %Ordere d By: Nicholas Man on 11-18-2023 Neutrophils/100 WBC (Bld) 68.5 % Normal . [facility] Comment on above: Performed By: #### B MP, ESR, CBC #### [address] Bacteria [Presence] in Urine by AutomatedOrdered By: Nicholas Man on 11-18-2023 Bacteria Auto Ql (U) 3+ [HPF] High None Seen [facility] Bacteria Auto Ql (U) Bacteria [Presence] in Urine by Automated High None Seen [facility] Basic Metabolic Panelon Creatinine Clr Calc Pharmacy 80.15 Normal [facility] Comment on above: Result Comment: PERF ORMED BY: [place] [address] PATHOLOGIST CLOTHES IRONER ABDON OLIVER M.D. Performed By: #### B MP, ESR, CBC #### [facility] [address] GFR/1.73 sq M.predicted MDRD (S/P/Bld) [Vol rate/Area] mL/min/{1.73_m2} Normal [facility] Comment on above: Performed By: #### B MP, ESR, CBC #### [place] [address] [place] Basophils Auto (Bld) [#/Vol] Ordered By: Nicholas Man on 11-18-2023 Basophils (Bld) [#/Vol] Automated basoph il count 0.0-0.2 [facility] Basophils/100 WBC Auto (Bld) Ordered By: Nicholas Man on 11-18-2023 Basophils/100 WBC (Bld) Automated basoph il % . [facility] Bilirubin Test strip Ql (U)O rdered By: Nicholas Man on 11-18-2023 Bilirubin Ql (U) Negative Negative [facility] Bilirubin Ql (U) Bilirubin.total [Presence] in Urine by Test strip Negative [facility] Calcium [Mass/volume] in Ser um or PlasmaOrdered By: Nicholas Man on 11-18-2023 Calcium [Mass/Vol] 9.6 mg/dL Normal 8.6-10.3 [facility] Comment on above: Performed By: #### B MP, ESR, CBC #### [facility] [address] Calcium [Mass/Vol] Calcium [Mass/volume] in Serum or Plasma 8.6-10.3 [facility] Carbon dioxide, total [Moles /volume] in Serum or PlasmaOrdered By: Nicholas Man on 11-18-2023 CO2 [Moles/Vol] 26.9 mmol/L Normal 21.0-31.0 [facility] Comment on above: Performed By: #### B MP, ESR, CBC #### [facility] [address] CO2 [Moles/Vol] Carbon dioxide, total [Moles/volume] in Serum or Plasma 21.0-31.0 [facility] Chloride [Moles/volume] in S delia or PlasmaOrdered By: Nicholas Man on 11-18-2023 Chloride [Moles/Vol] 100 mmol/L Normal 98-107 [facility] Comment on above: Performed By: #### B MP, ESR, CBC #### [facility] [address] Chloride [Moles/Vol] Chloride [Moles/volume] in Serum or Plasma 98-107 [facility] Color Auto (U)Ordered By: Carola Man on 11-18-2023 Color (U) Color of Urine by Auto Yellow [facility] Color of Urine by AutoOrdere d By: Nicholas Man on 11-18-2023 Color (U) Yellow Normal [facility] Comment on above: Order Comment: Name Collection Type:: Clean-Voided Midstream Performed By: #### U RDS #### [address] Complete Blood Count Auto Di ffon 11-18-2023 Mean Corpuscular HGB Conc 33.4 g/dL Normal 32.0-35.0 [facility] Comment on above: Performed By: #### B MP, ESR, CBC #### [facility] [address] [place] [address] [place] Monocytes/100 WBC (Bld) 18.06 % Normal 0.00-20.00 [facility] Comment on above: Performed By: #### B MP, ESR, CBC #### [place] [address] [place] NRBC% 0.1 /100{WBC} Normal 0-0.5 [facility] Comment on above: Performed By: #### B MP, ESR, CBC #### [address] Creatinine [Mass/volume] in Serum or PlasmaOrdered By: Nicholas Man on 11-18-2023 Creatinine [Mass/Vol] 0.84 mg/dL Normal 0.60-1.20 [facility] Comment on above: Performed By: #### B MP, ESR, CBC #### [facility] [address] Creatinine [Mass/Vol] Creatinine [Mass/volume] in Serum or Plasma 0.60-1.20 [facility] Dipstick and Microscopicon 0 11-18-2023 Bacteria,Urine 3+ High None Seen [facility] Comment on above: Order Comment: Name Collection Type:: Clean-Voided Midstream Performed By: #### U RDS #### [place] [address] [place] Bilirubin,Urine Negative Normal Negative [facility] Comment on above: Order Comment: Name Collection Type:: Clean-Voided Midstream Performed By: #### U RDS #### [place] [address] [place] Glucose Ql (U) Normal Normal Normal [facility] Comment on above: Order Comment: Name Collection Type:: Clean-Voided Midstream Performed By: #### U RDS #### [place] [address] [place] Hyaline Casts,Urine None Normal 0-8 [facility] Comment on above: Order Comment: Name Collection Type:: Clean-Voided Midstream Result Comment: PERF ORMED BY: [address] [place] [address] PATHOLOGIST CLOTHES IRONER ABDON OLIVER M.D. Performed By: #### U RDS #### [place] [address] [place] Nitrite,Urine Positive High Negative [facility] Comment on above: Order Comment: Name Collection Type:: Clean-Voided Midstream Performed By: #### U RDS #### [place] [address] [place] Occult Blood,Urine 1+ High Negative [facility] Comment on above: Order Comment: Name Collection Type:: Clean-Voided Midstream Result Comment: PERF ORMED BY: [place] [address] PATHOLOGIST CLOTHES IRONER ABDON OLIVER M.D. Performed By: #### U RDS #### [address] RBC,Urine 20-49 High 0-4 [facility] Comment on above: Order Comment: Name Collection Type:: Clean-Voided Midstream Performed By: #### U RDS #### [address] Specificy [place],Urine 1.012 Normal 1.001-1.030 [facility] Comment on above: Order Comment: Name Collection Type:: Clean-Voided Midstream Performed By: #### U RDS #### [address] Squamous Epithelial Cell,Urine 1-2 Normal 0-2 [facility] Comment on above: Order Comment: Name Collection Type:: Clean-Voided Midstream Performed By: #### U RDS #### [address] Urobilinogen,Urine Normal Normal Normal [facility] Comment on above: Order Comment: Name Collection Type:: Clean-Voided Midstream Performed By: #### U RDS #### [address] WBC CLUMP, Urine Many High None Seen [facility] Comment on above: Order Comment: Name Collection Type:: Clean-Voided Midstream Performed By: #### U RDS #### [address] WBC,Urine Innumerable High 0-4 [facility] Comment on above: Order Comment: Name Collection Type:: Clean-Voided Midstream Performed By: #### U RDS #### [address] Eosinophils Auto (Bld) [#/Vo l]Ordered By: Nicholas Man on 11-18-2023 Eosinophils (Bld) [#/Vol] Automated eosinophil count 0.0-0.45 [facility] Eosinophils/100 WBC Auto (Bl d)Ordered By: Nicholas Man on 11-18-2023 Eosinophils/100 WBC (Bld) Automated eosinophil % . [facility] Epithelial cells.squamous [# /area] in Urine sediment by Automated countOrdered By: Nicholas Man on 11-18-2023 Epithelial cells.squamous Auto (Urine sed) [#/Area] 1-2 [HPF] 0-2 [facility] Epithelial cells.squamous Auto (Urine sed) [#/Area] Epithelial cells.squamous [#/area] in Urine sediment by Automated count 0-2 [facility] Erythrocyte Sedimentation Ra carlton 11-18-2023 ESR (Bld) [Velocity] 69 mm/h High 0-29 [facility] Comment on above: Result Comment: PERF ORMED BY: [place] [address] PATHOLOGIST CLOTHES IRONER ABDON OLIVER M.D. Performed By: #### B MP, ESR, CBC #### [facility] [address] [place] [address] Erythrocyte distribution wid th Auto (RBC) [Ratio]Ordered By: Nicholas Man on 11-18-2023 Erythrocyte distribution width (RBC) [Ratio] Erythrocyte distribution width [Ratio] by Automated count 11.9-15.3 [facility] Erythrocyte distribution wid th [Ratio] by Automated countOrdered By: Nicholas Man on 11-18-2023 Erythrocyte distribution width (RBC) [Ratio] 14.2 % Normal 11.9-15.3 [facility] Comment on above: Performed By: #### B MP, ESR, CBC #### [facility] [address] [place] [address] Erythrocyte sedimentation ra te by Photometric methodOrdered By: Nicholas Man on 11-18-2023 ESR Photometric method (Bld) [Velocity] 69 mm/hr High 0-29 [facility] ESR Photometric method (Bld) [Velocity] Erythrocyte sedimentation rate by Photometric method High 0-29 [facility] Erythrocytes [#/area] in Uri ne sediment by Automated countOrdered By: Nicholas Man on 11-18-2023 RBC Auto (Urine sed) [#/Area] 20-49 [HPF] High 0-4 [facility] RBC Auto (Urine sed) [#/Area] Erythrocytes [#/area] in Urine sediment by Automated count High 0-4 [facility] Erythrocytes [#/volume] in B lood by Automated countOrdered By: Nicholas Man on 11-18-2023 RBC (Bld) [#/Vol] 4.30 10*6/uL Normal 3.60-5.00 [facility] Comment on above: Performed By: #### B MP, ESR, CBC #### [facility] [address] [place] [id number] [place] Glucose [Mass/volume] in Ser um or PlasmaOrdered By: Nicholas Man on 11-18-2023 Glucose [Mass/Vol] 83 mg/dL Normal 70-100 [facility] Comment on above: ADA recommended refe rence rangeRandom Glucose Reference Range is dependent on time and content of last meal. Glucose of more than 200 mg/dL in a nonstressed, ambulatory subject supports the diagnosis of Diabetes Mellitus. Result Comment: [place] Glucose Reference Range is dependent on time and content of last meal. Glucose of more than 200 mg/dL in a nonstressed, ambulatory subject supports the diagnosis of Diabetes Mellitus. ADA recommended reference range Performed By: #### B MP, ESR, CBC #### [facility] [address] [place] [id number] [place] Glucose [Mass/Vol] Glucose [Mass/volume] in Serum or Plasma 70-100 [facility] Comment on above: ADA recommended refe rence rangeRandom Glucose Reference Range is dependent on time and content of last meal. Glucose of more than 200 mg/dL in a nonstressed, ambulatory subject supports the diagnosis of Diabetes Mellitus. Glucose [Mass/volume] in Uri ne by Test stripOrdered By: Nicholas Man on 11-18-2023 Glucose Test strip (U) [Mass/Vol] Normal mg/dL [facility] Glucose Test strip (U) [Mass/Vol] Glucose [Mass/volume] in Urine by Test strip [facility] Hematocrit Auto (Bld) [Volum e fraction]Ordered By: Nicholas Man on 11-18-2023 Hematocrit (Bld) [Volume fraction] Hematocrit [Volume Fraction] of Blood by Automated count 34.0-46.4 [facility] Hematocrit [Volume Fraction] of Blood by Automated countOrdered By: Nicholas Man on 11-18-2023 Hematocrit (Bld) [Volume fraction] 38.3 % Normal 34.0-46.4 [facility] Comment on above: Performed By: #### B MP, ESR, CBC #### [facility] [address] Hemoglobin Test strip Ql (U) Ordered By: Nicholas Man on 11-18-2023 Hemoglobin Ql (U) 1+ High Negative [facility] Hemoglobin Ql (U) Hemoglobin [Presence] in Urine by Test strip [facility] Negative [facility] Hemoglobin [Mass/volume] in BloodOrdered By: Nicholas Man on 11-18-2023 Hemoglobin (Bld) [Mass/Vol] 12.8 g/dL Normal 11.8-15.4 [facility] Comment on above: Performed By: #### B MP, ESR, CBC #### [facility] [address] Hemoglobin (Bld) [Mass/Vol] Hemoglobin [Mass/volume] in Blood 11.8-15.4 [facility] Hyaline casts [#/area] in Ur ine sediment by Automated countOrdered By: Nicholas Man on 11-18-2023 Hyaline casts Auto (Urine sed) [#/Area] None [LPF] 0-8 [facility] Hyaline casts Auto (Urine sed) [#/Area] Hyaline casts [#/area] in Urine sediment by Automated count 0-8 [facility] Ketones Test strip Ql (U)Ord ered By: Nicholas Man on 11-18-2023 Ketones Ql (U) Ketones [Presence] in Urine by Test strip High Negative [facility] Ketones [Presence] in Urine by Test stripOrdered By: Nicholas Man on 11-18-2023 Ketones Ql (U) 1+ High Negative [facility] Comment on above: Order Comment: Name Collection Type:: Clean-Voided Midstream Performed By: #### U RDS #### [facility] [address] [place] [id number] [facility] Laboratory - Microbiology an d Antimicrobial susceptibilityOrdered By: Nicholas Man on 11-18-2023 Bacteria identified Cx Nom (U) Escherichia coli Abnormal [facility] Leukocyte clumps [Presence] in Urine by AutomatedOrdered By: Nicholas Man on 11-18-2023 Leukocyte clumps Auto Ql (U) Many [LPF] High None Seen [facility] Leukocyte clumps Auto Ql (U) Leukocyte clumps [Presence] in Urine by Automated High None Seen [facility] Leukocyte esterase [Presence ] in Urine by Test stripOrdered By: Nicholas Man on 11-18-2023 Leukocyte esterase Test strip Ql (U) 4+ High Negative [facility] Comment on above: Order Comment: Name Collection Type:: Clean-Voided Midstream Performed By: #### U RDS #### [facility] [address] [place], [place] [id number] [facility] Leukocyte esterase Test strip Ql (U) Leukocyte esterase [Presence] in Urine by Test strip High Negative [facility] Leukocytes [#/area] in Urine sediment by Automated countOrdered By: Nicholas Man on 11-18-2023 WBC Auto (Urine sed) [#/Area] Innumerable [HPF] High 0-4 [facility] WBC Auto (Urine sed) [#/Area] Leukocytes [#/area] in Urine sediment by Automated count High 0-4 [facility] Leukocytes [#/volume] correc raffi for nucleated erythrocytes in Blood by Automated counOrdered By: Nicholas Man on 11-18-2023 WBC corrected for nucl RBC Auto (Bld) [#/Vol] 8.2 10*3/uL 3.8-11.6 [facility] WBC corrected for nucl RBC Auto (Bld) [#/Vol] Leukocytes [#/volume] corrected for nucleated erythrocytes in Blood by Automated coun .8-11. [facility] Leukocytes [#/volume] in Blo od by Automated countOrdered By: Nicholas Man on 11-18-2023 WBC (Bld) [#/Vol] 8.2 10*3/uL Normal 3.8-11.6 [facility] Comment on above: Performed By: #### B MP, ESR, CBC #### [facility] [address] Lymphocytes Auto (Bld) [#/Vo l]Ordered By: Nicholas Man on 11-18-2023 Lymphocytes (Bld) [#/Vol] Lymphocytes [#/volume] in Blood by Automated count 1.00-4.8 [facility] Lymphocytes [#/volume] in Bl ood by Automated countOrdered By: Nicholas Man on 11-18-2023 Lymphocytes (Bld) [#/Vol] 1.7 10*3/uL Normal 1.00-4.8 [facility] Comment on above: Performed By: #### B MP, ESR, CBC #### [address] Lymphocytes/100 WBC Auto (Bl d)Ordered By: Nicholas Man on 11-18-2023 Lymphocytes/100 WBC (Bld) Lymphocytes/100 leukocytes in Blood by Automated count . [facility] Lymphocytes/100 leukocytes i n Blood by Automated countOrdered By: Nicholas Man on 11-18-2023 Lymphocytes/100 WBC (Bld) 21.1 % Normal . [facility] Comment on above: Performed By: #### B MP, ESR, CBC #### [address] MCH Auto (RBC) [Entitic mass ]Ordered By: Nicholas Man on 11-18-2023 MCH (RBC) [Entitic mass] MCH [Entitic ma ss] by Automated count 24.7-34.3 [facility] MCH [Entitic mass] by Automa raffi countOrdered By: Nicholas Man on 11-18-2023 MCH (RBC) [Entitic mass] 29.8 pg Normal 24.7-34.3 [facility] Comment on above: Performed By: #### B MP, ESR, CBC #### [address] MCHC Auto (RBC) [Mass/Vol]Or dered By: Nicholas Man on 11-18-2023 MCHC (RBC) [Mass/Vol] 33.4 g/dL 32.0-35.0 [facility] MCHC (RBC) [Mass/Vol] MCHC [Mass/volume] by Automated count 32.0-35.0 [facility] MCV Auto (RBC) [Entitic vol] Ordered By: Nicholas Man on 11-18-2023 MCV (RBC) [Entitic vol] MCV [Entitic volume] by Automated count 80-100 [facility] MCV [Entitic volume] by Auto mated countOrdered By: Nicholas Man on 11-18-2023 MCV (RBC) [Entitic vol] 89.2 fL Normal 80-100 [facility] Comment on above: Performed By: #### B MP, ESR, CBC #### [facility] [address] Monocyte distribution width [Entitic volume] in Blood by AutomatedOrdered By: Nicholas Man on 11-18-2023 Monocyte distribution width Auto (Bld) [Entitic vol] 18.06 % 0.00-20.00 [facility] Monocyte distribution width Auto (Bld) [Entitic vol] Monocyte distribution width [Entitic volume] in Blood by Automated 0.00-20.00 [facility] Monocytes Auto (Bld) [#/Vol] Ordered By: Nicholas Man on 11-18-2023 Monocytes (Bld) [#/Vol] Automated blood monocyte count 0.0-0.8 [facility] Monocytes/100 WBC Auto (Bld) Ordered By: Nicholas Man on 11-18-2023 Monocytes/100 WBC (Bld) Automated monocy te % . [facility] Neutrophils Auto (Bld) [#/Vo l]Ordered By: Nicholas Man on 11-18-2023 Neutrophils (Bld) [#/Vol] Neutrophils [#/volume] in Blood by Automated count 1.8-7.7 [facility] Neutrophils [#/volume] in Bl ood by Automated countOrdered By: Nicholas Man on 11-18-2023 Neutrophils (Bld) [#/Vol] 5.6 10*3/uL Normal 1.8-7.7 [facility] Comment on above: Performed By: #### B MP, ESR, CBC #### [facility] [address] [place] [address] [place] Neutrophils/100 WBC Auto (Bl d)Ordered By: Nicholas Man on 11-18-2023 Neutrophils/100 WBC (Bld) Automated neutrophil % . [facility] Nitrite Test strip Ql (U)Ord ered By: Nicholas Man on 11-18-2023 Nitrite Ql (U) Positive High Negative [facility] Nitrite Ql (U) Nitrite [Presence] in Urine by Test strip High Negative [facility] No Panel InformationOrdered By: Nicholas Man on 11-18-2023 Estimated GFR (CKD-EPI) > 60.0 mL/Min [facility] Creatinine Clearance (Chem 80.15 [facility] Nucleated erythrocytes [Pres ence] in Blood by Automated countOrdered By: Nicholas Man on 11-18-2023 Nucleated RBC Auto Ql (Bld) 0.1 /100{WBC} 0-0.5 [facility] Nucleated RBC Auto Ql (Bld) Nucleated erythrocytes [Presence] in Blood by Automated count 0-0.5 [facility] Platelet mean volume Auto (B ld) [Entitic vol]Ordered By: Nicholas Man on 11-18-2023 Platelet mean volume (Bld) [Entitic vol] Platelet mean volume [Entitic volume] in Blood by Automated count 6.3-10.7 [facility] Platelet mean volume [Entiti c volume] in Blood by Automated countOrdered By: Nicholas Man on 11-18-2023 Platelet mean volume (Bld) [Entitic vol] 8.4 fL Normal 6.3-10.7 [facility] Comment on above: Performed By: #### B MP, ESR, CBC #### [facility] [address] Platelets Auto (Bld) [#/Vol] Ordered By: Nicholas Man on 11-18-2023 Platelets (Bld) [#/Vol] Platelets [#/volume] in Blood by Automated count 150-450 [facility] Platelets [#/volume] in Bloo d by Automated countOrdered By: Nicholas Man on 11-18-2023 Platelets (Bld) [#/Vol] 371 10*3/uL Normal 150-450 [facility] Comment on above: Performed By: #### B MP, ESR, CBC #### [facility] [address] Potassium [Moles/volume] in Serum or PlasmaOrdered By: Nicholas Man on 11-18-2023 Potassium [Moles/Vol] 4.2 mmol/L Normal 3.5-5.1 [facility] Comment on above: Performed By: #### B MP, ESR, CBC #### [facility] [address] Potassium [Moles/Vol] Potassium [Moles/volume] in Serum or Plasma 3.5-5.1 [facility] Protein Test strip (U) [Mass /Vol]Ordered By: Nicholas Man on 11-18-2023 Protein (U) [Mass/Vol] Protein [Mass/volume] in Urine by Test strip High Negative [facility] Protein [Mass/volume] in Uri ne by Test stripOrdered By: Nicholas Man on 11-18-2023 Protein (U) [Mass/Vol] 30 mg/dL High Negative [facility] Comment on above: Order Comment: Name Collection Type:: Clean-Voided Midstream Performed By: #### U RDS #### [address] RBC Auto (Bld) [#/Vol]Ordere d By: Nicholas Man on 11-18-2023 RBC (Bld) [#/Vol] Erythrocytes [#/volume] in Blood by Automated count 3.60-5.00 [facility] Serum or plasma anion gap de terminationOrdered By: Nicholas Man on 11-18-2023 Anion gap [Moles/Vol] 15.3 mmol/L High 6.0-15.0 [facility] Comment on above: Performed By: #### B MP, ESR, CBC #### [facility] [address] [place] [address] [place] Anion gap [Moles/Vol] Serum or plasma anion gap determination High 6.0-15.0 [facility] Sodium [Moles/volume] in Ser um or PlasmaOrdered By: Nicholas Man on 11-18-2023 Sodium [Moles/Vol] 138 mmol/L Normal 136-145 [facility] Comment on above: Performed By: #### B MP, ESR, CBC #### [facility] [address] [place] [id number] [facility] Sodium [Moles/Vol] Sodium [Moles/volume] in Serum or Plasma 136-145 [facility] Specific gravity Test strip (U) [Rel density]Ordered By: Nicholas Man on 11-18-2023 Specific gravity (U) [Rel density] 1.012 1.001-1.030 [facility] Specific gravity (U) [Rel density] Specific gravity of Urine by Test strip 1.001-1.030 [facility] Urea nitrogen [Mass/volume] in Serum or PlasmaOrdered By: Nicholas Man on 11-18-2023 Urea nitrogen [Mass/Vol] 17 mg/dL Normal 10-06 [facility] Comment on above: Performed By: #### B MP, ESR, CBC #### [facility] [address] [place] [id number] [facility] Urea nitrogen [Mass/Vol] Urea nitrogen [Mass/volume] in Serum or Plasma 10-06 [facility] Urine Cultureon 11-18-2023 Bacteria identified Cx Nom (U) ORGANISM: Escherichia coli (O:ESCCOL) [place] Count >100,000 Aerobic KIANNA Charge ([id number]) ------ [...] RESISTANT TO ALL B-LACTAM DRUGS. PERFORMED BY: [place] [address] PATHOLOGIST CLOTHES IRONER ABDON OLIVER M.D. Normal [facility] Comment on above: Performed By: #### U RDS #### [facility] [address] [place] [address] Urine appearanceOrdered By: Nicholas Man on 11-18-2023 Appearance (U) Turbid Critically abnormal Clear [facility] Comment on above: Order Comment: Name Collection Type:: Clean-Voided Midstream Performed By: #### U RDS #### [facility] [address] [place] [address] Urine cultureOrdered By: Kianna Man on 11-18-2023 Bacteria identified Cx Nom (U) Escherichia coli Abnormal [facility] Urine culture routineOrdered By: Nicholas Man on 11-18-2023 Bacteria identified Cx Nom (U) Escherichia coli Abnormal [facility] Urobilinogen Test strip (U) [Mass/Vol]Ordered By: Nicholas Man on 11-18-2023 Urobilinogen (U) [Mass/Vol] Normal mg/dL Normal [facility] Urobilinogen (U) [Mass/Vol] Urobilinogen [Mass/volume] in Urine by Test strip Normal [facility] WBC Auto (Bld) [#/Vol]Ordere d By: Nicholas Man on 11-18-2023 WBC (Bld) [#/Vol] Leukocytes [#/volume] in Blood by Automated count 3.8-11.6 [facility] pH Test strip (U)Ordered By: Nicholas Man on 11-18-2023 pH (U) pH of Urine by Test strip 5.0-9.0 [facility] pH of Urine by Test stripOrd ered By: Nicholas Donovan on 11-18-2023 pH (U) 8.0 [pH] Normal 5.0-9.0 [facility] Comment on above: Order Comment: Name Collection Type:: Clean-Voided Midstream Performed By: #### U RDS #### [address] Amphetamine Screen Ql (U)Ord ered By: WESTON CHAVEZ on 11-10-2023 Amphetamines Ql (U) Amphetamines screen High Negativ e [facility] Amphetamines Ql (U) Positive High Negative [facility] Automated basophil %Ordered By: Louis Beal on 11-10-2023 Basophils/100 WBC (Bld) 0.5 % Normal . [facility] Comment on above: Performed By: #### B MP, CBC #### [address] Automated basophil countOrde red By: Louis Beal on 11-10-2023 Basophils (Bld) [#/Vol] 0.0 10*3/uL Normal 0.0-0.2 [facility] Comment on above: Result Comment: PERF ORMED BY: [place] [address] PATHOLOGIST CLOTHES IRONER ABDON OLIVER M.D. Performed By: #### B MP, CBC #### [address] Automated blood monocyte cou ntOrdered By: Louis Beal on 11-10-2023 Monocytes (Bld) [#/Vol] 0.4 10*3/uL Normal 0.0-0.8 [facility] Comment on above: Performed By: #### B MP, CBC #### [address] Automated eosinophil %Ordere d By: Louis Beal on 11-10-2023 Eosinophils/100 WBC (Bld) 1.1 % Normal . [facility] Comment on above: Performed By: #### B MP, CBC #### [address] Automated eosinophil countOr dered By: Louis Beal on 11-10-2023 Eosinophils (Bld) [#/Vol] 0.1 10*3/uL Normal 0.0-0.45 [facility] Comment on above: Performed By: #### B MP, CBC #### [address] Automated monocyte %Ordered By: Louis Beal on 11-10-2023 Monocytes/100 WBC (Bld) 6.5 % Normal . [facility] Comment on above: Performed By: #### B MP, CBC #### [address] Automated neutrophil %Ordere d By: Louis Beal on 11-10-2023 Neutrophils/100 WBC (Bld) 72.4 % Normal . [facility] Comment on above: Performed By: #### B MP, CBC #### [address] Barbiturates [Presence] in U rine by Screen methodOrdered By: WESTON CHAVEZ on 11-10-2023 Barbiturates Screen Ql (U) Negative Negative [facility] Barbiturates Screen Ql (U) Barbiturates [Presence] in Urine by Screen method Negative [facility] Basic Metabolic Panelon 10-14 Creatinine Clr Calc Pharmacy 96.79 Normal [facility] Comment on above: Result Comment: PERF ORMED BY: [place] [address] PATHOLOGIST CLOTHES IRONER ABDON OLIVER M.D. Performed By: #### B MP, CBC #### [address] GFR/1.73 sq M.predicted MDRD (S/P/Bld) [Vol rate/Area] mL/min/{1.73_m2} Normal [facility] Comment on above: Performed By: #### B MP, CBC #### [address] Basophils Auto (Bld) [#/Vol] Ordered By: Louis Beal on 11-10-2023 Basophils (Bld) [#/Vol] Automated basoph il count 0.0-0.2 [facility] Basophils/100 WBC Auto (Bld) Ordered By: Louis Beal on 11-10-2023 Basophils/100 WBC (Bld) Automated basoph il % . [facility] Benzodiazepines Screen Ql (U )Ordered By: WESTON CHAVEZ on 11-10-2023 Benzodiazepines Ql (U) Positive High Negative [facility] Benzodiazepines Ql (U) Benzodiazepines [Presence] in Urine by Screen method High Negative [facility] Benzoylecgonine [Presence] i n Urine by Screen methodOrdered By: WESTON CHAVEZ on 11-10-2023 Benzoylecgonine Screen Ql (U) Negative Negative [facility] Benzoylecgonine Screen Ql (U) Benzoylecgonine [Presence] in Urine by Screen method Negative [facility] Calcium [Mass/volume] in Ser um or PlasmaOrdered By: Louis Beal on 11-10-2023 Calcium [Mass/Vol] 8.9 mg/dL Normal 8.6-10.3 [facility] Comment on above: Performed By: #### B MP, CBC #### [address] Calcium [Mass/Vol] Calcium [Mass/volume] in Serum or Plasma 8.6-10.3 [facility] Cannabinoids [Presence] in U rine by Screen methodOrdered By: WESTON CHAVEZ on 11-10-2023 Cannabinoids Screen Ql (U) Positive High Negative [facility] Comment on above: These are unconfirme d results and should not be used for legal purposes. Drug Cut-Off Concentration: AMPH 1000 ng/mL LIZZETTE 200 ng/mL LAWANDA 200 ng/mL COCM 300 ng/mL OP 300 ng/mL PCP 25 ng/mL THC 20 ng/mL Cannabinoids Screen Ql (U) Cannabinoids [Presence] in Urine by Screen method High Negative [facility] Comment on above: These are unconfirme d results and should not be used for legal purposes. Drug Cut-Off Concentration: AMPH 1000 ng/mL LIZZETTE 200 ng/mL LAWANDA 200 ng/mL COCM 300 ng/mL OP 300 ng/mL PCP 25 ng/mL THC 20 ng/mL Carbon dioxide, total [Moles /volume] in Serum or PlasmaOrdered By: Louis Beal on 11-10-2023 CO2 [Moles/Vol] 24.2 mmol/L Normal 21.0-31.0 [facility] Comment on above: Performed By: #### B MP, CBC #### [facility] [address] CO2 [Moles/Vol] Carbon dioxide, total [Moles/volume] in Serum or Plasma 21.0-31.0 [facility] Chloride [Moles/volume] in S delia or PlasmaOrdered By: Louis Beal on 11-10-2023 Chloride [Moles/Vol] 107 mmol/L Normal 98-107 [facility] Comment on above: Performed By: #### B MP, CBC #### [facility] [address] [place] [address] Chloride [Moles/Vol] Chloride [Moles/volume] in Serum or Plasma 98-107 [facility] Complete Blood Count Auto Di ffon 11-10-2023 Mean Corpuscular HGB Conc 33.1 g/dL Normal 32.0-35.0 [facility] Comment on above: Performed By: #### B MP, CBC #### [address] NRBC% 0.1 /100{WBC} Normal 0-0.5 [facility] Comment on above: Performed By: #### B MP, CBC #### [facility] [address] [place] [address] [place] Creatinine [Mass/volume] in Serum or PlasmaOrdered By: Louis Beal on 11-10-2023 Creatinine [Mass/Vol] 0.71 mg/dL Normal 0.60-1.20 [facility] Comment on above: Performed By: #### B MP, CBC #### [facility] [address] [place] [id number] [place] Creatinine [Mass/Vol] Creatinine [Mass/volume] in Serum or Plasma 0.60-1.20 [facility] Drug Screen,Urineon 11-10-19 24 Amphetamine Screen,Urine Positive High Negative [facility] Comment on above: Performed By: #### U RDS #### [address] Barbiturate Screen,Urine Negative Normal Negative [facility] Comment on above: Performed By: #### U RDS #### [place] [address] [place] Benzodiazepines Screen,Urine Positive High Negative [facility] Comment on above: Performed By: #### U RDS #### [address] Cannabinoid Screen,Urine Positive High Negative [facility] Comment on above: Result Comment: Thes e are unconfirmed results and should not be used for legal purposes. Drug Cut-Off Concentration: AMPH 1000 ng/mL LIZZETTE 200 ng/mL LAWANDA 200 ng/mL COCM 300 ng/mL OP 300 ng/mL PCP 25 ng/mL THC 20 ng/mL PERFORMED BY: [place] [address] PATHOLOGIST CLOTHES IRONER ABDON OLIVER M.D. Performed By: #### U RDS #### [place] [address] [place] Cocaine Screen,Urine Negative Normal Negative [facility] Comment on above: Performed By: #### U RDS #### [place] [address] [place] Opiate Screen,Urine Positive High Negative [facility] Comment on above: Performed By: #### U RDS #### [place] [address] [place] Phencyclidine Screen,Urine Negative Normal Negative [facility] Comment on above: Performed By: #### U RDS #### [address] ECG 12 lead ECGon 11-10-2023 ECG 12 lead ECG [facility] [place] [address] [place] [address] Electrocardiograph Report Signed Patient: Nimo Craft MR#: [id number] [birth year] : 1970 Acct:[id number] Age/Sex: 53 / F ADM Date: 11/10/23 Loc: CT Room: Type: [facility] Attending Dr: Louis Beal DO [...] previous ECGs available Confirmed by Erasmo Barth ([id number]) on 11/10/2023 2:40:10 PM Referred By: Electronically Signed By: Erasmo Barth Transcribed By: MUS Signed By Erasmo Barth MD 11/10/23 1440 Normal [facility] Eosinophils Auto (Bld) [#/Vo l]Ordered By: Louis Beal on 11-10-2023 Eosinophils (Bld) [#/Vol] Automated eosinophil count 0.0-0.45 [facility] Eosinophils/100 WBC Auto (Bl d)Ordered By: Louis Beal on 11-10-2023 Eosinophils/100 WBC (Bld) Automated eosinophil % . [facility] Erythrocyte distribution wid th Auto (RBC) [Ratio]Ordered By: Louis Beal on 11-10-2023 Erythrocyte distribution width (RBC) [Ratio] Erythrocyte distribution width [Ratio] by Automated count 11.9-15.3 [facility] Erythrocyte distribution wid th [Ratio] by Automated countOrdered By: Louis Beal on 11-10-2023 Erythrocyte distribution width (RBC) [Ratio] 14.1 % Normal 11.9-15.3 [facility] Comment on above: Performed By: #### B MP, CBC #### [address] Erythrocytes [#/volume] in B lood by Automated countOrdered By: Louis Beal on 11-10-2023 RBC (Bld) [#/Vol] 4.12 10*6/uL Normal 3.60-5.00 [facility] Comment on above: Performed By: #### B LAURA, CBC #### [facility] [address] Glucose [Mass/volume] in Ser um or PlasmaOrdered By: Louis Beal on 11-10-2023 Glucose [Mass/Vol] 94 mg/dL Normal 70-100 [facility] Comment on above: ADA recommended refe rence rangeRandom Glucose Reference Range is dependent on time and content of last meal. Glucose of more than 200 mg/dL in a nonstressed, ambulatory subject supports the diagnosis of Diabetes Mellitus. Result Comment: [place] om Glucose Reference Range is dependent on time and content of last meal. Glucose of more than 200 mg/dL in a nonstressed, ambulatory subject supports the diagnosis of Diabetes Mellitus. ADA recommended reference range Performed By: #### B LAURA, CBC #### [facility] [address] [place] [address] [place] Glucose [Mass/Vol] Glucose [Mass/volume] in Serum or Plasma 70-100 [facility] Comment on above: ADA recommended refe rence rangeRandom Glucose Reference Range is dependent on time and content of last meal. Glucose of more than 200 mg/dL in a nonstressed, ambulatory subject supports the diagnosis of Diabetes Mellitus. Hematocrit Auto (Bld) [Volum e fraction]Ordered By: Louis Beal on 11-10-2023 Hematocrit (Bld) [Volume fraction] Hematocrit [Volume Fraction] of Blood by Automated count 34.0-46.4 [facility] Hematocrit [Volume Fraction] of Blood by Automated countOrdered By: Louis Beal on 11-10-2023 Hematocrit (Bld) [Volume fraction] 36.3 % Normal 34.0-46.4 [facility] Comment on above: Performed By: #### B LAURA, CBC #### [facility] [address] [place] [address] [place] Hemoglobin [Mass/volume] in BloodOrdered By: Louis Beal on 11-10-2023 Hemoglobin (Bld) [Mass/Vol] 12.0 g/dL Normal 11.8-15.4 [facility] Comment on above: Performed By: #### B MP, CBC #### [facility] [address] [place] [address] Hemoglobin (Bld) [Mass/Vol] Hemoglobin [Mass/volume] in Blood 11.8-15.4 [facility] Leukocytes [#/volume] correc raffi for nucleated erythrocytes in Blood by Automated counOrdered By: Louis Beal on 11-10-2023 WBC corrected for nucl RBC Auto (Bld) [#/Vol] 6.0 10*3/uL 3.8-11.6 [facility] WBC corrected for nucl RBC Auto (Bld) [#/Vol] Leukocytes [#/volume] corrected for nucleated erythrocytes in Blood by Automated coun 3.8-11.6 [facility] Leukocytes [#/volume] in Blo od by Automated countOrdered By: Louis Beal on 11-10-2023 WBC (Bld) [#/Vol] 6.0 10*3/uL Normal 3.8-11.6 [facility] Comment on above: Performed By: #### B MP, CBC #### [facility] [address] [place] [address] Lymphocytes Auto (Bld) [#/Vo l]Ordered By: Louis Beal on 11-10-2023 Lymphocytes (Bld) [#/Vol] Lymphocytes [#/volume] in Blood by Automated count 1.00-4.8 [facility] Lymphocytes [#/volume] in Bl ood by Automated countOrdered By: Louis Beal on 11-10-2023 Lymphocytes (Bld) [#/Vol] 1.2 10*3/uL Normal 1.00-4.8 [facility] Comment on above: Performed By: #### B MP, CBC #### [facility] [address] [place] [address] [place] Lymphocytes/100 WBC Auto (Bl d)Ordered By: Louis Beal on 11-10-2023 Lymphocytes/100 WBC (Bld) Lymphocytes/100 leukocytes in Blood by Automated count . [facility] Lymphocytes/100 leukocytes i n Blood by Automated countOrdered By: Louis Beal on 11-10-2023 Lymphocytes/100 WBC (Bld) 19.5 % Normal . [facility] Comment on above: Performed By: #### B MP, CBC #### [facility] [address] [place] [address] MCH Auto (RBC) [Entitic mass ]Ordered By: Louis Beal on 11-10-2023 MCH (RBC) [Entitic mass] MCH [Entitic ma ss] by Automated count 24.7-34.3 [facility] MCH [Entitic mass] by Automa raffi countOrdered By: Louis Beal on 11-10-2023 MCH (RBC) [Entitic mass] 29.2 pg Normal 24.7-34.3 [facility] Comment on above: Performed By: #### B MP, CBC #### [address] MCHC Auto (RBC) [Mass/Vol]Or dered By: Louis Beal on 11-10-2023 MCHC (RBC) [Mass/Vol] 33.1 g/dL 32.0-35.0 [facility] MCHC (RBC) [Mass/Vol] MCHC [Mass/volume] by Automated count 32.0-35.0 [facility] MCV Auto (RBC) [Entitic vol] Ordered By: Louis Beal on 11-10-2023 MCV (RBC) [Entitic vol] MCV [Entitic volume] by Automated count 80-100 [facility] MCV [Entitic volume] by Auto mated countOrdered By: Louis Beal on 11-10-2023 MCV (RBC) [Entitic vol] 88.2 fL Normal 80-100 [facility] Comment on above: Performed By: #### B MP, CBC #### [facility] [address] [place] [address] Monocytes Auto (Bld) [#/Vol] Ordered By: Louis Beal on 11-10-2023 Monocytes (Bld) [#/Vol] Automated blood monocyte count 0.0-0.8 [facility] Monocytes/100 WBC Auto (Bld) Ordered By: Louis Beal on 11-10-2023 Monocytes/100 WBC (Bld) Automated monocy te % . [facility] Neutrophils Auto (Bld) [#/Vo l]Ordered By: Louis Beal on 11-10-2023 Neutrophils (Bld) [#/Vol] Neutrophils [#/volume] in Blood by Automated count 1.8-7.7 [facility] Neutrophils [#/volume] in Bl ood by Automated countOrdered By: Louis Beal on 11-10-2023 Neutrophils (Bld) [#/Vol] 4.3 10*3/uL Normal 1.8-7.7 [facility] Comment on above: Performed By: #### B MP, CBC #### [address] Neutrophils/100 WBC Auto (Bl d)Ordered By: Louis Beal on 11-10-2023 Neutrophils/100 WBC (Bld) Automated neutrophil % . [facility] No Panel InformationOrdered By: Louis Beal on 11-10-2023 Estimated GFR (CKD-EPI) > 60.0 mL/Min [facility] Creatinine Clearance (Chem 96.79 [facility] Nucleated erythrocytes [Pres ence] in Blood by Automated countOrdered By: Louis Beal on 11-10-2023 Nucleated RBC Auto Ql (Bld) 0.1 /100{WBC} 0-0.5 [facility] Nucleated RBC Auto Ql (Bld) Nucleated erythrocytes [Presence] in Blood by Automated count 0-0.5 [facility] Opiates [Presence] in Urine by Screen methodOrdered By: WESTON CHAVEZ on 11-10-2023 Opiates Screen Ql (U) Positive High Negative [facility] Opiates Screen Ql (U) Opiates [Presence] in Urine by Screen method High Negative [facility] Phencyclidine Screen Ql (U)O rdered By: WESTON CHAVEZ on 11-10-2023 Phencyclidine Ql (U) Negative Negative [facility] Phencyclidine Ql (U) Phencyclidine [Presence] in Urine by Screen method Negative [facility] Platelet mean volume Auto (B ld) [Entitic vol]Ordered By: Louis Beal on 11-10-2023 Platelet mean volume (Bld) [Entitic vol] Platelet mean volume [Entitic volume] in Blood by Automated count 6.3-10.7 [facility] Platelet mean volume [Entiti c volume] in Blood by Automated countOrdered By: Louis Beal on 11-10-2023 Platelet mean volume (Bld) [Entitic vol] 8.7 fL Normal 6.3-10.7 [facility] Comment on above: Performed By: #### B MP, CBC #### [facility] [address] Platelets Auto (Bld) [#/Vol] Ordered By: Louis Beal on 11-10-2023 Platelets (Bld) [#/Vol] Platelets [#/volume] in Blood by Automated count 150-450 [facility] Platelets [#/volume] in Bloo d by Automated countOrdered By: Louis Beal on 11-10-2023 Platelets (Bld) [#/Vol] 268 10*3/uL Normal 150-450 [facility] Comment on above: Performed By: #### B MP, CBC #### [facility] [address] [place] [address] Potassium [Moles/volume] in Serum or PlasmaOrdered By: Louis Beal on 11-10-2023 Potassium [Moles/Vol] 4.4 mmol/L Normal 3.5-5.1 [facility] Comment on above: Performed By: #### B MP, CBC #### [facility] [address] [place] [address] Potassium [Moles/Vol] Potassium [Moles/volume] in Serum or Plasma 3.5-5.1 [facility] RBC Auto (Bld) [#/Vol]Ordere d By: Louis Beal on 11-10-2023 RBC (Bld) [#/Vol] Erythrocytes [#/volume] in Blood by Automated count 3.60-5.00 [facility] Serum or plasma anion gap de terminationOrdered By: Louis Beal on 11-10-2023 Anion gap [Moles/Vol] 11.2 mmol/L Normal 6.0-15.0 [facility] Comment on above: Performed By: #### B MP, CBC #### [facility] [address] [place] [id number] [place] Anion gap [Moles/Vol] Serum or plasma anion gap determination 6.0-15.0 [facility] Sodium [Moles/volume] in Ser um or PlasmaOrdered By: Louis Beal on 11-10-2023 Sodium [Moles/Vol] 138 mmol/L Normal 136-145 [facility] Comment on above: Performed By: #### B MP, CBC #### [facility] [address] [place], [place] [id number] [facility] Sodium [Moles/Vol] Sodium [Moles/volume] in Serum or Plasma 136-145 [facility] Urea nitrogen [Mass/volume] in Serum or PlasmaOrdered By: Louis Beal on 11-10-2023 Urea nitrogen [Mass/Vol] 9 mg/dL Normal 10-06 [facility] Comment on above: Performed By: #### B MP, CBC #### [facility] [address] [place], [place] [id number] [facility] Urea nitrogen [Mass/Vol] Urea nitrogen [Mass/volume] in Serum or Plasma 10-06 [facility] WBC Auto (Bld) [#/Vol]Ordere d By: Louis Beal on 11-10-2023 WBC (Bld) [#/Vol] Leukocytes [#/volume] in Blood by Automated count 3.8-11.6 [facility] XR knee RT 2Von 11-10-2023 XR knee RT 2V [place] [address] XRay Report Signed Patient: Nimo Craft MR#: [id number] [birth year] : 1970 Acct:[id number] Age/Sex: 53 / F ADM Date: 11/10/23 Loc: CT Room: Type: [facility] Attending Dr: Louis Beal DO [...] Chun Jr., D.O.11/10/2023 7:24 PM Dictation Location: RADIO-PC-15 Transcribed By: NOAH 11/10/231923 Dictated By: Arun Chun Jr, DO 11/10/231920 Signed By: 11/10/231923 Normal [facility] XR femur RT 2V*on 11-06-2023 XR femur RT 2V* [facility] [place] [address] [place] [address] XRay Report Signed Patient: Nimo Craft MR#: [id number] [birth year] : 1970 Acct:[id number] Age/Sex: 53 / F ADM Date: 11/05/23 Loc: ER Room: Type: [facility] ER Attending Dr: Copies to: [...] Misha Bach II, MD 11/06/231424 Signed By: 11/06/231425 Normal [facility] XR knee RT 2Von 11-06-2023 XR knee RT 2V [facility] [address] [address] XRay Report Signed Patient: Nimo Craft MR#: [id number] [birth year] : 1970 Acct:[id number] Age/Sex: 53 / F ADM Date: 11/05/23 Loc: ER Room: Type: [facility] ER Attending Dr: Copies to: [...] Misha Bach M.D.11/06/2023 2:25 PM Dictation Location: [place] [address] Transcribed By: [facility] 11/06/23 1425 Dictated By: Misha Bach II, MD 11/06/231423 Signed By: 11/06/23 1425 Normal [facility] XR tibia fibula RT 2V*on XR tibia fibula RT 2V* [facility] Main [address] [address] XRay Report Signed Patient: Nimo Craft MR#: [id number] [birth year] : 1970 Acct:[id number] Age/Sex: 53 / F ADM Date: 11/05/23 Loc: ER Room: Type: [facility] ER Attending Dr: Copies to: Shay Patel [...] Misha Bach M.D.11/06/2023 2:27 PM Dictation Location: [place] [address] Transcribed By: [facility] 11/06/23 1427 Dictated By: Misha Bach II, MD 11/06/23 142 Signed By: 11/06/23 142 Normal [facility] MG MAMM SCREEN 3D PIERRE CADon 04-07-2022 MG MAMM SCREEN 3D PIERRE CAD Patient: NIMO CRAFT Exam Date: 04/07/2022 : 1970 Gender:F Ordering : DR ERICK SALCEDO M.D. Admission #: [id number] Family : Order #: [id number] CLICK HERE TO VIEW EXAM RADIOLOGY REPORT [...] Treatments None Family Cancers None LOCATION: [facility] BREAST COMPOSITION: Scattered areas fibroglandular density. FINDINGS: [...] LUMP SHOULD BE BIOPSIED. Dictated by: Nora Poewrs M.D. on 04/08/2022 at 11:39 Approved by: Nora Powers M.D. on 04/08/2022 at 11:46 Normal [facility] XR Ankle Complete Left*on XR Ankle Complete [...] by Erick Anderson on 12/01/2021 1716 Normal [facility] Electronic Pagination System Operator XR Foot Complete Left*on XR Foot Complete Left* refer to concurre nt ankle radiographs. Report reported and signed by Erick Anderson on 12/01/2021 1717 Normal [facility] Vital Signs Date Time Vital Sign Value Performing Clinician Facility 10-26-2024 16:11-0400 Body height 154.9 cm Cris Moran MARBLE SUPERVISOR Work Phone: [facility] 10-26-2024 16:11-0400 Body mass index (BMI) [Ratio] 42.89 kg/m2 Cirs Moran MARBLE SUPERVISOR Work Phone: [facility] 10-26-2024 16:11-0400 Body weight 102.97 kg Cris Moran NP Work Phone: [facility] 10-26-2024 16:11-0400 Diastolic blood pressure 80 mm[Hg] Cris Moran MARBLE SUPERVISOR Work Phone: [facility] 10-26-2024 16:11-0400 Heart rate 85 /min Cris Moran MARBLE SUPERVISOR Work Phone: [facility] 10-26-2024 16:11-0400 Respiratory rate 17 /min Cris Moran MARBLE SUPERVISOR Work Phone: [facility] 10-26-2024 16:11-0400 SaO2% (BldA) [Mass fraction] 97 % Cris Sandrita MARBLE SUPERVISOR Work Phone: [facility] 10-26-2024 16:11-0400 Systolic blood pressure 112 mm[Hg] Cris Sandrita MARBLE SUPERVISOR Work Phone: [facility] 07-25-2024 11:42-0400 Body height 154.9 cm Cris Garibayvely MARBLE SUPERVISOR Work Phone: [facility] 07-25-2024 11:42-0400 Body mass index (BMI) [Ratio] 42.63 kg/m2 Cris Nicodemus MARBLE SUPERVISOR Work Phone: [facility] 07-25-2024 11:42-0400 Body weight 102.33 kg Cris Nicodemus MARBLE SUPERVISOR Work Phone: [facility] 07-25-2024 11:42-0400 Diastolic blood pressure 78 mm[Hg] Cris Nicodemus MARBLE SUPERVISOR Work Phone: [facility] 07-25-2024 11:42-0400 Heart rate 71 /min Cris Nicodemus MARBLE SUPERVISOR Work Phone: [facility] 07-25-2024 11:42-0400 Respiratory rate 16 /min Cris Sandrita MARBLE SUPERVISOR Work Phone: [facility] 07-25-2024 11:42-0400 SaO2% (BldA) [Mass fraction] 98 % Cris Sandrita MARBLE SUPERVISOR Work Phone: [facility] 07-25-2024 11:42-0400 Systolic blood pressure 122 mm[Hg] Cris Nicodemus MARBLE SUPERVISOR Work Phone: [facility] 06-16-2024 09:55-0400 Diastolic blood pressure 89 mm[Hg] Erick Salcedo II Work Phone: [facility] 06-16-2024 09:55-0400 Heart rate 90 /min Erick Salcedo II Work Phone: [facility] 06-16-2024 09:55-0400 Respiratory rate 16 /min Erick Salcedo II Work Phone: [facility] 06-16-2024 09:55-0400 SaO2% (BldA) [Mass fraction] 91 % Erick Salcedo II Work Phone: [facility] 06-16-2024 09:55-0400 Systolic blood pressure 153 mm[Hg] Erick Salcedo II Work Phone: [facility] 06-16-2024 08:48-0400 Body temperature 98.3 [degF] Erick Salcedo II Work Phone: [facility] 06-16-2024 08:48-0400 Inhaled oxygen flow rate 6 L/min Erick Salcedo II Work Phone: [facility] 06-16-2024 06:14-0400 Body height 153.67 cm Erick Salcedo II Work Phone: [facility] 06-16-2024 06:14-0400 Body weight 100 kg Erick Salcedo II Work Phone: [facility] 06-08-2024 11:33-0400 Body height 165.1 cm Erick Salcedo II Work Phone: [facility] 06-08-2024 11:33-0400 Body mass index (BMI) [Ratio] 36.6 kg/m2 Erick Salcedo II Work Phone: [facility] 06-08-2024 11:33-0400 Body weight 100 kg Erick Salcedo II Work Phone: [facility] 05-25-2024 16:35-0400 Body height 154.9 cm Cris Moran MARBLE SUPERVISOR Work Phone: [facility] 05-25-2024 16:35-0400 Body mass index (BMI) [Ratio] 41.38 kg/m2 Cris Moran MARBLE SUPERVISOR Work Phone: [facility] 05-25-2024 16:35-0400 Body weight 99.34 kg Cris Moran MARBLE SUPERVISOR Work Phone: [facility] 05-25-2024 16:35-0400 Diastolic blood pressure 80 mm[Hg] Cris Moran MARBLE SUPERVISOR Work Phone: [facility] 05-25-2024 16:35-0400 Heart rate 96 /min Cris Moran MARBLE SUPERVISOR Work Phone: [facility] 05-25-2024 16:35-0400 SaO2% (BldA) [Mass fraction] 96 % Cris Moran MARBLE SUPERVISOR Work Phone: [facility] 05-25-2024 16:35-0400 Systolic blood pressure 132 mm[Hg] Cris Moran MARBLE SUPERVISOR Work Phone: [facility] 03-09-2024 14:03-0500 Body height 154.9 cm Cris Moran MARBLE SUPERVISOR Work Phone: [facility] 03-09-2024 14:03-0500 Body mass index (BMI) [Ratio] 41.46 kg/m2 Cris Moran MARBLE SUPERVISOR Work Phone: [facility] 03-09-2024 14:03-0500 Body weight 99.52 kg Cris Moran MARBLE SUPERVISOR Work Phone: [facility] 03-09-2024 14:03-0500 Diastolic blood pressure 82 mm[Hg] Cris Moran MARBLE SUPERVISOR Work Phone: [facility] 03-09-2024 14:03-0500 Heart rate 89 /min Cris Moran MARBLE SUPERVISOR Work Phone: [facility] 03-09-2024 14:03-0500 Respiratory rate 16 /min Cris Moran MARBLE SUPERVISOR Work Phone: [facility] 03-09-2024 14:03-0500 SaO2% (BldA) [Mass fraction] 98 % Cris Moran MARBLE SUPERVISOR Work Phone: [facility] 03-09-2024 14:03-0500 Systolic blood pressure 130 mm[Hg] Cris Moran MARBLE SUPERVISOR Work Phone: [facility] 12-08-2023 12:25-0400 Diastolic blood pressure 58 mm[Hg] II Erick Salcedo Work Phone: [facility] 12-08-2023 12:25-0400 Heart rate 85 /min II Erick Salcedo Work Phone: [facility] 12-08-2023 12:25-0400 Respiratory rate 16 /min II Erick Salcedo Work Phone: [facility] 12-08-2023 12:25-0400 SaO2% (BldA) [Mass fraction] 98 % II Erick Salcedo Work Phone: [facility] 12-08-2023 12:25-0400 Systolic blood pressure 106 mm[Hg] II Erick Salcedo Work Phone: [facility] 12-08-2023 10:00-0400 Body temperature 97.2 [degF] II Erick Salcedo Work Phone: [facility] 12-08-2023 10:00-0400 Inhaled oxygen flow rate 8 L/min II Erick Salcedo Work Phone: [facility] 12-08-2023 06:28-0400 Body height 152.4 cm II Erick Salcedo Work Phone: [facility] 12-08-2023 06:28-0400 Body weight 96.16 kg II Erick Salcedo Work Phone: [facility] 11-19-2023 00:50-0400 Heart rate 76 /min II Erick Salcedo Work Phone: [facility] 11-19-2023 00:50-0400 Respiratory rate 20 /min II Erick Salcedo Work Phone: [facility] 11-19-2023 00:50-0400 SaO2% (BldA) [Mass fraction] 95 % II Erick Salcedo Work Phone: [facility] 11-18-2023 23:13-0400 Body temperature 97.8 [degF] II Erick Salcedo Work Phone: [facility] 11-18-2023 23:13-0400 Diastolic blood pressure 80 mm[Hg] II Erick Salcedo Work Phone: [facility] 11-18-2023 23:13-0400 Systolic blood pressure 152 mm[Hg] II Erick Salcedo Work Phone: [facility] 11-18-2023 19:25-0400 Body height 153.67 cm II Erick Salcedo Work Phone: [facility] 11-18-2023 19:25-0400 Body weight 97.52 kg II Erick Salcedo Work Phone: [facility] 11-11-2023 12:55-0400 Respiratory rate 16 /min II Erick Salcedo Work Phone: [facility] 11-11-2023 11:14-0400 Body temperature 97.7 [degF] II Erick Salcedo Work Phone: [facility] 11-11-2023 11:14-0400 Diastolic blood pressure 73 mm[Hg] II Erick aSlcedo Work Phone: [facility] 11-11-2023 11:14-0400 Heart rate 77 /min II Erick Salcedo Work Phone: [facility] 11-11-2023 11:14-0400 SaO2% (BldA) [Mass fraction] 100 % II Erick Salcedo Work Phone: [facility] 11-11-2023 11:14-0400 Systolic blood pressure 109 mm[Hg] II Erick Salcedo Work Phone: [facility] 11-11-2023 05:31-0400 Body weight 99.2 kg II Erick Salcedo Work Phone: [facility] 11-10-2023 21:27-0400 Body height 152.4 cm II Erick Salcedo Work Phone: [facility] 11-10-2023 19:40-0400 Inhaled oxygen flow rate 8 L/min II Erick Salcedo Work Phone: [facility] 11-10-2023 10:48-0400 Body height 154.94 cm II Erick Salcedo Work Phone: [facility] 11-10-2023 10:48-0400 Body mass index (BMI) [Ratio] 43.3 kg/m2 II Erick Salcedo Work Phone: [facility] 11-10-2023 10:48-0400 Body weight 104 kg II Erick Salcedo Work Phone: [facility] 11-06-2023 14:00-0400 Diastolic blood pressure 71 mm[Hg] II Erick Salcedo Work Phone: [facility] 11-06-2023 14:00-0400 Heart rate 88 /min II Erick Salcedo Work Phone: [facility] 11-06-2023 14:00-0400 Respiratory rate 18 /min II Erick Salcedo Work Phone: [facility] 11-06-2023 14:00-0400 SaO2% (BldA) [Mass fraction] 98 % II Ercik Salcedo Work Phone: [facility] 11-06-2023 14:00-0400 Systolic blood pressure 128 mm[Hg] II Erick Salcedo Work Phone: [facility] 11-05-2023 23:50-0400 Body height 154.94 cm II Erick Salcedo Work Phone: [facility] 11-05-2023 23:50-0400 Body weight 104.7 kg II Erick Salcedo Work Phone: [facility] 11-05-2023 23:48-0400 Body temperature 98 [degF] II Erick Salcedo Work Phone: [facility] Encounters Encounter Date Encounter Type Care Provider Facility Start: 10-26-2024 End: 10-26-2024 Office outpatient visit 25 minutes Cris [facility] NP [facility] Comment on above: Closed displaced fra cture of right patella, unspecified fracture morphology, sequela (Primary Dx); Chronic pain of right knee; Attention deficit hyperactivity disorder (ADHD), combined type ; Anxiety Start: 10-26-2024 End: 10-26-2024 Bamboo flowsheet Cris Moran MARBLE SUPERVISOR Work Phone: [facility] Start: 10-26-2024 End: 10-26-2024 Bamboo flowsheet Cris Moran MARBLE SUPERVISOR Work Phone: [facility] Start: 10-19-2024 End: 10-23-2024 Refill Erick Salcedo MD Work Phone: [facility] Comment on above: Closed displaced fra cture of right patella, unspecified fracture morphology, sequela Start: 10-09-2024 End: 10-09-2024 Refill Avril Claudio PA Work Phone: [facility] Comment on above: Anxiety Start: 10-05-2024 End: 10-06-2024 Refill Avril Claudio PA Work Phone: [facility] Comment on above: Attention deficit hy peractivity disorder (ADHD), unspecified ADHD type ; Closed displaced fracture of right patella, unspecified fracture morphology, sequela Start: 09-21-2024 End: 09-21-2024 Refill Avril Claudio PA Work Phone: [facility] Comment on above: Closed displaced fra cture of right patella, unspecified fracture morphology, sequela Start: 09-10-2024 End: 09-11-2024 Refill Cris Moran MARBLE SUPERVISOR Work Phone: [facility] Comment on above: Anxiety Start: 09-06-2024 End: 09-07-2024 Refill Avril Claudio PA Work Phone: [facility] Comment on above: Attention deficit hy peractivity disorder (ADHD), unspecified ADHD type ; Closed displaced fracture of right patella, unspecified fracture morphology, sequela Start: 08-25-2024 End: 08-25-2024 Refill Avril Claudio PA Work Phone: [facility] Comment on above: Closed displaced fra cture of right patella, unspecified fracture morphology, sequela Start: 08-11-2024 End: 08-11-2024 Refill Avril BALES Work Phone: [facility] Comment on above: Attention deficit hy peractivity disorder (ADHD), unspecified ADHD type (CMS/HCC); Closed displaced fracture of right patella, unspecified fracture morphology, sequela Start: 08-08-2024 End: 08-08-2024 Refill Avril BALES Work Phone: [facility] Comment on above: Closed displaced fra cture of right patella, unspecified fracture morphology, sequela Start: 08-04-2024 End: 08-08-2024 Refill Cris Moran MARBLE SUPERVISOR Work Phone: [facility] Comment on above: Closed displaced fra cture of right patella, unspecified fracture morphology, sequela Start: 07-31-2024 End: 08-01-2024 Refill Cris Moran MARBLE SUPERVISOR Work Phone: [facility] Comment on above: Closed displaced fra cture of right patella, unspecified fracture morphology, sequela Start: 07-27-2024 End: 07-27-2024 ambulatory Erick Salcedo II Work Phone[facility] Work Phone: Start: 07-27-2024 End: 07-27-2024 Patient encounter procedure Erickchirag Salcedo II Work Phone: [facility] Work Phone: Start: 07-25-2024 End: 07-25-2024 Bamboo flowsheet Cris Moran MARBLE SUPERVISOR Work Phone: [facility] Start: 07-25-2024 End: 07-25-2024 Bamboo flowsheet Cris Moran MARBLE SUPERVISOR Work Phone: [facility] Start: 07-25-2024 End: 07-25-2024 ambulatory CRIS MROAN Not Available Start: 07-25-2024 End: 07-25-2024 Office outpatient visit 25 minutes Cris Moran NP Work Phone: [facility] Comment on above: Grief reaction (Prim julián Dx); Closed displaced fracture of right patella, unspecified fracture morphology, sequela; Anxiety; Adjustment disorder with depressed mood (CMS/HCC); Attention deficit hyperactivity disorder (ADHD), combined type (CMS/HCC) Start: 07-20-2024 End: 07-20-2024 ambulatory Alex Sierra Facility:[facility] Start: 07-20-2024 Registered Recurring Erick Stuart kline II Work Phone: [facility] [place] Start: 07-18-2024 End: 07-20-2024 Refill Cris Moran MARBLE SUPERVISOR Work Phone: [facility] Comment on above: Closed displaced fra cture of right patella, unspecified fracture morphology, sequela Start: 07-15-2024 End: 07-20-2024 Refill Avril BALES Work Phone: [facility] Comment on above: Attention deficit hy peractivity disorder (ADHD), unspecified ADHD type (CMS/HCC) Closed displaced fra cture of right patella, unspecified fracture morphology, sequela Start: 07-10-2024 End: 07-11-2024 Refill Cris Moran MARBLE SUPERVISOR Work Phone: [facility] Comment on above: Closed displaced fra cture of right patella, unspecified fracture morphology, sequela Start: 07-05-2024 End: 07-06-2024 Refill Cris Moran MARBLE SUPERVISOR Work Phone: [facility] Comment on above: Primary insomnia; Anxiety Start: 07-03-2024 End: 07-04-2024 Refill Avril BALES Work Phone: [facility] Comment on above: Closed displaced fra cture of right patella, unspecified fracture morphology, sequela Start: 06-26-2024 End: 06-26-2024 ambulatory Erick Salcedo II Work Phone: [facility] Work Phone: Start: 06-26-2024 End: 06-26-2024 Patient encounter procedure Erick Salcedo II Work Phone: [facility] Work Phone: Start: 06-26-2024 Registered Recurring Erick kline II Work Phone: [facility] [place] Start: 06-25-2024 End: 06-26-2024 Refill Avril BALES Work Phone: [facility] Comment on above: Closed displaced fra cture of right patella, unspecified fracture morphology, sequela Start: 06-22-2024 End: 06-26-2024 Refedwin BALES Work Phone: [facility] Comment on above: Closed displaced fra cture of right patella, unspecified fracture morphology, sequela Start: 06-16-2024 Non-patient / Non-visit Erick Salcedo II Work Phone: [facility] Work Phone: Start: 06-16-2024 End: 06-16-2024 Admission to same day surgery center Erick Salcedo II Work Phone: [facility] [place] Start: 06-16-2024 End: 06-16-2024 ambulatory Erick Salcedo II Work Phone: [facility] Work Phone: Start: 06-15-2024 End: 06-16-2024 Refedwin Moran NP Work Phone: [facility] Comment on above: Attention deficit hy peractivity disorder (ADHD), unspecified ADHD type (CMS/HCC); Closed displaced fracture of right patella, unspecified fracture morphology, sequela Start: 06-08-2024 End: 06-08-2024 ambulatory Erick Salcedo II Work Phone: [facility] Work Phone: Comment on above: Anxiety Closed displaced fra cture of right patella, unspecified fracture morphology, sequela Start: 06-08-2024 End: 06-08-2024 Encounter for other preprocedural examination Erick Salcedo II Work Phone: [facility] Start: 06-08-2024 End: 06-08-2024 Patient encounter procedure Erick Salcedo II Work Phone: [facility] Work Phone: Start: 06-06-2024 End: 06-06-2024 Patient encounter procedure Erick Salcedo II Work Phone: [id number] Work Phone: Start: 06-06-2024 End: 06-06-2024 ambulatory Erick Salcedo II Work Phone: [facility] Work Phone: Start: 06-06-2024 Encounter for preprocedural laboratory examination Alex Sierra [facility] Start: 05-25-2024 End: 05-25-2024 ambulatory CRIS MORAN Not Available Start: 05-25-2024 End: 05-25-2024 Office outpatient visit 15 minutes Cris Moran MARBLE SUPERVISOR Work Phone: [facility] Comment on above: Closed displaced fra cture of right patella with routine healing, unspecified fracture morphology, subsequent encounter (Primary Dx); Encounter for screening for malignant neoplasm of colon; Morbid (severe) obesity due to excess calories (CMS/HCC); Body mass index (BMI) 40.0-44.9, adult (CMS/HCC) Start: 05-25-2024 End: 05-25-2024 Bamboo flowsheet Cris Moran MARBLE SUPERVISOR Work Phone: [facility] Start: 05-25-2024 End: 05-25-2024 Bamboo flowsheet Cris Moran MARBLE SUPERVISOR Work Phone: [facility] Start: 05-11-2024 End: 05-11-2024 Refedwin Salcedo MD Work Phone: [facility] Comment on above: Anxiety Closed displaced fra cture of right patella, unspecified fracture morphology, sequela Attention deficit hy peractivity disorder (ADHD), unspecified ADHD type ([facility]) Start: 05-04-2024 End: 05-04-2024 Patient encounter procedure Erick Salcedo II Work Phone: [facility] Work Phone: Start: 05-04-2024 End: 05-04-2024 ambulatory Erick Salcedo II Work Phone: [facility] Comment on above: Closed displaced fra cture of right patella, unspecified fracture morphology, sequela Start: 04-27-2024 End: 05-01-2024 Refill Cris Moran MARBLE SUPERVISOR Work Phone: [facility] Comment on above: Closed displaced fra cture of right patella, unspecified fracture morphology, sequela Start: 04-24-2024 End: 04-25-2024 Refill Cris Moran MARBLE SUPERVISOR Work Phone: [facility] Comment on above: Closed displaced fra cture of right patella, unspecified fracture morphology, sequela Start: 04-21-2024 End: 04-25-2024 Refill Cris Moran MARBLE SUPERVISOR Work Phone: [facility] Comment on above: Closed displaced fra cture of right patella, unspecified fracture morphology, sequela Start: 04-19-2024 End: 04-19-2024 ambulatory Erick Salcedo JOSELIN Work Phone: [facility] Work Phone: Start: 04-19-2024 End: 04-19-2024 Discharged Recurring Erick Salcedo II Work Phone: [facility] [place] Start: 04-19-2024 Registered Recurring Erick kline II Work Phone: [facility] [place] Start: 04-14-2024 End: 04-17-2024 Refill Erick Salcedo MD Work Phone: [facility] Comment on above: Anxiety Start: 04-10-2024 End: 04-11-2024 Refill Prachi Wednesday SUPERVISOR [employer] Work Phone: [facility] Comment on above: Closed displaced fra cture of right patella, unspecified fracture morphology, sequela Attention deficit hy peractivity disorder (ADHD), unspecified ADHD type ([facility]) Start: 04-09-2024 End: 04-11-2024 Refill Cris Moran MARBLE SUPERVISOR Work Phone: [facility] Comment on above: Closed displaced fra cture of right patella, unspecified fracture morphology, sequela Start: 04-06-2024 End: 04-11-2024 Refill Cris Moran MARBLE SUPERVISOR Work Phone: [facility] Comment on above: Closed displaced fra cture of right patella, unspecified fracture morphology, sequela Start: 03-30-2024 End: 03-30-2024 Refill Cris Moran MARBLE SUPERVISOR Work Phone: [facility] Comment on above: Closed displaced fra cture of right patella, unspecified fracture morphology, sequela Start: 03-23-2024 End: 03-23-2024 Refill Cris Moran MARBLE SUPERVISOR Work Phone: [facility] Comment on above: Closed displaced fra cture of right patella, unspecified fracture morphology, sequela Start: 03-20-2024 End: 03-20-2024 ambulatory Erick Salcedo II Work Phone: [facility] Work Phone: Start: 03-20-2024 End: 03-20-2024 Patient encounter procedure Erick Salcedo II Work Phone: [facility] Work Phone: Start: 03-20-2024 Registered Recurring Erick kline II Work Phone: [facility] [place] Start: 03-16-2024 Registered Recurring Erick kline II Work Phone: [facility] [place] Start: 03-16-2024 End: 03-16-2024 Refill Cris Moran MARBLE SUPERVISOR Work Phone: [facility] Comment on above: Anxiety; Closed displaced fracture of right patella, unspecified fracture morphology, sequela Start: 03-12-2024 End: 03-13-2024 Refill Cris Moran MARBLE SUPERVISOR Work Phone: [facility] Comment on above: Attention deficit hy peractivity disorder (ADHD), unspecified ADHD type ([facility]/HCC) Start: 03-09-2024 End: 03-09-2024 Bamboo flowsheet Cris Moran MARBLE SUPERVISOR Work Phone: [facility] Start: 03-09-2024 End: 03-09-2024 Bamboo flowsheet Cris Moran MARBLE SUPERVISOR Work Phone: [facility] Start: 03-09-2024 End: 03-09-2024 Office outpatient visit 15 minutes Cris Moran MARBLE SUPERVISOR Work Phone: [facility] Comment on above: Closed displaced fra cture of right patella, unspecified fracture morphology, sequela Start: 03-09-2024 End: 03-09-2024 ambulatory CRIS MORAN Not Available Start: 03-02-2024 End: 03-02-2024 Refill Avril BALES Work Phone: [facility] Comment on above: Closed displaced fra cture of right patella, unspecified fracture morphology, sequela Start: 03-02-2024 End: 03-02-2024 Patient encounter procedure Erick Salcedo II [facility] Work Phone: Start: 02-25-2024 End: 02-26-2024 Refill Avril BALES Work Phone: [facility] Comment on above: Closed displaced fra cture of right patella, unspecified fracture morphology, sequela Start: 02-18-2024 End: 02-18-2024 Refill Avril BALES Work Phone: [facility] Comment on above: Closed displaced fra cture of right patella, unspecified fracture morphology, sequela Start: 02-16-2024 End: 02-17-2024 Refedwin BALES Work Phone: [facility] Comment on above: Anxiety Attention deficit hy peractivity disorder (ADHD), unspecified ADHD type ([facility]) Start: 02-13-2024 End: 02-14-2024 Refill Avril BALES Work Phone: [facility] Comment on above: Closed displaced fra cture of right patella, unspecified fracture morphology, sequela Start: 02-07-2024 End: 02-07-2024 Refill Avril BALES Work Phone: [facility] Comment on above: Closed displaced fra cture of right patella, unspecified fracture morphology, sequela Start: 02-03-2024 End: 02-03-2024 ambulatory Erick Salcedo II Work Phone: [facility] Work Phone: Start: 02-03-2024 End: 02-03-2024 Patient encounter procedure Erick Salcedo II Work Phone: [facility] Work Phone: Start: 02-03-2024 End: 02-03-2024 Patient encounter procedure Erick Salcedo II Work Phone: [facility] Start: 02-03-2024 End: 02-03-2024 ambulatory Alex Sierra Facility:[facility] Start: 01-31-2024 End: 01-31-2024 Refedwin Moran MARBLE SUPERVISOR Work Phone: [facility] Comment on above: Closed displaced fra cture of right patella, unspecified fracture morphology, sequela Start: 01-24-2024 End: 01-25-2024 Gabino Moran MARBLE SUPERVISOR Work Phone: [facility] Comment on above: Closed displaced fra cture of right patella, unspecified fracture morphology, sequela Start: 01-21-2024 End: 01-21-2024 Refedwin Moran MARBLE SUPERVISOR Work Phone: [facility] Comment on above: Anxiety Start: 01-18-2024 End: 01-18-2024 ambulatory II Erick Salcedo Work Phone: [facility] Work Phone: Start: 01-18-2024 End: 01-18-2024 Patient encounter procedure II Erick Salcedo Work Phone: [facility] Work Phone: Start: 01-15-2024 End: 01-18-2024 Refill Avril Claudio PA Work Phone: [facility] Comment on above: Attention deficit hy peractivity disorder (ADHD), unspecified ADHD type (CMS/HCC) Closed displaced fra cture of right patella, unspecified fracture morphology, sequela Start: 01-09-2024 End: 01-11-2024 Refill Cris Moran MARBLE SUPERVISOR Work Phone: [facility] Comment on above: Closed displaced fra cture of right patella, unspecified fracture morphology, sequela Start: 01-03-2024 End: 01-04-2024 Refill Cris Moran MARBLE SUPERVISOR Work Phone: [facility] Comment on above: Closed displaced fra cture of right patella, unspecified fracture morphology, sequela Start: 12-26-2023 End: 12-27-2023 Refedwin Salcedo MD Work Phone: [facility] Comment on above: Anxiety; Symptomatic menopausal or female climacteric states; Closed displaced fracture of right patella, unspecified fracture morphology, sequela; Primary insomnia Closed displaced fra cture of right patella, unspecified fracture morphology, sequela Symptomatic menopaus al or female climacteric states; Anxiety Start: 12-21-2023 End: 12-21-2023 ambulatory II Erick Salcedo Work Phone: [facility] Work Phone: Start: 12-21-2023 End: 12-21-2023 Patient encounter procedure II Erick Salcedo Work Phone: [facility] Work Phone: Start: 12-21-2023 End: 12-21-2023 Patient encounter procedure II Erick Salcedo Work Phone: [facility] [place] [facility] Start: 12-21-2023 End: 12-21-2023 ambulatory II Erick Salcedo Work Phone: [facility] Work Phone: Start: 12-20-2023 End: 12-21-2023 Refill Cris Moran MARBLE SUPERVISOR Work Phone: [facility] Comment on above: Closed displaced fra cture of right patella, unspecified fracture morphology, sequela Start: 12-16-2023 End: 12-17-2023 Refill Cris Moran MARBLE SUPERVISOR Work Phone: [facility] Comment on above: Closed displaced fra cture of right patella, unspecified fracture morphology, sequela Attention deficit hy peractivity disorder (ADHD), unspecified ADHD type ([facility]) Start: 12-14-2023 End: 12-14-2023 ambulatory CRIS MORAN Not Available Start: 12-14-2023 End: 12-14-2023 Office outpatient visit 25 minutes Cris Moran MARBLE SUPERVISOR Work Phone: [facility] Comment on above: Closed displaced fra cture of right patella, unspecified fracture morphology, sequela (Primary Dx) Start: 12-13-2023 End: 12-13-2023 ambulatory II Erick Salcedo Work Phone: [facility] Work Phone: Start: 12-13-2023 End: 12-13-2023 Patient encounter procedure II Erick Salcedo Work Phone: [facility] Work Phone: Start: 12-08-2023 Non-patient / Non-visit II David Salcedo Work Phone: [facility] Work Phone: Start: 12-08-2023 End: 12-08-2023 Admission to same day surgery center II Erick [facility]cdeo [facility] [place] Start: 12-08-2023 End: 12-08-2023 ambulatory II Erick Salcedo Work Phone: [facility] Work Phone: Start: 12-02-2023 End: 12-02-2023 ambulatory II Erick Salcedo Work Phone: [facility] Work Phone: Start: 12-02-2023 End: 12-02-2023 Patient encounter procedure II Erick Salcedo Work Phone: [facility] Work Phone: Start: 11-22-2023 End: 11-22-2023 Gabino BALES Work Phone: [facility] Comment on above: Attention deficit hy peractivity disorder (ADHD), unspecified ADHD type (CMS/HCC) Start: 11-18-2023 End: 11-19-2023 Emergency department patient visit II Erick Salcedo Work Phone: [facility] Work Phone: Start: 11-10-2023 End: 11-11-2023 Evaluation and management of inpatient II Erick Salcedo Work Phone: [address] [facility] Work Phone: Start: 11-10-2023 Non-patient / Non-visit II Dvaid Salcedo Work Phone: [facility] Work Phone: Start: 11-10-2023 End: 11-11-2023 Admission to same day surgery center II Erick Salcedo Work Phone: [facility] [place] Start: 11-10-2023 End: 11-11-2023 ambulatory II Erick Salcedo Work Phone: [facility] Work Phone: Start: 11-10-2023 Patient encounter status II Ashwin Salcedo Work Phone: [facility] Start: 11-10-2023 End: 11-10-2023 ambulatory II Erick Salcedo Work Phone: [facility] Work Phone: Start: 11-10-2023 End: 11-10-2023 Encounter for other preprocedural examination Erick Salcedo II Work Phone: [facility] Start: 11-10-2023 End: 11-10-2023 Patient encounter procedure II Erick Salcedo Work Phone: [facility] Work Phone: Start: 11-05-2023 End: 11-06-2023 Emergency department patient visit II Erick Salcedo Work Phone: [facility] Work Phone: Start: 09-08-2023 End: 09-08-2023 ambulatory CRIS MORAN Not Available Start: 04-07-2022 End: 04-08-[address] ERICK SALCEDO Facility: Start: 04-03-2021 End: 04-08-2021 ambulatory UNKNOWN PROVIDER Facility:[facility] Procedures Date Procedure Procedure Detail Performing Clinician Start: 06-16-2024 OR Knee Arthroscopy (Right) Erick Salcedo II Work Phone: Start: 02-03-2024 X-ray of right knee, three views Erick Salcedo II Work Phone: Start: 01-18-2024 X-ray of right knee, three views II Erick Salcedo Work Phone: Start: 12-21-2023 X-ray of right knee, two views II Erick Salcedo Work Phone: Start: 12-08-2023 Open reduction [...] Work Phone: Start: 10-28-2023 Mammography Cris Moran MARBLE SUPERVISOR Work Phone: Start: 08-12-2022 H/O: hysterectomy History of hysterectomy Cris Cuadra P Work Phone: Start: 03-15-2009 Colonoscopy Avril BALES Work Phone: Plan of Treatment Date Care Activity Detail Author Start: 11-13-2024 Influenza vaccination [facility] Start: 10-27-2024 Screening for malign ant neoplasm of breast Mammogram [facility] Start: 10-26-2024 End: 10-26-2024 Patient encounter procedure 10/26/2024 4:00 PM EDT Office Visit [facility] [place] [facility] [address] [place] [address] Cris Moran NP [address] [place] [address] [facility] Start: 10-26-2024 End: 10-26-2025 XR Knee - right 3 Views XR knee 3 views right Imaging Routine Closed displaced fracture of right patella, unspecified fracture morphology, sequela Expected: 10/26/2024, Expires: 10/26/2025 [facility] Work Phone: Comment on above: Expected: 10/26/2024 , Expires: 10/26/2025 Start: 07-25-2024 End: 07-25-2024 Patient encounter procedure 07/25/2024 11:30 AM EDT Office Visit [facility] [address] [place] [address] Cris Moran, MARBLE SUPERVISOR [address] [place] [address] [facility] Start: 06-28-2024 End: 06-28-2024 Patient encounter procedure 06/28/2024 1:20 PM EDT Office Visit [facility] [address] [place] [address] Melissa Amador PA [address] [place] [address] [facility] Start: 06-16-2024 [facility] Start: 06-16-2024 [facility] Start: 05-25-2024 End: 05-25-2025 Noninvasive colorectal cancer DNA and occult blood screening [Presence] in Stool Cologuard colon cancer screening Lab Routine Encounter for screening for malignant neoplasm of colon Expected: 05/25/2024 (Approximate), Expires: 05/25/2025 [facility] Work Phone: Comment on above: Expected: 05/25/2024 (Approximate), Expires: 05/25/2025 Start: 03-09-2024 End: 03-09-2024 Patient encounter procedure [facility] Comment on above: Arrived Start: 02-14-2024 End: 02-14-2024 ambulatory 02/14/2024 10:00 AM EST Evaluation [facility] [address] [place] [id number] Rajan Andrea, PT [address] [place] [address] [facility] Start: 02-03-2024 X-ray of right knee, three views XR knee RT 3V - NOT FOR ER USE [facility] Start: 02-03-2024 XR Knee - right 3 Views [facility] Start: 01-18-2024 X-ray of right knee, three views XR knee RT 3V - NOT FOR ER USE [facility] Start: 01-18-2024 XR Knee - right 3 Views [facility] Start: 12-21-2023 X-ray of right knee, two views XR knee RT 2V [facility] Start: 12-21-2023 XR Knee - right 2 Views [facility] Start: 12-08-2023 [facility] Start: 12-08-2023 [facility] Start: 12-02-2023 X-ray of right knee XR knee RT 2V Fi [facility] Start: 12-02-2023 XR Knee - right 2 Views [facility] Start: 11-18-2023 Duplex scan of lower limb veins US venous duplex LE RT [facility] Start: 11-18-2023 US Lower extremity v ein - right [facility] Start: 11-18-2023 Bacteria identified in Urine by Culture [facility] Start: 11-14-2023 Influenza vaccination Influenza Vacc ine (#1) [facility] Start: 11-10-2023 [facility] Start: 11-10-2023 Physical therapy procedure [facility] Start: 11-10-2023 Hospital admission [facility] Start: 11-10-2023 [facility] Start: 11-05-2023 [place] X-ray of right femur XR femur RT 2V* [facility] Start: 11-05-2023 [place] X-ray of right tibia and right fibula XR tibia fibula RT 2V* [facility] Start: 11-05-2023 [facility] Start: 11-05-2023 XR Femur - right 2 Views [facility] Start: 11-05-2023 XR Knee - right 2 Views [facility] Start: 11-05-2023 XR Tibia and Fibula - right 2 Views [facility] Start: 09-06-2023 Screening for malign ant neoplasm of colon [facility] Start: 03-15-2019 Screening for malign ant neoplasm of colon Colonoscopy [facility] Start: 1970 Screening for malign ant neoplasm of colon [facility] Healthcare Patient Education [facility] Work Phone: Patient referral [facility] Work Phone: Immunizations Immunization Date Immunization Notes Care Provider Fa [facility] 04-29-2024 COVID-19 (PFIZER) 12Y and older Erick Salcedo II Work Phone: [facility] 12-25-2022 SARS-COV-2 (COVID-19 ) vaccine, mRNA, spike protein, LNP, PF, mary-sucrose, 30 mcg/0.3 mL Cris Moran MARBLE SUPERVISOR Work Phone: [facility] 12-06-2022 tetanus toxoid, redu phil diphtheria toxoid, and acellular pertussis vaccine, adsorbed II Erick Salcedo Work Phone: [facility] 07-21-2022 zoster vaccine recombinant Cris Moran MARBLE SUPERVISOR Work Phone: [facility] 02-14-2022 influenza, injectabl e, quadrivalent, preservative free Cris Moran MARBLE SUPERVISOR Work Phone: [facility] 02-14-2022 influenza virus vaccine, unspecified formulation Cris Moran MARBLE SUPERVISOR Work Phone: [facility] 12-21-2021 COVID-19 mRNA Bivale nt Booster (Pfizer) Erick Salcedo II Work Phone: [facility] 12-21-2021 Moderna Bivalent Booster Vaccination Cris Moran MARBLE SUPERVISOR Work Phone: [facility] 12-21-2021 SARS-CoV-2, Unspecified Cherrie Moran MARBLE SUPERVISOR Work Phone: [facility] 07-29-2021 COVID-19 Comirnaty (Pfizer) Tri-Sucrose 12+ Erick Salcedo II Work Phone: [facility] 01-28-2021 COVID-19 mRNA, Comirnaty (Pfizer) Erick Salcedo II Work Phone: [facility] 01-28-2021 influenza, injectabl e, quadrivalent, preservative free Cris Moran MARBLE SUPERVISOR Work Phone: [facility] 06-19-2020 COVID-19 mRNA, Comirnaty (Pfizer) Eirck Salcedo II Work Phone: [facility] 05-28-2020 COVID-19 mRNA, Comirnaty (Pfizer) Erick Salcedo II Work Phone: [facility] 10-18-2019 influenza, high dose seasonal, preservative-free Cris Moran MARBLE SUPERVISOR Work Phone: [facility] 10-18-2019 influenza, injectabl e, quadrivalent, preservative free Cris Moran MARBLE SUPERVISOR Work Phone: [facility] 12-03-2012 seasonal influenza, intradermal, preservative free Cris Moran MARBLE SUPERVISOR Work Phone: [facility] 10-04-2000 tetanus toxoid, adsorbed Cris Moran MARBLE SUPERVISOR Work Phone: [facility] Healthcare Payers Date Payer Category Payer Self-pay [id number] 2021 Unknown [employer] [id number] 2021 [facility] er [id number] 2021 Unknown BCBS BCBS [id number] 2021-Present [phone] [address] [place] [address] [id number] 1969 Unknown [id number] [id number] .732 1969 Unknown [id number] 2.16.840.1.549851.3.579.2 .593 1969 Unknown [id number] 2.16.840.1.063445.3.579.2 .1259 1969 Unknown [id number] 2.16.840.1.761551.3.579.2 .1259 1969 Unknown [id number] 2.16.840.1.487891.3.579.2 .9 1969 Unknown [id number] 2.16.840.1.636061.3.579.2 .1259 1969 Unknown [id number] 2.16.840.1.340134.3.579.2 .1259 1959 Unknown [id number] Unknown [id number] 2.16.840.1.438736.3.579.2 .531 Unknown [id number] 2.16.840.1.448850.3.579.2 .531 Unknown [id number] 2.16.840.1.260769.3.579.2 .531 Unknown [id number] 2.16.840.1.214640.3.579.2 .531 Unknown [id number] 2.16.840.1.620852.3.579.2 .531 Unknown [id number] 2.16.840.1.553414.3.579.2 .531 Unknown [id number] 2.16.840.1.362147.3.579.2 .531 Unknown [id number] 2.16.840.1.234749.3.579.2 .531 Unknown [id number] 2.16.840.1.331033.3.579.2 .531 Unknown [id number] 2.16.840.1.609475.3.579.2 .531 Unknown [id number] 2.16.840.1.800689.3.579.2 .531 Unknown [id number] 2.16.840.1.115919.3.579.2 .531 Unknown [id number] 2.16.840.1.792126.3.579.2 .531 Social History Date Type Detail Facility Start: 08-27-2022 End: 11-05-2023 Tobacco smoking status NHIS Never smoked tobacco (finding) [facility] Start: 1970 Sex Assigned At Female [facility] Start: 11-18-2023 Tobacco smoking stat us MTIS Unknown if ever smoked [facility] Start: 08-27-2022 Tobacco use and exposure Smokeless tobacco non-user [facility] Start: 12-08-2023 End: 10-26-2024 Alcoholic beverage intake Ex-drinker (finding) [facility] [...] file N [facility] Start: 02-03-2024 End: 07-27-2024 Sex Female (finding) [facility] How often to you hav e a [...] fracture, patella Orthopaedic bone screw, non-bioabsorbable, non-sterile ()[id number] FDA Start: 11-10-2023 ORIF, fracture, patella Orthopaedic bone screw, non-bioabsorbable, non-sterile ()[id number] FDA Start: 11-10-2023 ORIF, fracture, patella Orthopaedic bone screw, non-bioabsorbable, non-sterile ()[id number] FDA Start: 11-10-2023 ORIF, fracture, patella Orthopaedic bone screw, non-bioabsorbable, non-sterile ()[id number] FDA Start: 11-10-2023 ORIF, fracture, patella Orthopaedic fixation plate, non-bioabsorbable ()[id number] FDA Start: 11-10-2023 ORIF, fracture, patella Tendon/ligament bone anchor, non-bioabsorbable [id number] FDA Start: 12-08-2023 Goals Date Patient Goal Desired Activity /State Functional Status Date Assessment Result Facility 10-26-2024 Patient Health Questionnaire 2 item (PHQ-2) [Reported] [facility] 10-26-2024 PHQ-9 quick depressi on assessment panel [Reported.PHQ] [facility] 07-25-2024 Patient Health Questionnaire 2 item (PHQ-2) [Reported] [facility] 11-11-2023 Functional status Patient is Pro gressing Toward Baseline [facility] Work Phone: Mental Status Date Assessment Result Facility 11-11-2023 Cognitive function Cognitive Sta tus Patient at Baseline [facility] Work Phone: Clinical Notes 11-06-2023 to 10-26-2024 Cris Moran NP - 10/26/2024 4:00 PM EDTTelephone Encounter - Corazon Patrickemilee - 10/23/2024 1:48 PM EDTTelephone Encounter - Corazon Elemilee - 10/23/2024 1:48 PM EDT Note Date & Type Note Facility 10-26-2024 History of Presen t illness Narrative Images [...] (300 mg) before bedtime. 180 capsule 3 GNP [...] Age of Onset Heart disease Mother Autumn Longoira Heart disease Father Shay Broderick Cancer Mother's Sister Lizzette Gill Past Medical History: Diagnosis Date ADHD (attention deficit hyperactivity disorder) Anxiety 02/03 Concussion COPD (chronic obstructive pulmonary disease) ([facility]) Depression 06/04 Heel spur Hernia, abdominal History [...] Call office for worsening of symptoms. Per [facility] regulations, follow ups have to occur every 3 months. You verbalized understanding of these rules in order for us to continue filling medications. OARRS/PDMP reviewed without concern. Safe [...] follow-ups on file. documented in this encounter [facility] 10-23-2024 Telephone encount er Note Patient scheduled [facility] 10-23-2024 Miscellaneous Notes Formattin g of this note might be different from the original. Patient scheduled Lvm Please help pt get set up for controlled medication follow up visit within the next two weeks. Needs to be seen prior to additional refills. OARRS reviewed, Rx sent into patient's pharmacy. documented in this encounter [facility] 10-19-2024 Telephone encount er Note Lvm [facility] 10-19-2024 Telephone encount er Note Please help pt get set up for controlled medication follow up visit within the next two weeks. Needs to be seen prior to additional refills. OARRS reviewed, Rx sent into patient's pharmacy. [facility] 09-21-2024 Telephone encount er Note OARRS reviewed, Rx sent into patient's pharmacy. [facility] 09-21-2024 Miscellaneous Notes Formattin g of this note might be different from the original. OARRS reviewed, Rx sent into patient's pharmacy. documented in this encounter [facility] 09-11-2024 Telephone encount er Note OARRS reviewed, Rx sent into patient's pharmacy. [facility] 09-11-2024 Miscellaneous Notes Formattin g of this note might be different from the original. OARRS reviewed, Rx sent into patient's pharmacy. documented in this encounter [facility] 09-07-2024 Telephone encount er Note OARRS reviewed, Rx sent into patient's pharmacy. [facility] 09-07-2024 Miscellaneous Notes Formattin g of this note might be different from the original. OARRS reviewed, Rx sent into patient's pharmacy. documented in this encounter [facility] 08-25-2024 Telephone encount er Note OARRS reviewed, Rx sent into patient's pharmacy. [facility] 08-25-2024 Miscellaneous Notes Formattin g of this note might be different from the original. OARRS reviewed, Rx sent into patient's pharmacy. documented in this encounter [facility] 08-11-2024 Telephone encount er Note OARRS reviewed, Rx sent into patient's pharmacy. [facility] 08-11-2024 Miscellaneous Notes Formattin g of this note might be different from the original. OARRS reviewed, Rx sent into patient's pharmacy. documented in this encounter [facility] 08-08-2024 Telephone encount er Note Already sent. [facility] 08-08-2024 Miscellaneous Notes Formattin g of this note might be different from the original. Already sent. documented in this encounter [facility] 08-08-2024 Telephone encount er Note OARRS reviewed, Rx sent into patient's pharmacy. [facility] 08-08-2024 Miscellaneous Notes Formattin g of this note might be different from the original. OARRS reviewed, Rx sent into patient's pharmacy. documented in this encounter [facility] 08-01-2024 Telephone encount er Note OARRS reviewed, Rx sent into patient's pharmacy. [facility] 08-01-2024 Miscellaneous Notes Formattin g of this note might be different from the original. OARRS reviewed, Rx sent into patient's pharmacy. documented in this encounter [facility] 07-25-2024 History of Presen t illness Narrative Images from the original note were not included. Subjective Patient ID: Nimo Craft is a 53 y.o. female who presents for No chief complaint on file.. Nimo presents today for a F/U for a RT patella fracture. She did have surgery and went through PT and is still having pain. Knee Pain The incident occurred more than 1 week ago. Incident location: at the store. The injury mechanism was a fall. The pain is present in the right knee. The quality of the pain is described as aching, burning and stabbing. The pain is at a severity of 6/10. The pain is moderate. The pain has been Intermittent since onset. Associated symptoms include a loss of motion, a loss of sensation and numbness. She reports no foreign bodies present. The symptoms are aggravated by movement and weight bearing. She has tried acetaminophen, elevation, heat, ice, immobilization, rest, NSAIDs and non-weight bearing (had surgery) for the symptoms. The treatment provided mild relief. Depression Visit Type: follow-up Patient presents with the following symptoms: depressed mood, excessive worry, feelings of hopelessness, feelings of worthlessness and nervousness/anxiety. Frequency of symptoms: most days Severity: causing significant distress ADHD This is a chronic problem. The current episode started more than 1 year ago. The problem occurs rarely. The problem has been unchanged. Associated symptoms include numbness. Nothing aggravates the symptoms. The treatment provided significant relief. Current Outpatient Medications on File Prior [...] A WEEK 12 patch 2 FLUoxetine (PROzac) 40 MG [...] (300 mg) before bedtime. 180 capsule 3 GNP [...] up to 7 days 28 tablet 0 tiZANidine (Zanaflex) 4 MG tablet [...] Diagnosis Date ADHD (attention deficit hyperactivity disorder) ([facility]) Anxiety 02/03 Concussion COPD (chronic obstructive pulmonary disease) ([facility]) Depression ([facility]) 06/04 Heel spur Hernia, abdominal History of hysterectomy Irritable bowel disease Past Surgical History: Procedure Laterality Date HERNIA REPAIR 2010 HYSTERECTOMY 2009 OVARY SURGERY 2006 PATELLA FRACTURE SURGERY Right 11/10/2023 ORIF PATELLECTOMY Right 12/08/2023 Visit Vitals Smoking Status Never Review of Systems Neurological: Positive for numbness. Psychiatric/Behavioral: Positive for depression. The patient is nervous/anxious. Objective Physical Exam Vitals reviewed. Constitutional: Appearance: Normal appearance. HENT: Head: Normocephalic. Nose: Nose normal. Mouth/Throat: Mouth: Mucous membranes are moist. Pharynx: Oropharynx is clear. Eyes: Conjunctiva/sclera: Conjunctivae normal. Cardiovascular: Rate and Rhythm: Normal rate. Pulmonary: Effort: Pulmonary effort is normal. Skin: General: Skin is warm and dry. Neurological: General: No focal deficit present. Mental Status: She is alert and oriented to person, place, and time. Psychiatric: Mood and Affect: Mood normal. Behavior: Behavior normal. Assessment/Plan Diagnoses and all orders for this visit: Grief reaction - FLUoxetine (PROzac) 20 MG capsule; Take 1 capsule (20 mg) by mouth Daily Pt has had a lot of and with her decreased mobility, she is exhibiting increased depression. Will increase Prozac to 60mg/day. Closed displaced fracture of right patella, unspecified fracture morphology, sequela - oxyCODONE (Roxicodone) 10 MG immediate release tablet; Take 1 tablet (10 mg) by mouth every 6 (six) hours if needed for severe pain for up to 7 days This is a chronic medical condition that is stable since last assessment. No changes in treatment are suggested at this time. Medication choice and dosage is appropriate for [...] OARRS Report was reviewed for this patient. Anxiety - ALPRAZolam (Xanax) 0.5 MG tablet; Take 1 tablet (0.5 mg) by mouth 3 (three) times a day as needed for anxiety Medication choice and dosage is appropriate for [...] OARRS Report was reviewed for this patient. Adjustment disorder with depressed mood (CMS/HCC) - FLUoxetine (PROzac) 20 MG capsule; Take 1 capsule (20 mg) by mouth Daily Medication as directed. Verbalizes understanding of the need to be seen in the ER for suicidal/homicidal ideation, excessive stress, elevated blood pressure or palpitations. Pt offers understanding of treatment plan. I discussed the side effects of the medications described and to seek medical care if they arise. Discussed stress mgmt strategies, social support and importance of healthy diet, exercise and regular sleep habits. Advised on relaxation methods to decrease anxiety and depression. Attention deficit hyperactivity disorder (ADHD), combined type (CMS/HCC) Medication choice and dosage is appropriate for [...] follow-ups on file. documented in this encounter [facility] 07-20-2024 Telephone encount er Note Already addressed [facility] 07-20-2024 Miscellaneous Notes Formattin g of this note might be different from the original. Already addressed documented in this encounter [facility] 07-20-2024 Telephone encount er Note Patient wanted to be seen earlier appt scheduled [facility] 07-20-2024 Miscellaneous Notes Formattin g of this note might be different from the original. Patient wanted to be seen earlier appt scheduled Lvm Please help pt get set up for her routine medication follow up in August. OARRS reviewed, Rx sent into patient's pharmacy. documented in this encounter [facility] 07-20-2024 Telephone encount er Note Patient wanted to be seen earlier appt scheduled [facility] 07-20-2024 Miscellaneous Notes Formattin g of this note might be different from the original. Patient wanted to be seen earlier appt scheduled Please help pt get set up for three month follow up appt mid August. Thank you. OARRS reviewed, Rx sent into patient's pharmacy. documented in this encounter [facility] 07-19-2024 Telephone encount er Note Please help pt get set up for three month follow up appt mid August. Thank you. OARRS reviewed, Rx sent into patient's pharmacy. [facility] 07-17-2024 Telephone encount er Note Lvm [facility] 07-17-2024 Telephone encount er Note Please help pt get set up for her routine medication follow up in August. OARRS reviewed, Rx sent into patient's pharmacy. [facility] 06-26-2024 Telephone encount er Note Oxycodone already sent [facility] 06-26-2024 Miscellaneous Notes Formattin g of this note might be different from the original. Oxycodone already sent documented in this encounter [facility] 06-26-2024 Telephone encount er Note OARRS reviewed, Rx sent into patient's pharmacy. [facility] 06-26-2024 Miscellaneous Notes Formattin g of this note might be different from the original. OARRS reviewed, Rx sent into patient's pharmacy. documented in this encounter [facility] 05-25-2024 History of Presen t illness Narrative Images from the original note were not included. HPI Follow-up Additional comments: Controlled meds ADHD/ anxiety Med Refill Additional comments: [facility] Last edited by Danelle Combs LPN on 05/25/2024 4:39 PM. Subjective Patient ID: Nimo Craft is a 53 y.o. female who presents for Follow-up (Controlled meds/ADHD/ anxiety) and Med Refill ([facility]one-- [facility]). Pt doing well on all current meds Planning on getting her next knee surgery done soon pain med working well for per Adderall helping with ADHD No medical concerns today Med Refill This is a chronic problem. The current episode started more than 1 month ago. The problem occurs constantly. The problem has been waxing and waning. Associated symptoms include arthralgias, joint swelling and myalgias. The symptoms are aggravated by bending, walking, standing and exertion. She has tried heat, ice, acetaminophen, NSAIDs, lying down, immobilization, position changes, relaxation and sleep (surgery) for the symptoms. The treatment provided mild [...] (300 mg) before bedtime. 180 capsule 3 GNP [...] up to 7 days 28 tablet 0 tiZANidine (Zanaflex) 4 MG tablet Take 1 tablet (4 mg) by mouth in the morning and 1 tablet (4 mg) in the evening and 1 tablet (4 mg) before bedtime. 270 tablet 3 zolpidem CR (Ambien CR) 12.5 MG ER tablet Take 1 tablet (12.5 mg) by mouth at bedtime 30 tablet 5 [DISCONTINUED] oxyCODONE (Roxicodone) 10 MG immediate release tablet Take 1 tablet (10 mg) by mouth every 6 (six) hours if needed for severe pain for up to 7 days 28 tablet 0 [DISCONTINUED] Tirzepatide-Weight Management (Zepbound) 5 MG/0.5ML solution auto-injector Inject 5 mg under the skin 1 (one) time per week 2 mL 0 No current facility-administered medications on file prior [...] Diagnosis Date ADHD (attention deficit hyperactivity disorder) (CMS/HCC) Anxiety 02/03 Concussion COPD (chronic obstructive pulmonary disease) (CMS/HCC) Depression (CMS/HCC) 06/04 Heel spur Hernia, abdominal History of hysterectomy Irritable bowel disease Past Surgical History: Procedure Laterality Date HERNIA REPAIR 2009 HYSTERECTOMY 2009 OVARY SURGERY 2006 PATELLA FRACTURE SURGERY Right 11/10/2023 ORIF PATELLECTOMY Right 12/08/2023 Visit Vitals Ht 5' 1 BMI 41.46 kg/m Smoking Status Never BSA 2.07 m Review of Systems Musculoskeletal: Positive for arthralgias, joint swelling and myalgias. Objective Physical Exam Vitals reviewed. Constitutional: Appearance: Normal appearance. HENT: Head: Normocephalic. Mouth/Throat: Mouth: Mucous membranes are moist. Pharynx: Oropharynx is clear. Cardiovascular: Rate and Rhythm: Normal rate. Pulmonary: Effort: Pulmonary effort is normal. Musculoskeletal: General: Swelling, deformity and signs of injury present. Comments: Rt knee swelling and deformity Skin: General: Skin is warm and dry. Neurological: General: No focal deficit present. Mental Status: She is alert and oriented to person, place, and time. Psychiatric: Mood and Affect: Mood normal. Behavior: Behavior normal. Thought Content: Thought content normal. Assessment/Plan Diagnoses and all orders for this visit: Closed displaced fracture of right patella with routine healing, unspecified fracture morphology, subsequent encounter Medication choice and dosage is appropriate for [...] OARRS Report was reviewed for this patient. Pt has to have another surgery. Encounter for screening for malignant neoplasm of colon - Cologuard colon cancer screening; Future Await results Morbid (severe) obesity due to excess calories (CMS/HCC) Discussed goal of BMI < 30. Advised on weight loss options. Encouraged diet and exercise. Discussed with patient appropriate lifestyle modification changes necessary for weight management, heart healthy eating and overall health promotion. Discussed minimizing high carb, high sugar, high sodium, portion control, and processed foods while making healthy choice replacements. Additionally discussed recommendations of 30 minutes of aerobic exercise at least 5 days per week, that includes, walking, and chair exercises. . Instructed importance of drinking adequate water consumption (if not on fluid restriction) with minimal sugar and caffiene. Body mass index (BMI) 40.0-44.9, adult ([facility]) Discussed goal of BMI < 30. Advised on weight loss options. Encouraged diet and exercise. Discussed with patient appropriate lifestyle modification changes necessary for weight management, heart healthy eating and overall health promotion. Discussed minimizing high carb, high sugar, high sodium, portion control, and processed foods while making healthy choice replacements. Additionally discussed recommendations of 30 minutes of aerobic exercise at least 5 days per week, that includes, walking, and chair exercises. . Instructed importance of drinking adequate water consumption (if not on fluid restriction) with minimal sugar and caffiene. No follow-ups on file. documented in this encounter [facility] 05-04-2024 Evaluation note Diagnosis Onset Date Resolution Displaced transverse fracture of right patella, initial encounter for close acute April 2:29pm Other specified postprocedural states acute April 162024 2:29pm Displaced transverse fracture of right patella, initial encounter for close acute June 08, 2024 11:26am Pre-op exam acute June 08 025 11:26am Stiffness of right knee acute M arch 2024 11:26am Displaced transverse fracture of right patella, initial encounter for close acute June 26, 2024 2:00pm Other specified postprocedural states acute June 2:00pm Stiffness of right knee acute A pril 2024 2:00pm [facility] Work Phone: 1(564) 199-272802-20-2025 Evaluation note* Diagnosis Onset Date Resolution Status Admit Date Displaced transverse fractur e of right patella, initial encounter for close acute April 2:29pm Other specified postprocedur al states acute May 04 025 2:29pm Displaced transverse fractur e of right patella, initial encounter for close acute June 08, 2024 11:26am Pre-op exam acute June 08 025 11:26am Stiffness of right knee acute M arch 2024 11:26am Displaced transverse fractur e of right patella, initial encounter for close acute June 26, 2024 2:00pm Other specified postprocedur al states acute June 26, 2024 2:00pm Stiffness of right knee acute A pril 2024 2:00pm Displaced transverse fractur e of right patella, initial encounter for close acute July 27 2:15pm Other specified postprocedur al states acute July 27, 2024 2 :15pm Stiffness of right knee acute M ay 2024 2:15pm [facility] Work Phone: 1(595) 876-657902-14-2025 Telephone encounter Note* Telephone Encounter - NII Kc - 04/28/2024 8:59 AM EST Last filled 04/25/2024. Pt requesting refill too soon. [facility] Work Phone: 1(179) 478-272502-14-2025 Miscellaneous Notes* Telephone Encounter - NII Kc - 04/28/2024 8:59 AM EST Last filled 04/25/2024. Pt requesting refill too soon. [id number] Telephone encounter Note* Telephone Encounter - NII Kc - 04/10/2024 5:06 PM EST OARRS reviewed, Rx [facility] into patient's pharmacy. [id number] Miscellaneous Notes* Telephone Encounter - NII Kc - 04/10/2024 5:06 PM EST OARRS reviewed, Rx sent into patient's pharmacy. documented in this encounterNOCox Walnut [id number] Telephone encounter Note* Telephone Encounter - Pippa Cr PEDRO - 03/30/2024 2:31 PM EST [facility] is currently out of medication. [facility] [id number] Miscellaneous Notes* Telephone Encounter - Pippa Cr PEDRO - 03/30/2024 2:31 PM EST [facility] is currently out of medication[facility]Y documented in this encounterNOCox Walnut [id number] Evaluation note* Diagnosis Onset Date Resolution Status Admit Date Displaced transverse fractur e of right patella, initial encounter for close acute March 20, 2024 3:16pm Other specified postprocedur al states acute March 20 3:16pm Displaced transverse fractur e of right patella, initial encounter for close acute April 2:29pm Other specified postprocedur al states acute May 04, 2 025 2:29pm [facility] Work Phone: 1(658) 724-563801-06-2025 Evaluation note* Diagnosis Onset Date Resolution Status Admit Date Displaced transverse fractur e of right patella, initial encounter for close acute March 20, 2024 3:16pm Other specified postprocedur al states acute March 20 3:16pm Displaced transverse fractur e of right patella, initial encounter for close acute April 2:29pm Other specified postprocedur al states acute May 04, 2 025 2:29pm Displaced transverse fractur e of right patella, initial encounter for close acute June 08, 2024 11:26am Pre-op exam acute June 08, 2 025 11:26am Stiffness of right knee acute 2024 11:26am [facility] Work Phone: 1(841) 668-360512-26-2024 History of Present illness Narrative* Cris Moran NP - 03/09/2024 2:00 PM EST Images from the original note were not included. Subjective Patient ID: Nimo Craft is a 53 y.o. female who presents for back pain. Nimo presents today for her 3 month F/U, for back pain. She also broke her knee cap after a fall back in October. Knee Pain The incident occurred more than 1 week ago. Incident location: shopping. The injury mechanism was adirect blow. The pain is present in the right knee. The quality of the pain is described as stabbing. The pain is at a severity of 7/10. The pain is moderate. The pain has been Fluctuating since onset. Associated symptoms include a loss of motion and numbness. She reports no foreign bodies present.The symptoms are aggravated by movement. She has [...] Diagnosis Date ADHD (attention deficit hyperactivity disorder) ([facility]) Anxiety 02/03 Concussion COPD (chronic obstructive pulmonary disease) ([facility]) Depression ([facility]) 06/04 Heel spur Hernia, abdominal History of [...] No follow-ups on file. documented in this [facility]12-19-2024 Telephone encounter Note* Telephone Encounter - NII Kc - 03/02/2024 4:12 PM EST OARRS reviewed, Rx [facility] patient's pharmacy. [id number] Miscellaneous Notes* Telephone Encounter - NII Kc - 03/02/2024 4:12 PM EST OARRS reviewed, Rx sent into patient's pharmacy. documented in this [facility]12-19-2024 Evaluation note* Diagnosis Onset Date Resolution Status Admit Date Displaced transverse fractur e of right patella, initial encounter for close acute February 10:54am Other specified postprocedur al states acute March 02, 024 10:54am Displaced transverse fractur e of right patella, initial encounter for close acute March 20, 2024 3:16pm Other specified postprocedur al states acute March 20 3:16pm Displaced transverse fractur e of right patella, initial encounter for close acute April h, 2024 2:29pm Other specified postprocedur al states acute May 04, 025 2:29pm [facility] Work Phone: 1(249) 594-938512-14-2024 Telephone encounter Note* Telephone Encounter - NII Kc - 02/26/2024 8:59 AM EST OARRS reviewed, Rx [facility] patient's pharmacy. [facility]Ipkbnlwyoh82-02-1796 Miscellaneous Notes* Telephone Encounter - NII Kc - 02/26/2024 8:59 AM EST OARRS reviewed, Rx sent into patient's pharmacy. documented in this [facility]12-06-2024 Telephone encounter Note* Telephone Encounter - NII Kc - 02/18/2024 12:43 PM EST OARRS reviewed, Rx sent into patient's pharmacy. [facility] [id number] Miscellaneous Notes* Telephone Encounter - NII Kc - 02/18/2024 12:43 PM EST OARRS reviewed, Rx sent into patient's pharmacy. documented in this [facility]12-02-2024 Telephone encounter Note* Telephone Encounter - Corazon Henry - 02/14/2024 2:45 PM EST Spoke with patient. She asked to do telemed but I told her we could not do that this time that it needed to be in person. She said she will call back and schedule when she has someone that can bring her. [id number] Miscellaneous Notes* Telephone Encounter - Corazon Carl - 02/14/2024 2:45 PM EST Spoke with patient. She asked to do telemed but I told her we could not do that this time that it needed to be in person. She said she will call back and schedule when she has someone that can bring her. * Telephone Encounter - NII Kc - 02/14/2024 12:45 PM EST Please remind pt that she will need to be seen in person for an appointment in the office the firstweek of March for controlled medication follow up. OARRS reviewed, Rx sent into patient's pharmacy. documented in this encounterSaint [facility] WestOjzhpywatl28-11-9267 Telephone encounter Note* Telephone Encounter - NII Kc - 02/14/2024 12:45 PM EST Please remind pt that she will need to be seen in person for an appointment in the office the firstwe of March for controlled medication follow up. OARRS reviewed, Rx sent into patient's pharmacy. [facility]Fvwppiciaf69-57-7410 Telephone encounter Note* Telephone Encounter - NII Kc - 02/07/2024 9:28 AM EST OARRS reviewed, Rx sent into patient's pharmacy. [facility] WestEqbchufaci55-03-0102 Miscellaneous Notes* Telephone Encounter - NII Kc - 02/07/2024 9:28 AM EST OARRS reviewed, Rx sent into patient's pharmacy. * Telephone Encounter - JAKE DALAL - 02/07/2024 8:50 AM EST Patient called asking for a refill on their oxycodone 10mg. Please send to [email or web address]. documented in this encounterSaint [facility] WestOrspjqfxkx04-90-8996 Telephone encounter Note* Telephone Encounter - JAKE DALAL - 02/07/2024 8:50 AM EST Patient called asking for a refill on their oxycodone 10mg. Please send to [email or web address]. [facility] WestSwdyihudsd01-71-2707 Telephone encounter Note* Telephone Encounter - NII Kc - 01/31/2024 3:43 PM EST OARRS reviewed, Rx sent into patient's pharmacy. [facility] [id number] Miscellaneous Notes* Telephone Encounter - NII Kc - 01/31/2024 3:43 PM EST OARRS reviewed, Rx sent into patient's pharmacy. documented in this encounterSaint [facility] Hospital WestWurqxyhorg65-23-8073 Telephone encounter Note* Telephone Encounter - NII Kc - 01/21/2024 8:59 AM EST OARRS reviewed, Rx sent into patient's pharmacy. [facility] [id number] Miscellaneous Notes* Telephone Encounter - NII Kc - 01/21/2024 8:59 AM EST OARRS reviewed, Rx sent into patient's pharmacy. documented in this encounterSaint [facility] WestPxunrnhzao24-90-1001 Evaluation note* Diagnosis Onset Date Resolution Status Admit Date Displaced transverse fractur e of right patella, initial encounter for close acute January 1:39pm Other specified postprocedur al states acute January 17 24 1:39pm Displaced transverse fractur e of right patella, initial encounter for close acute January 9:56am Other specified postprocedur al states acute February 02, 2 024 9:56am Displaced transverse fractur e of right patella, initial encounter for close acute February 10:54am Other specified postprocedur al states acute March 02, 2 024 10:54am Displaced transverse fractur e of right patella, initial encounter for close acute March 20, 2024 3:16pm Other specified postprocedur al states acute March 20 3:16pm [facility] Work Phone: 1(915) 583-823910-14-2024 Telephone encounter Note* Telephone Encounter - Pippa Cr MA - 12/27/2023 7:21 AM EDT Other - I'm not sure if there are refills left on Ambien 12.5. The print on the label is wore off Preferred pharmacy: [id number] - [address] AT [facility] Delivery method: Pickup Medication renewals requested in this message routed separately: oxyCODONE (Roxicodone) 10 MG immediate release tablet [Cris Moran] estradiol (Climara) 0.025 MG/24HR [NII Valdez] ALPRAZolam (Xanax) 0.5 MG tablet [NII Valdez] [facility] [id number] Miscellaneous Notes* Telephone Encounter - Pippa Cr MA - 12/27/2023 7:21 AM EDT Other - I'm not sure if there are refills left on Ambien 12.5. The print on the label is wore off Preferred pharmacy: [id number] - [place], [place] - [address] [place] [address] Delivery method: Pickup Medication renewals requested in this message routed separately: oxyCODONE (Roxicodone) 10 MG immediate release tablet [Cris Moran] estradiol (Climara) 0.025 MG/24HR [NII Valdez] ALPRAZolam (Xanax) 0.5 MG tablet [NII Valdez] documented in this [facility]10-04-2024 Telephone encounter Note* Telephone Encounter - NII Kc - 12/17/2023 8:27 AM EDT Oxycodone refill too soon. [place] [id number] Miscellaneous Notes* Telephone Encounter - NII Kc - 12/17/2023 8:27 AM EDT Oxycodone refill too soon. documented in this [facility]10-04-2024 Telephone encounter Note* Telephone Encounter - NII Kc - 12/17/2023 8:25 AM EDT OARRS reviewed, Rx sent into patient's pharmacy. [address]myvdilfhz66-17-0147 Miscellaneous Notes* Telephone Encounter - NII Kc - 12/17/2023 8:25 AM EDT OARRS reviewed, Rx sent into patient's pharmacy. documented in this [address]01-2024 History of Present illness Narrative* Cris Moran, MARBLE SUPER[employer] - 12/14/2023 9:00 AM EDT Images from [...] orthopedics due to fracture. documented in this encounterSaint [facility] Hospital [id number] Progress note Author Louis Beal [facility] November 11, 2023 11:28am Note Date/Time November 11, 2023 11 :27am [facility] [address] [place], [place] [id number] Orthopedic Progress Note Signed Patient: Nimo Craft MR#: [id number] : 1970 Acct:[id number] Age/Sex: 53 / F Adm Date: 4 Loc: 4N Room: [address] [place] [address] Type: ADM IN Attending Dr: Louis Beal [...] 11/11/23 11:14 11/10/23 19:40 Narrative: RLE examined. Oliverio wrap and HKB in place. Pt able [...] % (Auto) 72.4 Lymph % (Auto) 19.5 [place] % (Auto) 6.5 Eos % (Auto) 1.1 Baso % (Auto) 0.5 Nucleat RBC Rel Count 0.1 Neut # (Auto) 4.3 Lymph # (Auto) 1.2 [place] # (Auto) 0.4 Eos # (Auto) 0.1 [...] d/c instructions Documented By: Louis Beal DO 11/11/23 112 Signed By: <Electronically signed by Louis Beal DO> 11/11/23 1128 [facility] Work Phone: 1(614) 636-802808-28-2024 Evaluation note* Diagnosis Onset Date Resolution Status [...] specified postprocedural states acute January 142023 9:56am [facility] Work Phone: 1(247) 177-324308-24-2024 Hospital Discharge instructions Additional Instructions Knee immobilizer Crutches no weightbearing Call Dr. Alvarado's office at 8 AM on Wednesday for appointment Take your Vicodin 1-2 every 4 hours as needed for pain [facility] Phone: evaluation noteNo assessment information available [facility] Work Phone: evaluation note* Diagnosis Onset Date Resolution Status Patellar fracture acute Pre-op exam acute [facility] Work Phone: evaluation note* Diagnosis Onset Date Resolution Status Patellar fracture acute Pre-op exam acute Patellar fracture acute [facility] Work Phone: evaluation note* Diagnosis Onset Date Resolution Status Pre-op exam acute [facility] Work Phone: evaluation note* Diagnosis Onset Date Resolution Status Pre-op exam acute [id number] acute Other specified postprocedural states acute [facility] Work Phone: evaluation note* Diagnosis Closed displaced fracture of right patella, unspecified fracture morphology, sequela- Primary [facility] this encounter [facility] Diagnosis Closed displaced fracture of right patella, unspecified fracture morphology, sequela [facility] this [facility]* Diagnosis Attention deficit hyperactivity disorder (ADHD), unspecified ADHD type ([facility]/HCC) documented in this encounter [facility] HealthcareEvaluation note* Diagnosis Onset Date Resolution Status Pre-op exam acute [id number] acute Other specified postprocedural states acute Other specified postprocedural states acute [id number] acute Other specified postprocedural states acute Visit for suture removal non eactive [facility] Work Phone: Evaluation note* Diagnosis Closed [...] Onset Date Resolution Status Pre-op exam acute [id number] acute Other specified postprocedural states acute Other specified postprocedural states acute [id number] acute Other specified postprocedural states acute Visit for suture removal non eactive [id number] acute Other specified postprocedural states acute [facility] Work Phone: Evaluation note* Diagnosis Attention [...] note* Diagnosis Closed displaced fracture of right patella with routine healing, unspecified fracture morphology, subsequent encounter- Primary Encounter for screening for malignant neoplasm of colon Morbid (severe) obesity due to excess calories ([facility]) Body mass index (BMI) 40.0-44.9, adult ([facility]) documented in this encounter [facility]* Diagnosis Anxiety Anxiety state, unspecified documented in this encounter [facility]* Diagnosis Attention deficit hyperactivity disorder (ADHD), unspecified ADHD type ([facility]) Closed displaced fracture of right patella, unspecified fracture morphology, sequela documented in this encounter [facility]* Diagnosis Closed displaced fracture of right patella, unspecified fracture morphology, sequela documented in this encounter [facility]* Diagnosis Primary insomnia Persistent disorder of initiating or maintaining sleep Anxiety Anxiety state, unspecified documented in this encounter [facility]* Diagnosis Closed displaced fracture of right patella, unspecified fracture morphology, sequela documented in this encounter [facility]* Diagnosis Grief reaction- Primary Adjustment disorder with depressed mood Closed displaced fracture of right patella, unspecified fracture morphology, sequela Anxiety Anxiety state, unspecified Adjustment disorder with depressed mood ([facility]) Adjustment disorder with depressed mood Attention deficit hyperactivity disorder (ADHD), combined type ([facility]) documented in this encounter [facility]* Diagnosis Attention deficit hyperactivity disorder (ADHD), unspecified ADHD type ([facility]) Closed displaced fracture of right patella, unspecified fracture morphology, sequela documented in this encounter [facility]* Diagnosis Attention deficit hyperactivity disorder (ADHD), unspecified ADHD type Closed displaced fracture of right patella, unspecified fracture morphology, sequela documented in this encounter [facility]* Diagnosis Attention deficit hyperactivity disorder (ADHD), unspecified ADHD type Closed displaced fracture of right patella, unspecified [...] Anxiety state, unspecified [facility] Additional Instructions Orthopedic surgery discharge [...] week after surgery, you may remove your Oliverio wrap for 5 days after surgery. After [...] any questions or concerns. Dr. Louis Beal [facility] [address] [place] [address] [facility] Work Phone: Hospital Discharge instructions Additional Instructions POST OPERATIVE INSTRUCTIONS FOR THE PATELLA FRACTURE Alex Sierra DO Orthopedic Surgeon [facility] General instructions: Use ice packs to the [...] drainage, please contact our office immediately. Alex Sierra DO Orthopedic Surgeon [facility] Office: [address] [place] [address] Office number: [phone] [facility] Work Phone: Hospital Discharge instructions Additional Instructions POST-OPERATIVE INSTRUCTIONS FOR KNEE ARTHROSCOPY Alex Sierra DO Orthopedic Surgeon [facility] INSTRUCTIONS: Use ice packs to the area of [...] baby aspirin (81mg) twice daily for about 2 weeks to help with the development and [...] immediately to the nearest emergency room. ACTIVITY: Your knee is wrapped in a soft OLIVERIO bandage You are weightbearing as tolerated on your operative leg. You are to ambulate with crutches if needed. Once you feel safe to walk without the crutches, you can discontinue them DRESSING/BANDAGES: Your surgical bandage may show some drainage over the first 24-48 hours following surgery. Keep steri-strips intact if they are present If your bandage becomes saturated, please notify the office. You may shower after the first 48 hours following surgery. DO NOT soak the incision. DO NOT submerge the incision in a bath, hot tub, swimming pool, or any other body of water for the first 4 weeks following surgery. FOLLOW UP: Your first post-operative appointment should already be scheduled for you. If you do not already have a post-operative appointment, our office will contact you to schedule one. You should be seen in the office two weeks following your surgery unless otherwise specified. If you notice any increasing swelling, wound redness, or drainage, please contact our office immediately. Alex Sierra DO Orthopedic Surgeon [facility] Office: [address] [facility] [place] [address] Office number: [phone] [facility] Work Phone: Summary Purpose Family History Relationship Condition Age at Onset Recorded Date/T piotr mother Heart disease Unknown Relationship Condition Age at Onset Recorded Date/T piotr mother Heart disease Unknown father Cerebrovascular accident (CVA) Unknown Myocardial infarction Unknown Advance Directives Advance Directive Response Recorded Date/ Time Advance Directives No February 16, 2019 3:42pm Advance Directive Response Recorded Date/ Time Advance Directives No February 16, 2019 2:42pm Advance Directive Response Recorded Date/ Time Advance Directives No June 26, 2 025 2:17pm Chief Complaint and Reason for Visit Chief Complaint knee injury Chief Complaint knee injury [facility] P[facility]LL[facility] FX WX Reason for Visit Patellar fracture Pre-op exam Chief Complaint knee injury [facility] FX WX Fracture Fracture Reason for Visit Patellar fracture Pre-op exam Patellar fracture Chief Complaint knee injury [facility] [place] FX WX Fracture Fracture knee pain Reason for Visit Pre-op exam Chief Complaint knee injury [facility] [place] FX WX Fracture Fracture knee pain JEANNE PT 3 WK POST OP Z98.890 - Other specified postprocedural states Reason for Visit Pre-op exam [id number] Other specified postprocedural states Chief Complaint knee injury [facility] [place] FX WX Fracture Fracture knee pain JEANNE PT 3 WK POST OP Z98.890 - Other specified postprocedural states Knee Pain Knee Pain Reason for Visit Pre-op exam [id number] Other specified postprocedural states Chief Complaint knee injury [facility] [place] FX WX Fracture Fracture knee pain JEANNE PT 3 WK POST OP Z98.890 - Other specified postprocedural states Knee Pain Knee Pain INCISION CHECK PER KAB Reason for Visit Pre-op exam [id number] Other specified postprocedural states Chief Complaint knee injury [facility] P[place] FX WX Fracture Fracture knee pain JEANNE PT 3 WK POST OP Z98.890 - Other specified postprocedural states Knee Pain Knee Pain INCISION CHECK PER KAB Z98.890 - Other specified postprocedural states Reason for Visit Pre-op exam [id number] Other specified postprocedural states Other specified postprocedural states [id number] Other specified postprocedural states Visit for suture removal Chief Complaint knee injury [facility] P[place]LL[place] FX WX Fracture Fracture knee pain JEANNE PT 3 WK POST OP Z98.890 - Other specified postprocedural states Knee Pain Knee Pain INCISION CHECK PER KAB Z98.890 - Other specified postprocedural states 4 WEEKS S82.031A - Displaced transverse fracture of right Reason for Visit Pre-op exam [id number] Other specified postprocedural states Other specified postprocedural states [id number] Other specified postprocedural states Visit for suture removal [id number] Other specified postprocedural states Chief Complaint Admit Date knee injury November 05, 2023 11 :42pm ER [facility] [place] FX WX November 09 10:15am Fracture November 10, 2023 11 :38am Fracture November 10, 2023 5: 51pm knee pain November 18, 2023 7:18pm JEANNE PT 3 WK POST OP December 02, 2023 1:20pm Z98.890 - Other specified postprocedural states December 02, 2023 1:22pm Knee Pain December 08, 2023 5:41am Knee Pain December 08, 2023 9:39am INCISION CHECK PER KAB December 12 11:38am Z98.890 - Other specified postprocedural states December 21, 2023 11:26am 4 WEEKS January 18, 2024 1 :39pm S82.031A - Displaced transverse fracture of right January 18, 2024 1:59pm OKAY TO BEND KNEE February 02 8:53am 2 WEEKS February 03, 2024 9:56am [...] specified postprocedural states Ja nuary 2024 3:16pm Chief Complaint Admit Date 4 WEEKS March 02, 2024 10:54am New dry needling eval March 16, 2024 2:36pm 2 weeks March 20, 2024 3: 16pm s/p R Kn removal of hardware and other F [facility] 2024 2:30pm 6 WEEKS May 04, 2024 2:29pm Reason for Visit Admit Date Displaced transverse fractur e of right patella, initial encounter for close March 02, 2024 10:54am Other specified postprocedural states De cember 2023 10:54am Displaced transverse fractur e of right patella, initial encounter for close March 20, 2024 3:16pm Other specified postprocedural states Yaya jones 2024 3:16pm Displaced transverse fractur e of right patella, initial encounter for close May 04, 2024 2:29pm Other specified postprocedural states Francia bruary 2024 2:29pm Chief Complaint Admit Date New dry needling eval March 16, 2024 2:36pm 2 weeks March 20, 2024 3: 16pm s/p R Kn removal of hardware and other F [facility] 2024 2:30pm 6 WEEKS May 04, 2024 2:29pm Knee Pain June 06, 2024 2:1 3pm Reason for Visit Admit Date Displaced transverse fractur e of right patella, initial encounter for close March 20, 2024 3:16pm Other specified postprocedural states Yaya jones 2024 3:16pm Displaced transverse fractur e of right patella, initial encounter for close May 04, 2024 2:29pm Other specified postprocedural states [facility] 2:29[facility] Chief Complaint Admit Date New dry needling eval March 16, 2024 2:36pm 2 weeks March 20, 2024 3: 16pm s/p R Kn removal of hardware and other F [facility] 2024 2:30pm 6 WEEKS May 04, 2024 2:29pm Knee Pain June 06, 2024 2:1 3pm H & P RIGHT KNEE June 08, 2024 11: 26am Reason for Visit Admit Date Displaced transverse fractur e of right patella, initial encounter for close March 20, 2024 3:16pm Other specified postprocedural states Yaya jones 2024 3:16pm Displaced transverse fractur e of right patella, initial encounter for close May 04, 2024 2:29pm Other specified postprocedural states Francia bruary 2024 2:29pm Displaced transverse fractur e of right patella, initial encounter for close June 08, 2024 11:26am Pre-op exam June 08, 2024 11: 26am Stiffness of right knee June 08, 2024 11:26am Chief Complaint Admit Date 2 weeks March 20, 2024 3: 16pm s/p R Kn [facility] of hardware and [facility] 2:30[facility] 6 WEEKS May 04, 2024 2:29pm Knee Pain June 06, 2024 2:1 3pm H & P RIGHT KNEE June 08, 2024 11: 26am Chief Complaint Admit Date 2 weeks March 20, 2024 3: 16pm s/p R Kn removal of hardware and other F [facility] 2024 2:30pm 6 WEEKS May 04, 2024 2:29pm Knee Pain June 06, 2024 2:1 3pm H & P RIGHT KNEE June 08, 2024 11: 26am Knee Pain June 16, 2024 5:49 am Chief Complaint Admit Date s/p R Kn removal of hardware and other F [facility] 2024 2:30pm 6 WEEKS May 04, 2024 2:29pm Knee Pain June 06, 2024 2:1 3pm H & P RIGHT KNEE June 08, 2024 11: 26am Knee Pain June 16, 2024 5:49 am Knee Pain June 16, 2024 11:0 7am R Knee Scope June 26, 2024 9:3 0am 10-14 days post op June 26, 2024 2:0 0pm Reason for Visit Admit Date Displaced transverse fractur e of right patella, initial encounter for close May 04, 2024 2:29pm Other specified postprocedural states Fe bruary 2024 2:29pm Displaced transverse fractur e of right patella, initial encounter for close June 08, 2024 11:26am Pre-op exam June 08, 2024 11: 26am Stiffness of right knee June 08, 2024 11:26am Displaced transverse fractur e of right patella, initial encounter for close June 26, 2024 2:00pm Other specified postprocedural states Ap ril 2024 2:00pm Stiffness of right knee June 26, 2024 2:00pm Chief Complaint Admit Date 6 WEEKS May 04, 2024 2:29pm Knee Pain June 06, 2024 2:1 3pm H & P RIGHT KNEE June 08, 2024 11: 26am Knee Pain June 16, 2024 5:49 am Knee Pain June 16, 2024 11:0 7am 10-14 days post op June 26, 2024 2:0 0pm R Knee Scope July 20, 2024 1:00pm 4 weeks July 27, 2024 2:15p m Reason for Visit Admit Date Displaced transverse fractur e of right patella, initial encounter for close May 04, 2024 2:29pm Other specified postprocedural states Fe bruary 2024 2:29pm Displaced transverse fractur e of right patella, initial encounter for close June 08, 2024 11:26am Pre-op exam June 08, 2024 11: 26am Stiffness of right knee June 08, 2024 11:26am Displaced transverse fractur e of right patella, initial encounter for close June 26, 2024 2:00pm Other specified postprocedural states Ap ril 2024 2:00pm Stiffness of right knee June 26, 2024 2:00pm Displaced transverse fractur e of right patella, initial encounter for close July 27, 2024 2:15pm Other specified postprocedural states Ma y 2024 2:15pm Stiffness of right knee July 27, 2024 2 :15pm Additional Source Comments INFORMATION SOURCE (unrecogn ized section and content) DATE CREATED AUTHOR 04/10/2021 [facility] DATE CREATED AUTHOR AUTHOR'S ORGANIZ ATION 12/14/2021 [facility] dical Specialist DATE CREATED AUTHOR AUTHOR'S ORGANIZ ATION 04/09/2022 [facility] pital DATE CREATED AUTHOR AUTHOR'S ORGANIZ ATION 07/26/2024 [facility] dical Specialists EPIC DATE CREATED AUTHOR AUTHOR'S ORGANIZ ATION 08/01/2024 [facility] ysician Group Care Teams (unrecognized sec tion and content) Team Status: Active Member Role Status Dates Erick Salcedo II MD Primary Care Provider Active Team Status: Inactive Member Role Status Dates Erick Salcedo II MD Primary Care Provider Active Start: March 20, 2024 End: March 20, 2024 Alex Sierra DO Attending Provider Active St art: March 20, 2024 End: March 20, 2024 Team Status: Inactive Member Role Status Joanna Salcedo II MD Primary Care Provider Active Start: April 19, 2024 End: April 19, 2024 Alex Sierra DO Attending Provider Active St art: April 19, 2024 End: April 19, 2024 Team Status: Inactive Member Role Status Joanna Salcedo II MD Primary Care Provider Active Start: May 04, 2024 End: May 04, 2024 Alex Sierra DO Attending Provider Active St art: May 04, 2024 End: May 04, 2024 Team Status: Inactive Member Role Status Joanna Salcedo II MD Primary Care Provider Active Start: June 06, 2024 End: June 06, 2024 Alex Sierra DO Attending Provider Active St art: June 06, 2024 End: June 06, 2024 Team Status: Inactive Member Role Status Joanna Salcedo II MD Primary Care Provider Active Start: June 08, 2024 End: June 08, 2024 Alex Sierra DO Attending Provider Active St art: June 08, 2024 End: June 08, 2024 Team Status: Active Member Role Status Joanna Salcedo II MD Primary Care Provider Active Start: March 16, 2024 Referral Self Attending Provider Active Start: 2024 Team Status: Inactive Member Role Status Joanna [...] December 13, 2023 End: December 13, 2023 BLANE Bernard Attending Provider Active Start: December 13, 2023 End: December 13, 2023 Roll Forming Machine Set Up Operator Relationship Specialty Start Date End Date Erick Salcedo MD [address] [facility] [address] [place] [address] [facility] [employer] 02/12/22 Erick Salcedo MD [address] [facility] [address] [place] [address] PCP - General Internal Medicine 08/27/22Wednesday, Prachi SUPERVISOR [employer] [address] [place] [address] Licensed Practical Nurse Family Medicine 11/12/23 Roll Forming Machine Set Up Operator Relationship Specialty Start Date End Date Erick Salcedo MD [address] [place] [address] PCP - [place] [employer] 02/12/22 Erick Salcedo MD [address] [place] [address] PCP - General Internal Medicine 08/27/22Wednesday, Prachi, SUPERVISOR [employer] [address] [place] [address] Licensed Practical Nurse Family Medicine 11/12/23 Roll Forming Machine Set Up Operator Relationship Specialty Start Date End Date Erick Salcedo MD [address] [place] [address] PCP - [place] [employer] 02/12/22 Erick Salcedo MD [address] [place] [address] PCP - General Internal Medicine 08/27/22Wednesday, Prachi, SUPERVISOR [employer] [address] [place] [address] Licensed Practical Nurse Family Medicine 11/12/23 Team Status: Active Member Role Status Dates Erick Salcedo II MD Primary Care Provider Active Start: December 21, 2023 Alex Sierra DO Attending Provider Active St art: December 21, 2023 Team Status: Inactive Member Role Status Dates Erick Salcedo II MD Primary Care Provider Active Start: December 21, 2023 End: December 21, 2023 Alex A Mariela , DO Attending Provider Active St art: December 21, 2023 End: December 21, 2023 Roll Forming Machine Set Up Operator Relationship Specialty Start Date End Date Erick Salcedo MD [address] [place] [address] PCP - [place] [employer] 02/12/22 Erick Salcedo MD [address] [place] [address] PCP - General Internal Medicine 08/27/22Wednesday, Prachi, SUPERVISOR [employer] [address] [place] [address] Licensed Practical Nurse Family Medicine 11/12/23 Roll Forming Machine Set Up Operator Relationship Specialty Start Date End Date Erick Salcedo MD [address] [place] [address] PCP - [place] [employer] 02/12/22 Erick Salcedo MD [address] [place] [address] PCP - General Internal Medicine 08/27/22Wednesday, Prachi, SUPERVISOR [employer] [address] [place] [address] Licensed Practical Nurse Family Medicine 11/12/23 Team [...] Sierra DO Attending Provider Active St art: November 21st, 2024 Team Status: Inactive Member Role Status Dates Erick Salcedo II MD Primary Care Provider Active Start: February 03, 2024 End: February 03, 2024 Alex Sierra DO Attending Provider Active St art: February 03, 2024 End: February 03, 2024 Roll Forming Machine Set Up Operator Relationship Specialty Start Date End Date Erick Salcedo MD [address] [place] [address] PCP - [place] [employer] 02/12/22 Erick Salcedo MD [address] [place] [address] PCP - General Internal Medicine 08/27/22WednesdayPrachi LPN [address] [place] [address] Licensed Practical Nurse Family Medicine 11/12/23 Roll Forming Machine Set Up Operator Relationship Specialty Start Date End Date Erick Salcedo MD [address] [place] [address] PCP - [place] [employer] 02/12/22 Erick Salcedo MD [address] [place] [address] PCP - General Internal Medicine 08/27/22WednesdayPrachi LPN [address] [place] [address] Licensed Practical Nurse Family Medicine 11/12/23 Roll Forming Machine Set Up Operator Relationship Specialty Start Date End Date Erick Salcedo MD [address] [place] [address] PCP - [place] [employer] 02/12/22 Erick Salcedo MD [address] [place] [address] PCP - General Internal Medicine 08/27/22WednesdayPrachi LPN [address] [place] [address] Licensed Practical Nurse Family Medicine 11/12/23 Team [...] Active Start: March 20, 2024 Alex Sierra , Attending Provider Active St art: March 20, 2024 Roll Forming Machine Set Up Operator Relationship Specialty Start Date End Date Erick Salcedo MD [address] [place] [address] PCP - [place] [employer] 02/12/22 Erick Salcedo MD [address] [place] [address] PCP - General Internal Medicine 08/27/22WednesdayPrachi LPN [address] [place] [address] Licensed Practical Nurse Family Medicine 11/12/23 Roll Forming Machine Set Up Operator Relationship Specialty Start Date End Date Erick Salcedo MD [address] [place] [address] PCP - General Internal Medicine 08/27/22 Cris Moran NP [address] [place] [address] PCP - [place] [employer] 02/13/24 Pippa Andrew, RN Licensed Practical Nurse Family Medicine 04/21/24 Roll Forming Machine Set Up Operator Relationship Specialty Start Date End Date Erick Salcedo MD [address] [place] [address] PCP - General Internal Medicine 08/27/22 Cris Moran, ALFONSO [address] [place] [address] PCP - [place] [employer] 02/13/24WedChanoPrachi LPN [address] [place] [address] Licensed Practical Nurse Family Medicine 11/12/23 04/21/24 Pippa Andrew, TASHA Licensed Practical Nurse Family Medicine 04/21/24 Roll Forming Machine Set Up Operator Relationship Specialty Start Date End Date Erick Salcedo MD [address] [place] [address] PCP - General Internal Medicine 08/27/22 Cris Moran, MARBLE SUPERVISOR [address] [place] [address] PCP - [place] [employer] 02/13/24 Pippa Andrew RN Licensed Practical Nurse Family Medicine 04/21/24 Team Status: Active Member Role Status Dates Erick Salcedo II MD Primary Care Provider Active Start: April 19, 2024 Alex Sierra DO Attending Provider Active St art: April 19, 2024 Roll Forming Machine Set Up Operator Relationship Specialty Start Date End Date Erick Salcedo MD [address] [place] [address] PCP - General Internal Medicine 08/27/22 Cris Moran, MARBLE SUPERVISOR [address] [place] [address] PCP - [place] [employer] 02/13/24 Pippa Andrew RN Licensed Practical Nurse Family Medicine 04/21/24 Roll Forming Machine Set Up Operator Relationship Specialty Start Date End Date Erick Salcedo MD [address] [place] [address] PCP - General Internal Medicine 08/27/22 Cris Moran, MARBLE SUPERVISOR [address] [place] [address] PCP - [place] [employer] 02/13/24 Pippa Andrew, RN Licensed Practical Nurse Family Medicine 04/21/24 Roll Forming Machine Set Up Operator Relationship Specialty Start Date End Date Erick Salcedo MD [address] [place] [address] PCP - General Internal Medicine 08/27/22 Cris Moran, MARBLE SUPERVISOR [address] [place] [address] PCP - [place] [employer] 02/13/24 Jocelin Nance LPN 06/02/24 Roll Forming Machine Set Up Operator Relationship Specialty Start Date End Date Erick Salcedo MD [address] [place] [address] PCP - General Internal Medicine 08/27/22 Cris Moran, MARBLE SUPERVISOR [address] [place] [address] PCP - [place] [employer] 02/13/24 Jocelin Nance LPN 06/02/24 Team Status: Inactive Member Role Status Dates Erick Salcedo II MD Primary Care Provider Active Start: June 16, 2024 End: June 16, 2024 Alex Sierra DO Attending Provider Active St art: June 16, 2024 End: June 16, 2024 Roll Forming Machine Set Up Operator Relationship Specialty Start Date End Date Erick Salcedo MD [address] [facility] [address] [place] [address] PCP - General Internal Medicine 08/27/22 Cris Moran, MARBLE SUPERVISOR [address] [facility] [facility] [address] [place] [address] PCP - [place] [employer] [employer] 02/13/24 Jocelin Nance [facility] 06/02/24 Team Status: Active Member Role Status Dates Erick Salcedo II MD Primary Care Provider Active Start: June 16, 2024 Alex Sierra DO Attending Provider, Other Provider Active Start: June 16, 2024 Team Status: Active Member Role Status Dates Erick Salcedo II MD Primary Care Provider Active Start: June 26, 2024 Alex Sierra DO Attending Provider Active St art: June 26, 2024 Team Status: Inactive Member Role Status Dates Erick Salcedo II MD Primary Care Provider Active Start: June 26, 2024 End: June 26, 2024 Alex Sierra DO Attending Provider Active St art: June 26, 2024 End: June 26, 2024 Roll Forming Machine Set Up Operator Relationship Specialty Start Date End Date Erick Salcedo MD [address] [facility] [address] [place] [address] PCP - General Internal Medicine 08/27/22 Cris Moran, MARBLE SUPERVISOR [address] [facility] [address] [place] [address] PCP - [place] [employer] 02/13/24 Jocelin Nance [facility] 06/02/24 Roll Forming Machine Set Up Operator Relationship Specialty Start Date End Date Erick Salcedo MD [address] [facility] [address] [place] [address] PCP - General Internal Medicine 08/27/22 Cris Moran, MARBLE SUPERVISOR [address] [facility] [address] [place] [address] PCP - [place] [employer] 02/13/24 [place] [facility] 06/02/24 Roll Forming Machine Set Up Operator Relationship Specialty Start Date End Date Erick Salcedo MD [address] [facility] [address] [place] [address] PCP - General Internal Medicine 08/27/22 Cris Moran NP [address] [facility] [address] [place] [address] PCP - [place] [employer] 02/13/24 [place] [facility] 06/02/24 Roll Forming Machine Set Up Operator Relationship Specialty Start Date End Date Erick Salcedo MD [address] [facility] [address] [place] [address] PCP - General Internal Medicine 08/27/22 [facility] Roll Forming Machine Set Up Operator Relationship Specialty Start Date End Date Erick Salcedo MD [address] [facility] [address] [place] [address] PCP - General Internal Medicine 08/27/22 [facility] Team Status: Active Member Role Status Dates Erick Salcedo II MD Primary Care Provider Active Start: July 20, 2024 Alex Sierra DO Attending Provider Active St art: July 20, 2024 Team Status: Inactive Member Role Status Dates Erick Salcedo II MD Primary Care Provider Active Start: July 27, 2024 End: July 27, 2024 Alex Sierra DO Attending Provider Active St art: July 27, 2024 End: July 27, 2024 Roll Forming Machine Set Up Operator Relationship Specialty Start Date End Date Erick Salcedo MD [address] [facility] [address] [place] [address] PCP - General Internal Medicine 08/27/22 Jocelin Nance [facility] 06/02/24 Roll Forming Machine Set Up Operator Relationship Specialty Start Date End Date Erick Salcedo MD [address] [facility] [address] [place] [address] PCP - General Internal Medicine 08/27/22 Jocelin Nance LPN 06/02/24 Roll Forming Machine Set Up Operator Relationship Specialty Start Date End Date Erick Salcedo MD [address] [facility] [address] [place] [address] PCP - General Internal Medicine 08/27/22 Jocelin Nance LPN 06/02/24 Roll Forming Machine Set Up Operator Relationship Specialty Start Date End Date Erick Salcedo MD [address] [facility] [address] [place] [address] PCP - General Internal Medicine 08/27/22 Jocelin Nance SUPERVISOR [employer] [address] [place] [address] 06/02/24 Roll Forming Machine Set Up Operator Relationship Specialty Start Date End Date Erick Salcedo MD [address] [place] [address] PCP - General Internal Medicine 08/27/22 Jocelin Nance, SUPERVISOR [employer] [address] [place] [address] 06/02/24 Roll Forming Machine Set Up Operator Relationship Specialty Start Date End Date Erick Salcedo MD [address] [place] [address] PCP - General Internal Medicine 08/27/22 Roll Forming Machine Set Up Operator Relationship Specialty Start Date End Date Erick Salcedo MD [address] [facility] [address] [place] [address] PCP - General Internal Medicine 08/27/22 Roll Forming Machine Set Up Operator Relationship Specialty Start Date End Date Erick Salcedo MD [address] [place] [address] PCP - General Internal Medicine 08/27/22 Roll Forming Machine Set Up Operator Relationship Specialty Start Date End Date Erick Salcedo MD [address] [place] [address] PCP - General Internal Medicine 08/27/22 Roll Forming Machine Set Up Operator Relationship Specialty Start Date End Date Erick Salcedo MD [address] [place] [address] PCP - General Internal Medicine 08/27/22 Goals (unrecognized section and content) Goals may [...] Reason Onset Date Comments Med Refill 04/21/2024 Reason Onset Date Comments Med Refill 04/27/2024 Reason Onset Date Comments Med Refill 05/04/2024 Reason Onset Date Comments Med Refill 05/11/2024 Reason Comments Follow-up Controlled medsADHD/ anxiety Med Refill Oxycodone-- [facility] Reason Onset Date Comments Med Refill 06/08/2024 Reason Onset Date Comments Med Refill 06/15/2024 Reason Onset Date Comments Med Refill 06/22/2024 Reason Onset Date Comments Med Refill 06/25/2024 Reason Onset Date Comments Med Refill 07/03/2024 Reason Onset Date Comments Med Refill 07/05/2024 Reason Onset Date Comments Med Refill 07/10/2024 Reason Onset Date Comments Med Refill 07/18/2024 Reason Onset Date Comments Med Refill 07/15/2024 Reason Onset Date Comments Med Refill 07/31/2024 Reason Onset Date Comments Med Refill 08/04/2024 Reason Onset Date Comments Med Refill 08/08/2024 Reason Onset Date Comments Med Refill 08/11/2024 Reason Onset Date Comments Med Refill 08/25/2024 Reason Onset Date Comments Med Refill 09/06/2024 Reason Onset Date Comments Med Refill 09/10/2024 Reason Onset Date Comments Med Refill 09/21/2024 Reason Onset Date Comments Med Refill 10/05/2024 Reason Onset Date Comments Med Refill 10/09/2024 Reason Onset Date Comments Med Refill 10/19/2024 FOR RECORDS PERTAINING TO PATIENTS WHO ARE [...] BE BASED ON THE PRIMARY CLINICAL RECORDS. [facility]. provides no warranty or guarantee of the accuracy or completeness of information in this document.
--- OUTSIDE RECORDS SUMMARY | 2024-10-26 18:28 | XMS_ITS | Encounter Summary ---
Author Organization [facility] Address [address] [place] [address] Care Team Providers Care Stamping Operator Name Role Phone Erick Salcedo MD Unavailable [phone] Erick Salcedo MD Primary Care Provider [phone] Wednesday, [employer] Unavailable [phone] Cris Moran DOSIMETRIST Unavailable Pippa Andrew RN Unavailable [phone] Jocelin Nance ACCOUNTING PROFESSIONAL Unavailable Encounter Details Date Type Department Care Team (Late st Contact Info) Description 04/05/2023 Abstract [facility] [place] [facility] [place] [address] [facility] [address] [place] [id number] Erick Salcedo MD [address] [facility] [address] [place], [place] [id number] Social History Tobacco Use Types Packs/Day Years [...] often do you attend chur ch or hinduism services? Patient declined 08/27/2022 Do you belong to any clubs o r organizations such as shinto groups, unions, fraModernizing Medicine or athletic groups, or school groups? No [...] medical care, and heating? Somewhat hard 08/27/2022 [facility] [place] [facility] Occupat ional Health - Occupational Stress [...] in a [facility] (including now)? No 08/27/2022 Comments Unknown Sex and Gender Information Value Date Recorded Sex Assigned at Not on file Legal Sex Female 6:47 PM EDT Gender Identity Not on file Sexual Orientation Not on file documented as of this encounter Plan of Treatment Not on file documented as of this encounter Visit Diagnoses Not on filedocumented in this encounter Care Teams Stamping Operator Relationship Specialty Start Date End Date Erick Salcedo MD [address] [facility] [address] [place] [address] PCP - [place] [employer] 02/12/2202/11 Erick Salcedo MD [address] [facility] [address] [place] [address] PCP - General Internal Medicine 08/27/22 Cris Moran NP [address] [facility] [address] [place] [address] PCP - [place] [employer] 02/13/24Wednesday, SEEMA Velarde [address] [place] [address] Licensed Practical Nurse Family Medicine 11/12/23 04/21/24 Pippa Andrew, RN [address] [place] [address] Licensed Practical Nurse Family Medicine 04/21/24 06/02/24 Jocelin Nance LPN [address] [place] [address] 06/02/24 09/27/24 documented as of this encounter
--- NOTE | 2024-10-26 18:37 | XR_ITS ---
[facility] [place] [id number] Patient Name: BLANKA VALENTIN MRN: [id number] date: 1970 Sex: F Assigned Patient Location: [facility] Current Patient Location: [facility] Accession/Order Number: [id number] Exam Date: 10/26/2024 23:36 Report Date: 10/26/2024 23:39 At the request of: CLARISSE REMY Procedure: XR knee RT 3V 3 views right knee plain film COMPARISON: None HISTORY: Close displaced fracture right patella. Previous surgeries. ACUTE FINDINGS: Nondisplaced fracture suspected. Adequate alignment of patella. DEGENERATIVE CHANGE: Mild degeneration SOFT TISSUE FINDINGS: Anterior soft tissue prominence JOINT EFFUSION: None POSTOP CHANGES: Absence of portion of the patella. Likely postsurgical. BONE MINERALIZATION: Adequate XR/XR knee RT 3V IMPRESSION: Postsurgical changes of the patella. Suspected nondisplaced fracture. Impression dictated by: Viktor Hong M.D. 10/26/2024 11:39 PM Dictation Location: [place] [address] Electronically authenticated by: [id number] Y Date: 10/26/2024 23:39
== END 2024-10-26 18:24 | disposition home or self-care (01) ==
PROVIDERS: PCP Internal Medicine; Visit Provider Nurse Practitioner Family
DX: S82.001S Unspecified fracture of right patella, sequela (principal)
CPT/HCPCS: 73562